=== PATIENT | male | born 1960 | race Caucasian/White ===

== ENCOUNTER → 2016-10-25 | Outpatient (CLI) | payer OTHER ==
[~2016-10-25] MED LIST: ACID1TAB PO; ACYC800T PO; ASP325T PO; ASPI325T32 PO; ATOR40TA PO; ATOR40TA70 PO; BMT1T PO; CEPH500C PO; CRV25T PO; DIGO250T PO; DIGO250T15 PO; DOXY100T61 PO; FENO135C PO; FENO135C4 PO; LEVO500T69 PO; LISI-597 PO; LISI40TA PO; LOPE2CAP PO; MTF500T PO; NAPR-243 PO; NST15O TOP; NYST15CR3 TOP; NYST1POW15 TOP; OMEG1CAP51 PO; OMG1KC PO; PRAV40TA PO; RIVA20TA2 PO; SIMV40TA4 PO; SITA50TA PO; SPIR25TA3 PO; SPRN25T PO; SULF1TAB35 PO; SULF1TAB38 PO; WRF10T PO; WRF2.5T PO; WRF5T PO; XAREL PO
== END ==
LOC: CARD 12:38
PROVIDERS: ATTEND Physician Assistant
DX: I11.0 Hypertensive heart disease with heart failure (principal); I50.22 Chronic systolic (congestive) heart failure; E78.2 Mixed hyperlipidemia; E11.9 Type 2 diabetes mellitus without complications
CPT/HCPCS: 93306

== ENCOUNTER → 2017-12-24 | Outpatient (CLI) | payer OTHER ==
[~2017-12-24] VITALS: Ht 167.6 cm; Wt 126.1 kg
[~2017-12-24] MED LIST changes: +CATHETER FLUSH 10 ML SYR IV PRN
== END ==
LOC: CARD 11:20
PROVIDERS: ATTEND Internal Medicine Cardiovascular Disease
DX: I10 Essential (primary) hypertension (principal); I34.0 Nonrheumatic mitral (valve) insufficiency; E78.2 Mixed hyperlipidemia; I48.0 Paroxysmal atrial fibrillation; I27.20 Pulmonary hypertension, unspecified; J44.9 Chronic obstructive pulmonary disease, unspecified

== ENCOUNTER → 2018-01-01 | Outpatient (CLI) | payer OTHER ==
[~2018-01-01] MED LIST changes: -CATHETER FLUSH 10 ML SYR IV PRN
== END ==
LOC: CARD 12:51
PROVIDERS: ATTEND Internal Medicine Cardiovascular Disease
DX: I10 Essential (primary) hypertension (principal); I34.0 Nonrheumatic mitral (valve) insufficiency; E78.2 Mixed hyperlipidemia; I48.0 Paroxysmal atrial fibrillation; I27.20 Pulmonary hypertension, unspecified; J44.9 Chronic obstructive pulmonary disease, unspecified
CPT/HCPCS: 93306

== ENCOUNTER 2018-06-05 13:52 | Emergency (ER) | payer OTHER ==
[~2018-06-05] VITALS: Ht 167.6 cm; Wt 124.7 kg
--- OUTSIDE RECORDS SUMMARY | 2018-06-05 14:00 | XMS REPORT | CCD ---
Author Author [facility] Address [address] [place] [address] Phone Care Team Providers Care Manager Licensing Name Role Phone PP Unavailable CCM Unavailable Summary Purpose Interface Exchange Insurance Providers Payer name Policy type / Coverage type Covered democrat ID Effective Begin Date Effective End Date [facility] Commercial Insurance [id number] Unknown Family history Father Diagnosis Age At Onset Congestive heart failure Unknown Mother Diagnosis Age At Onset No Family Disease Entered N/A Sister Diagnosis Age At Onset No Family Disease Entered N/A Social History Social History Element Codes Description Effective Dates Tobacco history SNOMED CT: 1917339 Former smoker 10/29/2011 Number of years using tobacco Unknown 20 22 10/29/2011 Alcohol history Unknown occasionally drinks alcohol had 2 glasses of wine about 4 months ago. beer occasionally 10/29/2011 Has the patient used marijuana? Unknown Yes quit at age 25 10/29/2011 Allergies, Adverse Reactions, Alerts Substance Reaction Codes Entered Date Inactivated Date Status * NO KNOWN DRUG ALLERGIES Unknown 10/29/2011 No Inactive Date Active Past Medical History Illness Codes Condition Status Onset Date Resolved Date Cellulitis of left lower limb ICD-9: 682.6 ICD-10: L03.116 Active 11/16/2015 Unknown Localized edema ICD-9 : 782.3 ICD-10: R60.0 Active 11/16/2015 Unknown Type 2 diabetes mellitus without complications ICD-9: 250.00 ICD-10: E11.9 Active 11/16/2015 Unknown Essential (primary) hypertension ICD-9: 401.9 ICD-10: I10 Active 09/20/2015 Unknown Mixed hyperlipidemia ICD-9: 272.2 ICD-10: E78.2 Active 09/20/2015 Unknown Other obesity due to excess calories ICD-9: 278.00 ICD-10: E66.09 Active 09/20/2015 Unknown CELLULITIS OF LEG ICD- 9: 682.6 Active 11/24/2013 Unknown Cough ICD-9: 786.2 Active 11/24/2013 Unknown EDEMA ICD-9: 782.3 Active 11/24/2013 Unknown FEVER NOS ICD-9: 780.60 Active 11/24/2013 Unknown SCABIES ICD-9: 133.0 Active 10/15/2013 Unknown Abrasion of leg ICD-9 : 916.0 Active 11/26/2012 Unknown Hordeolum externum of right eye ICD-9: 373.11 Active 2011 Unknown Periorbital cellulitis ICD-9: 373.13 Active 04/07/2012 Unknown Diabetes Unknown Active 11/14/2011 Unknown DIABETES TYPE II ICD-9 : 250.00 Active 11/14/2011 Unknown ESSENTIAL HYPERTENSION ICD-9: 401.9 Active 11/14/2011 Unknown Congestive heart failure Unknown Active 10/29/2011 Unknown Hyperlipidemia Unknown Active 10/29/2011 Unknown Hypertension Unknown Active 10/29/2011 Unknown Anticoagulant long-term use ICD-9: V58.61 Active 10/29/2011 Unknown Coronary artery disease ICD-9: 414.00 Active 10/29/2011 Unknown Hypotension ICD-9: 458.9 Active 10/29/2011 Unknown Leg pain ICD-9: 729.5 Active 10/29/2011 Unknown Nausea vomiting and diarrhea ICD-9: 787.01 Active 10/29/2011 Unknown Problems Condition Codes Effective Dates Condition Status Cellulitis of left lower limb ICD-9: 682.6 ICD-10: L03.116 11/16/2015 Active Localized edema ICD-9 : 782.3 ICD-10: R60.0 11/16/2015 Active Type 2 diabetes mellitus without complications ICD-9: 250.00 ICD-10: E11.9 11/16/2015 Active Essential (primary) hypertension ICD-9: 401.9 ICD-10: I10 09/20/2015 Active Mixed hyperlipidemia ICD-9: 272.2 ICD-10: E78.2 09/20/2015 Active Other obesity due to excess calories ICD-9: 278.00 ICD-10: E66.09 09/20/2015 Active CELLULITIS OF LEG ICD- 9: 682.6 11/24/2013 Active Cough ICD-9: 786.2 11/24/2013 Active EDEMA ICD-9: 782.3 11/24/2013 Active FEVER NOS ICD-9: 780.60 11/24/2013 Active SCABIES ICD-9: 133.0 10/15/2013 Active Abrasion of leg ICD-9 : 916.0 11/26/2012 Active Hordeolum externum of right eye ICD-9: 373.11 04/07/2012 Active Periorbital cellulitis ICD-9: 373.13 04/07/2012 Active Diabetes Unknown 11/14/2011 Active DIABETES TYPE II ICD-9 : 250.00 11/14/2011 Active ESSENTIAL HYPERTENSION ICD-9: 401.9 11/14/2011 Active Congestive heart failure Unknown 10/29/2011 Active Hyperlipidemia Unknown 10/29/2011 Active Hypertension Unknown 10/29/2011 Active Anticoagulant long-term use ICD-9: V58.61 10/29/2011 Active Coronary artery disease ICD-9: 414.00 10/29/2011 Active Hypotension ICD-9: 458.9 10/29/2011 Active Leg pain ICD-9: 729.5 10/29/2011 Active Nausea vomiting and diarrhea ICD-9: 787.01 10/29/2011 Active Medications Medication Codes Instructions Start Date Stop Date Status Fill Instructions spironolactone 25 mg tablet RxNorm: 385168 TAKE ONE-HALF (1/2) TABLET DAILY 04/20/2018 No Stop Date Active Trilipix 135 mg capsule,delayed release RxNorm: 412710 TAKE 1 CAPSULE DAILY 04/20/2018 No Stop Date Active lisinopril 40 mg tablet RxNorm: 274257 TAKE ONE-HALF (1/2) TABLET DAILY 02/25/2018 No Stop Date Active metformin 500 mg tablet RxNorm: 726479 Tablet(s) TAKE ONE TABLET BY MOUTH TWICE DAILY 11/14/2017 11/08/2018 Active carvedilol 25 mg tablet RxNorm: 748985 TAKE ONE TABLET BY MOUTH TWICE DAILY 06/06/2017 No Stop Date Active metformin 500 mg tablet RxNorm: 250905 TAKE ONE TABLET BY MOUTH TWICE DAILY 06/06/2017 11/13/2017 Inactive Januvia 100 mg tablet RxNorm: 376518 TAKE 1 TABLET DAILY 2017 No Stop Date Active Trilipix 135 mg capsule,delayed release RxNorm: 142680 TAKE 1 CAPSULE DAILY 04/22/2017 04/19/2018 Inactive spironolactone 25 mg tablet RxNorm: 454030 TAKE ONE-HALF (1/2) TABLET DAILY 02/11/2017 04/19/2018 Inactive Januvia 100 mg tablet RxNorm: 158302 TAKE 1 TABLET DAILY 201604/28/2017 Inactive lisinopril 40 mg tablet RxNorm: 676952 TAKE ONE-HALF (1/2) TABLET DAILY 12/24/2016 02/24/2018 Inactive nystatin 100,000 unit/gram topical powder RxNorm: 131451 1 Application TOP BID 11/11/2016 05/09/2017 Inactive Trilipix 135 mg capsule,delayed release RxNorm: 536589 TAKE 1 CAPSULE DAILY 11/11/2016 04/21/2017 Inactive carvedilol 25 mg tablet RxNorm: 382709 TAKE ONE TABLET BY MOUTH TWICE DAILY 09/23/2016 03/21/2017 Inactive metformin 500 mg tablet RxNorm: 375320 1 Tablet(s) PO BID 04/0901/03/2017 Inactive metformin 500 mg tablet RxNorm: 326838 TAKE ONE TABLET BY MOUTH TWICE DAILY 04/09/2016 05/08/2016 Inactive carvedilol 25 mg tablet RxNorm: 108182 TAKE ONE TABLET BY MOUTH TWICE DAILY 03/25/2016 09/20/2016 Inactive metformin 500 mg tablet RxNorm: 014159 1 Tablet(s) BID 201504/08/2016 Inactive metformin 500 mg tablet RxNorm: 228352 1 Tablet(s) PO BID 01/2501/29/2016 Inactive digoxin 250 mcg tablet RxNorm: 678774 TAKE ONE-HALF (1/2) TABLET DAILY 01/15/2016 No Stop Date Active Trilipix 135 mg capsule,delayed release RxNorm: 787076 TAKE 1 CAPSULE DAILY 01/01/2016 11/10/2016 Inactive spironolactone 25 mg tablet RxNorm: 712677 TAKE ONE-HALF (1/2) TABLET DAILY 12/26/2015 02/10/2017 Inactive lisinopril 40 mg tablet RxNorm: 238350 TAKE ONE-HALF (1/2) TABLET DAILY 12/18/2015 12/23/2016 Inactive Januvia 100 mg tablet RxNorm: 800819 TAKE 1 TABLET DAILY 201501/20/2017 Inactive ceftriaxone 500 mg solution for injection RxNorm: 2540916 Inj 11/17/2015 11/17/2015 Inactive Bactrim DS 800 mg-160 mg tablet RxNorm: 305127 1 Tablet(s) PO BID 11/17/2015 11/23/2015 Inactive metformin 500 mg tablet RxNorm: 289869 1 Tablet(s) PO BID 11/1401/25/2016 Inactive increase Aspir-81 81 mg tablet,delayed release RxNorm: 865868 1 Tablet(s) PO daily 09/21/2015 No Stop Date Active metformin 500 mg tablet RxNorm: 370424 1/2 Tablet(s) PO BID Tablet(s) TAKE ONE- HALF TABLET BY MOUTH TWICE DAILY 09/21/2015 11/14/2015 Inactive carvedilol 25 mg tablet RxNorm: 752951 1 Tablet(s) PO BID 09/2003/18/2016 Inactive Trilipix 135 mg capsule,delayed release RxNorm: 616720 CAPSULE(S) TAKE 1 CAPSULE DAILY 07/04/2015 12/31/2015 Inactive Contour Test Strips RxNorm: USE TO TEST EVERY MORNING AND EVERY EVENING DIRECTED 06/23/2015 No Stop Date Active metformin 500 mg tablet RxNorm: 747933 Tablet(s) TAKE ONE-HALF TABLET BY MOUTH TWICE DAILY 06/01/2015 06/30/2015 Inactive metformin 500 mg tablet RxNorm: 047747 Tablet(s) TAKE ONE-HALF TABLET BY MOUTH TWICE DAILY 02/16/2015 05/31/2015 Inactive lisinopril 40 mg tablet RxNorm: 912705 TAKE ONE-HALF (1/2) TABLET DAILY 01/10/2015 12/17/2015 Inactive metformin 500 mg tablet RxNorm: 860725 Tablet(s) TAKE ONE-HALF TABLET BY MOUTH TWICE DAILY 11/22/2014 03/21/2015 Inactive metformin 500 mg tablet RxNorm: 547163 Tablet(s) TAKE ONE-HALF TABLET BY MOUTH TWICE DAILY 11/21/2014 11/21/2014 Inactive digoxin 250 mcg tablet RxNorm: 301917 Tablet(s) TAKE ONE-HALF (1/2) TABLET DAILY 11/14/2014 08/10/2015 Inactive spironolactone 25 mg tablet RxNorm: 711643 TAKE ONE-HALF (1/2) TABLET DAILY 10/26/2014 12/25/2015 Inactive spironolactone 25 mg tablet RxNorm: 060601 Tablet(s) TAKE ONE-HALF (1/2) TABLET DAILY 10/25/2014 10/25/2014 Inactive Januvia 100 mg tablet RxNorm: 789403 TAKE 1 TABLET DAILY 201411/19/2015 Inactive Bactrim DS 800 mg-160 mg tablet RxNorm: 383049 1 Tablet(s) PO BID TAKE ONE TABLET BY MOUTH TWICE DAILY 09/20/20142014 Inactive Contour Test Strips RxNorm: USE TO TEST EVERY MORNING AND EVERY EVENING DIRECTED 08/08/2014 06/22/2015 Inactive Trilipix 135 mg capsule,delayed release RxNorm: 395175 Capsule(s) TAKE 1 CAPSULE DAILY 07/27/2014 01/22/2015 Inactive metformin 500 mg tablet RxNorm: 236170 Tablet(s) TAKE ONE-HALF TABLET BY MOUTH TWICE DAILY 06/06/2014 06/05/2014 Inactive metformin 500 mg tablet RxNorm: 997652 TAKE ONE-HALF TABLET BY MOUTH TWICE DAILY 06/06/2014 09/03/2014 Inactive digoxin 250 mcg tablet RxNorm: 913182 TAKE ONE-HALF (1/2) TABLET DAILY 04/28/2014 11/13/2014 Inactive spironolactone 25 mg tablet RxNorm: 032839 TAKE ONE-HALF (1/2) TABLET DAILY 04/28/2014 10/24/2014 Inactive Trilipix 135 mg capsule,delayed release RxNorm: 461919 TAKE 1 CAPSULE DAILY 04/28/2014 07/26/2014 Inactive Januvia 100 mg tablet RxNorm: 975102 TAKE 1 TABLET DAILY 201309/19/2014 Inactive metformin 500 mg tablet RxNorm: 770572 TAKE ONE-HALF TABLET BY MOUTH TWICE DAILY 01/11/2014 06/05/2014 Inactive Januvia 100 mg tablet RxNorm: 763921 1 TABLET(S) PO DAILY TAKE ONE TABLET BY MOUTH EVERY DAY 12/30/2013 03/29/2014 Inactive Bactroban 2 % topical ointment RxNorm: 863427 1 TOP BID 2013 No Stop Date Active sulfamethoxazole 800 mg-trimethoprim 160 mg tablet RxNorm: 638737 1 Tablet(s) PO BID 12/08/2013 12/17/2013 Inactive sulfamethoxazole 800 mg-trimethoprim 160 mg tablet RxNorm: 628956 1 Tablet(s) PO BID 12/08/2013 12/07/2013 Inactive lisinopril 40 mg tablet RxNorm: 190716 1/2 Tablet(s) PO daily 12/02/2013 03/01/2014 Inactive lisinopril 40 mg tablet RxNorm: 796706 1/2 Tablet(s) PO daily 1/2 TABLET(S) PO DAILY 12/02/2013 01/30/2014 Inactive ceftriaxone 1 gram solution for injection RxNorm: 485278 Inj 11/25/2013 Inactive Rocephin 500 mg solution for injection RxNorm: 613114 1 Gram(s) Inj once 11/24/2013 11/24/2013 Inactive sulfamethoxazole 800 mg-trimethoprim 160 mg tablet RxNorm: 247502 1 Tablet(s) PO BID 11/24/2013 12/07/2013 Inactive permethrin 5 % topical cream RxNorm: 390396 1 Application TOP daily 10/19/2013 No Stop Date Active apply head to toe, leave on 12 hours then wash off, may repeat x 1 if needed permethrin 5 % topical cream RxNorm: 760157 1 Application TOP daily 10/15/2013 10/18/2013 Inactive apply head to toe, leave on 12 hours then wash off, may repeat x 1 if needed metformin 500 mg tablet RxNorm: 621960 TAKE ONE-HALF TABLET BY MOUTH TWICE DAILY 10/05/2013 01/02/2014 Inactive Contour Test Strips RxNorm: Miscellaneous USE TO TEST BLOOD SUGAR TWICE A DAY 06/28/2013 08/07/2014 Inactive spironolactone 25 mg tablet RxNorm: 987426 Tablet(s) PO TAKE ONE-HALF (1/2) TABLET DAILY 06/18/2013 04/27/2014 Inactive Trilipix 135 mg capsule,delayed release RxNorm: 164118 Capsule(s) PO TAKE 1 CAPSULE DAILY 06/18/2013 04/27/2014 Inactive digoxin 250 mcg tablet RxNorm: 906364 Tablet(s) PO TAKE ONE-HALF (1/2) TABLET DAILY 06/18/2013 04/27/2014 Inactive metformin 500 mg tablet RxNorm: 494216 1/2 Tablet(s) PO BID 09/30/2013 Inactive Microlet Lancet RxNorm : 1 Miscellaneous BID 05/31/2013 08/23/2014 Inactive Microlet Lancet RxNorm : 1 Miscellaneous BID 05/31/2013 05/30/2013 Inactive nystatin 100,000 unit/gram topical powder RxNorm: 373719 1 Application TOP BID 05/31/2013 08/28/2013 Inactive Januvia 100 mg tablet RxNorm: 023751 1 Tablet(s) PO daily TAKE ONE TABLET BY MOUTH EVERY DAY 05/31/2013 11/26/2013 Inactive nystatin 100,000 unit/gram topical powder RxNorm: 319928 1 Application TOP BID 05/17/2013 05/30/2013 Inactive Bactrim DS 800 mg-160 mg tablet RxNorm: 107000 1 Tablet(s) PO BID TAKE ONE TABLET BY MOUTH TWICE DAILY 05/17/20132013 Inactive Bactrim DS 800 mg-160 mg tablet RxNorm: 804757 Tablet(s) PO TAKE ONE TABLET BY MOUTH TWICE DAILY 12/03/2012 05/16/2013 Inactive Bactrim DS 800 mg-160 mg tablet RxNorm: 490337 1 Tablet(s) PO BID 11/26/2012 11/30/2012 Inactive lisinopril 40 mg tablet RxNorm: 830619 1/2 Tablet(s) PO daily 11/16/2012 12/01/2013 Inactive Januvia 100 mg tablet RxNorm: 375946 1 Tablet(s) PO daily TAKE ONE TABLET BY MOUTH EVERY DAY 11/16/2012 05/30/2013 Inactive lisinopril 40 mg tablet RxNorm: 034671 Tablet(s) PO TAKE 1 TABLET DAILY 10/24/2012 11/15/2012 Inactive Contour Test Strips RxNorm: Strip Miscellaneous USE TO TEST BLOOD SUGAR TWICE A DAY 10/24/2012 06/28/2013 Inactive Trilipix 135 mg capsule,delayed release RxNorm: 109884 Capsule(s) PO TAKE 1 CAPSULE DAILY 10/14/2012 06/17/2013 Inactive Bactrim DS 800 mg-160 mg tablet RxNorm: 664871 1 Tablet(s) PO BID 10/07/2012 10/16/2012 Inactive Bactrim DS 800 mg-160 mg tablet RxNorm: 770895 1 Tablet(s) PO BID 10/07/2012 10/06/2012 Inactive Januvia 100 mg tablet RxNorm: 838787 1 Tablet(s) PO daily 201201/18/2013 Inactive may have #90 if cheaper digoxin 250 mcg tablet RxNorm: 0019415 1/2 tab MWF sat sun, 1 tab tues thurs Tablet(s) PO daily 1/2 tab MWF sat sun, 1 tab tues thurs 06/201209/20/2015 Inactive TAKE 1 TABLET DAILY digoxin 250 mcg tablet RxNorm: 0628817 1/2 Tablet(s) PO daily 04/07/2012 09/20/2012 Inactive TAKE 1 TABLET DAILY sulfamethoxazole-trimethoprim 800 mg-160 mg tablet RxNorm: 465966 1 Tablet(s) PO BID 04/07/2012 04/13/2012 Inactive Januvia 100 mg tablet RxNorm: 524770 1/2 Tablet(s) PO daily 08/04/2012 Inactive may have #90 if cheaper Rocephin 500 mg Solution for Injection RxNorm: 026735 1 Inj 04/07/2012 Inactive Gentak 0.3 % Eye Drops RxNorm: 184208 3 Drop(s) OPH QID 3 drops 4 times daily x 7 days 04/07/2012 04/13/2012 Inactive spironolactone 25 mg tablet RxNorm: 833217 1/2 Tablet(s) PO daily 04/07/2012 06/17/2013 Inactive TAKE 1 TABLET DAILY Coumadin 5 mg tablet RxNorm: 526017 Tablet(s) PO Luz manages 02/28/2012 08/26/2012 Inactive 7.5 mg mon wed [id number] other daysDrFarheen Escobar manages Januvia 100 mg tablet RxNorm: 569619 1 Tablet(s) PO 02/20/2012 11/16/2012 Inactive may have #90 if cheaper Trilipix 135 mg capsule,delayed release RxNorm: 508266 Capsule(s) PO 02/10/2012 06/16/2012 Inactive TAKE 1 CAPSULE DAILY digoxin 250 mcg tablet RxNorm: 8086072 Tablet(s) PO 02/10/2012 04/06/2012 Inactive TAKE 1 TABLET DAILY spironolactone 25 mg tablet RxNorm: 275074 Tablet(s) PO 201104/06/2012 Inactive TAKE 1 TABLET DAILY simvastatin 80 mg tablet RxNorm: 038966 Tablet(s) PO 201111/15/2012 Inactive TAKE ONE-HALF TABLET BY MOUTH EVERY DAY Januvia 50 mg tablet RxNorm: 993391 1 Tablet(s) PO daily 201102/19/2012 Inactive simvastatin 80 mg tablet RxNorm: 988825 1/2 Tablet(s) PO daily 11/07/2011 12/02/2011 Inactive lisinopril 40 mg tablet RxNorm: 137518 1 Tablet(s) PO daily 12/06/2011 Inactive spironolactone 25 mg tablet RxNorm: 102569 1 Tablet(s) PO daily 12/17/2010 03/16/2011 Inactive digoxin 250 mcg tablet RxNorm: 5950152 1 Tablet(s) PO daily 03/16/2011 Inactive Trilipix 135 mg capsule,delayed release RxNorm: 552877 1 Capsule(s) PO daily 12/17/2010 03/16/2011 Inactive spironolactone 25 mg Tab RxNorm: 770905 1 Tablet(s) PO daily No Start Date Active Lipitor 40 mg tablet RxNorm: 957034 1 Tablet(s) PO daily No Start Date Active Fish Oil 1,000 mg Cap RxNorm: 3 Capsule(s) PO daily No Start Date Active Trilipix 135 mg Capsule, delayed release RxNorm: 693596 1 Capsule(s) PO daily No Start Date Active bumetanide 1 mg Tab RxNorm: 939041 Tablet(s) PO PRN No Start Date Active Xarelto 20 mg tablet RxNorm: 6323224 1 Tablet(s) PO daily No Start Date Active simvastatin 80 mg tablet RxNorm: 943986 1/2 Tablet(s) PO daily No Start Date 11/06/2011 Inactive metformin 500 mg tablet RxNorm: 009602 1/2 Tablet(s) PO BID No Start Date 06/02/2013 Inactive carvedilol 25 mg Tab RxNorm: 448378 1 Tablet(s) PO BID No Start Date 09/20/2015 Inactive aspirin 325 mg tablet RxNorm: 632603 1 Tablet(s) PO daily No Start Date 09/20/2015 Inactive digoxin 250 mcg Tab RxNorm: 3062984 1/2 Tablet(s) PO daily No Start Date 09/20/2015 Inactive Coumadin 5 mg tablet RxNorm: 211711 Tablet(s) PO No Start Date 02/27/2012 Inactive 7.5 mg fri [id number] other days Bactroban 2 % topical ointment RxNorm: 064945 1 TOP BID No Start Date 12/07/2013 Inactive Contour Test Strips RxNorm: 1 Miscellaneous BID No Start Date 10/23/2012 Inactive countour ts lisinopril 40 mg tablet RxNorm: 139960 1 Tablet(s) PO daily No Start Date 11/06/2011 Inactive Medication Administered Medication Codes Instructions Start Date Status ceftriaxone 500 mg solution for injection RxNorm: 4640638 11/17/2015 No longer Active ceftriaxone 1 gram solution for injection RxNorm: 849698 11/25/2013 No longer Active Rocephin 500 mg solution for injection RxNorm: 491918 1Gramonce 11/24/2013 No longer Active Rocephin 500 mg Solution for Injection RxNorm: 901623 1 04/07/2012 No longer Active Immunizations No Immunization data Assessments Condition Codes Effective Dates Type 2 diabetes mellitus without complications ICD-10: E11.9 ICD-9: 250.00 11/17/2015 Localized edema ICD-10: R60.0 ICD-9: 782.3 11/17/2015 Cellulitis of left lower limb ICD-10: L03.116 ICD-9: 682.6 11/17/2015 Other obesity due to excess calories ICD-10: E66.09 ICD-9: 278.00 09/21/2015 Essential (primary) hypertension ICD-10: I10 ICD-9: 401.9 09/21/2015 Mixed hyperlipidemia ICD-10: E78.2 ICD-9: 272.2 09/21/2015 CELLULITIS OF LEG ICD-9: 682.6 2013 Cough ICD-9: 786.2 11/24/2013 FEVER NOS ICD-9: 780.60 11/24/2013 EDEMA ICD-9: 782.3 11/24/2013 SCABIES ICD-9: 133.0 10/15/2013 DIABETES TYPE II SNOMED: 453907922 ICD-9: 250.00 07/01/2013 Abrasion of leg ICD-9: 916.0 11/26/2012 Hypotension ICD-9: 458.9 11/16/2012 Hordeolum externum of right eye ICD-9: 373.11 04/07/2012 Periorbital cellulitis ICD-9: 373.13 ESSENTIAL HYPERTENSION SNOMED: 45919141 ICD-9: 401.9 11/14/2011 Leg pain ICD-9: 729.5 10/29/2011 Anticoagulant long-term use ICD-9: V58.61 10/29/2011 Nausea vomiting and diarrhea ICD-9: 787.01 10/29/2011 Coronary artery disease ICD-9: 414.00 01/2012 Reason For Visit Reason For Visit Effective Dates Notes cellulitis 11/17/2015 diabetes mellitus 09/21/2015 cellulitis 11/24/2013 no none injury to leg rash 10/15/2013 cellulitis 07/01/2013 rash 05/17/2013 cellulitis 11/26/2012 cellulitis 11/16/2012 Hospital Follow Up 08/27/2012 eye pain 04/07/2012 hospital follow up 11/14/2011 cellulitis 10/29/2011 Results Observation Observation Code Item Item Code Result Date Comp Metabolic Mup089 NA 133 mEq/L 11/17/2015 Comp Metabolic Nqg134 K 4.5 mEq/L 11/17/2015 Comp Metabolic Sfj964 CL 101 mEq/L 11/17/2015 Comp Metabolic Klt608 CO2 22.0 mEq/L 11/17/2015 Comp Metabolic Hsx561 ANION GAP 15 11/17/2015 Comp Metabolic Cuq461 GLUCOSE 197 mg/dL 11/17/2015 Comp Metabolic Vbl757 Creat 0.8 mg/dL 11/17/2015 Comp Metabolic Nqh835 eGFR 110 ml/min/1.73m2 11/17/2015 Comp Metabolic Edu603 BUN 20 mg/dL 11/17/2015 Comp Metabolic Lsx676 B/C Ratio 25.6 Ratio 11/17/2015 Comp Metabolic Hpz656 CALCIUM 9.4 mg/dL 11/17/2015 Comp Metabolic Nro712 ALK PHOS 65 U/L 11/17/2015 Comp Metabolic Fla310 AST(SGOT) 22 U/L 11/17/2015 Comp Metabolic Cqb724 ALT(SGPT) 40 U/L 11/17/2015 Comp Metabolic Ekg327 BILI T 0.5 mg/dL 11/17/2015 Comp Metabolic Tkv147 ALBUMIN 4.2 g/dL 11/17/2015 Comp Metabolic Mei611 TPRO 7.0 g/dL 11/17/2015 Comp Metabolic Oia812 GLOB 2.8 g/dL 11/17/2015 Comp Metabolic Acv845 A/G Ratio 1.5 Ratio 11/17/2015 Comp Metabolic Tmj230 Osmo 274 mOsmo 11/17/2015 Cbc With Differential Ord2 WBC 15.23 K/ul 11/17/2015 Cbc With Differential Ord2 RBC 5.41 M/ul 11/17/2015 Cbc With Differential Ord2 HGB 16.0 g/dl 11/17/2015 Cbc With Differential Ord2 Neut% 88.2 % 11/17/2015 Cbc With Differential Ord2 HCT 47.7 % 11/17/2015 Cbc With Differential Ord2 MCV 88.2 fl 11/17/2015 Cbc With Differential Ord2 Lymph% 4.5 % 11/17/2015 Cbc With Differential Ord2 Sharp% 7.0 % 11/17/2015 Cbc With Differential Ord2 MCH 29.6 pg 11/17/2015 Cbc With Differential Ord2 Eos% 0.2 % 11/17/2015 Cbc With Differential Ord2 MCHC 33.5 pg 11/17/2015 Cbc With Differential Ord2 PLT 157 K/ul 11/17/2015 Cbc With Differential Ord2 Baso% 0.1 % 11/17/2015 Cbc With Differential Ord2 Neut ABS# 13.44 K/ul 11/17/2015 Cbc With Differential Ord2 RDW 13.8 % 11/17/2015 Cbc With Differential Ord2 Lymph ABS# 0.68 K/ul 11/17/2015 Cbc With Differential Ord2 Sharp ABS# 1.1 K/ul 11/17/2015 Cbc With Differential Ord2 Eos ABS# 0.0 K/ul 11/17/2015 Cbc With Differential Ord2 Baso ABS# 0.0 K/ul 11/17/2015 Cbc With Differential Ord2 WBC 8.61 K/ul 11/08/2015 Cbc With Differential Ord2 RBC 5.54 M/ul 11/08/2015 Cbc With Differential Ord2 HGB 16.3 g/dl 11/08/2015 Cbc With Differential Ord2 Neut% 64.5 % 11/08/2015 Cbc With Differential Ord2 HCT 48.4 % 11/08/2015 Cbc With Differential Ord2 MCV 87.4 fl 11/08/2015 Cbc With Differential Ord2 Lymph% 24.4 % 11/08/2015 Cbc With Differential Ord2 MCH 29.4 pg 11/08/2015 Cbc With Differential Ord2 Sharp% 10.2 % 11/08/2015 Cbc With Differential Ord2 Eos% 0.7 % 11/08/2015 Cbc With Differential Ord2 MCHC 33.7 pg 11/08/2015 Cbc With Differential Ord2 Baso% 0.2 % 11/08/2015 Cbc With Differential Ord2 PLT 168 K/ul 11/08/2015 Cbc With Differential Ord2 RDW 13.7 % 11/08/2015 Cbc With Differential Ord2 Neut ABS# 5.55 K/ul 11/08/2015 Cbc With Differential Ord2 Lymph ABS# 2.10 K/ul 11/08/2015 Cbc With Differential Ord2 Sharp ABS# 0.9 K/ul 11/08/2015 Cbc With Differential Ord2 Eos ABS# 0.1 K/ul 11/08/2015 Cbc With Differential Ord2 Baso ABS# 0.0 K/ul 11/08/2015 Microalbumin Pgp286 MicroAlb <0.7 mg/dL 11/08/2015 Tsh Ord6 hTSH II 0.65 uIU/mL 11/08/2015 Lipid Ord30 CHOL 157 mg/dL 11/08/2015 Lipid Ord30 HDL 30.0 mg/dl 11/08/2015 Lipid Ord30 TRIG 228 mg/dL 11/08/2015 Lipid Ord30 LDL 81 mg/dL 11/08/2015 Lipid Ord30 C/HDL 5.2 Ratio 11/08/2015 Comp Metabolic Wyz672 NA 130 mEq/L 11/08/2015 Comp Metabolic Hmw317 K 4.4 mEq/L 11/08/2015 Comp Metabolic Cpd356 CL 97 mEq/L 11/08/2015 Comp Metabolic Gst897 CO2 27.0 mEq/L 11/08/2015 Comp Metabolic Dqb825 ANION GAP 10 11/08/2015 Comp Metabolic Ksi694 GLUCOSE 175 mg/dL 11/08/2015 Comp Metabolic Dgg078 Creat 0.8 mg/dL 11/08/2015 Comp Metabolic Gbs386 eGFR 104 ml/min/1.73m2 11/08/2015 Comp Metabolic Qkj953 BUN 26 mg/dL 11/08/2015 Comp Metabolic Tkz306 B/C Ratio 31.7 Ratio 11/08/2015 Comp Metabolic Wkq339 CALCIUM 9.3 mg/dL 11/08/2015 Comp Metabolic Qoa165 ALK PHOS 68 U/L 11/08/2015 Comp Metabolic Tqt444 AST(SGOT) 26 U/L 11/08/2015 Comp Metabolic Hwd914 ALT(SGPT) 42 U/L 11/08/2015 Comp Metabolic Zas310 BILI T 0.7 mg/dL 11/08/2015 Comp Metabolic Jsb903 ALBUMIN 4.3 g/dL 11/08/2015 Comp Metabolic Czx812 TPRO 7.0 g/dL 11/08/2015 Comp Metabolic Pcx336 GLOB 2.7 g/dL 11/08/2015 Comp Metabolic Qxd190 A/G Ratio 1.6 Ratio 11/08/2015 Comp Metabolic Dvh156 Osmo 270 mOsmo 11/08/2015 Total Psa Ord10 PSA 1.26 ng/mL 11/08/2015 %Hba1C Fie547 % HbA1c 40314-0 8.2 % 11/08/2015 %Hba1C Dfr456 Gluc Ave 189 mg/dL 11/08/2015 Lipid Ord30 CHOL 155 mg/dL 01/23/2015 Lipid Ord30 HDL 34.0 mg/dl 01/23/2015 Lipid Ord30 TRIG 198 mg/dL 01/23/2015 Lipid Ord30 LDL 81 mg/dL 01/23/2015 Lipid Ord30 C/HDL 4.6 Ratio 01/23/2015 Hepatic Gpu418 ALBUMIN 4.2 g/dL 01/23/2015 Hepatic Oet178 TPRO 6.9 g/dL 01/23/2015 Hepatic Hen291 GLOB 2.7 g/dL 01/23/2015 Hepatic Rzg515 A/G Ratio 1.6 Ratio 01/23/2015 Hepatic Znp782 ALK PHOS 59 U/L 01/23/2015 Hepatic Fiq317 ALT(SGPT) 46 U/L 01/23/2015 Hepatic Cmd483 AST(SGOT) 21 U/L 01/23/2015 Hepatic Xxs790 BILI T 0.5 mg/dL 01/23/2015 Hepatic Mgh428 BILI D 0.1 mg/dL 01/23/2015 Hepatic Azu059 BILI I 0.4 mg/dL 01/23/2015 Review of Systems System Result Effective Dates Constitutional recent illness 11/17/2015 Constitutional anorexia 11/17/2015 Constitutional No night sweats 2015 Constitutional chills 11/17/2015 Constitutional No diaphoresis 11/17/2015 Constitutional fatigue 11/17/2015 Constitutional fever 11/17/2015 Constitutional No insomnia 11/17/2015 Constitutional No malaise 11/17/2015 Constitutional No weight loss 11/17/2015 Constitutional No weight gain 11/17/2015 Eyes No eye erythema 11/17/2015 Eyes No eye discharge 11/17/2015 Ears/Nose/Throat/Neck dizziness 2015 Ears/Nose/Throat/Neck headache 2015 Cardiovascular No chest pain/pressure Cardiovascular No dyspnea 11/17/2015 Respiratory No productive sputum 2015 Respiratory No chest congestion 2015 Respiratory dyspnea on exertion 2015 Gastrointestinal No abdominal pain 2015 Gastrointestinal No constipation 2015 Gastrointestinal diarrhea 11/17/2015 Gastrointestinal No vomiting 11/17/2015 Gastrointestinal No nausea 11/17/2015 Genitourinary/Nephrology No dysuria 11/16 Musculoskeletal joint complaint 2015 Dermatologic erythema 11/17/2015 Neurologic No alteration of consciousness 11/17/2015 Psychiatric No anxiety 11/17/2015 Constitutional No insomnia 09/21/2015 Eyes No eye discharge 09/21/2015 Eyes No eye erythema 09/21/2015 Ears/Nose/Throat/Neck No dizziness 2015 Ears/Nose/Throat/Neck No nasal allergies 09/21/2015 Ears/Nose/Throat/Neck No nasal discharge 09/21/2015 Ears/Nose/Throat/Neck No otalgia 2015 Ears/Nose/Throat/Neck No sore throat 05/2015 Cardiovascular No chest pain/pressure 05/2015 Respiratory No productive sputum 2015 Respiratory No chest congestion 2015 Respiratory No cough 09/21/2015 Genitourinary/Nephrology No dysuria 09/20 Neurologic No alteration of consciousness 09/21/2015 Psychiatric No anxiety 09/21/2015 Psychiatric No depression 09/21/2015 Gastrointestinal No abdominal pain 2015 Gastrointestinal No diarrhea 09/21/2015 Gastrointestinal No constipation 2015 Musculoskeletal No joint complaint 2015 Dermatologic No rash 09/21/2015 Cardiovascular edema 09/21/2015 Constitutional No recent illness 2015 Constitutional No anorexia 09/21/2015 Constitutional No night sweats 2015 Constitutional No chills 09/21/2015 Constitutional No diaphoresis 09/21/2015 Constitutional No fatigue 09/21/2015 Constitutional No fever 09/21/2015 Constitutional No malaise 09/21/2015 Constitutional No weight loss 09/21/2015 Constitutional No weight gain 09/21/2015 Constitutional No recent illness 2013 Constitutional No anorexia 11/24/2013 Constitutional No night sweats 2013 Constitutional No chills 11/24/2013 Constitutional No diaphoresis 11/24/2013 Constitutional No fatigue 11/24/2013 Constitutional No fever 11/24/2013 Constitutional No insomnia 11/24/2013 Constitutional No malaise 11/24/2013 Eyes No eye discharge 11/24/2013 Eyes No eye erythema 11/24/2013 Ears/Nose/Throat/Neck No dizziness 2013 Ears/Nose/Throat/Neck No headache 2013 Cardiovascular No chest pain/pressure 09/2013 Cardiovascular No dyspnea 11/24/2013 Cardiovascular edema 11/24/2013 Respiratory No productive sputum 2013 Respiratory No chest congestion 2013 Respiratory No cough 11/24/2013 Gastrointestinal No abdominal pain 2013 Gastrointestinal No constipation 2013 Gastrointestinal No diarrhea 11/24/2013 Gastrointestinal No nausea 11/24/2013 Gastrointestinal No vomiting 11/24/2013 Genitourinary/Nephrology No dysuria 11/24 Musculoskeletal No joint complaint 2013 Neurologic No alteration of consciousness 11/24/2013 Dermatologic No sores 11/24/2013 Dermatologic pigmentation change 2013 Dermatologic cellulitis 11/24/2013 Psychiatric No depression 11/24/2013 Psychiatric No anxiety 11/24/2013 Constitutional No recent illness 2013 Constitutional No anorexia 10/15/2013 Constitutional No night sweats 2013 Constitutional No chills 10/15/2013 Constitutional No diaphoresis 10/15/2013 Constitutional No fatigue 10/15/2013 Constitutional No fever 10/15/2013 Constitutional No insomnia 10/15/2013 Constitutional No malaise 10/15/2013 Respiratory No cough 10/15/2013 Cardiovascular No chest pain/pressure Ears/Nose/Throat/Neck No dizziness 2013 Ears/Nose/Throat/Neck No headache 2013 Ears/Nose/Throat/Neck No nasal discharge 10/15/2013 Eyes No eye discharge 10/15/2013 Eyes No eye erythema 10/15/2013 Gastrointestinal No vomiting 10/15/2013 Gastrointestinal No nausea 10/15/2013 Gastrointestinal No diarrhea 10/15/2013 Musculoskeletal No joint complaint 2013 Dermatologic rash 10/15/2013 Constitutional No anorexia 07/01/2013 Constitutional No recent illness 2013 Constitutional No night sweats 2013 Constitutional No chills 07/01/2013 Constitutional No diaphoresis 07/01/2013 Constitutional No fatigue 07/01/2013 Constitutional No fever 07/01/2013 Constitutional No insomnia 07/01/2013 Constitutional No malaise 07/01/2013 Eyes No eye erythema 07/01/2013 Eyes No eye discharge 07/01/2013 Ears/Nose/Throat/Neck No dizziness 2013 Ears/Nose/Throat/Neck No headache 2013 Cardiovascular No chest pain/pressure Respiratory No cough 07/01/2013 Gastrointestinal No abdominal pain 2013 Gastrointestinal No constipation 2013 Gastrointestinal No diarrhea 07/01/2013 Gastrointestinal No vomiting 07/01/2013 Gastrointestinal No nausea 07/01/2013 Genitourinary/Nephrology No dysuria 07/01 Musculoskeletal No joint complaint 2013 Constitutional No recent illness 2013 Constitutional No anorexia 05/17/2013 Constitutional No night sweats 2013 Constitutional No chills 05/17/2013 Constitutional No diaphoresis 05/17/2013 Constitutional No fatigue 05/17/2013 Constitutional No fever 05/17/2013 Constitutional No insomnia 05/17/2013 Constitutional No malaise 05/17/2013 Eyes No eye discharge 05/17/2013 Eyes No eye erythema 05/17/2013 Ears/Nose/Throat/Neck No dizziness 2013 Ears/Nose/Throat/Neck No headache 2013 Cardiovascular No chest pain/pressure Cardiovascular No edema 05/17/2013 Cardiovascular No dyspnea 05/17/2013 Respiratory No productive sputum 2013 Respiratory No chest congestion 2013 Respiratory No cough 05/17/2013 Gastrointestinal No abdominal pain 2013 Gastrointestinal No constipation 2013 Gastrointestinal No diarrhea 05/17/2013 Gastrointestinal No vomiting 05/17/2013 Gastrointestinal No nausea 05/17/2013 Genitourinary/Nephrology No dysuria 05/17 Constitutional No recent illness 2012 Constitutional No anorexia 11/26/2012 Constitutional No night sweats 2012 Constitutional No chills 11/26/2012 Constitutional No diaphoresis 11/26/2012 Constitutional No fatigue 11/26/2012 Constitutional No fever 11/26/2012 Constitutional No insomnia 11/26/2012 Constitutional No malaise 11/26/2012 Eyes No eye discharge 11/26/2012 Eyes No eye erythema 11/26/2012 Ears/Nose/Throat/Neck No dizziness 2012 Ears/Nose/Throat/Neck No headache 2012 Cardiovascular No chest pain/pressure 11/2012 Cardiovascular No dyspnea 11/26/2012 Cardiovascular edema 11/26/2012 Respiratory No productive sputum 2012 Respiratory No chest congestion 2012 Respiratory No cough 11/26/2012 Gastrointestinal No abdominal pain 2012 Gastrointestinal No constipation 2012 Gastrointestinal No diarrhea 11/26/2012 Gastrointestinal No nausea 11/26/2012 Gastrointestinal No vomiting 11/26/2012 Genitourinary/Nephrology No dysuria 11/26 Musculoskeletal No joint complaint 2012 Neurologic No alteration of consciousness 11/26/2012 Constitutional No recent illness 2012 Constitutional No anorexia 11/16/2012 Constitutional No night sweats 2012 Constitutional No chills 11/16/2012 Constitutional No diaphoresis 11/16/2012 Constitutional No fatigue 11/16/2012 Constitutional No fever 11/16/2012 Constitutional No insomnia 11/16/2012 Constitutional No malaise 11/16/2012 Eyes No eye discharge 11/16/2012 Eyes No eye erythema 11/16/2012 Ears/Nose/Throat/Neck No dizziness 2012 Ears/Nose/Throat/Neck No headache 2012 Cardiovascular No chest pain/pressure Cardiovascular No dyspnea 11/16/2012 Cardiovascular edema 11/16/2012 Respiratory No productive sputum 2012 Respiratory No chest congestion 2012 Respiratory No cough 11/16/2012 Gastrointestinal No abdominal pain 2012 Gastrointestinal No constipation 2012 Gastrointestinal No diarrhea 11/16/2012 Gastrointestinal No nausea 11/16/2012 Gastrointestinal No vomiting 11/16/2012 Genitourinary/Nephrology No dysuria 11/16 Musculoskeletal No joint complaint 2012 Neurologic No alteration of consciousness 11/16/2012 Constitutional No recent illness 2012 Constitutional No anorexia 08/27/2012 Constitutional No night sweats 2012 Constitutional No chills 08/27/2012 Constitutional No diaphoresis 08/27/2012 Constitutional No fatigue 08/27/2012 Constitutional No fever 08/27/2012 Constitutional No insomnia 08/27/2012 Constitutional No malaise 08/27/2012 Eyes No eye discharge 08/27/2012 Eyes No eye erythema 08/27/2012 Ears/Nose/Throat/Neck No dizziness 2012 Ears/Nose/Throat/Neck No headache 2012 Cardiovascular No chest pain/pressure 12/2012 Cardiovascular No dyspnea 08/27/2012 Cardiovascular edema 08/27/2012 Respiratory No productive sputum 2012 Respiratory No chest congestion 2012 Respiratory No cough 08/27/2012 Gastrointestinal No abdominal pain 2012 Gastrointestinal No constipation 2012 Gastrointestinal No diarrhea 08/27/2012 Gastrointestinal No nausea 08/27/2012 Gastrointestinal No vomiting 08/27/2012 Genitourinary/Nephrology No dysuria 08/27 Dermatologic No rash 08/27/2012 Dermatologic No sores 08/27/2012 Musculoskeletal No joint complaint 2012 Neurologic No alteration of consciousness 08/27/2012 Constitutional recent illness 04/07/2012 Constitutional No chills 04/07/2012 Constitutional No fatigue 04/07/2012 Constitutional No fever 04/07/2012 Constitutional No insomnia 04/07/2012 Constitutional No malaise 04/07/2012 Cardiovascular No chest pain/pressure Cardiovascular No dyspnea 04/07/2012 Cardiovascular No edema 04/07/2012 Cardiovascular No exercise intolerance Cardiovascular No fatigue 04/07/2012 Cardiovascular No near-syncope/dizziness 04/07/2012 Respiratory No chest tightness 2011 Respiratory No cigarette smoking 2011 Respiratory No cough 04/07/2012 Respiratory No dyspnea 04/07/2012 Respiratory pedal edema 04/07/2012 Respiratory No snoring 04/07/2012 Respiratory No wheezing 04/07/2012 Gastrointestinal No hemorrhoids 2011 Gastrointestinal No abdominal pain 2011 Gastrointestinal No constipation 2011 Gastrointestinal No diarrhea 04/07/2012 Gastrointestinal No gastroesophageal reflux 04/07/2012 Gastrointestinal No melena 04/07/2012 Gastrointestinal No nausea 04/07/2012 Gastrointestinal No vomiting 04/07/2012 Psychiatric No anxiety 04/07/2012 Psychiatric No depression 04/07/2012 Dermatologic No rash 04/07/2012 Dermatologic No scar 04/07/2012 Ears/Nose/Throat/Neck No dental pain Ears/Nose/Throat/Neck No dizziness 2011 Ears/Nose/Throat/Neck No dysphagia 2011 Ears/Nose/Throat/Neck No headache 2011 Ears/Nose/Throat/Neck No hearing loss Ears/Nose/Throat/Neck nasal allergies Ears/Nose/Throat/Neck No sore throat Ears/Nose/Throat/Neck No postnasal drip 04/07/2012 Ears/Nose/Throat/Neck No sinus congestion 04/07/2012 Psychiatric No anxiety 11/14/2011 Psychiatric No depression 11/14/2011 Constitutional No insomnia 11/14/2011 Eyes No eye discharge 11/14/2011 Eyes No eye erythema 11/14/2011 Ears/Nose/Throat/Neck No dizziness 2011 Ears/Nose/Throat/Neck headache 2011 Ears/Nose/Throat/Neck No nasal allergies 11/14/2011 Ears/Nose/Throat/Neck No nasal discharge 11/14/2011 Ears/Nose/Throat/Neck No otalgia 2011 Ears/Nose/Throat/Neck No sore throat Cardiovascular No chest pain/pressure Respiratory No productive sputum 2011 Respiratory No chest congestion 2011 Respiratory No cough 11/14/2011 Genitourinary/Nephrology No dysuria 11/13 Neurologic No alteration of consciousness 11/14/2011 Constitutional recent illness 10/29/2011 Constitutional chills 10/29/2011 Constitutional diaphoresis 10/29/2011 Constitutional fever 10/29/2011 Constitutional No insomnia 10/29/2011 Constitutional fatigue 10/29/2011 Eyes No eye discharge 10/29/2011 Eyes No eye erythema 10/29/2011 Ears/Nose/Throat/Neck No dizziness 2011 Ears/Nose/Throat/Neck No nasal allergies 10/29/2011 Ears/Nose/Throat/Neck No nasal discharge 10/29/2011 Ears/Nose/Throat/Neck headache 2011 Ears/Nose/Throat/Neck No sore throat 01/2012 Ears/Nose/Throat/Neck No otalgia 2011 Cardiovascular No chest pain/pressure 01/2012 Respiratory No productive sputum 2011 Respiratory No chest congestion 2011 Respiratory No cough 10/29/2011 Genitourinary/Nephrology No dysuria 10/28 Neurologic No alteration of consciousness 10/29/2011 Psychiatric No anxiety 10/29/2011 Psychiatric No depression 10/29/2011 Physical Exam Exam Name System Name Item Name Status Result Effective Dates Notes Full Exam - General 1994 Constitutional general appearance Development: well developed 11/17/2015 None Full Exam - General 1994 Constitutional general appearance Development: appears older than stated age 0711/17/2015 None Full Exam - General 1994 Eyes conjunctiva /eyelids Overall: conjunctiva clear 11/17/2015 None Full Exam - General 1994 Eyes pupils and irises Overall: pupils equal, round, reactive to light and accomodation 11/17/2015 None Full Exam - General 1994 Ears/Nose/Throat otoscopic exam Overall: external auditory canals clear 11/17/2015 None Full Exam - General 1994 Ears/Nose/Throat otoscopic exam Overall: tympanic membranes clear 11/17/2015 None Full Exam - General 1994 Ears/Nose/Throat oral cavity/pharynx/larynx Overall: oral mucosa clear 11/17/2015 None Full Exam - General 1994 Ears/Nose/Throat oral cavity/pharynx/larynx Overall: oropharyngeal mucosa clear 11/17/2015 None Full Exam - General 1994 Ears/Nose/Throat oral cavity/pharynx/larynx Overall: no masses 11/17/2015 None Full Exam - General 1994 Respiratory auscultation Overall: breath sounds clear bilaterally 11/17/2015 None Full Exam - General 1994 Respiratory respiratory effort/rhythm Overall: no retractions 11/17/2015 None Full Exam - General 1994 Respiratory respiratory effort/rhythm Overall: normal rate 11/17/2015 None Full Exam - General 1994 Cardiovascular extremities Edema present: pitting 11/17/2015 None Full Exam - General 1994 Cardiovascular auscultation of heart Overall: regular rate 11/17/2015 None Full Exam - General 1994 Cardiovascular auscultation of heart Overall: normal heart sounds 11/17/2015 None Full Exam - General 1994 Abdomen abdominal exam Overall: no tenderness 11/17/2015 None Full Exam - General 1994 Abdomen abdominal exam Overall: normal bowel sounds 11/17/2015 None Full Exam - General 1994 Abdomen abdominal exam Contour: protuberant 11/17/2015 None Full Exam - General 1994 Musculoskeletal gait and station Overall: normal gait 11/17/2015 None Full Exam - General 1994 Musculoskeletal gait and station Overall: normal station 11/17/2015 None Full Exam - General 1994 Integument inspection of skin Dermatitis: erythema 11/17/2015 left lower leg from knee to ankle - no open sores Full Exam - General 1994 Neurologic cranial nerves Overall: crainial nerves 2 - 12 grossly intact 11/17/2015 None Full Exam - General 1994 Psychiatric orientation/consciousness Overall: oriented to person, place and time 11/17/2015 None Full Exam - General 1994 Cardiovascular extremities Edema present: severity 1+ - 4 +: 2+ 11/17/2015 None Full Exam - General 1994 Constitutional general appearance Development: well developed 09/21/2015 None Full Exam - General 1994 Constitutional general appearance Development: appears older than stated age 0609/21/2015 None Full Exam - General 1994 Eyes conjunctiva /eyelids Overall: conjunctiva clear 09/21/2015 None Full Exam - General 1994 Eyes pupils and irises Overall: pupils equal, round, reactive to light and accomodation 09/21/2015 None Full Exam - General 1994 Ears/Nose/Throat otoscopic exam Overall: external auditory canals clear 09/21/2015 None Full Exam - General 1994 Ears/Nose/Throat otoscopic exam Overall: tympanic membranes clear 09/21/2015 None Full Exam - General 1994 Ears/Nose/Throat oral cavity/pharynx/larynx Overall: oral mucosa clear 09/21/2015 None Full Exam - General 1994 Ears/Nose/Throat oral cavity/pharynx/larynx Overall: oropharyngeal mucosa clear 09/21/2015 None Full Exam - General 1994 Ears/Nose/Throat oral cavity/pharynx/larynx Overall: no masses 09/21/2015 None Full Exam - General 1994 Respiratory auscultation Overall: breath sounds clear bilaterally 09/21/2015 None Full Exam - General 1994 Respiratory respiratory effort/rhythm Overall: no retractions 09/21/2015 None Full Exam - General 1994 Respiratory respiratory effort/rhythm Overall: normal rate 09/21/2015 None Full Exam - General 1994 Cardiovascular auscultation of heart Overall: regular rate 09/21/2015 None Full Exam - General 1994 Cardiovascular auscultation of heart Overall: normal heart sounds 09/21/2015 None Full Exam - General 1994 Abdomen abdominal exam Overall: no tenderness 09/21/2015 None Full Exam - General 1994 Abdomen abdominal exam Overall: normal bowel sounds 09/21/2015 None Full Exam - General 1994 Abdomen abdominal exam Contour: protuberant 09/21/2015 None Full Exam - General 1994 Musculoskeletal digits and nails Overall: no clubbing 09/21/2015 None Full Exam - General 1994 Musculoskeletal digits and nails Overall: digits benign 09/21/2015 None Full Exam - General 1994 Musculoskeletal spine, ribs and pelvis Posture: lordosis 09/21/2015 None Full Exam - General 1994 Musculoskeletal gait and station Overall: normal gait 09/21/2015 None Full Exam - General 1994 Musculoskeletal gait and station Overall: normal station 09/21/2015 None Full Exam - General 1994 Musculoskeletal head and neck Overall: head atraumatic 09/21/2015 None Full Exam - General 1994 Musculoskeletal head and neck Overall: cervical spine benign 09/21/2015 None Full Exam - General 1994 Neurologic cranial nerves Overall: crainial nerves 2 - 12 grossly intact 09/21/2015 None Full Exam - General 1994 Psychiatric orientation/consciousness Overall: oriented to person, place and time 09/21/2015 None Full Exam - General 1994 Constitutional general appearance Development: well developed 11/24/2013 None Full Exam - General 1994 Constitutional general appearance Development: appears older than stated age 0811/24/2013 None Full Exam - General 1994 Eyes conjunctiva /eyelids Overall: conjunctiva clear 11/24/2013 None Full Exam - General 1994 Eyes pupils and irises Overall: pupils equal, round, reactive to light and accomodation 11/24/2013 None Full Exam - General 1994 Ears/Nose/Throat otoscopic exam Overall: external auditory canals clear 11/24/2013 None Full Exam - General 1994 Ears/Nose/Throat otoscopic exam Overall: tympanic membranes clear 11/24/2013 None Full Exam - General 1994 Ears/Nose/Throat oral cavity/pharynx/larynx Overall: oral mucosa clear 11/24/2013 None Full Exam - General 1994 Ears/Nose/Throat oral cavity/pharynx/larynx Overall: oropharyngeal mucosa clear 11/24/2013 None Full Exam - General 1994 Ears/Nose/Throat oral cavity/pharynx/larynx Overall: no masses 11/24/2013 None Full Exam - General 1994 Respiratory auscultation Overall: breath sounds clear bilaterally 11/24/2013 None Full Exam - General 1994 Respiratory respiratory effort/rhythm Overall: no retractions 11/24/2013 None Full Exam - General 1994 Respiratory respiratory effort/rhythm Overall: normal rate 11/24/2013 None Full Exam - General 1994 Cardiovascular extremities Edema present: pitting 11/24/2013 None Full Exam - General 1994 Cardiovascular extremities Edema present: severity 1+ - 4 +: _ 11/24/2013 None Full Exam - General 1994 Cardiovascular auscultation of heart Overall: regular rate 11/24/2013 None Full Exam - General 1994 Cardiovascular auscultation of heart Overall: normal heart sounds 11/24/2013 None Full Exam - General 1994 Abdomen abdominal exam Overall: no tenderness 11/24/2013 None Full Exam - General 1994 Abdomen abdominal exam Overall: normal bowel sounds 11/24/2013 None Full Exam - General 1994 Abdomen abdominal exam Contour: protuberant 11/24/2013 None Full Exam - General 1994 Musculoskeletal gait and station Overall: normal gait 11/24/2013 None Full Exam - General 1994 Musculoskeletal gait and station Overall: normal station 11/24/2013 None Full Exam - General 1994 Integument inspection of skin Dermatitis: erythema 11/24/2013 right lower leg from knee to ankle - no open sores Full Exam - General 1994 Neurologic cranial nerves Overall: crainial nerves 2 - 12 grossly intact 11/24/2013 None Full Exam - General 1994 Psychiatric orientation/consciousness Overall: oriented to person, place and time 11/24/2013 None Full Exam - General 1994 Constitutional general appearance Overall: well developed 10/15/2013 None Full Exam - General 1994 Constitutional general appearance Overall: in no acute distress 10/15/2013 None Full Exam - General 1994 Constitutional general appearance Overall: well nourished 10/15/2013 None Full Exam - General 1994 Psychiatric orientation/consciousness Overall: oriented to person, place and time 10/15/2013 None Full Exam - General 1994 Integument inspection of skin Location: left arm 10/15/2013 None Full Exam - General 1994 Integument inspection of skin Location: right arm 10/15/2013 None Full Exam - General 1994 Integument inspection of skin Location: chest 10/15/2013 None Full Exam - General 1994 Integument inspection of skin Location: abdomen 10/15/2013 None Full Exam - General 1994 Integument inspection of skin Rash/Lesions: papule 10/15/2013 excoriated erythematous papule with hemorrorrhagic crusts noted in web of fingers, wrists, elbows and chest Full Exam - General 1994 Constitutional general appearance Development: well developed 07/01/2013 None Full Exam - General 1994 Constitutional general appearance Development: appears older than stated age 0307/01/2013 None Full Exam - General 1994 Eyes conjunctiva /eyelids Overall: conjunctiva clear 07/01/2013 None Full Exam - General 1994 Eyes pupils and irises Overall: pupils equal, round, reactive to light and accomodation 07/01/2013 None Full Exam - General 1994 Ears/Nose/Throat otoscopic exam Overall: external auditory canals clear 07/01/2013 None Full Exam - General 1994 Ears/Nose/Throat otoscopic exam Overall: tympanic membranes clear 07/01/2013 None Full Exam - General 1994 Ears/Nose/Throat oral cavity/pharynx/larynx Overall: oral mucosa clear 07/01/2013 None Full Exam - General 1994 Ears/Nose/Throat oral cavity/pharynx/larynx Overall: oropharyngeal mucosa clear 07/01/2013 None Full Exam - General 1994 Ears/Nose/Throat oral cavity/pharynx/larynx Overall: no masses 07/01/2013 None Full Exam - General 1994 Respiratory auscultation Overall: breath sounds clear bilaterally 07/01/2013 None Full Exam - General 1994 Respiratory respiratory effort/rhythm Overall: no retractions 07/01/2013 None Full Exam - General 1994 Respiratory respiratory effort/rhythm Overall: normal rate 07/01/2013 None Full Exam - General 1994 Cardiovascular extremities Edema present: pitting 07/01/2013 None Full Exam - General 1994 Cardiovascular extremities Edema present: severity 1+ - 4 +: _ 07/01/2013 None Full Exam - General 1994 Cardiovascular auscultation of heart Overall: regular rate 07/01/2013 None Full Exam - General 1994 Cardiovascular auscultation of heart Overall: normal heart sounds 07/01/2013 None Full Exam - General 1994 Abdomen abdominal exam Overall: no tenderness 07/01/2013 None Full Exam - General 1994 Abdomen abdominal exam Overall: normal bowel sounds 07/01/2013 None Full Exam - General 1994 Abdomen abdominal exam Contour: protuberant 07/01/2013 None Full Exam - General 1994 Musculoskeletal digits and nails Overall: no clubbing 07/01/2013 None Full Exam - General 1994 Musculoskeletal digits and nails Overall: digits benign 07/01/2013 None Full Exam - General 1994 Musculoskeletal spine, ribs and pelvis Posture: lordosis 07/01/2013 None Full Exam - General 1994 Musculoskeletal gait and station Overall: normal gait 07/01/2013 None Full Exam - General 1994 Musculoskeletal gait and station Overall: normal station 07/01/2013 None Full Exam - General 1994 Musculoskeletal head and neck Overall: head atraumatic 07/01/2013 None Full Exam - General 1994 Musculoskeletal head and neck Overall: cervical spine benign 07/01/2013 None Full Exam - General 1994 Neurologic cranial nerves Overall: crainial nerves 2 - 12 grossly intact 07/01/2013 None Full Exam - General 1994 Psychiatric orientation/consciousness Overall: oriented to person, place and time 07/01/2013 None Full Exam - General 1994 Constitutional general appearance Development: well developed 05/17/2013 None Full Exam - General 1994 Constitutional general appearance Development: appears older than stated age 0105/17/2013 None Full Exam - General 1994 Eyes conjunctiva /eyelids Overall: conjunctiva clear 05/17/2013 None Full Exam - General 1994 Eyes pupils and irises Overall: pupils equal, round, reactive to light and accomodation 05/17/2013 None Full Exam - General 1994 Ears/Nose/Throat otoscopic exam Overall: external auditory canals clear 05/17/2013 None Full Exam - General 1994 Ears/Nose/Throat otoscopic exam Overall: tympanic membranes clear 05/17/2013 None Full Exam - General 1994 Ears/Nose/Throat oral cavity/pharynx/larynx Overall: oral mucosa clear 05/17/2013 None Full Exam - General 1994 Ears/Nose/Throat oral cavity/pharynx/larynx Overall: oropharyngeal mucosa clear 05/17/2013 None Full Exam - General 1994 Ears/Nose/Throat oral cavity/pharynx/larynx Overall: no masses 05/17/2013 None Full Exam - General 1994 Respiratory auscultation Overall: breath sounds clear bilaterally 05/17/2013 None Full Exam - General 1994 Respiratory respiratory effort/rhythm Overall: no retractions 05/17/2013 None Full Exam - General 1994 Respiratory respiratory effort/rhythm Overall: normal rate 05/17/2013 None Full Exam - General 1995 Cardiovascular extremities Edema present: pitting 05/17/2013 None Full Exam - General 1994 Cardiovascular extremities Edema present: severity 1+ - 4 +: _ 05/17/2013 None Full Exam - General 1994 Cardiovascular auscultation of heart Overall: regular rate 05/17/2013 None Full Exam - General 1994 Cardiovascular auscultation of heart Overall: normal heart sounds 05/17/2013 None Full Exam - General 1994 Abdomen abdominal exam Overall: no tenderness 05/17/2013 None Full Exam - General 1994 Abdomen abdominal exam Overall: normal bowel sounds 05/17/2013 None Full Exam - General 1995 Abdomen abdominal exam Contour: protuberant 05/17/2013 None Full Exam - General 1994 Musculoskeletal digits and nails Overall: no clubbing 05/17/2013 None Full Exam - General 1994 Musculoskeletal digits and nails Overall: digits benign 05/17/2013 None Full Exam - General 1994 Musculoskeletal spine, ribs and pelvis Posture: lordosis 05/17/2013 None Full Exam - General 1994 Musculoskeletal gait and station Overall: normal gait 05/17/2013 None Full Exam - General 1994 Musculoskeletal gait and station Overall: normal station 05/17/2013 None Full Exam - General 1994 Musculoskeletal head and neck Overall: head atraumatic 05/17/2013 None Full Exam - General 1994 Musculoskeletal head and neck Overall: cervical spine benign 05/17/2013 None Full Exam - General 1994 Neurologic cranial nerves Overall: crainial nerves 2 - 12 grossly intact 05/17/2013 None Full Exam - General 1994 Psychiatric orientation/consciousness Overall: oriented to person, place and time 05/17/2013 None Full Exam - General 1994 Integument inspection of skin Dermatitis: erythema 05/17/2013 right lower leg Full Exam - General 1994 Constitutional general appearance Development: well developed 11/26/2012 None Full Exam - General 1994 Constitutional general appearance Development: appears older than stated age 0811/26/2012 None Full Exam - General 1994 Eyes conjunctiva /eyelids Overall: conjunctiva clear 11/26/2012 None Full Exam - General 1994 Eyes pupils and irises Overall: pupils equal, round, reactive to light and accomodation 11/26/2012 None Full Exam - General 1994 Ears/Nose/Throat otoscopic exam Overall: external auditory canals clear 11/26/2012 None Full Exam - General 1994 Ears/Nose/Throat otoscopic exam Overall: tympanic membranes clear 11/26/2012 None Full Exam - General 1995 Ears/Nose/Throat oral cavity/pharynx/larynx Overall: oral mucosa clear 11/26/2012 None Full Exam - General 1995 Ears/Nose/Throat oral cavity/pharynx/larynx Overall: oropharyngeal mucosa clear 11/26/2012 None Full Exam - General 1995 Ears/Nose/Throat oral cavity/pharynx/larynx Overall: no masses 11/26/2012 None Full Exam - General 1995 Respiratory auscultation Overall: breath sounds clear bilaterally 11/26/2012 None Full Exam - General 1995 Respiratory respiratory effort/rhythm Overall: no retractions 11/26/2012 None Full Exam - General 1995 Respiratory respiratory effort/rhythm Overall: normal rate 11/26/2012 None Full Exam - General 1995 Cardiovascular extremities Edema present: pitting 11/26/2012 None Full Exam - General 1995 Cardiovascular extremities Edema present: severity 1+ - 4 +: _ 11/26/2012 None Full Exam - General 1995 Cardiovascular auscultation of heart Overall: regular rate 11/26/2012 None Full Exam - General 1994 Cardiovascular auscultation of heart Overall: normal heart sounds 11/26/2012 None Full Exam - General 1995 Abdomen abdominal exam Overall: no tenderness 11/26/2012 None Full Exam - General 1995 Abdomen abdominal exam Overall: normal bowel sounds 11/26/2012 None Full Exam - General 1995 Abdomen abdominal exam Contour: protuberant 11/26/2012 None Full Exam - General 1994 Musculoskeletal digits and nails Overall: no clubbing 11/26/2012 None Full Exam - General 1995 Musculoskeletal digits and nails Overall: digits benign 11/26/2012 None Full Exam - General 1994 Musculoskeletal spine, ribs and pelvis Posture: lordosis 11/26/2012 None Full Exam - General 1994 Musculoskeletal gait and station Overall: normal gait 11/26/2012 None Full Exam - General 1994 Musculoskeletal gait and station Overall: normal station 11/26/2012 None Full Exam - General 1994 Musculoskeletal head and neck Overall: head atraumatic 11/26/2012 None Full Exam - General 1994 Musculoskeletal head and neck Overall: cervical spine benign 11/26/2012 None Full Exam - General 1994 Integument inspection of skin Dermatitis: erythema 11/26/2012 on left foot to knee Full Exam - General 1994 Neurologic cranial nerves Overall: crainial nerves 2 - 12 grossly intact 11/26/2012 None Full Exam - General 1994 Psychiatric orientation/consciousness Overall: oriented to person, place and time 11/26/2012 None Full Exam - General 1994 Integument inspection of skin Location: left leg 11/26/2012 scabbed abrasion left anterior leg Full Exam - General 1994 Constitutional general appearance Development: well developed 11/16/2012 None Full Exam - General 1994 Constitutional general appearance Development: appears older than stated age 0711/16/2012 None Full Exam - General 1994 Eyes conjunctiva /eyelids Overall: conjunctiva clear 11/16/2012 None Full Exam - General 1994 Eyes pupils and irises Overall: pupils equal, round, reactive to light and accomodation 11/16/2012 None Full Exam - General 1994 Ears/Nose/Throat otoscopic exam Overall: external auditory canals clear 11/16/2012 None Full Exam - General 1994 Ears/Nose/Throat otoscopic exam Overall: tympanic membranes clear 11/16/2012 None Full Exam - General 1994 Ears/Nose/Throat oral cavity/pharynx/larynx Overall: oral mucosa clear 11/16/2012 None Full Exam - General 1994 Ears/Nose/Throat oral cavity/pharynx/larynx Overall: oropharyngeal mucosa clear 11/16/2012 None Full Exam - General 1995 Ears/Nose/Throat oral cavity/pharynx/larynx Overall: no masses 11/16/2012 None Full Exam - General 1994 Respiratory auscultation Overall: breath sounds clear bilaterally 11/16/2012 None Full Exam - General 1994 Respiratory respiratory effort/rhythm Overall: no retractions 11/16/2012 None Full Exam - General 1994 Respiratory respiratory effort/rhythm Overall: normal rate 11/16/2012 None Full Exam - General 1994 Cardiovascular extremities Edema present: pitting 11/16/2012 None Full Exam - General 1994 Cardiovascular extremities Edema present: severity 1+ - 4 +: _ 11/16/2012 None Full Exam - General 1994 Cardiovascular auscultation of heart Overall: regular rate 11/16/2012 None Full Exam - General 1994 Cardiovascular auscultation of heart Overall: normal heart sounds 11/16/2012 None Full Exam - General 1994 Abdomen abdominal exam Overall: no tenderness 11/16/2012 None Full Exam - General 1994 Abdomen abdominal exam Overall: normal bowel sounds 11/16/2012 None Full Exam - General 1994 Abdomen abdominal exam Contour: protuberant 11/16/2012 None Full Exam - General 1994 Musculoskeletal digits and nails Overall: no clubbing 11/16/2012 None Full Exam - General 1994 Musculoskeletal digits and nails Overall: digits benign 11/16/2012 None Full Exam - General 1995 Musculoskeletal spine, ribs and pelvis Posture: lordosis 11/16/2012 None Full Exam - General 1995 Musculoskeletal gait and station Overall: normal gait 11/16/2012 None Full Exam - General 1995 Musculoskeletal gait and station Overall: normal station 11/16/2012 None Full Exam - General 1995 Musculoskeletal head and neck Overall: head atraumatic 11/16/2012 None Full Exam - General 1994 Musculoskeletal head and neck Overall: cervical spine benign 11/16/2012 None Full Exam - General 1994 Neurologic cranial nerves Overall: crainial nerves 2 - 12 grossly intact 11/16/2012 None Full Exam - General 1994 Psychiatric orientation/consciousness Overall: oriented to person, place and time 11/16/2012 None Full Exam - General 1994 Integument inspection of skin Dermatitis: erythema 11/16/2012 on left foot to knee Full Exam - General 1994 Constitutional general appearance Development: well developed 08/27/2012 None Full Exam - General 1994 Constitutional general appearance Development: appears older than stated age 0508/27/2012 None Full Exam - General 1994 Eyes conjunctiva /eyelids Overall: conjunctiva clear 08/27/2012 None Full Exam - General 1994 Eyes pupils and irises Overall: pupils equal, round, reactive to light and accomodation 08/27/2012 None Full Exam - General 1994 Ears/Nose/Throat otoscopic exam Overall: external auditory canals clear 08/27/2012 None Full Exam - General 1995 Ears/Nose/Throat otoscopic exam Overall: tympanic membranes clear 08/27/2012 None Full Exam - General 1994 Ears/Nose/Throat oral cavity/pharynx/larynx Overall: oral mucosa clear 08/27/2012 None Full Exam - General 1995 Ears/Nose/Throat oral cavity/pharynx/larynx Overall: oropharyngeal mucosa clear 08/27/2012 None Full Exam - General 1994 Ears/Nose/Throat oral cavity/pharynx/larynx Overall: no masses 08/27/2012 None Full Exam - General 1994 Respiratory auscultation Overall: breath sounds clear bilaterally 08/27/2012 None Full Exam - General 1994 Respiratory respiratory effort/rhythm Overall: no retractions 08/27/2012 None Full Exam - General 1994 Respiratory respiratory effort/rhythm Overall: normal rate 08/27/2012 None Full Exam - General 1994 Cardiovascular auscultation of heart Overall: regular rate 08/27/2012 None Full Exam - General 1994 Cardiovascular auscultation of heart Overall: normal heart sounds 08/27/2012 None Full Exam - General 1994 Abdomen abdominal exam Overall: no tenderness 08/27/2012 None Full Exam - General 1994 Abdomen abdominal exam Overall: normal bowel sounds 08/27/2012 None Full Exam - General 1994 Abdomen abdominal exam Contour: protuberant 08/27/2012 None Full Exam - General 1994 Musculoskeletal digits and nails Overall: no clubbing 08/27/2012 None Full Exam - General 1994 Musculoskeletal digits and nails Overall: digits benign 08/27/2012 None Full Exam - General 1994 Musculoskeletal spine, ribs and pelvis Posture: lordosis 08/27/2012 None Full Exam - General 1994 Musculoskeletal gait and station Overall: normal gait 08/27/2012 None Full Exam - General 1994 Musculoskeletal gait and station Overall: normal station 08/27/2012 None Full Exam - General 1994 Musculoskeletal head and neck Overall: head atraumatic 08/27/2012 None Full Exam - General 1994 Musculoskeletal head and neck Overall: cervical spine benign 08/27/2012 None Full Exam - General 1994 Neurologic cranial nerves Overall: crainial nerves 2 - 12 grossly intact 08/27/2012 None Full Exam - General 1994 Psychiatric orientation/consciousness Overall: oriented to person, place and time 08/27/2012 None Full Exam - General 1994 Cardiovascular extremities Edema present: pitting 08/27/2012 None Full Exam - General 1994 Cardiovascular extremities Edema present: severity 1+ - 4 +: _ 08/27/2012 None Full Exam - General 1994 Constitutional general appearance Development: well developed 04/07/2012 None Full Exam - General 1994 Constitutional general appearance Development: appears older than stated age 1204/07/2012 None Full Exam - General 1994 Eyes pupils and irises Overall: pupils equal, round, reactive to light and accomodation 04/07/2012 None Full Exam - General 1994 Ears/Nose/Throat otoscopic exam Overall: external auditory canals clear 04/07/2012 None Full Exam - General 1994 Ears/Nose/Throat otoscopic exam Overall: tympanic membranes clear 04/07/2012 None Full Exam - General 1994 Ears/Nose/Throat oral cavity/pharynx/larynx Overall: oral mucosa clear 04/07/2012 None Full Exam - General 1994 Ears/Nose/Throat oral cavity/pharynx/larynx Overall: oropharyngeal mucosa clear 04/07/2012 None Full Exam - General 1994 Ears/Nose/Throat oral cavity/pharynx/larynx Overall: no masses 04/07/2012 None Full Exam - General 1994 Respiratory auscultation Overall: breath sounds clear bilaterally 04/07/2012 None Full Exam - General 1994 Respiratory respiratory effort/rhythm Overall: no retractions 04/07/2012 None Full Exam - General 1994 Respiratory respiratory effort/rhythm Overall: normal rate 04/07/2012 None Full Exam - General 1994 Cardiovascular auscultation of heart Overall: regular rate 04/07/2012 None Full Exam - General 1994 Cardiovascular auscultation of heart Overall: normal heart sounds 04/07/2012 None Full Exam - General 1994 Abdomen abdominal exam Overall: no tenderness 04/07/2012 None Full Exam - General 1994 Abdomen abdominal exam Overall: normal bowel sounds 04/07/2012 None Full Exam - General 1994 Abdomen abdominal exam Contour: protuberant 04/07/2012 None Full Exam - General 1994 Neurologic cranial nerves Overall: crainial nerves 2 - 12 grossly intact 04/07/2012 None Full Exam - General 1994 Psychiatric orientation/consciousness Overall: oriented to person, place and time 04/07/2012 None Full Exam - General 1994 Eyes conjunctiva /eyelids Conjunctiva: erythema 04/07/2012 None Full Exam - General 1994 Eyes conjunctiva /eyelids Conjunctiva: discharge 04/07/2012 None Full Exam - General 1994 Eyes conjunctiva /eyelids Conjunctiva: injection 04/07/2012 None Full Exam - General 1994 Eyes conjunctiva /eyelids Eyelid: discharge 04/07/2012 None Full Exam - General 1994 Eyes conjunctiva /eyelids Eyelid: ectropion 04/07/2012 None Full Exam - General 1994 Eyes conjunctiva /eyelids Eyelid: edema 04/07/2012 None Full Exam - General 1994 Eyes conjunctiva /eyelids Eyelid: periorbital edema 04/07/2012 None Full Exam - General 1994 Eyes conjunctiva /eyelids Eyelid: benign 04/07/2012 None Full Exam - General 1994 Musculoskeletal head and neck Overall: cervical spine benign 11/14/2011 None Full Exam - General 1994 Neurologic cranial nerves Overall: crainial nerves 2 - 12 grossly intact 11/14/2011 None Full Exam - General 1994 Psychiatric orientation/consciousness Overall: oriented to person, place and time 11/14/2011 None Full Exam - General 1994 Respiratory auscultation Overall: breath sounds clear bilaterally 11/14/2011 None Full Exam - General 1994 Respiratory respiratory effort/rhythm Overall: no retractions 11/14/2011 None Full Exam - General 1994 Respiratory respiratory effort/rhythm Overall: normal rate 11/14/2011 None Full Exam - General 1994 Cardiovascular auscultation of heart Overall: regular rate 11/14/2011 None Full Exam - General 1994 Cardiovascular auscultation of heart Overall: normal heart sounds 11/14/2011 None Full Exam - General 1994 Abdomen abdominal exam Overall: no tenderness 11/14/2011 None Full Exam - General 1994 Abdomen abdominal exam Overall: normal bowel sounds 11/14/2011 None Full Exam - General 1994 Abdomen abdominal exam Contour: protuberant 11/14/2011 None Full Exam - General 1994 Musculoskeletal digits and nails Overall: no clubbing 11/14/2011 None Full Exam - General 1994 Musculoskeletal digits and nails Overall: digits benign 11/14/2011 None Full Exam - General 1994 Musculoskeletal spine, ribs and pelvis Posture: lordosis 11/14/2011 None Full Exam - General 1994 Musculoskeletal gait and station Overall: normal gait 11/14/2011 None Full Exam - General 1994 Musculoskeletal gait and station Overall: normal station 11/14/2011 None Full Exam - General 1994 Musculoskeletal head and neck Overall: head atraumatic 11/14/2011 None Full Exam - General 1994 Constitutional general appearance Development: well developed 11/14/2011 None Full Exam - General 1994 Constitutional general appearance Development: appears older than stated age 0711/14/2011 None Full Exam - General 1994 Eyes conjunctiva /eyelids Overall: conjunctiva clear 11/14/2011 None Full Exam - General 1994 Eyes pupils and irises Overall: pupils equal, round, reactive to light and accomodation 11/14/2011 None Full Exam - General 1994 Ears/Nose/Throat otoscopic exam Overall: external auditory canals clear 11/14/2011 None Full Exam - General 1994 Ears/Nose/Throat otoscopic exam Overall: tympanic membranes clear 11/14/2011 None Full Exam - General 1994 Ears/Nose/Throat oral cavity/pharynx/larynx Overall: oral mucosa clear 11/14/2011 None Full Exam - General 1994 Ears/Nose/Throat oral cavity/pharynx/larynx Overall: oropharyngeal mucosa clear 11/14/2011 None Full Exam - General 1994 Ears/Nose/Throat oral cavity/pharynx/larynx Overall: no masses 11/14/2011 None Full Exam - General 1994 Constitutional general appearance Development: well developed 10/29/2011 None Full Exam - General 1994 Eyes conjunctiva /eyelids Overall: conjunctiva clear 10/29/2011 None Full Exam - General 1994 Constitutional general appearance Development: appears older than stated age 0710/29/2011 None Full Exam - General 1994 Eyes pupils and irises Overall: pupils equal, round, reactive to light and accomodation 10/29/2011 None Full Exam - General 1994 Psychiatric orientation/consciousness Overall: oriented to person, place and time 10/29/2011 None Full Exam - General 1994 Neurologic cranial nerves Overall: crainial nerves 2 - 12 grossly intact 10/29/2011 None Full Exam - General 1994 Integument inspection of skin Location: left leg 10/29/2011 redness, warmth and swelling to left lower leg from ankle to knee Full Exam - General 1995 Integument palpation Leg: tender 10/29/2011 None Full Exam - General 1994 Integument inspection of skin Consistency: thick 10/29/2011 acanthosis nigricans noted around patient's neck Full Exam - General 1994 Integument inspection of skin Pigmentation: erythematous 10/29/2011 telangiectasia noted to chest, abdomen, and back Full Exam - General 1994 Abdomen abdominal exam Overall: no tenderness 10/29/2011 None Full Exam - General 1994 Abdomen abdominal exam Overall: normal bowel sounds 10/29/2011 None Full Exam - General 1994 Abdomen abdominal exam Contour: protuberant 10/29/2011 None Full Exam - General 1994 Cardiovascular auscultation of heart Overall: regular rate 10/29/2011 None Full Exam - General 1994 Cardiovascular auscultation of heart Overall: normal heart sounds 10/29/2011 None Full Exam - General 1994 Cardiovascular extremities Edema present: pitting 10/29/2011 None Full Exam - General 1994 Respiratory auscultation Overall: breath sounds clear bilaterally 10/29/2011 None Full Exam - General 1994 Respiratory respiratory effort/rhythm Overall: normal rate 10/29/2011 None Full Exam - General 1994 Respiratory respiratory effort/rhythm Overall: no retractions 10/29/2011 None Full Exam - General 1994 Ears/Nose/Throat otoscopic exam Overall: tympanic membranes clear 10/29/2011 None Full Exam - General 1994 Ears/Nose/Throat otoscopic exam Overall: external auditory canals clear 10/29/2011 None Full Exam - General 1994 Ears/Nose/Throat oral cavity/pharynx/larynx Overall: oropharyngeal mucosa clear 10/29/2011 None Full Exam - General 1994 Ears/Nose/Throat oral cavity/pharynx/larynx Overall: no masses 10/29/2011 None Full Exam - General 1994 Ears/Nose/Throat oral cavity/pharynx/larynx Overall: oral mucosa clear 10/29/2011 None Full Exam - General 1994 Musculoskeletal digits and nails Overall: digits benign 10/29/2011 None Full Exam - General 1994 Musculoskeletal digits and nails Overall: no clubbing 10/29/2011 None Full Exam - General 1994 Musculoskeletal spine, ribs and pelvis Posture: lordosis 10/29/2011 None Full Exam - General 1994 Musculoskeletal gait and station Overall: normal gait 10/29/2011 None Full Exam - General 1994 Musculoskeletal gait and station Overall: normal station 10/29/2011 None Full Exam - General 1994 Musculoskeletal head and neck Overall: cervical spine benign 10/29/2011 None Full Exam - General 1994 Musculoskeletal head and neck Overall: head atraumatic 10/29/2011 None Procedures Procedure Codes Date ROCEPHIN, PER 250 MG CPT-4: J0696 11/17/2015 THER/PROPH/DIAG INJ SC/IM CPT-4: 64883 11/25/2013 ROCEPHIN, PER 250 MG CPT-4: J0696 11/25/2013 ROCEPHIN, PER 250 MG CPT-4: J0696 11/24/2013 THER/PROPH/DIAG INJ SC/IM CPT-4: 70691 11/24/2013 ROCEPHIN, PER 250 MG CPT-4: J0696 04/07/2012 THER/PROPH/DIAG INJ SC/IM CPT-4: 40286 04/07/2012 Vital Signs Date Vital 11/17/2015 Blood Pressure 1: 112/82 Code : 8480-6 BMI: 44.6 Code : 90905-8 Heart Rate 1 : 100 bpm Height: 5'7" SpO2: 96% Temperature: 37.3 (C) / 99.1 (F) Weight: 285 lbs 09/21/2015 Blood Pressure 1: 132/72 Code : 8480-6 BMI: 44.0 Code : 58231-2 Heart Rate 1 : 86 bpm Height: 5'7" SpO2: 97% Weight: 281 lbs 11/24/2013 Blood Pressure 1: 138/78 Code : 8480-6 Heart Rate 1: 96 bpm Temperature: 36.7 (C) / 98.0 (F) Weight: 280 lbs 10/15/2013 Blood Pressure 1: 124/70 Code : 8480-6 BMI: 43.2 Code : 81879-8 Heart Rate 1 : 64 bpm Height: 5'7" Temperature: 36.4 (C) / 97.6 (F) Weight: 276 lbs 07/01/2013 Blood Pressure 1: 106/64 Code : 8480-6 Heart Rate 1: 80 bpm Weight: 277 lbs 05/17/2013 Blood Pressure 1: 140/86 Code : 8480-6 Head Circumference (cm): 244 cm Heart Rate 1: 92 bpm Temperature: 36.9 (C) / 98.4 (F) Weight: 286 lbs 11/26/2012 Blood Pressure 1: 108/72 Code : 8480-6 Heart Rate 1: 86 bpm Weight: 283 lbs 11/16/2012 Blood Pressure 1: 80/50 Code : 8480-6 Heart Rate 1: 92 bpm Temperature: 35.8 (C) / 96.5 (F) Weight: 282 lbs 08/27/2012 Blood Pressure 1: 124/64 Code : 8480-6 Heart Rate 1: 80 bpm Weight: 282 lbs 04/07/2012 Blood Pressure 1: 106/64 Code : 8480-6 Heart Rate 1: 76 bpm Weight: 272 lbs 11/14/2011 Blood Pressure 1: 104/62 Code : 8480-6 Heart Rate 1: 76 bpm Respiratory Rate : 16 bpm Weight: 276 lbs 10/29/2011 Blood Pressure 1: 78/60 Code : 8480-6 Blood Pressure 2: 102/70 Code: 8480-6 Heart Rate 1: 92 bpm Temperature: 36.8 (C) / 98.2 (F) Weight: 287 lbs 8 oz Functional Status No Functional Status data History of Present Illness Symptom Name Status Result Effective Date Notes cellulitis Quality acute 11/17/2015 None cellulitis Onset and Resolution ongoing 11/17/2015 None cellulitis Onset of Symptom 1 days ago 11/17/2015 None cellulitis Limitation on Activities does not limit activities 11/17/2015 None cellulitis Frequency of Episodes increasing 11/17/2015 None cellulitis Triggers no known associated factors 11/17/2015 None cellulitis Significant Medical Conditions previous cellulitis 11/17/2015 left leg cellulitis Initial treatment oral antibiotics 11/17/2015 in the past-none today cellulitis Location on the left leg 11/17/2015 None cellulitis Pertinent Findings fever 11/17/2015 None diabetes mellitus Quality non-insulin dependent 09/21/2015 None diabetes mellitus Alleviating Factors medication 09/21/2015 None diabetes mellitus Exacerbating Factors diet 09/21/2015 None diabetes mellitus Nutrition regular diet 09/21/2015 None diabetes mellitus Pertinent Findings Denies dizziness 09/21/2015 None diabetes mellitus Pertinent Findings Denies numbness 09/21/2015 None diabetes mellitus Pertinent Findings Denies tingling 09/21/2015 None diabetes mellitus Onset of Symptom onset as an adult 09/21/2015 None diabetes mellitus Quality NIDDM 09/21/2015 None diabetes mellitus Glucose monitoring daily 09/21/2015 None diabetes mellitus Severity mild 09/21/2015 None diabetes mellitus Test results Pt checking blood glucose readings, did not bring results to clinic 09/21/2015 None cellulitis Location on the right leg 11/24/2013 None cellulitis Quality dull pain 11/24/2013 None cellulitis Onset of Symptom 1 days ago 11/24/2013 None cellulitis Limitation on Activities does not limit activities 11/24/2013 None cellulitis Initial treatment elevation 11/24/2013 None cellulitis Pertinent Findings Denies bleeding 11/24/2013 None cellulitis Pertinent Findings Denies blisters 11/24/2013 None cellulitis Pertinent Findings Denies drainage 11/24/2013 None cellulitis Pertinent Findings fever 11/24/2013 None cellulitis Pertinent Findings pain 11/24/2013 None cellulitis Pertinent Findings redness 11/24/2013 None cellulitis Pertinent Findings tenderness 11/24/2013 None cellulitis Pertinent Findings warmth 11/24/2013 None rash Location-Major in a generalized area 10/15/2013 None rash Quality worsening 10/15/2013 None rash Color red 2013 None rash Onset of Symptom 3 weeks ago 10/15/2013 None rash Triggers pets None rash Triggers sun exposure 10/15/2013 worse in heat rash Pertinent Findings Denies history of similar rash 10/15/2013 None cellulitis Onset of Symptom 2 weeks ago 07/01/2013 None cellulitis Pertinent Findings Denies pain 07/01/2013 None cellulitis Pertinent Findings redness 07/01/2013 None cellulitis Pertinent Findings Denies warmth 07/01/2013 None cellulitis Location on the left ankle 07/01/2013 None cellulitis Pertinent Findings Denies tenderness 07/01/2013 None diabetes mellitus Quality non-insulin dependent 07/01/2013 None diabetes mellitus Test results fasting glucose 115-140 07/01/2013 None diabetes mellitus Test results HgbA1c level 7.5 07/01/2013 None diabetes mellitus Blood glucose levels greater than 120 07/01/2013 None diabetes mellitus Glucose monitoring daily 07/01/2013 None diabetes mellitus Alleviating Factors medication 07/01/2013 None diabetes mellitus Exacerbating Factors diet 07/01/2013 None diabetes mellitus Nutrition regular diet 07/01/2013 None diabetes mellitus Exercise no exercise 07/01/2013 None diabetes mellitus Onset of Symptom onset as an adult 07/01/2013 None diabetes mellitus Pertinent Findings Denies dizziness 07/01/2013 None diabetes mellitus Pertinent Findings Denies numbness 07/01/2013 None diabetes mellitus Pertinent Findings Denies tingling 07/01/2013 None cellulitis Quality chronic 07/01/2013 None cellulitis Quality acute 07/01/2013 None cellulitis Onset and Resolution ongoing 07/01/2013 None cellulitis Limitation on Activities does not limit activities 07/01/2013 None cellulitis Significant Medical Conditions previous cellulitis 07/01/2013 None cellulitis Alleviating Factors prescription medication 07/01/2013 None rash Location-Major on the legs 05/17/2013 None rash Location-Extremities on the right leg 05/17/2013 None rash Quality acute None rash Color erythematous 05/17/2013 None rash Onset and Resolution sudden in onset 05/17/2013 None rash Onset of Symptom 1 days ago 05/17/2013 None rash Limitation on Activities does not limit activities 05/17/2013 None rash Severity mild None rash Prior Treatments previously untreated 05/17/2013 None rash Triggers no known triggers 05/17/2013 None cellulitis Quality improving 11/26/2012 None cellulitis Pertinent Findings redness 11/26/2012 states he hit leg on a pump, breaking the skin 2-3 days ago cellulitis Quality acute 11/26/2012 None cellulitis Triggers no known associated factors 11/26/2012 None cellulitis Significant Medical Conditions previous cellulitis 11/26/2012 None cellulitis Pertinent Findings warmth 11/26/2012 None cellulitis Location on the left leg 11/16/2012 None cellulitis Quality acute 11/16/2012 None cellulitis Onset and Resolution improving 11/16/2012 states not hurting as bad now. was put on cephalexin in ER Saturday cellulitis Onset and Resolution ongoing 11/16/2012 None cellulitis Pertinent Findings warmth 11/16/2012 None cellulitis Initial treatment oral antibiotics 11/16/2012 None diabetes mellitus Test results Pt checking blood glucose readings, did not bring results to clinic 11/16/2012 None cellulitis Triggers no known associated factors 11/16/2012 None cellulitis Significant Medical Conditions previous cellulitis 11/16/2012 None diabetes mellitus Onset of Symptom onset as an adult 11/16/2012 None diabetes mellitus Blood glucose levels greater than 120 11/16/2012 None diabetes mellitus Glucose monitoring occasional glucose testing 11/16/2012 None Hospital Follow Up Quality acute illness 08/27/2012 was in hospital for suspected insect bite. still has some swelling and redness on left lower leg. patient states he is feeling much better now. Hospital Follow Up Onset of Symptom 2 weeks ago 08/27/2012 None cellulitis Quality acute 08/27/2012 None cellulitis Onset and Resolution resolved 08/27/2012 None cellulitis Onset of Symptom _ weeks ago 08/27/2012 None cellulitis Frequency of Episodes decreasing 08/27/2012 None diabetes mellitus Quality non-insulin dependent 08/27/2012 None diabetes mellitus Test results Pt checking blood glucose readings, did not bring results to clinic 08/27/2012 None diabetes mellitus Glucose monitoring 2 hours postprandial 08/27/2012 None diabetes mellitus Glucose monitoring before meals 08/27/2012 None diabetes mellitus Alleviating Factors medication 08/27/2012 None cellulitis Triggers no known associated factors 08/27/2012 None cellulitis Significant Medical Conditions previous cellulitis 08/27/2012 None cellulitis Alleviating Factors prescription medication 08/27/2012 None cellulitis Associated Injuries unknown 08/27/2012 None cellulitis Initial treatment oral antibiotics 08/27/2012 None cellulitis Pertinent Findings Denies drainage 08/27/2012 None cellulitis Pertinent Findings Denies tenderness 08/27/2012 None cellulitis Pertinent Findings Denies warmth 08/27/2012 None eye pain Location in the right eye 04/07/2012 None eye pain Onset and Resolution sudden in onset 04/07/2012 None eye pain Onset of Symptom 3 days ago 04/07/2012 None eye pain Pertinent Findings eye discharge 04/07/2012 None eye pain Pertinent Findings eye swelling 04/07/2012 None eye pain Pertinent Findings eye pressure 04/07/2012 None eye pain Triggers no known associated factors 04/07/2012 None diabetes mellitus Test results Pt checking blood glucose readings, did not bring results to clinic 11/14/2011 None diabetes mellitus Onset of Symptom onset as an adult 11/14/2011 new onset diabetes mellitus Quality non-insulin dependent 11/14/2011 None hypertension Quality chronic 11/14/2011 None hypertension Onset and Resolution ongoing 11/14/2011 None hospital follow up Quality acute illness 11/14/2011 finished antibiotics last week , leg has improved diabetes mellitus Severity mild 11/14/2011 None diabetes mellitus Blood glucose levels between 60 and 120 11/14/2011 None diabetes mellitus Glucose monitoring daily 11/14/2011 None diabetes mellitus Exercise no exercise 11/14/2011 None diabetes mellitus Pertinent Findings Denies dizziness 11/14/2011 None diabetes mellitus Pertinent Findings Denies lethargy 11/14/2011 None diabetes mellitus Pertinent Findings Denies nausea 11/14/2011 None diabetes mellitus Alleviating Factors diet 11/14/2011 None cellulitis Quality acute 10/29/2011 None cellulitis Location on the left leg 10/29/2011 None cellulitis Onset of Symptom 2 days ago 10/29/2011 None cellulitis Limitation on Activities moderately limits activities 10/29/2011 None cellulitis Pertinent Findings pain 10/29/2011 None cellulitis Pertinent Findings chills 10/29/2011 None cellulitis Pertinent Findings tenderness 10/29/2011 None cellulitis Pertinent Findings warmth 10/29/2011 None cellulitis Pertinent Findings Denies itching 10/29/2011 None nausea Onset of Symptom 2 days ago 10/29/2011 None nausea Severity moderate 10/29/2011 States he started wit h N/V/D on Friday. Slept 16 hours from Friday to Friday. No diarrhea today but he states he "took a bunch of immodium." States he ate at the [employer] and had ribs/ chicken/pot roast. nausea Frequency of Episodes decreasing 10/29/2011 States he ate a pot pie last night and did not vomit afterwards. nausea Triggers no known associated factors 10/29/2011 None cellulitis Onset and Resolution ongoing 10/29/2011 States he did go to [employer] on Friday and he was walking around their petting zoo and exposed to several animals-[place], [place], hairy cow. States he did pet the hairy cow but none of the animals scratched or bit him. cellulitis Triggers no known associated factors 10/29/2011 None cellulitis Significant Medications anticoagulants 10/29/2011 None cellulitis Associated Injuries unknown 10/29/2011 None nausea Pertinent Findings chills 10/29/2011 and fever 101 yesterday nausea Pertinent Findings Denies bloating 10/29/2011 None nausea Pertinent Findings emesis 10/29/2011 None nausea Quality acute 10/29/2011 None nausea Onset and Resolution ongoing 10/29/2011 None Advance Directives No Advance Directive data Encounters Encounter Performer Location Codes Date EST. PATIENT, LEVEL IV Diagnosis: Cellulitis of left lower limb[ICD10: L03.116] Diagnosis: Localized edema[ICD10: R60.0] Diagnosis: Type 2 diabetes mellitus without complications[ICD10: E11.9] Akosua Price MD, [facility] CPT-4: 37571 11/17/2015 ([id number]) 77868 EST. PATIENT, LEVEL IV Diagnosis: Essential (primary) hypertension[ICD10: I10] Diagnosis: Type 2 diabetes mellitus without complications[ICD10: E11.9] Diagnosis: Mixed hyperlipidemia[ICD10: E78.2] Diagnosis: Other obesity due to excess calories[ICD10: E66.09] Sandy Price MD, [facility] CPT-4: 78756 09/21/2015 ([id number]) 66642 EST. PATIENT, LEVEL III Diagnosis: CELLULITIS OF LEG[ICD9: 682.6] Diagnosis: EDEMA[ICD9: 782.3] Diagnosis: FEVER NOS[ICD9: 780.60] Diagnosis: Cough[ICD9: 786.2] Akosua Price MD, [facility] CPT-4: 61195 11/24/2013 ([id number]) 34617 EST. PATIENT, LEVEL III Diagnosis: SCABIES[ICD9: 133.0] Sandy Price MD, [facility] CPT-4: 74678 10/15/2013 ([id number]) 67564 EST. PATIENT, LEVEL III Diagnosis: DIABETES TYPE II[SNOMED: 982582038] Akosua Price MD, [facility] CPT-4: 84685 07/01/2013 ([id number]) 97745 EST. PATIENT, LEVEL III Diagnosis: CELLULITIS OF LEG[ICD9: 682.6] Sandy Price MD [facility] CPT-4: 83547 05/17/2013 ([id number]) 72227 EST. PATIENT, LEVEL III Diagnosis: CELLULITIS OF LEG[ICD9: 682.6] Diagnosis: Abrasion of leg[ICD9: 916.0] Akosua Price MD [facility] CPT- 4: 43685 11/26/2012 ([id number]) 94879 EST. PATIENT, LEVEL IV Diagnosis: EDEMA[ICD9: 782.3] Diagnosis: CELLULITIS OF LEG[ICD9: 682.6] Diagnosis: Hypotension[ICD9: 458.9] Akosua Price MD [facility] CPT-4: 05308 11/16/2012 ([id number]) 53221 EST. PATIENT, LEVEL IV Diagnosis: EDEMA[ICD9: 782.3] Diagnosis: CELLULITIS OF LEG[ICD9: 682.6] Diagnosis: DIABETES TYPE II[SNOMED: 021090035] Akosua Price MD [facility] CPT-4: 87208 08/27/2012 ([id number]) 17739 EST. PATIENT, LEVEL III Diagnosis: Hordeolum externum of right eye[ICD9: 373.11] Akosua Price MD [facility] CPT-4: 93829 04/07/2012 ([id number]) 78976 EST. PATIENT, LEVEL IV Diagnosis: ESSENTIAL HYPERTENSION[SNOMED: 35109245] Diagnosis: DIABETES TYPE II[SNOMED: 241577923] Akosua Price MD, [facility] CPT-4: 61993 11/14/2011 ([id number]) Patient admitted to the hospital from clinic (NO CHARGE) Diagnosis: Cellulitis of left leg[ICD9: 682.6] Diagnosis: Hypotension[ICD9: 458.9] Diagnosis: Nausea vomiting and diarrhea[ICD9: 787.01] Diagnosis: Leg pain[ICD9: 729.5] Diagnosis: Anticoagulant long-term use[ICD9: V58.61] Diagnosis: Coronary artery disease[ICD9: 414.00] Sandy Price MD, [facility] CPT-4: 91668P 10/29/2011 Plan of Care Planned Activity Notes Codes Status Date Visit Plan: Cellulitis - start oral abx as directed- rocephin injection today in the office, follow up as directed, call for acute change in symptoms, worsening redness, warmth, discharge. Edema - pt has been advised to elevate legs to prevent dependent edema, compression has been recommended to help to naturally decrease peripheral edema. Diuretic use has been discussed and pt has been instructed in appropriate use of such medication as necessary to further attempt to reduce peripheral edema. Diabetes Mellitus - decrease metformin to 1/2 tab twice daily x 1 week and then increase dose as directed-take probiotic twice daily for diarrhea-monitor blood sugars closely. 11/17/2015 Appointment: Sandy Tong WPtel: [phone] (15 min) Moderate 11/17/2015 Patient Education: Patient Medication Summary Completed 11/17/2015 Patient Education: Obesity Completed 11/17/2015 Visit Plan: Hypertension - well controlled - continue with current medications, continue with no added salt diet. Pt has been encouraged to exercise daily. The pt has been advised to call the office if there are any acute concerns about change in blood pressure readings at home. Diabetes Mellitus - controlled - per recent FSBS reports. I have recommended for the patient to have follow up labs prior to the next office visit. The patient has been instructed to continue with current medications as previously directed, continue with regular FSBS monitoring to assure continued control of diabetes. Pt to call for any acute concerns, complaints, or if the blood glucose readings are starting to become less controlled. Hyperlipidemia - pt has been counseled about appropriate diet, exercise, and need for low fat food choices. I have discussed the need for the patient to take medications as prescribed. If the patient has negative side effects from the medication, they are to CALL the office and not abruptly discontinue the medication without discussion with a practitioner in the office. We will check labs in 3-6 months for follow up on the patient's chronic medical problem and to assure normal liver response to medications. Obesity - chronic issue with this patient. The pt has been counseled about diet changes, calorie restriction, and need to exercise. Pt will RTC in one month for weight check. 09/21/2015 Appointment: Sandy Tong WPtel: [phone] [phone] (30 min) Complex 09/21/2015 Patient Education: Patient Medication Summary Completed 09/21/2015 Patient Education: Obesity Completed 09/21/2015 Care Plan: BMI Above normal followup SELF-MGMT EDUC & TRAIN 1 PT Pending 2015 Patient Education: Patient Medication Summary Completed 11/25/2013 Visit Plan: Cellulitis - continue with oral antibiotics as previously directed, return to clinic as previously directed, call for acute change in symptoms, worsening redness, warmth, discharge. Pt to start on generic bactrim - take twice daily x 2 weeks, and call if symptoms are not improving. Cough and fever, likely due to sinus congestion - the patient's antibiotic should cover his cellulitis and sinus infection. 11/24/2013 Patient Education: Patient Medication Summary Completed 11/24/2013 Visit Plan: Scabies-discussed diagnosis with patient- recommend washing all bedding, clean and vaccuum thoroughly-use oral antihistamine for the severe itching. Rx for permethrin cream sent to [facility] and instructed on use. Patient verbalized understanding of plan. 10/15/2013 Appointment: stan 10/15/2013 Patient Education: Patient Medication Summary Completed 10/15/2013 Visit Plan: Diabetes Mellitus - Uncontrolled - per recent FSBS reports. I have recommended for the patient to have follow up labs prior to the next office visit. The patient has been instructed to continue with current medications as previously directed, continue with regular FSBS monitoring to assure continued control of diabetes. Pt to call for any acute concerns, complaints, or if the blood glucose readings are starting to become less controlled. I have recommended for the patient to follow more strictly to the diabetic diet as discussed in clinic to allow for greater blood glucose control. Cellulitis of iar-iwembkay-ityp if symptoms return 07/01/2013 Appointment: Sandy Tong WPtel: [address] [place], [place] [phone] Other 07/01/2013 Patient Education: Patient Medication Summary Completed 07/01/2013 Appointment: Sandy Tong WPtel: [phone] Follow up 06/29/2013 Appointment: Akosua Price WPtel: [phone] [facility] [facility] follow up 06/28/2013 Visit Plan: Cellulitis - continue with oral antibiotics as previously directed, return to clinic as previously directed, call for acute change in symptoms, worsening redness, warmth, discharge. HTN-blood pressure elevated-instructed patient to monitor at home and bring in readings for review in 2-3 weeks. Patient verbalized understanding of plan. 05/17/2013 Patient Education: Patient Medication Summary Completed 05/17/2013 Visit Plan: Cellulitis and omlmvkty-xratkwllh-ffggjvgg bactrim x 5 days-continue topical antibiotic ointment as previously directed Dvpaxveqjvo-fzfybtay-addkidt blood pressure at home. 11/26/2012 Appointment: Sandy Tong WPtel: [facility]7 [phone] [place] [address] Follow up 11/26/2012 Patient Education: Patient Medication Summary Completed 11/26/2012 Visit Plan: Cellulitis - continue with oral antibiotics as previously directed, return to clinic as previously directed, call for acute change in symptoms, worsening redness, warmth, discharge. CONTINUE WITH KEFLEX AND MONITOR SYMPTOMS, IF NOT BETTER, CALL OFFICE JEFERSON. HYPOTENSION - PT TO DECREASE LISIONPRIL TO 1/2 PILL DAILY AND CHECK BLOOD PRESSURES TWICE DAILY AND CALL WITH RESULTS. EDEMA - ELEVATE LEGS. 11/16/2012 Appointment: Akosua Price WPtel: [facility] [facility] 11/16/2012 Patient Education: Patient Medication Summary Completed 11/16/2012 Visit Plan: Edema - pt has been advised to elevate legs to prevent dependent edema, compression has been recommended to help to naturally decrease peripheral edema. Diuretic use has been discussed and pt has been instructed in appropriate use of such medication as necessary to further attempt to reduce peripheral edema. Yzluahcnef-cqqnmvli-amhu for symptoms Diabetes Mellitus - controlled - I have recommended for the patient to have follow up labs prior to the next office visit. The patient has been instructed to continue with current medications as previously directed, continue with regular FSBS monitoring to assure continued control of diabetes. Pt to call for any acute concerns, complaints, or if the blood glucose readings are starting to become less controlled. 08/27/2012 Appointment: [phone] Follow up 08/27/2012 Patient Education: Patient Medication Summary Completed 08/27/2012 Visit Plan: Cellulitis - continue with oral antibiotics as directed, return to clinic as previously directed, call for acute change in symptoms, worsening redness, warmth, discharge. 04/07/2012 Appointment: Akosua Price WPtel: [facility]5 [facility] Other 04/07/2012 Patient Education: Patient Medication Summary Completed 04/07/2012 Visit Plan: Diabetes Mellitus - controlled - per recent FSBS reports. I have recommended for the patient to have follow up labs prior to the next office visit. The patient has been instructed to continue with current medications as previously directed, continue with regular FSBS monitoring to assure continued control of diabetes. Pt to call for any acute concerns, complaints, or if the blood glucose readings are starting to become less controlled. Pt is to bring in the blood sugars in two weeks. Hypertension - well controlled - continue with current medications, continue with no added salt diet. Pt has been encouraged to exercise daily. The pt has been advised to call the office if there are any acute concerns about change in blood pressure readings at home. 11/14/2011 Appointment: Akosua Price WPtel: [facility]5 [facility] Other 11/14/2011 Appointment: Akosua Price WPtel: [facility]5 [facility] Other 11/14/2011 Patient Education: Patient Medication Summary Completed 11/14/2011 Patient Education: High Blood Pressure: Essential Hypertension Completed 2011 Visit Plan: Admission to Hospital -cellulitis left lower leg/hypotension/n/v/d -Dr Price in to evaluate patient as patient has diagnosis of acute illness necessitating hospital admission from the clinic. I have discussed the diagnosis and need for further work-up and acute hospital stay for the patient's health benefit. Nausea and emesis - pt will be started on IV fluids and symptoms monitored, if needed will then start antiemetics. Diarrhea - monitor output, DR to be called if symptoms resume. Doctor's eval of the patient - I, Dr. Price, personally evaluated the patient with the nurse practicioner. I have reviewed the patient's chart, I have reviewed the patient' s past medical history, problem list, medication list, and personal history. I agree with the documentation by the nurse practicioner in the HPI, physical exam , and the assessment and plan. Leg pain - check venous dopplers, lovenox to be given and coumadin dose to be adjusted as needed. 10/29/2011 Visit Plan: Admission to Hospital -cellulitis left lower leg/hypotension/n/v/d -Dr Price in to evaluate patient as patient has diagnosis of acute illness necessitating hospital admission from the clinic. I have discussed the diagnosis and need for further work-up and acute hospital stay for the patient's health benefit. 10/29/2011 Appointment: Sandy Tong WPtel: [address] [place], [place] [phone] Other 10/29/2011 Patient Education: Patient Medication Summary Completed 10/29/2011 Instructions Comment . Edema - pt has been advised to elevate legs to prevent dependent edema, compression has been recommended to help to naturally decrease peripheral edema. Diuretic use has been discussed and pt has been instructed in appropriate use of such medication as necessary to further attempt to reduce peripheral edema. Ttlvzwlshl-vuxxgasy-rmhe for symptoms Diabetes Mellitus - controlled - I have recommended for the patient to have follow up labs prior to the next office visit. The patient has been instructed to continue with current medications as previously directed, continue with regular FSBS monitoring to assure continued control of diabetes. Pt to call for any acute concerns, complaints, or if the blood glucose readings are starting to become less controlled. . Cellulitis and rffcjbxz-kljgepbjp-hhovxckz bactrim x 5 days-continue topical antibiotic ointment as previously directed Tywqmpyabse-vhmyvyft-mynsbvp blood pressure at home. . Diabetes Mellitus - controlled - per recent FSBS reports. I have recommended for the patient to have follow up labs prior to the next office visit. The patient has been instructed to continue with current medications as previously directed, continue with regular FSBS monitoring to assure continued control of diabetes. Pt to call for any acute concerns, complaints, or if the blood glucose readings are starting to become less controlled. Pt is to bring in the blood sugars in two weeks. Hypertension - well controlled - continue with current medications, continue with no added salt diet. Pt has been encouraged to exercise daily. The pt has been advised to call the office if there are any acute concerns about change in blood pressure readings at home. RESTART JANUVIA 100MG DAILY . Diabetes Mellitus - Uncontrolled - per recent FSBS reports. I have recommended for the patient to have follow up labs prior to the next office visit. The patient has been instructed to continue with current medications as previously directed, continue with regular FSBS monitoring to assure continued control of diabetes. Pt to call for any acute concerns, complaints, or if the blood glucose readings are starting to become less controlled. I have recommended for the patient to follow more strictly to the diabetic diet as discussed in clinic to allow for greater blood glucose control. Cellulitis of hbf-lwkogyel-iyrk if symptoms return labs-cbc, cmp bactrim ds 1 po BID x 7 days take probiotic while on the abx bumex take daily x 3 days call friday with update on symptoms . Cellulitis - start oral abx as directed-rocephin injection today in the office, follow up as directed, call for acute change in symptoms, worsening redness, warmth, discharge. Edema - pt has been advised to elevate legs to prevent dependent edema, compression has been recommended to help to naturally decrease peripheral edema. Diuretic use has been discussed and pt has been instructed in appropriate use of such medication as necessary to further attempt to reduce peripheral edema. Diabetes Mellitus - decrease metformin to 1/2 tab twice daily x 1 week and then increase dose as directed-take probiotic twice daily for diarrhea-monitor blood sugars closely. . Hypertension - well controlled - continue with current medications, continue with no added salt diet. Pt has been encouraged to exercise daily. The pt has been advised to call the office if there are any acute concerns about change in blood pressure readings at home. Diabetes Mellitus - controlled - per recent FSBS reports. I have recommended for the patient to have follow up labs prior to the next office visit. The patient has been instructed to continue with current medications as previously directed, continue with regular FSBS monitoring to assure continued control of diabetes. Pt to call for any acute concerns, complaints, or if the blood glucose readings are starting to become less controlled. Hyperlipidemia - pt has been counseled about appropriate diet, exercise, and need for low fat food choices. I have discussed the need for the patient to take medications as prescribed. If the patient has negative side effects from the medication, they are to CALL the office and not abruptly discontinue the medication without discussion with a practitioner in the office. We will check labs in 3-6 months for follow up on the patient's chronic medical problem and to assure normal liver response to medications. Obesity - chronic issue with this patient. The pt has been counseled about diet changes, calorie restriction, and need to exercise. Pt will RTC in one month for weight check. Start on the oral antibiotic tonight start eye drops JEFERSON. Cellulitis - continue with oral antibiotics as directed, return to clinic as previously directed, call for acute change in symptoms, worsening redness, warmth, discharge. . Scabies-discussed diagnosis with patient-recommend washing all bedding, clean and vaccuum thoroughly-use oral antihistamine for the severe itching. Rx for permethrin cream sent to [facility] and instructed on use. Patient verbalized understanding of plan. start on probiotic while on antibiotics (culturelle one twice daily) to prevent diarrhea. Cellulitis - continue with oral antibiotics as previously directed, return to clinic as previously directed, call for acute change in symptoms, worsening redness, warmth, discharge. Pt to start on generic bactrim - take twice daily x 2 weeks, and call if symptoms are not improving. Cough and fever, likely due to sinus congestion - the patient's antibiotic should cover his cellulitis and sinus infection. Monitor your blood pressure at home and record. Bring in your readings to your next appointment, or as directed. Call for chest pain, shortness of breath, headaches, or other concerns.. Cellulitis - continue with oral antibiotics as previously directed, return to clinic as previously directed, call for acute change in symptoms, worsening redness, warmth, discharge. HTN-blood pressure elevated-instructed patient to monitor at home and bring in readings for review in 2-3 weeks. Patient verbalized understanding of plan. . Admission to Hospital -cellulitis left lower leg/ hypotension/n/v/d -Dr Price in to evaluate patient as patient has diagnosis of acute illness necessitating hospital admission from the clinic. I have discussed the diagnosis and need for further work-up and acute hospital stay for the patient's health benefit. Nausea and emesis - pt will be started on IV fluids and symptoms monitored, if needed will then start antiemetics. Diarrhea - monitor output, DR to be called if symptoms resume. Doctor's eval of the patient - I, Dr. Price, personally evaluated the patient with the nurse practicioner. I have reviewed the patient's chart, I have reviewed the patient's past medical history, problem list, medication list , and personal history. I agree with the documentation by the nurse practicioner in the HPI, physical exam, and the assessment and plan. Leg pain - check venous dopplers, lovenox to be given and coumadin dose to be adjusted as needed. . Admission to Hospital -cellulitis left lower leg/ hypotension/n/v/d -Dr Price in to evaluate patient as patient has diagnosis of acute illness necessitating hospital admission from the clinic. I have discussed the diagnosis and need for further work-up and acute hospital stay for the patient's health benefit. PT TO CHANGE HIS LISINOPRIL TO 1/2 PILL DAILY - DOWN FROM 40MG TO 20MG.. Cellulitis - continue with oral antibiotics as previously directed, return to clinic as previously directed, call for acute change in symptoms, worsening redness, warmth, discharge. CONTINUE WITH KEFLEX AND MONITOR SYMPTOMS, IF NOT BETTER, CALL OFFICE JEFERSON. HYPOTENSION - PT TO DECREASE LISIONPRIL TO 1/2 PILL DAILY AND CHECK BLOOD PRESSURES TWICE DAILY AND CALL WITH RESULTS. EDEMA - ELEVATE LEGS.
--- OUTSIDE RECORDS SUMMARY | 2018-06-05 14:02 | XMS REPORT | CCD ---
Author Author [facility] Address [address] [place] [address] Phone Care Team Providers Care Gallery Assistant Name Role Phone PP Unavailable CCM Unavailable Summary Purpose Interface Exchange Insurance Providers Payer name Policy type / Coverage type Covered constitution party ID Effective Begin Date Effective End Date [facility] Commercial Insurance [id number] Unknown Family history Father Diagnosis Age At Onset Congestive heart failure Unknown Mother Diagnosis Age At Onset No Family Disease Entered N/A Sister Diagnosis Age At Onset No Family Disease Entered N/A Social History Social History Element Codes Description Effective Dates Tobacco history SNOMED CT: 7697777 Former smoker 10/29/2011 Number of years using [...] Start Date Stop Date Status Fill Instructions Trilipix 135 mg capsule,delayed release RxNorm: 261970 TAKE 1 CAPSULE DAILY 04/20/2018 No Stop Date Active lisinopril 40 mg tablet RxNorm: 823328 TAKE ONE-HALF (1/2) TABLET DAILY 02/25/2018 No Stop Date Active metformin 500 mg tablet RxNorm: 940581 Tablet(s) TAKE ONE TABLET BY MOUTH TWICE DAILY 11/14/2017 11/08/2018 Active carvedilol 25 mg tablet RxNorm: 042232 TAKE ONE TABLET BY MOUTH TWICE DAILY 06/06/2017 No Stop Date Active metformin 500 mg tablet RxNorm: 671290 TAKE ONE TABLET BY MOUTH TWICE DAILY 06/06/2017 11/13/2017 Inactive Januvia 100 mg tablet RxNorm: 212228 TAKE 1 TABLET DAILY 2017 No Stop Date Active Trilipix 135 mg capsule,delayed release RxNorm: 198921 TAKE 1 CAPSULE DAILY 04/22/2017 04/19/2018 Inactive spironolactone 25 mg tablet RxNorm: 396378 TAKE ONE-HALF (1/2) TABLET DAILY 02/11/2017 No Stop Date Active Januvia 100 mg tablet RxNorm: 495819 TAKE 1 TABLET DAILY 201604/28/2017 Inactive lisinopril 40 mg tablet RxNorm: 201638 TAKE ONE-HALF (1/2) TABLET DAILY 12/24/2016 02/24/2018 Inactive nystatin 100,000 unit/gram topical powder RxNorm: 545395 1 Application TOP BID 11/11/2016 05/09/2017 Inactive Trilipix 135 mg capsule,delayed release RxNorm: 924813 TAKE 1 CAPSULE DAILY 11/11/2016 04/21/2017 Inactive carvedilol 25 mg tablet RxNorm: 505840 TAKE ONE TABLET BY MOUTH TWICE DAILY 09/23/2016 03/21/2017 Inactive metformin 500 mg tablet RxNorm: 413760 1 Tablet(s) PO BID 04/0901/03/2017 Inactive metformin 500 mg tablet RxNorm: 842399 TAKE ONE TABLET BY MOUTH TWICE DAILY 04/09/2016 05/08/2016 Inactive carvedilol 25 mg tablet RxNorm: 802932 TAKE ONE TABLET BY MOUTH TWICE DAILY 03/25/2016 09/20/2016 Inactive metformin 500 mg tablet RxNorm: 409079 1 Tablet(s) BID 201504/08/2016 Inactive metformin 500 mg tablet RxNorm: 479993 1 Tablet(s) PO BID 01/2501/29/2016 Inactive digoxin 250 mcg tablet RxNorm: 466527 TAKE ONE-HALF (1/2) TABLET DAILY 01/15/2016 No Stop Date Active Trilipix 135 mg capsule,delayed release RxNorm: 855820 TAKE 1 CAPSULE DAILY 01/01/2016 11/10/2016 Inactive spironolactone 25 mg tablet RxNorm: 991438 TAKE ONE-HALF (1/2) TABLET DAILY 12/26/2015 02/10/2017 Inactive lisinopril 40 mg tablet RxNorm: 170485 TAKE ONE-HALF (1/2) TABLET DAILY 12/18/2015 12/23/2016 Inactive Januvia 100 mg tablet RxNorm: 123544 TAKE 1 TABLET DAILY 201501/20/2017 Inactive ceftriaxone 500 mg solution for injection RxNorm: 4674268 Inj 11/17/2015 11/17/2015 Inactive Bactrim DS 800 mg-160 mg tablet RxNorm: 658580 1 Tablet(s) PO BID 11/17/2015 11/23/2015 Inactive metformin 500 mg tablet RxNorm: 746018 1 Tablet(s) PO BID 11/1401/25/2016 Inactive increase Aspir-81 81 mg tablet,delayed release RxNorm: 252504 1 Tablet(s) PO daily 09/21/2015 No Stop Date Active metformin 500 mg tablet RxNorm: 769181 1/2 Tablet(s) PO BID Tablet(s) TAKE ONE- HALF TABLET BY MOUTH TWICE DAILY 09/21/2015 11/14/2015 Inactive carvedilol 25 mg tablet RxNorm: 224999 1 Tablet(s) PO BID 09/2003/18/2016 Inactive Trilipix 135 mg capsule,delayed release RxNorm: 716848 CAPSULE(S) TAKE 1 CAPSULE DAILY 07/04/2015 12/31/2015 Inactive Contour Test Strips RxNorm: USE TO TEST EVERY MORNING AND EVERY EVENING DIRECTED 06/23/2015 No Stop Date Active metformin 500 mg tablet RxNorm: 175931 Tablet(s) TAKE ONE-HALF TABLET BY MOUTH TWICE DAILY 06/01/2015 06/30/2015 Inactive metformin 500 mg tablet RxNorm: 784842 Tablet(s) TAKE ONE-HALF TABLET BY MOUTH TWICE DAILY 02/16/2015 05/31/2015 Inactive lisinopril 40 mg tablet RxNorm: 373466 TAKE ONE-HALF (1/2) TABLET DAILY 01/10/2015 12/17/2015 Inactive metformin 500 mg tablet RxNorm: 947686 Tablet(s) TAKE ONE-HALF TABLET BY MOUTH TWICE DAILY 11/22/2014 03/21/2015 Inactive metformin 500 mg tablet RxNorm: 059007 Tablet(s) TAKE ONE-HALF TABLET BY MOUTH TWICE DAILY 11/21/2014 11/21/2014 Inactive digoxin 250 mcg tablet RxNorm: 688660 Tablet(s) TAKE ONE-HALF (1/2) TABLET DAILY 11/14/2014 08/10/2015 Inactive spironolactone 25 mg tablet RxNorm: 855329 TAKE ONE-HALF (1/2) TABLET DAILY 10/26/2014 12/25/2015 Inactive spironolactone 25 mg tablet RxNorm: 484036 Tablet(s) TAKE ONE-HALF (1/2) TABLET DAILY 10/25/2014 10/25/2014 Inactive Januvia 100 mg tablet RxNorm: 131299 TAKE 1 TABLET DAILY 201411/19/2015 Inactive Bactrim DS 800 mg-160 mg tablet RxNorm: 121879 1 Tablet(s) PO BID TAKE ONE TABLET BY MOUTH TWICE DAILY 09/20/20142014 Inactive Contour Test Strips RxNorm: USE TO TEST EVERY MORNING AND EVERY EVENING DIRECTED 08/08/2014 06/22/2015 Inactive Trilipix 135 mg capsule,delayed release RxNorm: 909190 Capsule(s) TAKE 1 CAPSULE DAILY 07/27/2014 01/22/2015 Inactive metformin 500 mg tablet RxNorm: 124608 Tablet(s) TAKE ONE-HALF TABLET BY MOUTH TWICE DAILY 06/06/2014 06/05/2014 Inactive metformin 500 mg tablet RxNorm: 483113 TAKE ONE-HALF TABLET BY MOUTH TWICE DAILY 06/06/2014 09/03/2014 Inactive digoxin 250 mcg tablet RxNorm: 777587 TAKE ONE-HALF (1/2) TABLET DAILY 04/28/2014 11/13/2014 Inactive spironolactone 25 mg tablet RxNorm: 075380 TAKE ONE-HALF (1/2) TABLET DAILY 04/28/2014 10/24/2014 Inactive Trilipix 135 mg capsule,delayed release RxNorm: 638840 TAKE 1 CAPSULE DAILY 04/28/2014 07/26/2014 Inactive Januvia 100 mg tablet RxNorm: 973163 TAKE 1 TABLET DAILY 201309/19/2014 Inactive metformin 500 mg tablet RxNorm: 432770 TAKE ONE-HALF TABLET BY MOUTH TWICE DAILY 01/11/2014 06/05/2014 Inactive Januvia 100 mg tablet RxNorm: 920431 1 TABLET(S) PO DAILY TAKE ONE TABLET BY MOUTH EVERY DAY 12/30/2013 03/29/2014 Inactive Bactroban 2 % topical ointment RxNorm: 568437 1 TOP BID 2013 No Stop Date Active sulfamethoxazole 800 mg-trimethoprim 160 mg tablet RxNorm: 603804 1 Tablet(s) PO BID 12/08/2013 12/17/2013 Inactive sulfamethoxazole 800 mg-trimethoprim 160 mg tablet RxNorm: 227361 1 Tablet(s) PO BID 12/08/2013 12/07/2013 Inactive lisinopril 40 mg tablet RxNorm: 601092 1/2 Tablet(s) PO daily 12/02/2013 03/01/2014 Inactive lisinopril 40 mg tablet RxNorm: 288844 1/2 Tablet(s) PO daily 1/2 TABLET(S) PO DAILY 12/02/2013 01/30/2014 Inactive ceftriaxone 1 gram solution for injection RxNorm: 691386 Inj 11/25/2013 Inactive Rocephin 500 mg solution for injection RxNorm: 910198 1 Gram(s) Inj once 11/24/2013 11/24/2013 Inactive sulfamethoxazole 800 mg-trimethoprim 160 mg tablet RxNorm: 580913 1 Tablet(s) PO BID 11/24/2013 12/07/2013 Inactive permethrin 5 % topical cream RxNorm: 292017 1 Application TOP daily 10/19/2013 No Stop Date Active apply head to toe, leave on 12 hours then wash off, may repeat x 1 if needed permethrin 5 % topical cream RxNorm: 857225 1 Application TOP daily 10/15/2013 10/18/2013 Inactive apply head to toe, leave on 12 hours then wash off, may repeat x 1 if needed metformin 500 mg tablet RxNorm: 328685 TAKE ONE-HALF TABLET BY MOUTH TWICE DAILY 10/05/2013 01/02/2014 Inactive Contour Test Strips RxNorm: Miscellaneous USE TO TEST BLOOD SUGAR TWICE A DAY 06/28/2013 08/07/2014 Inactive spironolactone 25 mg tablet RxNorm: 618357 Tablet(s) PO TAKE ONE-HALF (1/2) TABLET DAILY 06/18/2013 04/27/2014 Inactive Trilipix 135 mg capsule,delayed release RxNorm: 001683 Capsule(s) PO TAKE 1 CAPSULE DAILY 06/18/2013 04/27/2014 Inactive digoxin 250 mcg tablet RxNorm: 035747 Tablet(s) PO TAKE ONE-HALF (1/2) TABLET DAILY 06/18/2013 04/27/2014 Inactive metformin 500 mg tablet RxNorm: 814391 1/2 Tablet(s) PO BID 09/30/2013 Inactive Microlet Lancet RxNorm : 1 Miscellaneous BID 05/31/2013 08/23/2014 Inactive Microlet Lancet RxNorm : 1 Miscellaneous BID 05/31/2013 05/30/2013 Inactive nystatin 100,000 unit/gram topical powder RxNorm: 361606 1 Application TOP BID 05/31/2013 08/28/2013 Inactive Januvia 100 mg tablet RxNorm: 859105 1 Tablet(s) PO daily TAKE ONE TABLET BY MOUTH EVERY DAY 05/31/2013 11/26/2013 Inactive nystatin 100,000 unit/gram topical powder RxNorm: 576954 1 Application TOP BID 05/17/2013 05/30/2013 Inactive Bactrim DS 800 mg-160 mg tablet RxNorm: 713963 1 Tablet(s) PO BID TAKE ONE TABLET BY MOUTH TWICE DAILY 05/17/20132013 Inactive Bactrim DS 800 mg-160 mg tablet RxNorm: 617086 Tablet(s) PO TAKE ONE TABLET BY MOUTH TWICE DAILY 12/03/2012 05/16/2013 Inactive Bactrim DS 800 mg-160 mg tablet RxNorm: 739916 1 Tablet(s) PO BID 11/26/2012 11/30/2012 Inactive lisinopril 40 mg tablet RxNorm: 778505 1/2 Tablet(s) PO daily 11/16/2012 12/01/2013 Inactive Januvia 100 mg tablet RxNorm: 950723 1 Tablet(s) PO daily TAKE ONE TABLET BY MOUTH EVERY DAY 11/16/2012 05/30/2013 Inactive lisinopril 40 mg tablet RxNorm: 620502 Tablet(s) PO TAKE 1 TABLET DAILY 10/24/2012 11/15/2012 Inactive Contour Test Strips RxNorm: Strip Miscellaneous USE TO TEST BLOOD SUGAR TWICE A DAY 10/24/2012 06/28/2013 Inactive Trilipix 135 mg capsule,delayed release RxNorm: 990329 Capsule(s) PO TAKE 1 CAPSULE DAILY 10/14/2012 06/17/2013 Inactive Bactrim DS 800 mg-160 mg tablet RxNorm: 302902 1 Tablet(s) PO BID 10/07/2012 10/16/2012 Inactive Bactrim DS 800 mg-160 mg tablet RxNorm: 850174 1 Tablet(s) PO BID 10/07/2012 10/06/2012 Inactive Januvia 100 mg tablet RxNorm: 723338 1 Tablet(s) PO daily 201201/18/2013 Inactive may have #90 if cheaper digoxin 250 mcg tablet RxNorm: 3994141 1/2 tab MWF sat sun, 1 tab tues thurs Tablet(s) PO daily 1/2 tab MWF sat sun, 1 tab tues thurs 06/201209/20/2015 Inactive TAKE 1 TABLET DAILY digoxin 250 mcg tablet RxNorm: 9570428 1/2 Tablet(s) PO daily 04/07/2012 09/20/2012 Inactive TAKE 1 TABLET DAILY sulfamethoxazole-trimethoprim 800 mg-160 mg tablet RxNorm: 732507 1 Tablet(s) PO BID 04/07/2012 04/13/2012 Inactive Januvia 100 mg tablet RxNorm: 489597 1/2 Tablet(s) PO daily 08/04/2012 Inactive may have #90 if cheaper Rocephin 500 mg Solution for Injection RxNorm: 966067 1 Inj 04/07/2012 Inactive Gentak 0.3 % Eye Drops RxNorm: 779528 3 Drop(s) OPH QID 3 drops 4 times daily x 7 days 04/07/2012 04/13/2012 Inactive spironolactone 25 mg tablet RxNorm: 677868 1/2 Tablet(s) PO daily 04/07/2012 06/17/2013 Inactive TAKE 1 TABLET DAILY Coumadin 5 mg tablet RxNorm: 447725 Tablet(s) PO Luz manages 02/28/2012 08/26/2012 Inactive 7.5 mg fri [id number] other daysDrFarheen Escobar manages Januvia 100 mg tablet RxNorm: 951603 1 Tablet(s) PO 02/20/2012 11/16/2012 Inactive may have #90 if cheaper Trilipix 135 mg capsule,delayed release RxNorm: 268905 Capsule(s) PO 02/10/2012 06/16/2012 Inactive TAKE 1 CAPSULE DAILY digoxin 250 mcg tablet RxNorm: 7825220 Tablet(s) PO 02/10/2012 04/06/2012 Inactive TAKE 1 TABLET DAILY spironolactone 25 mg tablet RxNorm: 355741 Tablet(s) PO 201104/06/2012 Inactive TAKE 1 TABLET DAILY simvastatin 80 mg tablet RxNorm: 040026 Tablet(s) PO 201111/15/2012 Inactive TAKE ONE-HALF TABLET BY MOUTH EVERY DAY Januvia 50 mg tablet RxNorm: 192509 1 Tablet(s) PO daily 201102/19/2012 Inactive simvastatin 80 mg tablet RxNorm: 912964 1/2 Tablet(s) PO daily 11/07/2011 12/02/2011 Inactive lisinopril 40 mg tablet RxNorm: 343690 1 Tablet(s) PO daily 12/06/2011 Inactive spironolactone 25 mg tablet RxNorm: 892389 1 Tablet(s) PO daily 12/17/2010 03/16/2011 Inactive digoxin 250 mcg tablet RxNorm: 8199029 1 Tablet(s) PO daily 03/16/2011 Inactive Trilipix 135 mg capsule,delayed release RxNorm: 191467 1 Capsule(s) PO daily 12/17/2010 03/16/2011 Inactive spironolactone 25 mg Tab RxNorm: 388992 1 Tablet(s) PO daily No Start Date Active Lipitor 40 mg tablet RxNorm: 488863 1 Tablet(s) PO daily No Start Date Active Fish Oil 1,000 mg Cap RxNorm: 3 Capsule(s) PO daily No Start Date Active Trilipix 135 mg Capsule, delayed release RxNorm: 383484 1 Capsule(s) PO daily No Start Date Active bumetanide 1 mg Tab RxNorm: 893705 Tablet(s) PO PRN No Start Date Active Xarelto 20 mg tablet RxNorm: 3769312 1 Tablet(s) PO daily No Start Date Active simvastatin 80 mg tablet RxNorm: 745057 1/2 Tablet(s) PO daily No Start Date 11/06/2011 Inactive metformin 500 mg tablet RxNorm: 421442 1/2 Tablet(s) PO BID No Start Date 06/02/2013 Inactive carvedilol 25 mg Tab RxNorm: 828171 1 Tablet(s) PO BID No Start Date 09/20/2015 Inactive aspirin 325 mg tablet RxNorm: 606309 1 Tablet(s) PO daily No Start Date 09/20/2015 Inactive digoxin 250 mcg Tab RxNorm: 4047635 1/2 Tablet(s) PO daily No Start Date 09/20/2015 Inactive Coumadin 5 mg tablet RxNorm: 651662 Tablet(s) PO No Start Date 02/27/2012 Inactive 7.5 mg mon wed [id number] other days Bactroban 2 % topical ointment RxNorm: 686116 1 TOP BID No Start Date 12/07/2013 Inactive Contour Test Strips RxNorm: 1 Miscellaneous BID No Start Date 10/23/2012 Inactive countour ts lisinopril 40 mg tablet RxNorm: 265818 1 Tablet(s) PO daily No Start Date 11/06/2011 Inactive Medication Administered Medication Codes Instructions Start Date Status ceftriaxone 500 mg solution for injection RxNorm: 1414872 11/17/2015 No longer Active ceftriaxone 1 gram solution for injection RxNorm: 538734 11/25/2013 No longer Active Rocephin 500 mg solution for injection RxNorm: 330601 1Gramonce 11/24/2013 No longer Active Rocephin 500 mg Solution for Injection RxNorm: 523623 1 04/07/2012 No longer Active Immunizations No [...] ICD-9: 133.0 10/15/2013 DIABETES TYPE II SNOMED: 456536085 ICD-9: 250.00 07/01/2013 Abrasion of leg ICD-9: 916.0 11/26/2012 Hypotension ICD-9: 458.9 11/16/2012 Hordeolum externum of right eye ICD-9: 373.11 04/07/2012 Periorbital cellulitis ICD-9: 373.13 ESSENTIAL HYPERTENSION SNOMED: 92992614 ICD-9: 401.9 11/14/2011 Leg pain ICD-9: 729.5 [...] Item Item Code Result Date Comp Metabolic Wuk599 NA 133 mEq/L 11/17/2015 Comp Metabolic Yip641 K 4.5 mEq/L 11/17/2015 Comp Metabolic Zwc842 CL 101 mEq/L 11/17/2015 Comp Metabolic Vxf473 CO2 22.0 mEq/L 11/17/2015 Comp Metabolic Dmo761 ANION GAP 15 11/17/2015 Comp Metabolic Iii072 GLUCOSE 197 mg/dL 11/17/2015 Comp Metabolic Shp083 Creat 0.8 mg/dL 11/17/2015 Comp Metabolic Ynf550 eGFR 110 ml/min/1.73m2 11/17/2015 Comp Metabolic Zus172 BUN 20 mg/dL 11/17/2015 Comp Metabolic Pdu932 B/C Ratio 25.6 Ratio 11/17/2015 Comp Metabolic Qgw907 CALCIUM 9.4 mg/dL 11/17/2015 Comp Metabolic Kar421 ALK PHOS 65 U/L 11/17/2015 Comp Metabolic Oqh165 AST(SGOT) 22 U/L 11/17/2015 Comp Metabolic Hvv164 ALT(SGPT) 40 U/L 11/17/2015 Comp Metabolic Cbv667 BILI T 0.5 mg/dL 11/17/2015 Comp Metabolic Imc251 ALBUMIN 4.2 g/dL 11/17/2015 Comp Metabolic Emc603 TPRO 7.0 g/dL 11/17/2015 Comp Metabolic Kll888 GLOB 2.8 g/dL 11/17/2015 Comp Metabolic Dmk722 A/G Ratio 1.5 Ratio 11/17/2015 Comp Metabolic Xkv381 Osmo 274 mOsmo 11/17/2015 Cbc With Differential [...] 4.5 % 11/17/2015 Cbc With Differential Ord2 Valencia% 7.0 % 11/17/2015 Cbc With Differential Ord2 [...] 0.68 K/ul 11/17/2015 Cbc With Differential Ord2 Valencia ABS# 1.1 K/ul 11/17/2015 Cbc With Differential [...] 29.4 pg 11/08/2015 Cbc With Differential Ord2 Valencia% 10.2 % 11/08/2015 Cbc With Differential Ord2 [...] 2.10 K/ul 11/08/2015 Cbc With Differential Ord2 Valencia ABS# 0.9 K/ul 11/08/2015 Cbc With Differential Ord2 Eos ABS# 0.1 K/ul 11/08/2015 Cbc With Differential Ord2 Baso ABS# 0.0 K/ul 11/08/2015 Microalbumin Uut123 MicroAlb <0.7 mg/dL 11/08/2015 Tsh Ord6 hTSH II 0.65 uIU/mL 11/08/2015 Lipid Ord30 CHOL 157 mg/dL 11/08/2015 Lipid Ord30 HDL 30.0 mg/dl 11/08/2015 Lipid Ord30 TRIG 228 mg/dL 11/08/2015 Lipid Ord30 LDL 81 mg/dL 11/08/2015 Lipid Ord30 C/HDL 5.2 Ratio 11/08/2015 Comp Metabolic Nxu654 NA 130 mEq/L 11/08/2015 Comp Metabolic Kup110 K 4.4 mEq/L 11/08/2015 Comp Metabolic Typ751 CL 97 mEq/L 11/08/2015 Comp Metabolic Lyl756 CO2 27.0 mEq/L 11/08/2015 Comp Metabolic Zbv287 ANION GAP 10 11/08/2015 Comp Metabolic Qhg926 GLUCOSE 175 mg/dL 11/08/2015 Comp Metabolic Pet188 Creat 0.8 mg/dL 11/08/2015 Comp Metabolic Mzb382 eGFR 104 ml/min/1.73m2 11/08/2015 Comp Metabolic Hlp696 BUN 26 mg/dL 11/08/2015 Comp Metabolic Yzi778 B/C Ratio 31.7 Ratio 11/08/2015 Comp Metabolic Kbh712 CALCIUM 9.3 mg/dL 11/08/2015 Comp Metabolic Mgn920 ALK PHOS 68 U/L 11/08/2015 Comp Metabolic Pfv974 AST(SGOT) 26 U/L 11/08/2015 Comp Metabolic Ihn401 ALT(SGPT) 42 U/L 11/08/2015 Comp Metabolic Dut362 BILI T 0.7 mg/dL 11/08/2015 Comp Metabolic Bit121 ALBUMIN 4.3 g/dL 11/08/2015 Comp Metabolic Uak505 TPRO 7.0 g/dL 11/08/2015 Comp Metabolic Acj741 GLOB 2.7 g/dL 11/08/2015 Comp Metabolic Xae156 A/G Ratio 1.6 Ratio 11/08/2015 Comp Metabolic Vkn721 Osmo 270 mOsmo 11/08/2015 Total Psa Ord10 PSA 1.26 ng/mL 11/08/2015 %Hba1C Wrw963 % HbA1c 22047-5 8.2 % 11/08/2015 %Hba1C Itz190 Gluc Ave 189 mg/dL 11/08/2015 Lipid Ord30 CHOL 155 mg/dL 01/23/2015 Lipid Ord30 HDL 34.0 mg/dl 01/23/2015 Lipid Ord30 TRIG 198 mg/dL 01/23/2015 Lipid Ord30 LDL 81 mg/dL 01/23/2015 Lipid Ord30 C/HDL 4.6 Ratio 01/23/2015 Hepatic Dzi205 ALBUMIN 4.2 g/dL 01/23/2015 Hepatic Lng838 TPRO 6.9 g/dL 01/23/2015 Hepatic Hcd367 GLOB 2.7 g/dL 01/23/2015 Hepatic Hdt614 A/G Ratio 1.6 Ratio 01/23/2015 Hepatic Gro211 ALK PHOS 59 U/L 01/23/2015 Hepatic Ryw331 ALT(SGPT) 46 U/L 01/23/2015 Hepatic Pnh913 AST(SGOT) 21 U/L 01/23/2015 Hepatic Ufw474 BILI T 0.5 mg/dL 01/23/2015 Hepatic Mvq779 BILI D 0.1 mg/dL 01/23/2015 Hepatic Yaz883 BILI I 0.4 mg/dL 01/23/2015 Review of [...] of consciousness 11/16/2012 Constitutional No recent illness 05/09/ 2013 Constitutional No anorexia 08/27/2012 Constitutional No night [...] General 1994 Cardiovascular extremities Edema present: pitting 05/17/2013 None Full Exam - General 1994 Cardiovascular extremities Edema present: severity 1+ - 4 +: _ 05/17/2013 None Full Exam - General 1995 [...] General 1994 Abdomen abdominal exam Contour: protuberant 05/17/2013 None [...] General 1995 Cardiovascular auscultation of heart Overall: normal heart sounds 11/26/2012 None Full Exam - General 1995 Abdomen abdominal exam Overall: no tenderness 11/26/2012 None Full Exam - General 1995 Abdomen abdominal exam Overall: normal bowel sounds 11/26/2012 None Full Exam - General 1995 Abdomen abdominal exam Contour: protuberant 11/26/2012 None Full Exam - General 1995 Musculoskeletal digits and nails Overall: no clubbing [...] 1994 Ears/Nose/Throat oral cavity/pharynx/larynx Overall: no masses 11/16/2012 [...] station 11/16/2012 None Full Exam - General 1994 [...] CPT-4: J0696 11/17/2015 THER/PROPH/DIAG INJ SC/IM CPT-4: 75581 11/25/2013 ROCEPHIN, PER 250 MG CPT-4: J0696 11/25/2013 ROCEPHIN, PER 250 MG CPT-4: J0696 11/24/2013 THER/PROPH/DIAG INJ SC/IM CPT-4: 57694 11/24/2013 ROCEPHIN, PER 250 MG CPT-4: J0696 04/07/2012 THER/PROPH/DIAG INJ SC/IM CPT-4: 08007 04/07/2012 Vital Signs Date Vital 11/17/2015 Blood Pressure 1: 112/82 Code : 8480-6 BMI: 44.6 Code : 97544-9 Heart Rate 1 : 100 bpm Height: 5'7" SpO2: 96% Temperature: 37.3 (C) / 99.1 (F) Weight: 285 lbs 09/21/2015 Blood Pressure 1: 132/72 Code : 8480-6 BMI: 44.0 Code : 64934-4 Heart Rate 1 : 86 bpm Height: 5'7" SpO2: 97% Weight: 281 lbs 11/24/2013 Blood Pressure 1: 138/78 Code : 8480-6 Heart Rate 1: 96 bpm Temperature: 36.7 (C) / 98.0 (F) Weight: 280 lbs 10/15/2013 Blood Pressure 1: 124/70 Code : 8480-6 BMI: 43.2 Code : 21110-3 Heart Rate 1 : 64 bpm Height: [...] now. was put on cephalexin in ER Friday cellulitis Onset and Resolution ongoing 11/16/2012 None [...] of immodium." States he ate at the [employer] and had ribs/ chicken/pot roast. nausea Frequency of Episodes decreasing 10/29/2011 States he ate a pot pie last night and did not vomit afterwards. nausea Triggers no known associated factors 10/29/2011 None cellulitis Onset and Resolution ongoing 10/29/2011 States he did go to [employer] on Friday and he was walking around [...] data Encounters Encounter Performer Location Codes Date () [id number] EST. PATIENT, LEVEL IV Diagnosis: Cellulitis of left lower limb[ICD10: L03.116] Diagnosis: Localized edema[ICD10: R60.0] Diagnosis: Type 2 diabetes mellitus without complications[ICD10: E11.9] Akosua Price MD, [facility] CPT-4: 59132 11/17/2015 ([id number]) 34755 EST. PATIENT, LEVEL IV Diagnosis: Essential (primary) hypertension[ICD10: I10] Diagnosis: Type 2 diabetes mellitus without complications[ICD10: E11.9] Diagnosis: Mixed hyperlipidemia[ICD10: E78.2] Diagnosis: Other obesity due to excess calories[ICD10: E66.09] Sandy Price MD, [facility] CPT-4: 21691 09/21/2015 ([id number]) 97115 EST. PATIENT, LEVEL III Diagnosis: CELLULITIS OF LEG[ICD9: 682.6] Diagnosis: EDEMA[ICD9: 782.3] Diagnosis: FEVER NOS[ICD9: 780.60] Diagnosis: Cough[ICD9: 786.2] Akosua Price MD, [facility] CPT-4: 27262 11/24/2013 ([id number]) 99305 EST. PATIENT, LEVEL III Diagnosis: SCABIES[ICD9: 133.0] Sandy Price MD, [facility] CPT-4: 85936 10/15/2013 ([id number]) 85835 EST. PATIENT, LEVEL III Diagnosis: DIABETES TYPE II[SNOMED: 845730926] Akosua Price MD, [facility] CPT-4: 78555 07/01/2013 ([id number]) 06496 EST. PATIENT, LEVEL III Diagnosis: CELLULITIS OF LEG[ICD9: 682.6] Sandy Price MD, [facility] CPT-4: 24973 05/17/2013 ([id number]) 21973 EST. PATIENT, LEVEL III Diagnosis: CELLULITIS OF LEG[ICD9: 682.6] Diagnosis: Abrasion of leg[ICD9: 916.0] Akosua Price MD [facility] CPT- 4: 99168 11/26/2012 ([id number]) 69973 EST. PATIENT, LEVEL IV Diagnosis: EDEMA[ICD9: 782.3] Diagnosis: CELLULITIS OF LEG[ICD9: 682.6] Diagnosis: Hypotension[ICD9: 458.9] Akosua Price MD [facility] CPT-4: 47801 11/16/2012 ([id number]) 97034 EST. PATIENT, LEVEL IV Diagnosis: EDEMA[ICD9: 782.3] Diagnosis: CELLULITIS OF LEG[ICD9: 682.6] Diagnosis: DIABETES TYPE II[SNOMED: 063633494] Akosua Price MD [facility] CPT-4: 45053 08/27/2012 ([id number] 11642 EST. PATIENT, LEVEL III Diagnosis: Hordeolum externum of right eye[ICD9: 373.11] Akosua Price MD [facility] CPT-4: 78081 04/07/2012 ([id number]) 55177 EST. PATIENT, LEVEL IV Diagnosis: ESSENTIAL HYPERTENSION[SNOMED: 36425916] Diagnosis: DIABETES TYPE II[SNOMED: 181047370] Akosua Price MD, [facility] CPT-4: 97708 11/14/2011 ([id number]) Patient admitted to the hospital from clinic (NO CHARGE) Diagnosis: Cellulitis of left leg[ICD9: 682.6] Diagnosis: Hypotension[ICD9: 458.9] Diagnosis: Nausea vomiting and diarrhea[ICD9: 787.01] Diagnosis: Leg pain[ICD9: 729.5] Diagnosis: Anticoagulant long-term use[ICD9: V58.61] Diagnosis: Coronary artery disease[ICD9: 414.00] Sandy Price MD, [facility] CPT-4: 32283S 10/29/2011 Plan of Care Planned Activity Notes [...] closely. 11/17/2015 Appointment: Sandy Tong WPtel: [phone] [phone] (15 min) Moderate 11/17/2015 Patient Education: Patient [...] check. 09/21/2015 [facility]ment[phone] (30 min) Complex 09/21/2015 Patient Education: Patient [...] itching. Rx for permethrin cream sent to [facility] pharmacy and instructed on use. Patient verbalized [...] for greater blood glucose control. Cellulitis of rok-acikzbvm-nfmo if symptoms return 07/01/2013 Appointment: Sandy Tong WPtel: [address] [place], [place] [phone] [facility] 07/01/2013 Patient Education: Patient Medication Summary Completed 07/01/2013 Appointment: Sandy Tong WPtel: [address] [place], [place] [phone] Follow up 06/29/2013 Appointment: Akosua Price WPtel: [address] [place], [place] [phone] [facility] follow up 06/28/2013 Visit Plan: Cellulitis - [...] Summary Completed 05/17/2013 Visit Plan: Cellulitis and gebhkxyl-lsbzffxpw-dpfynuzo bactrim x 5 days-continue topical antibiotic ointment as previously directed Tpsicobymvb-odnqkpgm-mgphwja blood pressure at home. 11/26/2012 Appointment: Sandy Tong WPtel: [facility] [id number] [place] [address] Follow up 11/26/2012 Patient Education: Patient Medication [...] ELEVATE LEGS. 11/16/2012 Appointment: Akosua Price WPtel: [facility] [place] [facility] Other 11/16/2012 Patient Education: Patient Medication Summary Completed 11/16/2012 Visit Plan: Edema - pt has been advised to elevate legs to prevent dependent edema, compression has been recommended to help to naturally decrease peripheral edema. Diuretic use has been discussed and pt has been instructed in appropriate use of such medication as necessary to further attempt to reduce peripheral edema. Jilfntqfai-qsssgbaa-efeb for symptoms Diabetes Mellitus - controlled - [...] less controlled. 08/27/2012 Appointment: Sandy Tong WPtel: [facility] [place] [phone] Follow up 08/27/2012 Patient Education: Patient Medication Summary Completed 08/27/2012 Visit Plan: Cellulitis - continue with oral antibiotics as directed, return to clinic as previously directed, call for acute change in symptoms, worsening redness, warmth, discharge. 04/07/2012 Appointment: Akosua Price WPtel: [address] [place] [address] Other 04/07/2012 Patient Education: Patient Medication Summary [...] at home. 11/14/2011 Appointment: Akosua Price WPtel: [facility] [place] Other 11/14/2011 Appointment: Akosua Price WPtel: [address] [place] [address] Other 11/14/2011 Patient Education: Patient Medication Summary [...] health benefit. 10/29/2011 Appointment: Sandy Tong WPtel: [facility] [phone] Other 10/29/2011 Patient Education: Patient Medication Summary Completed 10/29/2011 Instructions Comment . Edema - pt has been advised to elevate legs to prevent dependent edema, compression has been recommended to help to naturally decrease peripheral edema. Diuretic use has been discussed and pt has been instructed in appropriate use of such medication as necessary to further attempt to reduce peripheral edema. Cvxiwmjuit-dnkkloxu-rbdm for symptoms Diabetes Mellitus - controlled - [...] to become less controlled. . Cellulitis and kwjqqvkc-bvoftqtgo-vjbdzfpo bactrim x 5 days-continue topical antibiotic ointment as previously directed Zqbcblibqku-hixpabmg-fsbsxml blood pressure at home. . Diabetes Mellitus [...] for greater blood glucose control. Cellulitis of amn-toijskuv-kmkq if symptoms return labs-cbc, cmp bactrim ds [...] itching. Rx for permethrin cream sent to [facility] pharmacy and instructed on use. Patient verbalized [...]
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
--- OUTSIDE RECORDS SUMMARY | 2018-06-05 14:04 | XMS REPORT | CCD ---
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 Name Role Phone PP Unavailable CCM Unavailable Summary Purpose Interface Exchange Insurance Providers Payer name Policy type / Coverage type Covered democrat ID Effective Begin Date Effective End Date [facility] Commercial Insurance [id number] Unknown Family history Father Diagnosis Age At Onset Congestive heart failure Unknown Mother Diagnosis Age At Onset No Family Disease Entered N/A Sister Diagnosis Age At Onset No Family Disease Entered N/A Social History Social History Element Codes Description Effective Dates Tobacco history SNOMED CT: 6137828 Former smoker 10/29/2011 Number of years using [...] Start Date Stop Date Status Fill Instructions lisinopril 40 mg tablet RxNorm: 863388 TAKE ONE-HALF (1/2) TABLET DAILY 02/25/2018 No Stop Date Active metformin 500 mg tablet RxNorm: 416296 Tablet(s) TAKE ONE TABLET BY MOUTH TWICE DAILY 11/14/2017 11/08/2018 Active carvedilol 25 mg tablet RxNorm: 815639 TAKE ONE TABLET BY MOUTH TWICE DAILY 06/06/2017 No Stop Date Active metformin 500 mg tablet RxNorm: 076376 TAKE ONE TABLET BY MOUTH TWICE DAILY 06/06/2017 11/13/2017 Inactive Januvia 100 mg tablet RxNorm: 575834 TAKE 1 TABLET DAILY 2017 No Stop Date Active Trilipix 135 mg capsule,delayed release RxNorm: 261652 TAKE 1 CAPSULE DAILY 04/22/2017 No Stop Date Active spironolactone 25 mg tablet RxNorm: 480191 TAKE ONE-HALF (1/2) TABLET DAILY 02/11/2017 No Stop Date Active Januvia 100 mg tablet RxNorm: 178308 TAKE 1 TABLET DAILY 201604/28/2017 Inactive lisinopril 40 mg tablet RxNorm: 619498 TAKE ONE-HALF (1/2) TABLET DAILY 12/24/2016 02/24/2018 Inactive nystatin 100,000 unit/gram topical powder RxNorm: 191765 1 Application TOP BID 11/11/2016 05/09/2017 Inactive Trilipix 135 mg capsule,delayed release RxNorm: 647522 TAKE 1 CAPSULE DAILY 11/11/2016 04/21/2017 Inactive carvedilol 25 mg tablet RxNorm: 123732 TAKE ONE TABLET BY MOUTH TWICE DAILY 09/23/2016 03/21/2017 Inactive metformin 500 mg tablet RxNorm: 183253 1 Tablet(s) PO BID 04/0901/03/2017 Inactive metformin 500 mg tablet RxNorm: 814054 TAKE ONE TABLET BY MOUTH TWICE DAILY 04/09/2016 05/08/2016 Inactive carvedilol 25 mg tablet RxNorm: 514446 TAKE ONE TABLET BY MOUTH TWICE DAILY 03/25/2016 09/20/2016 Inactive metformin 500 mg tablet RxNorm: 136553 1 Tablet(s) BID 201504/08/2016 Inactive metformin 500 mg tablet RxNorm: 829592 1 Tablet(s) PO BID 01/2501/29/2016 Inactive digoxin 250 mcg tablet RxNorm: 764902 TAKE ONE-HALF (1/2) TABLET DAILY 01/15/2016 No Stop Date Active Trilipix 135 mg capsule,delayed release RxNorm: 067932 TAKE 1 CAPSULE DAILY 01/01/2016 11/10/2016 Inactive spironolactone 25 mg tablet RxNorm: 710271 TAKE ONE-HALF (1/2) TABLET DAILY 12/26/2015 02/10/2017 Inactive lisinopril 40 mg tablet RxNorm: 994227 TAKE ONE-HALF (1/2) TABLET DAILY 12/18/2015 12/23/2016 Inactive Januvia 100 mg tablet RxNorm: 641227 TAKE 1 TABLET DAILY 201501/20/2017 Inactive ceftriaxone 500 mg solution for injection RxNorm: 2317099 Inj 11/17/2015 11/17/2015 Inactive Bactrim DS 800 mg-160 mg tablet RxNorm: 444507 1 Tablet(s) PO BID 11/17/2015 11/23/2015 Inactive metformin 500 mg tablet RxNorm: 386312 1 Tablet(s) PO BID 11/1401/25/2016 Inactive increase Aspir-81 81 mg tablet,delayed release RxNorm: 200410 1 Tablet(s) PO daily 09/21/2015 No Stop Date Active metformin 500 mg tablet RxNorm: 871447 1/2 Tablet(s) PO BID Tablet(s) TAKE ONE- HALF TABLET BY MOUTH TWICE DAILY 09/21/2015 11/14/2015 Inactive carvedilol 25 mg tablet RxNorm: 943742 1 Tablet(s) PO BID 09/2003/18/2016 Inactive Trilipix 135 mg capsule,delayed release RxNorm: 948679 CAPSULE(S) TAKE 1 CAPSULE DAILY 07/04/2015 12/31/2015 Inactive Contour Test Strips RxNorm: USE TO TEST EVERY MORNING AND EVERY EVENING DIRECTED 06/23/2015 No Stop Date Active metformin 500 mg tablet RxNorm: 755174 Tablet(s) TAKE ONE-HALF TABLET BY MOUTH TWICE DAILY 06/01/2015 06/30/2015 Inactive metformin 500 mg tablet RxNorm: 590852 Tablet(s) TAKE ONE-HALF TABLET BY MOUTH TWICE DAILY 02/16/2015 05/31/2015 Inactive lisinopril 40 mg tablet RxNorm: 895725 TAKE ONE-HALF (1/2) TABLET DAILY 01/10/2015 12/17/2015 Inactive metformin 500 mg tablet RxNorm: 759980 Tablet(s) TAKE ONE-HALF TABLET BY MOUTH TWICE DAILY 11/22/2014 03/21/2015 Inactive metformin 500 mg tablet RxNorm: 626347 Tablet(s) TAKE ONE-HALF TABLET BY MOUTH TWICE DAILY 11/21/2014 11/21/2014 Inactive digoxin 250 mcg tablet RxNorm: 126733 Tablet(s) TAKE ONE-HALF (1/2) TABLET DAILY 11/14/2014 08/10/2015 Inactive spironolactone 25 mg tablet RxNorm: 403045 TAKE ONE-HALF (1/2) TABLET DAILY 10/26/2014 12/25/2015 Inactive spironolactone 25 mg tablet RxNorm: 508516 Tablet(s) TAKE ONE-HALF (1/2) TABLET DAILY 10/25/2014 10/25/2014 Inactive Januvia 100 mg tablet RxNorm: 125286 TAKE 1 TABLET DAILY 201411/19/2015 Inactive Bactrim DS 800 mg-160 mg tablet RxNorm: 984524 1 Tablet(s) PO BID TAKE ONE TABLET BY MOUTH TWICE DAILY 09/20/20142014 Inactive Contour Test Strips RxNorm: USE TO TEST EVERY MORNING AND EVERY EVENING DIRECTED 08/08/2014 06/22/2015 Inactive Trilipix 135 mg capsule,delayed release RxNorm: 678029 Capsule(s) TAKE 1 CAPSULE DAILY 07/27/2014 01/22/2015 Inactive metformin 500 mg tablet RxNorm: 260715 Tablet(s) TAKE ONE-HALF TABLET BY MOUTH TWICE DAILY 06/06/2014 06/05/2014 Inactive metformin 500 mg tablet RxNorm: 433753 TAKE ONE-HALF TABLET BY MOUTH TWICE DAILY 06/06/2014 09/03/2014 Inactive digoxin 250 mcg tablet RxNorm: 645018 TAKE ONE-HALF (1/2) TABLET DAILY 04/28/2014 11/13/2014 Inactive spironolactone 25 mg tablet RxNorm: 531185 TAKE ONE-HALF (1/2) TABLET DAILY 04/28/2014 10/24/2014 Inactive Trilipix 135 mg capsule,delayed release RxNorm: 725265 TAKE 1 CAPSULE DAILY 04/28/2014 07/26/2014 Inactive Januvia 100 mg tablet RxNorm: 164247 TAKE 1 TABLET DAILY 201309/19/2014 Inactive metformin 500 mg tablet RxNorm: 260533 TAKE ONE-HALF TABLET BY MOUTH TWICE DAILY 01/11/2014 06/05/2014 Inactive Januvia 100 mg tablet RxNorm: 960134 1 TABLET(S) PO DAILY TAKE ONE TABLET BY MOUTH EVERY DAY 12/30/2013 03/29/2014 Inactive Bactroban 2 % topical ointment RxNorm: 531558 1 TOP BID 2013 No Stop Date Active sulfamethoxazole 800 mg-trimethoprim 160 mg tablet RxNorm: 959362 1 Tablet(s) PO BID 12/08/2013 12/17/2013 Inactive sulfamethoxazole 800 mg-trimethoprim 160 mg tablet RxNorm: 193283 1 Tablet(s) PO BID 12/08/2013 12/07/2013 Inactive lisinopril 40 mg tablet RxNorm: 194459 1/2 Tablet(s) PO daily 12/02/2013 03/01/2014 Inactive lisinopril 40 mg tablet RxNorm: 296722 1/2 Tablet(s) PO daily 1/2 TABLET(S) PO DAILY 12/02/2013 01/30/2014 Inactive ceftriaxone 1 gram solution for injection RxNorm: 281091 Inj 11/25/2013 Inactive Rocephin 500 mg solution for injection RxNorm: 552372 1 Gram(s) Inj once 11/24/2013 11/24/2013 Inactive sulfamethoxazole 800 mg-trimethoprim 160 mg tablet RxNorm: 166544 1 Tablet(s) PO BID 11/24/2013 12/07/2013 Inactive permethrin 5 % topical cream RxNorm: 234215 1 Application TOP daily 10/19/2013 No Stop Date Active apply head to toe, leave on 12 hours then wash off, may repeat x 1 if needed permethrin 5 % topical cream RxNorm: 585163 1 Application TOP daily 10/15/2013 10/18/2013 Inactive apply head to toe, leave on 12 hours then wash off, may repeat x 1 if needed metformin 500 mg tablet RxNorm: 668111 TAKE ONE-HALF TABLET BY MOUTH TWICE DAILY 10/05/2013 01/02/2014 Inactive Contour Test Strips RxNorm: Miscellaneous USE TO TEST BLOOD SUGAR TWICE A DAY 06/28/2013 08/07/2014 Inactive spironolactone 25 mg tablet RxNorm: 338071 Tablet(s) PO TAKE ONE-HALF (1/2) TABLET DAILY 06/18/2013 04/27/2014 Inactive Trilipix 135 mg capsule,delayed release RxNorm: 020077 Capsule(s) PO TAKE 1 CAPSULE DAILY 06/18/2013 04/27/2014 Inactive digoxin 250 mcg tablet RxNorm: 250858 Tablet(s) PO TAKE ONE-HALF (1/2) TABLET DAILY 06/18/2013 04/27/2014 Inactive metformin 500 mg tablet RxNorm: 768026 1/2 Tablet(s) PO BID 09/30/2013 Inactive Microlet Lancet RxNorm : 1 Miscellaneous BID 05/31/2013 08/23/2014 Inactive Microlet Lancet RxNorm : 1 Miscellaneous BID 05/31/2013 05/30/2013 Inactive nystatin 100,000 unit/gram topical powder RxNorm: 514431 1 Application TOP BID 05/31/2013 08/28/2013 Inactive Januvia 100 mg tablet RxNorm: 166355 1 Tablet(s) PO daily TAKE ONE TABLET BY MOUTH EVERY DAY 05/31/2013 11/26/2013 Inactive nystatin 100,000 unit/gram topical powder RxNorm: 232299 1 Application TOP BID 05/17/2013 05/30/2013 Inactive Bactrim DS 800 mg-160 mg tablet RxNorm: 414791 1 Tablet(s) PO BID TAKE ONE TABLET BY MOUTH TWICE DAILY 05/17/20132013 Inactive Bactrim DS 800 mg-160 mg tablet RxNorm: 735319 Tablet(s) PO TAKE ONE TABLET BY MOUTH TWICE DAILY 12/03/2012 05/16/2013 Inactive Bactrim DS 800 mg-160 mg tablet RxNorm: 563892 1 Tablet(s) PO BID 11/26/2012 11/30/2012 Inactive lisinopril 40 mg tablet RxNorm: 000399 1/2 Tablet(s) PO daily 11/16/2012 12/01/2013 Inactive Januvia 100 mg tablet RxNorm: 946765 1 Tablet(s) PO daily TAKE ONE TABLET BY MOUTH EVERY DAY 11/16/2012 05/30/2013 Inactive lisinopril 40 mg tablet RxNorm: 261918 Tablet(s) PO TAKE 1 TABLET DAILY 10/24/2012 11/15/2012 Inactive Contour Test Strips RxNorm: Strip Miscellaneous USE TO TEST BLOOD SUGAR TWICE A DAY 10/24/2012 06/28/2013 Inactive Trilipix 135 mg capsule,delayed release RxNorm: 790100 Capsule(s) PO TAKE 1 CAPSULE DAILY 10/14/2012 06/17/2013 Inactive Bactrim DS 800 mg-160 mg tablet RxNorm: 254808 1 Tablet(s) PO BID 10/07/2012 10/16/2012 Inactive Bactrim DS 800 mg-160 mg tablet RxNorm: 442535 1 Tablet(s) PO BID 10/07/2012 10/06/2012 Inactive Januvia 100 mg tablet RxNorm: 826268 1 Tablet(s) PO daily 201201/18/2013 Inactive may have #90 if cheaper digoxin 250 mcg tablet RxNorm: 1880507 1/2 tab MWF sat sun, 1 tab tues thurs Tablet(s) PO daily 1/2 tab MWF sat sun, 1 tab tues thurs 06/ 06/2012 09/20/2015 Inactive TAKE 1 TABLET DAILY digoxin 250 mcg tablet RxNorm: 8867031 1/2 Tablet(s) PO daily 04/07/2012 09/20/2012 Inactive TAKE 1 TABLET DAILY sulfamethoxazole-trimethoprim 800 mg-160 mg tablet RxNorm: 000057 1 Tablet(s) PO BID 04/07/2012 04/13/2012 Inactive Januvia 100 mg tablet RxNorm: 358990 1/2 Tablet(s) PO daily 08/04/2012 Inactive may have #90 if cheaper Rocephin 500 mg Solution for Injection RxNorm: 150470 1 Inj 04/07/2012 Inactive Gentak 0.3 % Eye Drops RxNorm: 577021 3 Drop(s) OPH QID 3 drops 4 times daily x 7 days 04/07/2012 04/13/2012 Inactive spironolactone 25 mg tablet RxNorm: 437778 1/2 Tablet(s) PO daily 04/07/2012 06/17/2013 Inactive TAKE 1 TABLET DAILY Coumadin 5 mg tablet RxNorm: 851414 Tablet(s) PO Luz manages 02/28/2012 08/26/2012 Inactive 7.5 mg mon wed [id number] other daysDr. Luz manages Januvia 100 mg tablet RxNorm: 691797 1 Tablet(s) PO 02/20/2012 11/16/2012 Inactive may have #90 if cheaper Trilipix 135 mg capsule,delayed release RxNorm: 251202 Capsule(s) PO 02/10/2012 06/16/2012 Inactive TAKE 1 CAPSULE DAILY digoxin 250 mcg tablet RxNorm: 3920602 Tablet(s) PO 02/10/2012 04/06/2012 Inactive TAKE 1 TABLET DAILY spironolactone 25 mg tablet RxNorm: 084753 Tablet(s) PO 201104/06/2012 Inactive TAKE 1 TABLET DAILY simvastatin 80 mg tablet RxNorm: 084487 Tablet(s) PO 201111/15/2012 Inactive TAKE ONE-HALF TABLET BY MOUTH EVERY DAY Januvia 50 mg tablet RxNorm: 404430 1 Tablet(s) PO daily 201102/19/2012 Inactive simvastatin 80 mg tablet RxNorm: 084021 1/2 Tablet(s) PO daily 11/07/2011 12/02/2011 Inactive lisinopril 40 mg tablet RxNorm: 523640 1 Tablet(s) PO daily 12/06/2011 Inactive spironolactone 25 mg tablet RxNorm: 372200 1 Tablet(s) PO daily 12/17/2010 03/16/2011 Inactive digoxin 250 mcg tablet RxNorm: 4648370 1 Tablet(s) PO daily 03/16/2011 Inactive Trilipix 135 mg capsule,delayed release RxNorm: 342446 1 Capsule(s) PO daily 12/17/2010 03/16/2011 Inactive spironolactone 25 mg Tab RxNorm: 984768 1 Tablet(s) PO daily No Start Date Active Lipitor 40 mg tablet RxNorm: 792343 1 Tablet(s) PO daily No Start Date Active Fish Oil 1,000 mg Cap RxNorm: 3 Capsule(s) PO daily No Start Date Active Trilipix 135 mg Capsule, delayed release RxNorm: 448641 1 Capsule(s) PO daily No Start Date Active bumetanide 1 mg Tab RxNorm: 787317 Tablet(s) PO PRN No Start Date Active Xarelto 20 mg tablet RxNorm: 4799800 1 Tablet(s) PO daily No Start Date Active simvastatin 80 mg tablet RxNorm: 563612 1/2 Tablet(s) PO daily No Start Date 11/06/2011 Inactive metformin 500 mg tablet RxNorm: 420831 1/2 Tablet(s) PO BID No Start Date 06/02/2013 Inactive carvedilol 25 mg Tab RxNorm: 959016 1 Tablet(s) PO BID No Start Date 09/20/2015 Inactive aspirin 325 mg tablet RxNorm: 681941 1 Tablet(s) PO daily No Start Date 09/20/2015 Inactive digoxin 250 mcg Tab RxNorm: 0307206 1/2 Tablet(s) PO daily No Start Date 09/20/2015 Inactive Coumadin 5 mg tablet RxNorm: 405725 Tablet(s) PO No Start Date 02/27/2012 Inactive 7.5 mg mon fri [id number] other days Bactroban 2 % topical ointment RxNorm: 990676 1 TOP BID No Start Date 12/07/2013 Inactive Contour Test Strips RxNorm: 1 Miscellaneous BID No Start Date 10/23/2012 Inactive countour ts lisinopril 40 mg tablet RxNorm: 694031 1 Tablet(s) PO daily No Start Date 11/06/2011 Inactive Medication Administered Medication Codes Instructions Start Date Status ceftriaxone 500 mg solution for injection RxNorm: 4554354 11/17/2015 No longer Active ceftriaxone 1 gram solution for injection RxNorm: 773330 11/25/2013 No longer Active Rocephin 500 mg solution for injection RxNorm: 922700 1Gramonce 11/24/2013 No longer Active Rocephin 500 mg Solution for Injection RxNorm: 488589 1 04/07/2012 No longer Active Immunizations No [...] ICD-9: 133.0 10/15/2013 DIABETES TYPE II SNOMED: 558287511 ICD-9: 250.00 07/01/2013 Abrasion of leg ICD-9: 916.0 11/26/2012 Hypotension ICD-9: 458.9 11/16/2012 Hordeolum externum of right eye ICD-9: 373.11 04/07/2012 Periorbital cellulitis ICD-9: 373.13 ESSENTIAL HYPERTENSION SNOMED: 78307524 ICD-9: 401.9 11/14/2011 Leg pain ICD-9: 729.5 [...] Item Item Code Result Date Comp Metabolic Nef269 NA 133 mEq/L 11/17/2015 Comp Metabolic Dvd858 K 4.5 mEq/L 11/17/2015 Comp Metabolic Jhj718 CL 101 mEq/L 11/17/2015 Comp Metabolic Ecz245 CO2 22.0 mEq/L 11/17/2015 Comp Metabolic Nct252 ANION GAP 15 11/17/2015 Comp Metabolic Xvv308 GLUCOSE 197 mg/dL 11/17/2015 Comp Metabolic Nzs831 Creat 0.8 mg/dL 11/17/2015 Comp Metabolic Try575 eGFR 110 ml/min/1.73m2 11/17/2015 Comp Metabolic Afl594 BUN 20 mg/dL 11/17/2015 Comp Metabolic Byb075 B/C Ratio 25.6 Ratio 11/17/2015 Comp Metabolic Mhd226 CALCIUM 9.4 mg/dL 11/17/2015 Comp Metabolic Cmq991 ALK PHOS 65 U/L 11/17/2015 Comp Metabolic Ots700 AST(SGOT) 22 U/L 11/17/2015 Comp Metabolic Qmd808 ALT(SGPT) 40 U/L 11/17/2015 Comp Metabolic Mqr161 BILI T 0.5 mg/dL 11/17/2015 Comp Metabolic Bdw507 ALBUMIN 4.2 g/dL 11/17/2015 Comp Metabolic Puz649 TPRO 7.0 g/dL 11/17/2015 Comp Metabolic Vhw119 GLOB 2.8 g/dL 11/17/2015 Comp Metabolic Ewi061 A/G Ratio 1.5 Ratio 11/17/2015 Comp Metabolic Xwd642 Osmo 274 mOsmo 11/17/2015 Cbc With Differential Ord2 WBC 15.23 K/ul 11/17/2015 Cbc With Differential Ord2 RBC 5.41 M/ul 11/17/2015 Cbc With Differential Ord2 HGB 16.0 g/dl 11/17/2015 Cbc With Differential Ord2 HCT 47.7 % 11/17/2015 Cbc With Differential Ord2 Neut% 88.2 % 11/17/2015 Cbc With Differential Ord2 MCV 88.2 fl 11/17/2015 Cbc With Differential Ord2 Lymph% 4.5 % 11/17/2015 Cbc With Differential Ord2 MCH 29.6 pg 11/17/2015 Cbc With Differential Ord2 [place]% 7.0 % 11/17/2015 Cbc With Differential Ord2 Eos% 0.2 % 11/17/2015 Cbc With Differential Ord2 MCHC 33.5 pg 11/17/2015 Cbc With Differential Ord2 PLT 157 K/ul 11/17/2015 Cbc With Differential Ord2 Baso% 0.1 % 11/17/2015 Cbc With Differential Ord2 Neut ABS# 13.44 K/ul 11/17/2015 Cbc With Differential Ord2 RDW 13.8 % 11/17/2015 Cbc With Differential Ord2 Lymph ABS# 0.68 K/ul 11/17/2015 Cbc With Differential Ord2 [place] ABS# 1.1 K/ul 11/17/2015 Cbc With Differential Ord2 Eos ABS# 0.0 K/ul 11/17/2015 Cbc With Differential Ord2 Baso ABS# 0.0 K/ul 11/17/2015 Cbc With Differential Ord2 WBC 8.61 K/ul 11/08/2015 Cbc With Differential Ord2 RBC 5.54 M/ul 11/08/2015 Cbc With Differential Ord2 HGB 16.3 g/dl 11/08/2015 Cbc With Differential Ord2 HCT 48.4 % 11/08/2015 Cbc With Differential Ord2 Neut% 64.5 % 11/08/2015 Cbc With Differential Ord2 MCV 87.4 fl 11/08/2015 Cbc With Differential Ord2 Lymph% 24.4 % 11/08/2015 Cbc With Differential Ord2 [place]% 10.2 % 11/08/2015 Cbc With Differential Ord2 MCH 29.4 pg 11/08/2015 Cbc With Differential Ord2 Eos% 0.7 % 11/08/2015 Cbc With Differential Ord2 MCHC 33.7 pg 11/08/2015 Cbc With Differential Ord2 PLT 168 K/ul 11/08/2015 Cbc With Differential Ord2 Baso% 0.2 % 11/08/2015 Cbc With Differential Ord2 RDW 13.7 % 11/08/2015 Cbc With Differential Ord2 Neut ABS# 5.55 K/ul 11/08/2015 Cbc With Differential Ord2 Lymph ABS# 2.10 K/ul 11/08/2015 Cbc With Differential Ord2 [place] ABS# 0.9 K/ul 11/08/2015 Cbc With Differential Ord2 Eos ABS# 0.1 K/ul 11/08/2015 Cbc With Differential Ord2 Baso ABS# 0.0 K/ul 11/08/2015 Microalbumin Mfp886 MicroAlb <0.7 mg/dL 11/08/2015 Tsh Ord6 hTSH II 0.65 uIU/mL 11/08/2015 Lipid Ord30 CHOL 157 mg/dL 11/08/2015 Lipid Ord30 HDL 30.0 mg/dl 11/08/2015 Lipid Ord30 TRIG 228 mg/dL 11/08/2015 Lipid Ord30 LDL 81 mg/dL 11/08/2015 Lipid Ord30 C/HDL 5.2 Ratio 11/08/2015 Comp Metabolic Qfi933 NA 130 mEq/L 11/08/2015 Comp Metabolic Hcu361 K 4.4 mEq/L 11/08/2015 Comp Metabolic Pnt156 CL 97 mEq/L 11/08/2015 Comp Metabolic Ohk799 CO2 27.0 mEq/L 11/08/2015 Comp Metabolic Aip749 ANION GAP 10 11/08/2015 Comp Metabolic Vpg252 GLUCOSE 175 mg/dL 11/08/2015 Comp Metabolic Csa679 Creat 0.8 mg/dL 11/08/2015 Comp Metabolic Hpg860 eGFR 104 ml/min/1.73m2 11/08/2015 Comp Metabolic Lka289 BUN 26 mg/dL 11/08/2015 Comp Metabolic Ggx963 B/C Ratio 31.7 Ratio 11/08/2015 Comp Metabolic Ckz622 CALCIUM 9.3 mg/dL 11/08/2015 Comp Metabolic Isk781 ALK PHOS 68 U/L 11/08/2015 Comp Metabolic Ckt030 AST(SGOT) 26 U/L 11/08/2015 Comp Metabolic Izx287 ALT(SGPT) 42 U/L 11/08/2015 Comp Metabolic Vse802 BILI T 0.7 mg/dL 11/08/2015 Comp Metabolic Bhw183 ALBUMIN 4.3 g/dL 11/08/2015 Comp Metabolic Nwk904 TPRO 7.0 g/dL 11/08/2015 Comp Metabolic Syv037 GLOB 2.7 g/dL 11/08/2015 Comp Metabolic Rwl398 A/G Ratio 1.6 Ratio 11/08/2015 Comp Metabolic Bnw257 Osmo 270 mOsmo 11/08/2015 Total Psa Ord10 PSA 1.26 ng/mL 11/08/2015 %Hba1C Ppu568 % HbA1c 95144-0 8.2 % 11/08/2015 %Hba1C Hui785 Gluc Ave 189 mg/dL 11/08/2015 Lipid Ord30 CHOL 155 mg/dL 01/23/2015 Lipid Ord30 HDL 34.0 mg/dl 01/23/2015 Lipid Ord30 TRIG 198 mg/dL 01/23/2015 Lipid Ord30 LDL 81 mg/dL 01/23/2015 Lipid Ord30 C/HDL 4.6 Ratio 01/23/2015 Hepatic Qzf799 ALBUMIN 4.2 g/dL 01/23/2015 Hepatic Bdh785 TPRO 6.9 g/dL 01/23/2015 Hepatic Yly779 GLOB 2.7 g/dL 01/23/2015 Hepatic Fzn493 A/G Ratio 1.6 Ratio 01/23/2015 Hepatic Fgz222 ALK PHOS 59 U/L 01/23/2015 Hepatic Twy850 ALT(SGPT) 46 U/L 01/23/2015 Hepatic Veq678 AST(SGOT) 21 U/L 01/23/2015 Hepatic Loe888 BILI T 0.5 mg/dL 01/23/2015 Hepatic Vig025 BILI D 0.1 mg/dL 01/23/2015 Hepatic Ovc975 BILI I 0.4 mg/dL 01/23/2015 Review of [...] tenderness 05/17/2013 None Full Exam - General 1995 Abdomen abdominal exam Overall: normal bowel sounds 05/17/2013 None Full Exam - General 1995 Abdomen abdominal exam Contour: protuberant 05/17/2013 None Full Exam - General 1995 Musculoskeletal [...] 1994 Ears/Nose/Throat oral cavity/pharynx/larynx Overall: no masses 11/26/2012 None Full Exam - General 1995 Respiratory auscultation Overall: breath sounds clear bilaterally 11/26/2012 None Full Exam - General 1994 Respiratory respiratory effort/rhythm Overall: no retractions 11/26/2012 None Full Exam - General 1995 Respiratory respiratory effort/rhythm Overall: normal rate 11/26/2012 None Full Exam - General 1994 Cardiovascular extremities Edema present: pitting 11/26/2012 None Full Exam - General 1994 Cardiovascular extremities Edema present: severity 1+ - 4 +: _ 11/26/2012 None Full Exam - General 1995 Cardiovascular auscultation of heart Overall: regular rate 11/26/2012 None Full Exam - General 1994 Cardiovascular auscultation of heart Overall: normal heart sounds 11/26/2012 None Full Exam - General 1994 Abdomen abdominal exam Overall: no tenderness 11/26/2012 None Full Exam - General 1994 Abdomen abdominal exam Overall: normal bowel sounds 11/26/2012 None Full Exam - General 1994 Abdomen abdominal exam Contour: protuberant 11/26/2012 None Full Exam - General 1994 Musculoskeletal digits and nails Overall: no clubbing 11/26/2012 None Full Exam - General 1994 [...] lordosis 11/16/2012 None Full Exam - General 1994 Musculoskeletal gait and station Overall: normal gait 11/16/2012 None Full Exam - General 1994 [...] foot to knee Full Exam - General 1995 Constitutional general appearance Development: well developed 08/27/2012 [...] 1995 Ears/Nose/Throat oral cavity/pharynx/larynx Overall: no masses 08/27/2012 [...] protuberant 08/27/2012 None Full Exam - General 1995 Musculoskeletal digits and nails Overall: no clubbing 08/27/2012 None Full Exam - General 1994 Musculoskeletal digits and nails Overall: digits benign 08/27/2012 None Full Exam - General 1994 Musculoskeletal spine, ribs and pelvis Posture: lordosis 08/27/2012 None Full Exam - General 1995 Musculoskeletal [...] ankle to knee Full Exam - General 1994 Integument palpation Leg: tender 10/29/2011 None Full [...] CPT-4: J0696 11/17/2015 THER/PROPH/DIAG INJ SC/IM CPT-4: 91986 11/25/2013 ROCEPHIN, PER 250 MG CPT-4: J0696 11/25/2013 ROCEPHIN, PER 250 MG CPT-4: J0696 11/24/2013 THER/PROPH/DIAG INJ SC/IM CPT-4: 56313 11/24/2013 ROCEPHIN, PER 250 MG CPT-4: J0696 04/07/2012 THER/PROPH/DIAG INJ SC/IM CPT-4: 94569 04/07/2012 Vital Signs Date Vital 11/17/2015 Blood Pressure 1: 112/82 Code : 8480-6 BMI: 44.6 Code : 00499-7 Heart Rate 1 : 100 bpm Height: 5'7" SpO2: 96% Temperature: 37.3 (C) / 99.1 (F) Weight: 285 lbs 09/21/2015 Blood Pressure 1: 132/72 Code : 8480-6 BMI: 44.0 Code : 02034-2 Heart Rate 1 : 86 bpm Height: 5'7" SpO2: 97% Weight: 281 lbs 11/24/2013 Blood Pressure 1: 138/78 Code : 8480-6 Heart Rate 1: 96 bpm Temperature: 36.7 (C) / 98.0 (F) Weight: 280 lbs 10/15/2013 Blood Pressure 1: 124/70 Code : 8480-6 BMI: 43.2 Code : 09588-6 Heart Rate 1 : 64 bpm Height: [...] of immodium." States he ate at the [employer] buffet and had ribs/ chicken/pot roast. nausea Frequency of Episodes decreasing 10/29/2011 States he ate a pot pie last night and did not vomit afterwards. nausea Triggers no known associated factors 10/29/2011 None cellulitis Onset and Resolution ongoing 10/29/2011 States he did go to [employer] on Friday and he was walking around [...] Encounters Encounter Performer Location Codes Date () [id number] EST. PATIENT, LEVEL IV Diagnosis: Cellulitis of left lower limb[ICD10: L03.116] Diagnosis: Localized edema[ICD10: R60.0] Diagnosis: Type 2 diabetes mellitus without complications[ICD10: E11.9] Akosua Price MD, [facility] CPT-4: 96078 11/17/2015 ([id number]) 13075 EST. PATIENT, LEVEL IV Diagnosis: Essential (primary) hypertension[ICD10: I10] Diagnosis: Type 2 diabetes mellitus without complications[ICD10: E11.9] Diagnosis: Mixed hyperlipidemia[ICD10: E78.2] Diagnosis: Other obesity due to excess calories[ICD10: E66.09] Sandy Price MD, [facility] CPT-4: 04181 09/21/2015 ([id number]) 11356 EST. PATIENT, LEVEL III Diagnosis: CELLULITIS OF LEG[ICD9: 682.6] Diagnosis: EDEMA[ICD9: 782.3] Diagnosis: FEVER NOS[ICD9: 780.60] Diagnosis: Cough[ICD9: 786.2] Akosua Price MD, [facility] CPT-4: 38021 11/24/2013 ([id number]) 25708 EST. PATIENT, LEVEL III Diagnosis: SCABIES[ICD9: 133.0] Sandy Price MD, [facility] CPT-4: 69928 10/15/2013 ([id number]) 97701 EST. PATIENT, LEVEL III Diagnosis: DIABETES TYPE II[SNOMED: 996708872] Akosua Price MD, [facility] CPT-4: 52326 07/01/2013 ([id number]) 93018 EST. PATIENT, LEVEL III Diagnosis: CELLULITIS OF LEG[ICD9: 682.6] Sandy Price MD, [facility] CPT-4: 86985 05/17/2013 ([id number]) 81404 EST. PATIENT, LEVEL III Diagnosis: CELLULITIS OF LEG[ICD9: 682.6] Diagnosis: Abrasion of leg[ICD9: 916.0] Akosua Priec MD, [facility] CPT- 4: 79848 11/26/2012 ([id number]) 03550 EST. PATIENT, LEVEL IV Diagnosis: EDEMA[ICD9: 782.3] Diagnosis: CELLULITIS OF LEG[ICD9: 682.6] Diagnosis: Hypotension[ICD9: 458.9] Akosua Price MD [facility] CPT-4: 07556 11/16/2012 ([id number]) [id number] EST. PATIENT, LEVEL IV Diagnosis: EDEMA[ICD9: 782.3] Diagnosis: CELLULITIS OF LEG[ICD9: 682.6] Diagnosis: DIABETES TYPE II[SNOMED: 493616516] Akosua Price MD [facility] CPT-4: 02306 08/27/2012 ([id number]) [id number] EST. PATIENT, LEVEL III Diagnosis: Hordeolum externum of right eye[ICD9: 373.11] ALEXIS Walsh MD CPT-4: 83944 04/07/2012 ([id number]) [id number] EST. PATIENT, LEVEL IV Diagnosis: ESSENTIAL HYPERTENSION[SNOMED: 25357528] Diagnosis: DIABETES TYPE II[SNOMED: 095465466] Akosua Price MD, [facility] CPT-4: 18716 11/14/2011 ([id number]) Patient admitted to the hospital from clinic (NO CHARGE) Diagnosis: Cellulitis of left leg[ICD9: 682.6] Diagnosis: Hypotension[ICD9: 458.9] Diagnosis: Nausea vomiting and diarrhea[ICD9: 787.01] Diagnosis: Leg pain[ICD9: 729.5] Diagnosis: Anticoagulant long-term use[ICD9: V58.61] Diagnosis: Coronary artery disease[ICD9: 414.00] Sandy Price MD, [facility] CPT-4: 23687R 10/29/2011 Plan of Care Planned Activity Notes [...] closely. 11/17/2015 Appointment: Sandy Tong WPtel: [phone] [phone] (15 min) Moderate 11/17/2015 Patient Education: Patient [...] weight check. 09/21/2015 Appointment: Sandy Tong WPtel: [facility]8 [phone] (30 min) Complex 09/21/2015 Patient Education: [...] itching. Rx for permethrin cream sent to [facility] and instructed on use. Patient verbalized [...] for greater blood glucose control. Cellulitis of mdc-cnlsztsf-eiik if symptoms return 07/01/2013 Appointment: Sandy Tong WPtel: [address] [place], [place] [phone] [place] [address] 07/01/2013 Patient Education: Patient Medication Summary Completed 07/01/2013 Appointment: Sandy Tong WPtel: [facility]5 [phone] Follow up 06/29/2013 Appointment: Akosua Price WPtel: [address] [place], [place] [phone] [facility] follow up 06/28/2013 Visit Plan: Cellulitis - [...] Summary Completed 05/17/2013 Visit Plan: Cellulitis and elnrzced-cohrrusqd-qhzawlyh bactrim x 5 days-continue topical antibiotic ointment as previously directed Kdxiehszfcf-azutuefs-unwtfqd blood pressure at home. 11/26/2012 Appointment: Sandy Tong WPtel: [facility]5 [phone] Follow up 11/26/2012 Patient Education: Patient Medication [...] ELEVATE LEGS. 11/16/2012 Appointment: Akosua Price WPtel: [phone] [facility] Other 11/16/2012 Patient Education: Patient Medication Summary Completed 11/16/2012 Visit Plan: Edema - pt has been advised to elevate legs to prevent dependent edema, compression has been recommended to help to naturally decrease peripheral edema. Diuretic use has been discussed and pt has been instructed in appropriate use of such medication as necessary to further attempt to reduce peripheral edema. Gjjtcyrnpu-xyzmyiva-ujrh for symptoms Diabetes Mellitus - controlled - [...] controlled. 08/27/2012 Appointment: Sandy Tong WPtel: [phone] [phone] Follow up 08/27/2012 Patient Education: Patient Medication Summary Completed 08/27/2012 Visit Plan: Cellulitis - continue with oral antibiotics as directed, return to clinic as previously directed, call for acute change in symptoms, worsening redness, warmth, discharge. 04/07/2012 Appointment: Akosua Price WPtel: [address] [place] [address] Other 04/07/2012 Patient Education: Patient Medication Summary [...] at home. 11/14/2011 Appointment: Akosua Price WPtel: [facility] Other 11/14/2011 Appointment: Akosua Price WPtel: [facility] [address] Other 11/14/2011 Patient Education: Patient Medication Summary [...] health benefit. 10/29/2011 [facility]ment: [phone] [facility] 10/29/2011 Patient Education: Patient Medication Summary Completed 10/29/2011 Instructions Comment . Edema - pt has been advised to elevate legs to prevent dependent edema, compression has been recommended to help to naturally decrease peripheral edema. Diuretic use has been discussed and pt has been instructed in appropriate use of such medication as necessary to further attempt to reduce peripheral edema. Kcrsafxwof-mfcnytsx-fgbd for symptoms Diabetes Mellitus - controlled - [...] to become less controlled. . Cellulitis and xltqcyxm-qskipqlns-ufnnlwsl bactrim x 5 days-continue topical antibiotic ointment as previously directed Fedrioiblmq-utdgarpe-shwagmx blood pressure at home. . Diabetes Mellitus [...] for greater blood glucose control. Cellulitis of tvu-qahwakek-orni if symptoms return labs-cbc, cmp bactrim ds [...] itching. Rx for permethrin cream sent to [facility] and instructed on use. Patient verbalized [...]
[2018-06-05] MEDS ORDERED: LIDOCAINE 1% INJ 20 ML 20 ML VIAL INJ ONE (15:00)
[2018-06-05] MEDS ORDERED: cefTRIAXone 1,000 MG/2.86 ml vial (IM ONLY) IM SCH (15:00)
[2018-06-05] MEDS ORDERED: CEFD300C3 PO (15:01)
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
[2018-06-05 15:19] LABS: BASOPHILS % (AUTO) 0 % (0-10); EOSINOPHILS % (AUTO) 0 % (0-10); HEMATOCRIT 44 % (40-54); LYMPHOCYTES # (AUTO) 1.2 X 10^3 (1.0-4.0); LYMPHOCYTES % (AUTO) 18 % (12-44); MEAN CORPUSCULAR HEMOGLOBIN 29 PG (25-34); MEAN CORPUSCULAR HGB CONC 34 G/DL (32-36); MEAN CORPUSCULAR VOLUME 85 FL (80-99); MONOCYTES # (AUTO) 0.8 X 10^3 (0.0-1.0); MONOCYTES % (AUTO) 12 % (0-12); NEUTROPHILS # (AUTO) 4.9 X 10^3 (1.8-7.8); NEUTROPHILS % (AUTO) 70 % (42-75); PLATELET COUNT 120 10^3/uL (130-400); RED CELL DISTRIBUTION WIDTH 13.5 % (10.0-14.5)
[2018-06-05 15:33] LABS: BUN/CREATININE RATIO 19; CALCIUM 9.3 MG/DL (8.5-10.1); CARBON DIOXIDE 25 MMOL/L (21-32); CHLORIDE 97 MMOL/L (98-107); CREATININE SERUM 0.94 MG/DL (0.60-1.30); GFR ESTIMATED > 60; GLUCOSE 347 MG/DL (70-105); POTASSIUM 3.8 MMOL/L (3.6-5.0); SODIUM 133 MMOL/L (135-145)
--- NOTE | 2018-06-05 15:36 | Diagnostic Imaging Report ---
PROCEDURE: US right lower extremity venous. TECHNIQUE: Multiple real-time grayscale images were obtained over the right lower extremity in various projections. Additional spectral analysis and color Doppler duplex images were also obtained. INDICATION: Right leg swelling. There is no evidence of right lower extremity DVT. Right lower extremity deep venous system shows normal compressibility with normal response to augmentation and Valsalva. No fluid collection or mass is seen. IMPRESSION: No evidence of right lower extremity DVT. Dictated by: Dictated on workstation # [id number]
[2018-06-05 16:13] VITALS: BP 151/92
== END 2018-06-05 16:13 | disposition home or self-care (01) ==
LOC: EDUNIT# 13:52 → ER 13:54
DX: L03.115 Cellulitis of right lower limb (principal); E11.9 Type 2 diabetes mellitus without complications; J44.9 Chronic obstructive pulmonary disease, unspecified; Z79.82 Long term (current) use of aspirin; Z79.84 Long term (current) use of oral hypoglycemic drugs; Z87.891 Personal history of nicotine dependence; Z95.0 Presence of cardiac pacemaker
CPT/HCPCS: 36415; 80048; 85025; 99283

== ENCOUNTER 2019-07-19 19:53 | Emergency (ER) | payer OTHER ==
[~2019-07-19] VITALS: Ht 170 cm; Wt 118.0 kg
[~2019-07-19 19:53] MED LIST changes: +CEFD300C3 PO
--- OUTSIDE RECORDS SUMMARY | 2019-07-19 20:00 | XMS REPORT | CCD ---
Author Claudy Kuhn Organization [facility] Address [address] [place] [address] Phone Care Team Providers Care Notcher Name Role Phone PP Unavailable CCM Unavailable Summary Purpose Interface Exchange Insurance Providers Payer name Policy type / Coverage type Covered democrat ID Effective Begin Date Effective End Date [facility] Commercial Insurance [id number] Unknown Family history Father Diagnosis Age At Onset Congestive heart failure Unknown Mother Diagnosis Age At Onset No Family Disease Entered N/A Sister Diagnosis Age At Onset No Family Disease Entered N/A Social History Social History Element Codes Description Effective Dates Tobacco history SNOMED CT: 0675083 Former smoker age [age] about 4 pk/day 01/06/2019 Number of years using tobacco Unknown 20 - 30 22 01/06/2019 Alcohol history Unknown occasionally drinks alcohol had 2 glasses of wine about 4 months ago. beer occasionally 10/29/2011 Has the patient used marijuana? Unknown Yes quit at age 25 10/29/2011 Allergies, Adverse Reactions, Alerts Substance Reaction Codes Entered Date Inactivated Date Status * NO KNOWN DRUG GLEN RGIES Unknown 10/29/2011 No Inactive Date Active Past Medical History Illness Codes Condition Status Onset Date Resolved Date Encounter for genera l adult medical examination without abnormal findings ICD-9: V70.0 ICD-10: Z00.00 Active 01/06/2019 Unknown Essential (primary) hypertension ICD-9: 401.9 ICD-10: I10 Active 09/20/2015 Unknown Type 2 diabetes devorah itus with hyperglycemia ICD-9: 250.02 ICD-10: E11.65 Active 08/06/2018 Unknown Mixed hyperlipidemia ICD-9: 272.2 ICD-10: E78.2 Active 09/20/2015 Unknown Cellulitis of left l ower limb ICD-9: 682.6 ICD-10: L03.116 Active 11/16/2015 Unknown Localized edema ICD-9: 782.3 ICD-10: R60.0 Active 11/16/2015 Unknown Type 2 diabetes devorah itus without complications ICD-9: 250.00 ICD-10: E11.9 Active 11/16/2015 Unknown Other obesity due to excess calories ICD-9: 278.00 ICD-10: E66.09 Active 09/20/2015 Unknown CELLULITIS OF LEG ICD-9: 682.6 Active 11/24/2013 Unknown Cough ICD-9: 786.2 Active 11/24/2013 Unknow n EDEMA ICD-9: 782.3 Active 11/24/2013 Unknow n FEVER NOS ICD-9: 780.60 Active 11/24/2013 Unknow n SCABIES ICD-9: 133.0 Active 10/15/2013 Unknow n Abrasion of leg ICD-9: 916.0 Active 11/26/2012 Unknown Hordeolum externum o f right eye ICD-9: 373.11 Active Unknown Periorbital cellulitis ICD-9: 373.13 Active 04/07/2012 Unknown Diabetes Unknown Active 11/14/2011 Unknow n DIABETES TYPE II ICD-9: 250.00 Active 11/14/2011 Unknown ESSENTIAL HYPERTENSION ICD-9: 401.9 Active 11/14/2011 Unknown Congestive heart bhargav lure Unknown Active 10/29/2011 Unknown Hyperlipidemia Unknown Active 10/29/2011 Unknow n Hypertension Unknown Active 10/29/2011 Unknow n Anticoagulant long-t erm use ICD-9: V58.61 Active 01/2012 Unknown Coronary artery disease ICD-9: 414.00 Active 10/29/2011 Unknown Hypotension ICD-9: 458.9 Active 10/29/2011 Unknow n Leg pain ICD-9: 729.5 Active 10/29/2011 Unknow n Nausea vomiting and diarrhea ICD-9: 787.01 Active 01/2012 Unknown Problems Condition Codes Effectiv e Dates Condition Status Encounter for genera l adult medical examination without abnormal findings ICD-9: V70.0 ICD-10: Z00.00 01/06/2019 Active Essential (primary) hypertension ICD-9: 401.9 ICD-10: I10 09/20/2015 Active Type 2 diabetes devorah itus with hyperglycemia ICD-9: 250.02 ICD-10: E11.65 08/06/2018 Active Mixed hyperlipidemia ICD-9: 272.2 ICD-10: E78.2 09/20/2015 Active Cellulitis of left l ower limb ICD-9: 682.6 ICD-10: L03.116 11/16/2015 Active Localized edema ICD-9: 782.3 ICD-10: R60.0 11/16/2015 Active Type 2 diabetes devorah itus without complications ICD-9: 250.00 ICD-10: E11.9 11/16/2015 Active Other obesity due to excess calories ICD-9: 278.00 ICD-10: E66.09 09/20/2015 Active CELLULITIS OF LEG ICD-9: 682.6 11/24/2013 Active Cough ICD-9: 786.2 11/24/2013 Active EDEMA ICD-9: 782.3 11/24/2013 Active FEVER NOS ICD-9: 780.60 11/24/2013 Active SCABIES ICD-9: 133.0 10/15/2013 Active Abrasion of leg ICD-9: 916.0 11/26/2012 Active Hordeolum externum o f right eye ICD-9: 373.11 04/07/2012 Active Periorbital cellulitis ICD-9: 373.13 04/07/2012 Active Diabetes Unknown 11/14/2011 Active DIABETES TYPE II ICD-9: 250.00 11/14/2011 Active ESSENTIAL HYPERTENSION ICD-9: 401.9 11/14/2011 Active Congestive heart bhargav lure Unknown 10/29/2011 Activ e Hyperlipidemia Unknown 10/29/2011 Active Hypertension Unknown 10/29/2011 Active Anticoagulant long-t erm use ICD-9: V58.61 10/29/2011 Active Coronary artery disease ICD-9: 414.00 10/29/2011 Active Hypotension ICD-9: 458.9 10/29/2011 Active Leg pain ICD-9: 729.5 10/29/2011 Active Nausea vomiting and diarrhea ICD-9: 787.01 10/29/2011 Active Medications Medication Codes Instruc tions Start Date Stop Date Sta tus Fill Instructions metformin 500 mg tablet RxNorm: 854744 TABLET(S) TAKE ONE TABLET BY MOUTH TWICE DAILY 10/26/2018 No Stop Date Active carvedilol 25 mg tablet RxNorm: 634320 TAKE 1 TABLET BY MOUTH TWICE DAILY 09/15/2018 No Stop Date Active Tresiba FlexTouch U- 100 insulin 100 unit/mL (3 mL) subcutaneous pen RxNorm: 9626512 10 Unit(s) SQ daily 08/24/2018 01/05/2019 Inactive Please provide 30 day supply Tresiba FlexTouch U- 100 insulin 100 unit/mL (3 mL) subcutaneous pen RxNorm: 8237396 10 Unit(s) SQ daily 08/24/2018 08/23/2018 Inactive Please provide 30 day supply lisinopril 40 mg tablet RxNorm: 331396 TAKE ONE-HALF (1/2) TABLET DAILY 08/11/2018 No Stop Date Active Januvia 100 mg tablet RxNorm: 928831 Tablet(s) TAKE 1 TABLET DAILY 08/06/2018 No Stop Date Active Trilipix 135 mg caps ule,delayed release RxNorm: 646827 TAKE 1 CAPSULE DAILY 04/20/2018 No Stop Date Active spironolactone 25 mg tablet RxNorm: 387295 TAKE ONE-HALF (1/2) T ABLET DAILY 04/20/2018 08/05/2018 In active lisinopril 40 mg tablet RxNorm: 855397 TAKE ONE-HALF (1/2) TABLET DAILY 02/25/2018 08/10/2018 In active metformin 500 mg tablet RxNorm: 302012 Tablet(s) TAKE ONE TABLET BY MOUTH TWICE DAILY 11/14/2017 10/25/2018 Inactive carvedilol 25 mg tablet RxNorm: 571773 TAKE ONE TABLET BY MOUTH TWICE DAILY 06/06/2017 09/14/2018 In active metformin 500 mg tablet RxNorm: 199719 TAKE ONE TABLET BY MOUTH TWICE DAILY 06/06/2017 11/13/2017 In active Januvia 100 mg tablet RxNorm: 593810 TAKE 1 TABLET DAILY 04/29/2017 08/05/2018 Inactive Trilipix 135 mg caps ule,delayed release RxNorm: 526972 TAKE 1 CAPSULE DAILY 04/22/2017 04/19/2018 In active spironolactone 25 mg tablet RxNorm: 708719 TAKE ONE-HALF (1/2) T ABLET DAILY 02/11/2017 04/19/2018 In active Januvia 100 mg tablet RxNorm: 998357 TAKE 1 TABLET DAILY 01/21/2017 04/28/2017 Inactive lisinopril 40 mg tablet RxNorm: 862015 TAKE ONE-HALF (1/2) TABLET DAILY 12/24/2016 02/24/2018 In active nystatin 100,000 uni t/gram topical powder RxNorm: 565639 1 Application TOP BID 11/11/2016 08/05/2018 In active Trilipix 135 mg caps ule,delayed release RxNorm: 499646 TAKE 1 CAPSULE DAILY 11/11/2016 04/21/2017 In active carvedilol 25 mg tablet RxNorm: 278483 TAKE ONE TABLET BY MOUTH TWICE DAILY 09/23/2016 03/21/2017 In active metformin 500 mg tablet RxNorm: 672764 1 Tablet(s) PO BID 04/09/2016 01/03/2017 Inactive metformin 500 mg tablet RxNorm: 099120 TAKE ONE TABLET BY MOUTH TWICE DAILY 04/09/2016 05/08/2016 In active carvedilol 25 mg tablet RxNorm: 764064 TAKE ONE TABLET BY MOUTH TWICE DAILY 03/25/2016 09/20/2016 In active metformin 500 mg tablet RxNorm: 900082 1 Tablet(s) BID 01/30/2016 04/08/2016 Inactive metformin 500 mg tablet RxNorm: 090298 1 Tablet(s) PO BID 01/26/2016 01/29/2016 Inactive digoxin 250 mcg tablet RxNorm: 131673 TAKE ONE-HALF (1/2) TABLET DAILY 01/15/2016 08/05/2018 In active Trilipix 135 mg caps ule,delayed release RxNorm: 053942 TAKE 1 CAPSULE DAILY 01/01/2016 11/10/2016 In active spironolactone 25 mg tablet RxNorm: 936564 TAKE ONE-HALF (1/2) T ABLET DAILY 12/26/2015 02/10/2017 In active lisinopril 40 mg tablet RxNorm: 311361 TAKE ONE-HALF (1/2) TABLET DAILY 12/18/2015 12/23/2016 In active Januvia 100 mg tablet RxNorm: 287184 TAKE 1 TABLET DAILY 11/20/2015 01/20/2017 Inactive ceftriaxone 500 mg s olution for injection RxNorm: 7884628 Inj 11/17/2015 11/17/2015 Inactive Bactrim DS 800 mg-16 0 mg tablet RxNorm: 959391 1 Tablet(s) PO BID 11/17/2015 11/23/2015 Inactive metformin 500 mg tablet RxNorm: 770208 1 Tablet(s) PO BID 11/15/2015 01/25/2016 Inactive increase Aspir-81 81 mg table t,delayed release RxNorm: 789735 1 Tablet(s) PO daily 09/21/2015 01/05/2019 In active metformin 500 mg tablet RxNorm: 469449 1/2 Tablet(s) PO BID Tablet(s) TAKE ONE- HALF TABLET BY MOUTH TWICE DAILY 09/21/2015 11/14/2015 Inactive carvedilol 25 mg tablet RxNorm: 292509 1 Tablet(s) PO BID 09/21/2015 03/18/2016 Inactive Trilipix 135 mg caps ule,delayed release RxNorm: 071753 CAPSULE(S) TAKE 1 CAP KRISH DAILY 07/04/2015 12/31/2015 Inactive Contour Test Strips RxNorm: USE TO TEST EVERY MORNING AND EVERY EVEN ING DIRECTED 06/23/2015 No Stop Date Active metformin 500 mg tablet RxNorm: 722124 Tablet(s) TAKE ONE-HALF TABLET BY MOUTH TWICE DAILY 06/01/2015 06/30/2015 Inactive metformin 500 mg tablet RxNorm: 827046 Tablet(s) TAKE ONE-HALF TABLET BY MOUTH TWICE DAILY 02/16/2015 05/31/2015 Inactive lisinopril 40 mg tablet RxNorm: 078775 TAKE ONE-HALF (1/2) TABLET DAILY 01/10/2015 12/17/2015 In active metformin 500 mg tablet RxNorm: 625786 Tablet(s) TAKE ONE-HALF TABLET BY MOUTH TWICE DAILY 11/22/2014 03/21/2015 Inactive metformin 500 mg tablet RxNorm: 529003 Tablet(s) TAKE ONE-HALF TABLET BY MOUTH TWICE DAILY 11/21/2014 11/21/2014 Inactive digoxin 250 mcg tablet RxNorm: 537925 Tablet(s) TAKE ONE-HALF (1/2) TABLET PHILLIP LY 11/14/2014 08/10/2015 In active spironolactone 25 mg tablet RxNorm: 041616 TAKE ONE-HALF (1/2) T ABLET DAILY 10/26/2014 12/25/2015 In active spironolactone 25 mg tablet RxNorm: 567488 Tablet(s) TAKE ONE-BRINK LF (1/2) TABLET DAILY 10/25/2014 10/25/2014 Inactive Januvia 100 mg tablet RxNorm: 397976 TAKE 1 TABLET DAILY 09/20/2014 11/19/2015 Inactive Bactrim DS 800 mg-16 0 mg tablet RxNorm: 382378 1 Tablet(s) PO BID TA KE ONE TABLET BY MOUTH TWICE DAILY 09/20/2014 09/26/2014 Inactive Contour Test Strips RxNorm: USE TO TEST EVERY MORNING AND EVERY EVEN ING DIRECTED 08/08/2014 06/22/2015 Inactive Trilipix 135 mg caps ule,delayed release RxNorm: 310578 Capsule(s) TAKE 1 CAP KRISH DAILY 07/27/2014 01/22/2015 Inactive metformin 500 mg tablet RxNorm: 088730 Tablet(s) TAKE ONE-HALF TABLET BY MOUTH TWICE DAILY 06/06/2014 06/05/2014 Inactive metformin 500 mg tablet RxNorm: 282118 TAKE ONE-HALF TABLET BY MOUTH TWICE SERGIO Y 06/06/2014 09/03/2014 In active digoxin 250 mcg tablet RxNorm: 044545 TAKE ONE-HALF (1/2) TABLET DAILY 04/28/2014 11/13/2014 In active spironolactone 25 mg tablet RxNorm: 970515 TAKE ONE-HALF (1/2) T ABLET DAILY 04/28/2014 10/24/2014 In active Trilipix 135 mg caps ule,delayed release RxNorm: 528437 TAKE 1 CAPSULE DAILY 04/28/2014 07/26/2014 In active Januvia 100 mg tablet RxNorm: 278605 TAKE 1 TABLET DAILY 03/30/2014 09/19/2014 Inactive metformin 500 mg tablet RxNorm: 979732 TAKE ONE-HALF TABLET BY MOUTH TWICE SERGIO Y 01/11/2014 06/05/2014 In active Januvia 100 mg tablet RxNorm: 583646 1 TABLET(S) PO DAILY TAKE ONE TABLET BY MOUTH EVERY DAY 12/30/2013 03/29/2014 Inactive sulfamethoxazole 800 mg-trimethoprim 160 mg tablet RxNorm: 913916 1 Tablet(s) PO BID 12/08/2013 12/17/2013 Inactive sulfamethoxazole 800 mg-trimethoprim 160 mg tablet RxNorm: 957563 1 Tablet(s) PO BID 12/08/2013 12/07/2013 Inactive Bactroban 2 % topica l ointment RxNorm: 059614 1 TOP BID 12/08/2013 01/05/2019 Inactive lisinopril 40 mg tablet RxNorm: 030427 1/2 Tablet(s) PO daily 12/02/2013 03/01/2014 Inactive lisinopril 40 mg tablet RxNorm: 265205 1/2 Tablet(s) PO daily 1/2 TABLET(S) PO DAILY 12/02/2013 01/30/2014 Inactive ceftriaxone 1 gram s olution for injection RxNorm: 307665 Inj 11/25/2013 11/25/2013 Inactive Rocephin 500 mg solu tion for injection RxNorm: 186036 1 Gram(s) Inj once 11/24/2013 11/24/2013 In active sulfamethoxazole 800 mg-trimethoprim 160 mg tablet RxNorm: 827804 1 Tablet(s) PO BID 11/24/2013 12/07/2013 Inactive permethrin 5 % topic al cream RxNorm: 322779 1 Application TOP daily 10/19/2013 08/05/2018 Inactive apply head to toe, leave on 12 hours the n wash off, may repeat x 1 if needed permethrin 5 % topic al cream RxNorm: 438851 1 Application TOP daily 10/15/2013 10/18/2013 Inactive apply head to toe, leave on 12 hours the n wash off, may repeat x 1 if needed metformin 500 mg tablet RxNorm: 853812 TAKE ONE-HALF TABLET BY MOUTH TWICE SERGIO Y 10/05/2013 01/02/2014 In active Contour Test Strips RxNorm: Miscellaneous USE TO TEST BLOOD SUGAR TW ICE A DAY 06/28/2013 08/07/2014 In active spironolactone 25 mg tablet RxNorm: 024402 Tablet(s) PO TAKE ONE -HALF (1/2) TABLET DAILY 06/18/2013 04/27/2014 Inactive Trilipix 135 mg caps ule,delayed release RxNorm: 215809 Capsule(s) PO TAKE 1 CAPSULE DAILY 06/18/2013 04/27/2014 Inactive digoxin 250 mcg tablet RxNorm: 367449 Tablet(s) PO TAKE ONE-HALF (1/2) TABLET DAILY 06/18/2013 04/27/2014 Inactive metformin 500 mg tablet RxNorm: 398168 1/2 Tablet(s) PO BID 06/03/2013 09/30/2013 Inactive Microlet Lancet RxNorm: 1 Miscellaneous BID 05/31/2013 08/23/2014 Inactive Microlet Lancet RxNorm: 1 Miscellaneous BID 05/31/2013 05/30/2013 Inactive nystatin 100,000 uni t/gram topical powder RxNorm: 733580 1 Application TOP BID 05/31/2013 08/28/2013 In active Januvia 100 mg tablet RxNorm: 638567 1 Tablet(s) PO daily TAKE ONE TABLET BY MOUTH EVERY DAY 05/31/2013 11/26/2013 Inactive nystatin 100,000 uni t/gram topical powder RxNorm: 126139 1 Application TOP BID 05/17/2013 05/30/2013 In active Bactrim DS 800 mg-16 0 mg tablet RxNorm: 980158 1 Tablet(s) PO BID TA KE ONE TABLET BY MOUTH TWICE DAILY 05/17/2013 05/23/2013 Inactive Bactrim DS 800 mg-16 0 mg tablet RxNorm: 540038 Tablet(s) PO TAKE ONE TABLET BY MOUTH TWICE DAILY 12/03/2012 05/16/2013 Inactive Bactrim DS 800 mg-16 0 mg tablet RxNorm: 379957 1 Tablet(s) PO BID 11/26/2012 11/30/2012 Inactive lisinopril 40 mg tablet RxNorm: 992971 1/2 Tablet(s) PO daily 11/16/2012 12/01/2013 Inactive Januvia 100 mg tablet RxNorm: 978732 1 Tablet(s) PO daily TAKE ONE TABLET BY MOUTH EVERY DAY 11/16/2012 05/30/2013 Inactive lisinopril 40 mg tablet RxNorm: 332674 Tablet(s) PO TAKE 1 TABLET DAILY 10/24/2012 11/15/2012 In active Contour Test Strips RxNorm: Strip Miscellaneous USE TO TEST BLOOD [place] TWICE A DAY 10/24/2012 06/28/2013 Inactive Trilipix 135 mg caps ule,delayed release RxNorm: 940140 Capsule(s) PO TAKE 1 CAPSULE DAILY 10/14/2012 06/17/2013 Inactive Bactrim DS 800 mg-16 0 mg tablet RxNorm: 285580 1 Tablet(s) PO BID 10/07/2012 10/16/2012 Inactive Bactrim DS 800 mg-16 0 mg tablet RxNorm: 957726 1 Tablet(s) PO BID 10/07/2012 10/06/2012 Inactive Januvia 100 mg tablet RxNorm: 596191 1 Tablet(s) PO daily 09/21/2012 01/18/2013 Inactive may have #90 if cheaper digoxin 250 mcg tablet RxNorm: 4459926 1/2 tab MWF sat sun, 1 tab tues thurs Tablet(s) PO daily 1/2 tab MWF sat sun, 1 tab tues thurs 09/21/2012 09/20/2015 Inactive TAKE 1 TABLET DAILY digoxin 250 mcg tablet RxNorm: 7406175 1/2 Tablet(s) PO daily 04/07/2012 09/20/2012 Inactive TAKE 1 TABLET DAILY sulfamethoxazole-tri methoprim 800 mg-160 mg tablet RxNorm: 990471 1 Tablet(s) PO BID 04/07/2012 04/13/2012 Inactive Januvia 100 mg tablet RxNorm: 293057 1/2 Tablet(s) PO daily 04/07/2012 08/04/2012 Inactive may have #90 if cheaper Rocephin 500 mg Solu tion for Injection RxNorm: 2261855 1 Inj 04/07/2012 04/07/2012 Inactive Gentak 0.3 % Eye Drops RxNorm: 143014 3 Drop(s) OPH QID 3 drops 4 times daily x 7 days 04/07/2012 04/13/2012 Inactive spironolactone 25 mg tablet RxNorm: 685093 1/2 Tablet(s) PO daily 04/07/2012 06/17/2013 Inactive TAKE 1 TABLET DAILY Coumadin 5 mg tablet RxNorm: 370588 Tablet(s) PO Luz manages 02/28/2012 08/26/2012 Inactive 7.5 mg mon wed [id number] other daysDr. Tara villar manages Januvia 100 mg tablet RxNorm: 136649 1 Tablet(s) PO 02/20/2012 11/16/2012 Inactive may have #90 if cheaper Trilipix 135 mg caps ule,delayed release RxNorm: 154630 Capsule(s) PO 02/10/2012 06/16/2012 Inactive TAKE 1 CAPSULE DAILY digoxin 250 mcg tablet RxNorm: 976230 Tablet(s) PO 02/10/2012 04/06/2012 Inactive TAKE 1 TABLET DAILY spironolactone 25 mg tablet RxNorm: 159826 Tablet(s) PO 02/10/2012 04/06/2012 Inactive TAKE 1 TABLET DAILY simvastatin 80 mg ta blet RxNorm: 199810 Tablet(s) PO 12/03/2011 11/15/2012 Inactive TAKE ONE- HALF TABLET BY MOUTH EVERY DAY Januvia 50 mg tablet RxNorm: 883269 1 Tablet(s) PO daily 11/14/2011 02/19/2012 Inactive simvastatin 80 mg ta blet RxNorm: 807047 1/2 Tablet(s) PO daily 11/07/2011 12/02/2011 Inactive lisinopril 40 mg tablet RxNorm: 013454 1 Tablet(s) PO daily 11/07/2011 12/06/2011 Inactive spironolactone 25 mg tablet RxNorm: 462083 1 Tablet(s) PO daily 12/17/2010 03/16/2011 Inactive digoxin 250 mcg tablet RxNorm: 329007 1 Tablet(s) PO daily 12/17/2010 03/16/2011 Inactive Trilipix 135 mg caps ule,delayed release RxNorm: 382106 1 Capsule(s) PO daily 12/17/2010 03/16/2011 In active Lipitor 40 mg tablet RxNorm: 672894 1 Tablet(s) PO daily No Start Date Active Fish Oil 1,000 mg Cap RxNorm: 3 Capsule(s) PO daily No Start Date Active Trilipix 135 mg Caps ule, delayed release RxNorm: 472419 1 Capsule(s) PO daily No Start Date Active bumetanide 1 mg Tab RxNorm: 583476 Tablet(s) PO PRN No Start Date Active Xarelto 20 mg tablet RxNorm: 5396772 1 Tablet(s) PO daily No Start Date Active simvastatin 80 mg ta blet RxNorm: 224391 1/2 Tablet(s) PO daily No Start Date 11/06/2011 Inactive spironolactone 25 mg Tab RxNorm: 973029 1 Tablet(s) PO daily No Start Date 08/05/2018 Inactive metformin 500 mg tablet RxNorm: 748953 1/2 Tablet(s) PO BID No Start Date 06/02/2013 Inactive carvedilol 25 mg Tab RxNorm: 729758 1 Tablet(s) PO BID No Start Date 09/20/2015 Inactive aspirin 325 mg tablet RxNorm: 109458 1 Tablet(s) PO daily No Start Date 09/20/2015 Inactive digoxin 250 mcg Tab RxNorm: 2910485 1/2 Tablet(s) PO daily No Start Date 09/20/2015 Inactive Coumadin 5 mg tablet RxNorm: 554429 Tablet(s) PO No Start Date 02/27/2012 Inactive 7.5 mg mon wed [id number] other days Bactroban 2 % topica l ointment RxNorm: 279706 1 TOP BID No Start Date 12/07/2013 Inactive Contour Test Strips RxNorm: 1 Miscellaneous BID No Start Date 10/23/2012 Inactive coun tour ts lisinopril 40 mg tablet RxNorm: 858662 1 Tablet(s) PO daily No Start Date 11/06/2011 Inactive Medication Administered Medication Codes Instruc tions Start Date Status ceftriaxone 500 mg solution for injection RxNorm: 0573546 11/17/2015 No longer A ctive ceftriaxone 1 gram solution for injection RxNorm: 211954 11/25/2013 No longer A ctive Rocephin 500 mg solution for injection RxNorm: 292053 1Gramonce 11/24/2013 No longer Active Rocephin 500 mg Solution for Injection RxNorm: 4197239 1 04/07/2012 No longer A ctive Immunizations No Immunization data Assessments Condition Codes Effectiv e Dates Essential (primary) hypertension ICD -10: I10 ICD-9: 401.9 01/06/2019 Type 2 diabetes mellitus with hyperglycemia ICD-10: E11.65 ICD-9: 250.02 01/06/2019 Encounter for general adult medical exam ination without abnormal findings ICD-10: Z00.00 ICD-9: V70.0 01/06/2019 Mixed hyperlipidemia ICD-10: E78.2 ICD-9: 272.2 08/06/2018 Type 2 diabetes mellitus without complications ICD-10: E11.9 ICD-9: 250.00 11/17/2015 Localized edema ICD-10: R60.0 ICD-9: 782.3 11/17/2015 Cellulitis of left lower limb ICD-10 : L03.116 ICD-9: 682.6 11/17/2015 Other obesity due to excess calories ICD-10: E66.09 ICD-9: 278.00 09/21/2015 CELLULITIS OF LEG ICD-9: 682.6 11/25/2013 Cough ICD-9: 786.2 11/24 FEVER NOS ICD-9: 780.60 11/24/2013 EDEMA ICD-9: 782.3 11/24 SCABIES ICD-9: 133.0 DIABETES TYPE II SNOMED: 995882149 ICD-9: 250.00 07/01/2013 Abrasion of leg ICD-9: 916.0 11/26/2012 Hypotension ICD-9: 458.9 11/16/2012 Hordeolum externum of right eye ICD- 9: 373.11 04/07/2012 Periorbital cellulitis ICD-9: 373.13 04/07/2012 ESSENTIAL HYPERTENSION SNOMED: 88101 000 ICD-9: 401.9 11/14/2011 Leg pain ICD-9: 729.5 Anticoagulant long-term use ICD-9: V58.61 10/29/2011 Nausea vomiting and diarrhea ICD-9: 787.01 10/29/2011 Coronary artery disease ICD-9: 414.00 10/29/2011 Reason For Visit Reason For Visit Effective Dates Notes diabetes mellitus 01/06/2019 diabetes mellitus 08/06/2018 cellulitis 11/17/2015 diabetes mellitus 09/21/2015 cellulitis 11/24/2013 no none injury to leg rash 10/15/2013 cellulitis 07/01/2013 rash 05/17/2013 cellulitis 11/26/2012 cellulitis 11/16/2012 Hospital Follow Up 08/27/2012 eye pain 04/07/2012 hospital follow up 11/14/2011 cellulitis 10/29/2011 Results Observation Observation Code Item Item Code Result Date %Hba1C Hmt641 % HbA1c 87267-9 7.2 % 01/06/2019 %Hba1C Avt736 Gluc Ave 160 mg/dL 01/06/2019 Comp Metabolic Ysv182 NA 135 mEq/L 08/06/2018 Comp Metabolic Ati063 K 4.4 mEq/L 08/06/2018 Comp Metabolic Bsb336 CL 97 mEq/L 08/06/2018 Comp Metabolic Iks370 CO2 25.0 mEq/L 08/06/2018 Comp Metabolic Abz053 AN ION GAP 17 08/06/2018 Comp Metabolic Sjx209 GL UCOSE 367 mg/dL 08/06/2018 Comp Metabolic Pyq521 Cr eat 0.7 mg/dL 08/06/2018 Comp Metabolic Urr919 eG FR 119 ml/min/1.73m2 07/20 Comp Metabolic Vhe219 BUN 21 mg/dL 08/06/2018 Comp Metabolic Gpq514 B/ C Ratio 29.2 Ratio 08/06/2018 Comp Metabolic Bej797 CA LCIUM 9.1 mg/dL 08/06/2018 Comp Metabolic Isw454 AL K PHOS 67 U/L 08/06/2018 Comp Metabolic Mxq307 T(SGOT) 18 U/L 08/06/2018 Comp Metabolic Sii261 AL T(SGPT) 33 U/L 08/06/2018 Comp Metabolic Tjb310 BI LI T 0.4 mg/dL 08/06/2018 Comp Metabolic Fyr360 AL BUMIN 4.2 g/dL 08/06/2018 Comp Metabolic Khy330 TP RO 6.8 g/dL 08/06/2018 Comp Metabolic Wpa672 GL OB 2.6 g/dL 08/06/2018 Comp Metabolic Rrn657 A/ G Ratio 1.6 Ratio 08/06/2018 Comp Metabolic Hhu340 Os mo 288 mOsmo 08/06/2018 Tsh Ord6 TSH (3rd IS) 0.86 uIU/mL 08/06/2018 Cbc With Differential Ord2 WBC 4.86 K/ul 08/06/2018 Cbc With Differential Ord2 RBC 5.29 M/ul 08/06/2018 Cbc With Differential Ord2 HGB 15.6 g/dl 08/06/2018 Cbc With Differential Ord2 HCT 46.8 % 08/06/2018 Cbc With Differential Ord2 Neut% 60.7 % 08/06/2018 Cbc With Differential Ord2 MCV 88.5 fl 08/06/2018 Cbc With Differential Ord2 Lymph% 27.0 % 08/06/2018 Cbc With Differential Ord2 MCH 29.5 pg 08/06/2018 Cbc With Differential Ord2 [place]% 11.5 % 08/06/2018 Cbc With Differential Ord2 Eos% 0.6 % 08/06/2018 Cbc With Differential Ord2 MCHC 33.3 pg 08/06/2018 Cbc With Differential Ord2 PLT 142 K/ul 08/06/2018 Cbc With Differential Ord2 Baso% 0.2 % 08/06/2018 Cbc With Differential Ord2 RDW 13.6 % 08/06/2018 Cbc With Differential Ord2 Neut ABS# 2.95 K/ul 08/06/2018 Cbc With Differential Ord2 Lymph ABS# 1.31 K/ul 08/06/2018 Cbc With Differential Ord2 [place] ABS# 0.6 K/ul 08/06/2018 Cbc With Differential Ord2 Eos ABS# 0.0 K/ul 08/06/2018 Cbc With Differential Ord2 Baso ABS# 0.0 K/ul 08/06/2018 %Hba1C Fwz286 % HbA1c 29988-0 11.5 % 08/06/2018 %Hba1C Cpf121 Gluc Ave 283 mg/dL 08/06/2018 Comp Metabolic Zxr075 NA 133 mEq/L 11/17/2015 Comp Metabolic Wnr575 K 4.5 mEq/L 11/17/2015 Comp Metabolic Scg471 CL 101 mEq/L 11/17/2015 Comp Metabolic Uts872 CO2 22.0 mEq/L 11/17/2015 Comp Metabolic Zsw071 AN ION GAP 15 11/17/2015 Comp Metabolic Uyl761 GL UCOSE 197 mg/dL 11/17/2015 Comp Metabolic Yxa533 Cr eat 0.8 mg/dL 11/17/2015 Comp Metabolic Bjy907 eG FR 110 ml/min/1.73m2 10/20 Comp Metabolic Idd586 BUN 20 mg/dL 11/17/2015 Comp Metabolic Rdy579 B/ C Ratio 25.6 Ratio 11/17/2015 Comp Metabolic Xbh878 CA LCIUM 9.4 mg/dL 11/17/2015 Comp Metabolic Mcg771 AL K PHOS 65 U/L 11/17/2015 Comp Metabolic Fvy164 T(SGOT) 22 U/L 11/17/2015 Comp Metabolic Qxp626 AL T(SGPT) 40 U/L 11/17/2015 Comp Metabolic Hhf535 BI LI T 0.5 mg/dL 11/17/2015 Comp Metabolic Orb649 AL BUMIN 4.2 g/dL 11/17/2015 Comp Metabolic Gnw615 TP RO 7.0 g/dL 11/17/2015 Comp Metabolic Oak815 GL OB 2.8 g/dL 11/17/2015 Comp Metabolic Keh673 A/ G Ratio 1.5 Ratio 11/17/2015 Comp Metabolic Fbf410 Os mo 274 mOsmo 11/17/2015 Cbc With Differential Ord2 [...] 29.6 pg 11/17/2015 Cbc With Differential Ord2 [place]% 7.0 % 11/17/2015 Cbc With Differential Ord2 MCHC 33.5 pg 11/17/2015 Cbc With Differential Ord2 Eos% 0.2 % 11/17/2015 Cbc With Differential Ord2 PLT 157 K/ul 11/17/2015 Cbc With Differential Ord2 Baso% 0.1 % 11/17/2015 Cbc With Differential Ord2 RDW 13.8 % 11/17/2015 Cbc With Differential Ord2 Neut ABS# 13.44 K/ul 11/17/2015 Cbc With Differential Ord2 Lymph ABS# 0.68 K/ul 11/17/2015 Cbc With Differential Ord2 [place] ABS# 1.1 K/ul 11/17/2015 Cbc With Differential [...] 29.4 pg 11/08/2015 Cbc With Differential Ord2 [place]% 10.2 % 11/08/2015 Cbc With Differential Ord2 MCHC 33.7 pg 11/08/2015 Cbc With Differential Ord2 Eos% 0.7 % 11/08/2015 Cbc With Differential Ord2 PLT 168 K/ul 11/08/2015 Cbc With Differential Ord2 Baso% 0.2 % 11/08/2015 Cbc With Differential Ord2 RDW 13.7 % 11/08/2015 Cbc With Differential Ord2 Neut ABS# 5.55 K/ul 11/08/2015 Cbc With Differential Ord2 Lymph ABS# 2.10 K/ul 11/08/2015 Cbc With Differential Ord2 [place] ABS# 0.9 K/ul 11/08/2015 Cbc With Differential Ord2 Eos ABS# 0.1 K/ul 11/08/2015 Cbc With Differential Ord2 Baso ABS# 0.0 K/ul 11/08/2015 Microalbumin Etj025 Micr oAlb <0.7 mg/dL 11/08/2015 Tsh Ord6 hTSH II 0.65 uIU/mL 11/08/2015 Lipid Ord30 CHOL 157 mg/dL 11/08/2015 Lipid Ord30 HDL 30.0 mg/dl 11/08/2015 Lipid Ord30 TRIG 228 mg/dL 11/08/2015 Lipid Ord30 LDL 81 mg/dL 11/08/2015 Lipid Ord30 C/HDL 5.2 Ratio 11/08/2015 Comp Metabolic Ufs707 NA 130 mEq/L 11/08/2015 Comp Metabolic Uts256 K 4.4 mEq/L 11/08/2015 Comp Metabolic Ozm449 CL 97 mEq/L 11/08/2015 Comp Metabolic Wrf496 CO2 27.0 mEq/L 11/08/2015 Comp Metabolic Xsc276 AN ION GAP 10 11/08/2015 Comp Metabolic Sla726 GL UCOSE 175 mg/dL 11/08/2015 Comp Metabolic Rgb261 Cr eat 0.8 mg/dL 11/08/2015 Comp Metabolic Ytf165 eG FR 104 ml/min/1.73m2 10/20 Comp Metabolic Hht574 BUN 26 mg/dL 11/08/2015 Comp Metabolic Qbw752 B/ C Ratio 31.7 Ratio 11/08/2015 Comp Metabolic Dnl353 CA LCIUM 9.3 mg/dL 11/08/2015 Comp Metabolic Uod665 AL K PHOS 68 U/L 11/08/2015 Comp Metabolic Rzz687 T(SGOT) 26 U/L 11/08/2015 Comp Metabolic Eyu394 AL T(SGPT) 42 U/L 11/08/2015 Comp Metabolic Eul747 BI LI T 0.7 mg/dL 11/08/2015 Comp Metabolic Ilw056 AL BUMIN 4.3 g/dL 11/08/2015 Comp Metabolic Vdv931 TP RO 7.0 g/dL 11/08/2015 Comp Metabolic Mmf924 GL OB 2.7 g/dL 11/08/2015 Comp Metabolic Hfx433 A/ G Ratio 1.6 Ratio 11/08/2015 Comp Metabolic Qzj953 Os mo 270 mOsmo 11/08/2015 Total Psa Ord10 PSA 1.26 ng/mL 11/08/2015 %Hba1C Dvc437 % HbA1c 31767-8 8.2 % 11/08/2015 %Hba1C Kld068 Gluc Ave 189 mg/dL 11/08/2015 Lipid Ord30 CHOL 155 mg/dL 01/23/2015 Lipid Ord30 HDL 34.0 mg/dl 01/23/2015 Lipid Ord30 TRIG 198 mg/dL 01/23/2015 Lipid Ord30 LDL 81 mg/dL 01/23/2015 Lipid Ord30 C/HDL 4.6 Ratio 01/23/2015 Hepatic Yfy132 ALBUMIN 4.2 g/dL 01/23/2015 Hepatic Hbx885 TPRO 6.9 g/dL 01/23/2015 Hepatic Qup744 GLOB 2.7 g/dL 01/23/2015 Hepatic Wes486 A/G Ratio 1.6 Ratio 01/23/2015 Hepatic Rqi618 ALK PHOS 59 U/L 01/23/2015 Hepatic Bvg240 ALT(SGPT) 46 U/L 01/23/2015 Hepatic Tin013 AST(SGOT) 21 U/L 01/23/2015 Hepatic Pfo050 BILI T 0.5 mg/dL 01/23/2015 Hepatic Ejq600 BILI D 0.1 mg/dL 01/23/2015 Hepatic Gfg166 BILI I 0.4 mg/dL 01/23/2015 Review of Systems System Result Effective Dates Constitutional No recent illness 01/06/2019 Constitutional No anorexia 01/06/2019 Constitutional No chills 01/06/2019 Constitutional No diaphoresis 01/06/2019 Constitutional No fatigue 01/06/2019 Constitutional No fever 01/06/2019 Constitutional No insomnia 01/06/2019 Constitutional No malaise 01/06/2019 Eyes No eye discharge Eyes No eye erythema Ears/Nose/Throat/Neck No dizziness 01/06/2019 Ears/Nose/Throat/Neck No nasal allergies 01/06/2019 Ears/Nose/Throat/Neck No nasal discharge 01/06/2019 Ears/Nose/Throat/Neck No otalgia 01/06/2019 Ears/Nose/Throat/Neck No sore throat 01/06/2019 Cardiovascular No chest pain/pressure 01/06/2019 Cardiovascular edema Respiratory No productive sputum 01/06/2019 Respiratory No chest congestion 01/06/2019 Respiratory No cough Respiratory dyspnea on exertion 01/06/2019 Gastrointestinal No abdominal pain 01/06/2019 Gastrointestinal No constipation 01/06/2019 Gastrointestinal No diarrhea 01/06/2019 Genitourinary/Nephrology No dysuria 01/06/2019 Musculoskeletal No joint complaint 01/06/2019 Dermatologic No rash Neurologic No alteration of consciousness 01/06/2019 Psychiatric No anxiety 0 01/06/2019 Psychiatric No depression 01/06/2019 Constitutional weight loss 01/06/2019 Constitutional No recent illness 08/06/2018 Constitutional No anorexia 08/06/2018 Constitutional No night sweats 08/06/2018 Constitutional No chills 08/06/2018 Constitutional No diaphoresis 08/06/2018 Constitutional No fatigue 08/06/2018 Constitutional No fever 08/06/2018 Constitutional No insomnia 08/06/2018 Constitutional No malaise 08/06/2018 Constitutional No weight loss 08/06/2018 Constitutional No weight gain 08/06/2018 Eyes No eye discharge Eyes No eye erythema Ears/Nose/Throat/Neck No dizziness 08/06/2018 Ears/Nose/Throat/Neck No nasal allergies 08/06/2018 Ears/Nose/Throat/Neck No nasal discharge 08/06/2018 Ears/Nose/Throat/Neck No otalgia 08/06/2018 Ears/Nose/Throat/Neck No sore throat 08/06/2018 Cardiovascular No chest pain/pressure 08/06/2018 Cardiovascular edema Respiratory No productive sputum 08/06/2018 Respiratory No chest congestion 08/06/2018 Respiratory No cough Gastrointestinal No abdominal pain 08/06/2018 Gastrointestinal No constipation 08/06/2018 Gastrointestinal No diarrhea 08/06/2018 Genitourinary/Nephrology No dysuria 08/06/2018 Musculoskeletal No joint complaint 08/06/2018 Dermatologic No rash Neurologic No alteration of consciousness 08/06/2018 Psychiatric No anxiety 0 08/06/2018 Psychiatric No depression 08/06/2018 Respiratory dyspnea on exertion 08/06/2018 Constitutional recent illness 11/17/2015 Constitutional anorexia 11/17/2015 Constitutional No night sweats 11/17/2015 Constitutional chills Constitutional No diaphoresis 11/17/2015 Constitutional fatigue 0 11/17/2015 Constitutional fever Constitutional No insomnia 11/17/2015 Constitutional No malaise 11/17/2015 Constitutional No weight loss 11/17/2015 Constitutional No weight gain 11/17/2015 Eyes No eye erythema Eyes No eye discharge Ears/Nose/Throat/Neck dizziness 11/17/2015 Ears/Nose/Throat/Neck headache 11/17/2015 Cardiovascular No chest pain/pressure 11/17/2015 Cardiovascular No dyspnea 11/17/2015 Respiratory No productive sputum 11/17/2015 Respiratory No chest congestion 11/17/2015 Respiratory dyspnea on exertion 11/17/2015 Gastrointestinal No abdominal pain 11/17/2015 Gastrointestinal No constipation 11/17/2015 Gastrointestinal diarrhea 11/17/2015 Gastrointestinal No vomiting 11/17/2015 Gastrointestinal No nausea 11/17/2015 Genitourinary/Nephrology No dysuria 11/17/2015 Musculoskeletal joint complaint 11/17/2015 Dermatologic erythema Neurologic No alteration of consciousness 11/17/2015 Psychiatric No anxiety 0 11/17/2015 Constitutional No insomnia 09/21/2015 Eyes No eye discharge Eyes No eye erythema 05/2015 Ears/Nose/Throat/Neck No dizziness 09/21/2015 Ears/Nose/Throat/Neck No nasal allergies 09/21/2015 Ears/Nose/Throat/Neck No nasal discharge 09/21/2015 Ears/Nose/Throat/Neck No otalgia 09/21/2015 Ears/Nose/Throat/Neck No sore throat 09/21/2015 Cardiovascular No chest pain/pressure 09/21/2015 Respiratory No productive sputum 09/21/2015 Respiratory No chest congestion 09/21/2015 Respiratory No cough 05/2015 Genitourinary/Nephrology No dysuria 09/21/2015 Neurologic No alteration of consciousness 09/21/2015 Psychiatric No anxiety 0 09/21/2015 Psychiatric No depression 09/21/2015 Gastrointestinal No abdominal pain 09/21/2015 Gastrointestinal No diarrhea 09/21/2015 Gastrointestinal No constipation 09/21/2015 Musculoskeletal No joint complaint 09/21/2015 Dermatologic No rash 05/2015 Cardiovascular edema 05/2015 Constitutional No recent illness 09/21/2015 Constitutional No anorexia 09/21/2015 Constitutional No night sweats 09/21/2015 Constitutional No chills 09/21/2015 Constitutional No diaphoresis 09/21/2015 Constitutional No fatigue 09/21/2015 Constitutional No fever 09/21/2015 Constitutional No malaise 09/21/2015 Constitutional No weight loss 09/21/2015 Constitutional No weight gain 09/21/2015 Constitutional No recent illness 11/24/2013 Constitutional No anorexia 11/24/2013 Constitutional No night sweats 11/24/2013 Constitutional No chills 11/24/2013 Constitutional No diaphoresis 11/24/2013 Constitutional No fatigue 11/24/2013 Constitutional No fever 11/24/2013 Constitutional No insomnia 11/24/2013 Constitutional No malaise 11/24/2013 Eyes No eye discharge Eyes No eye erythema 09/2013 Ears/Nose/Throat/Neck No dizziness 11/24/2013 Ears/Nose/Throat/Neck No headache 11/24/2013 Cardiovascular No chest pain/pressure 11/24/2013 Cardiovascular No dyspnea 11/24/2013 Cardiovascular edema 09/2013 Respiratory No productive sputum 11/24/2013 Respiratory No chest congestion 11/24/2013 Respiratory No cough 09/2013 Gastrointestinal No abdominal pain 11/24/2013 Gastrointestinal No constipation 11/24/2013 Gastrointestinal No diarrhea 11/24/2013 Gastrointestinal No nausea 11/24/2013 Gastrointestinal No vomiting 11/24/2013 Genitourinary/Nephrology No dysuria 11/24/2013 Musculoskeletal No joint complaint 11/24/2013 Neurologic No alteration of consciousness 11/24/2013 Dermatologic No sores Dermatologic pigmentation change 11/24/2013 Dermatologic cellulitis 11/24/2013 Psychiatric No depression 11/24/2013 Psychiatric No anxiety 0 11/24/2013 Constitutional No recent illness 10/15/2013 Constitutional No anorexia 10/15/2013 Constitutional No night sweats 10/15/2013 Constitutional No chills 10/15/2013 Constitutional No diaphoresis 10/15/2013 Constitutional No fatigue 10/15/2013 Constitutional No fever 10/15/2013 Constitutional No insomnia 10/15/2013 Constitutional No malaise 10/15/2013 Respiratory No cough Cardiovascular No chest pain/pressure 10/15/2013 Ears/Nose/Throat/Neck No dizziness 10/15/2013 Ears/Nose/Throat/Neck No headache 10/15/2013 Ears/Nose/Throat/Neck No nasal discharge 10/15/2013 Eyes No eye discharge Eyes No eye erythema Gastrointestinal No vomiting 10/15/2013 Gastrointestinal No nausea 10/15/2013 Gastrointestinal No diarrhea 10/15/2013 Musculoskeletal No joint complaint 10/15/2013 Dermatologic rash 2013 Constitutional No anorexia 07/01/2013 Constitutional No recent illness 07/01/2013 Constitutional No night sweats 07/01/2013 Constitutional No chills 07/01/2013 Constitutional No diaphoresis 07/01/2013 Constitutional No fatigue 07/01/2013 Constitutional No fever 07/01/2013 Constitutional No insomnia 07/01/2013 Constitutional No malaise 07/01/2013 Eyes No eye erythema Eyes No eye discharge Ears/Nose/Throat/Neck No dizziness 07/01/2013 Ears/Nose/Throat/Neck No headache 07/01/2013 Cardiovascular No chest pain/pressure 07/01/2013 Respiratory No cough Gastrointestinal No abdominal pain 07/01/2013 Gastrointestinal No constipation 07/01/2013 Gastrointestinal No diarrhea 07/01/2013 Gastrointestinal No vomiting 07/01/2013 Gastrointestinal No nausea 07/01/2013 Genitourinary/Nephrology No dysuria 07/01/2013 Musculoskeletal No joint complaint 07/01/2013 Constitutional No recent illness 05/17/2013 Constitutional No anorexia 05/17/2013 Constitutional No night sweats 05/17/2013 Constitutional No chills 05/17/2013 Constitutional No diaphoresis 05/17/2013 Constitutional No fatigue 05/17/2013 Constitutional No fever 05/17/2013 Constitutional No insomnia 05/17/2013 Constitutional No malaise 05/17/2013 Eyes No eye discharge Eyes No eye erythema Ears/Nose/Throat/Neck No dizziness 05/17/2013 Ears/Nose/Throat/Neck No headache 05/17/2013 Cardiovascular No chest pain/pressure 05/17/2013 Cardiovascular No edema 05/17/2013 Cardiovascular No dyspnea 05/17/2013 Respiratory No productive sputum 05/17/2013 Respiratory No chest congestion 05/17/2013 Respiratory No cough Gastrointestinal No abdominal pain 05/17/2013 Gastrointestinal No constipation 05/17/2013 Gastrointestinal No diarrhea 05/17/2013 Gastrointestinal No vomiting 05/17/2013 Gastrointestinal No nausea 05/17/2013 Genitourinary/Nephrology No dysuria 05/17/2013 Constitutional No recent illness 11/26/2012 Constitutional No anorexia 11/26/2012 Constitutional No night sweats 11/26/2012 Constitutional No chills 11/26/2012 Constitutional No diaphoresis 11/26/2012 Constitutional No fatigue 11/26/2012 Constitutional No fever 11/26/2012 Constitutional No insomnia 11/26/2012 Constitutional No malaise 11/26/2012 Eyes No eye discharge Eyes No eye erythema 11/2012 Ears/Nose/Throat/Neck No dizziness 11/26/2012 Ears/Nose/Throat/Neck No headache 11/26/2012 Cardiovascular No chest pain/pressure 11/26/2012 Cardiovascular No dyspnea 11/26/2012 Cardiovascular edema 11/2012 Respiratory No productive sputum 11/26/2012 Respiratory No chest congestion 11/26/2012 Respiratory No cough 11/2012 Gastrointestinal No abdominal pain 11/26/2012 Gastrointestinal No constipation 11/26/2012 Gastrointestinal No diarrhea 11/26/2012 Gastrointestinal No nausea 11/26/2012 Gastrointestinal No vomiting 11/26/2012 Genitourinary/Nephrology No dysuria 11/26/2012 Musculoskeletal No joint complaint 11/26/2012 Neurologic No alteration of consciousness 11/26/2012 Constitutional No recent illness 11/16/2012 Constitutional No anorexia 11/16/2012 Constitutional No night sweats 11/16/2012 Constitutional No chills 11/16/2012 Constitutional No diaphoresis 11/16/2012 Constitutional No fatigue 11/16/2012 Constitutional No fever 11/16/2012 Constitutional No insomnia 11/16/2012 Constitutional No malaise 11/16/2012 Eyes No eye discharge Eyes No eye erythema Ears/Nose/Throat/Neck No dizziness 11/16/2012 Ears/Nose/Throat/Neck No headache 11/16/2012 Cardiovascular No chest pain/pressure 11/16/2012 Cardiovascular No dyspnea 11/16/2012 Cardiovascular edema Respiratory No productive sputum 11/16/2012 Respiratory No chest congestion 11/16/2012 Respiratory No cough Gastrointestinal No abdominal pain 11/16/2012 Gastrointestinal No constipation 11/16/2012 Gastrointestinal No diarrhea 11/16/2012 Gastrointestinal No nausea 11/16/2012 Gastrointestinal No vomiting 11/16/2012 Genitourinary/Nephrology No dysuria 11/16/2012 Musculoskeletal No joint complaint 11/16/2012 Neurologic No alteration of consciousness 11/16/2012 Constitutional No recent illness 08/27/2012 Constitutional No anorexia 08/27/2012 Constitutional No night sweats 08/27/2012 Constitutional No chills 08/27/2012 Constitutional No diaphoresis 08/27/2012 Constitutional No fatigue 08/27/2012 Constitutional No fever 08/27/2012 Constitutional No insomnia 08/27/2012 Constitutional No malaise 08/27/2012 Eyes No eye discharge Eyes No eye erythema 12/2012 Ears/Nose/Throat/Neck No dizziness 08/27/2012 Ears/Nose/Throat/Neck No headache 08/27/2012 Cardiovascular No chest pain/pressure 08/27/2012 Cardiovascular No dyspnea 08/27/2012 Cardiovascular edema 12/2012 Respiratory No productive sputum 08/27/2012 Respiratory No chest congestion 08/27/2012 Respiratory No cough 12/2012 Gastrointestinal No abdominal pain 08/27/2012 Gastrointestinal No constipation 08/27/2012 Gastrointestinal No diarrhea 08/27/2012 Gastrointestinal No nausea 08/27/2012 Gastrointestinal No vomiting 08/27/2012 Genitourinary/Nephrology No dysuria 08/27/2012 Dermatologic No rash 12/2012 Dermatologic No sores Musculoskeletal No joint complaint 08/27/2012 Neurologic No alteration of consciousness 08/27/2012 Constitutional recent illness 04/07/2012 Constitutional No chills 04/07/2012 Constitutional No fatigue 04/07/2012 Constitutional No fever 04/07/2012 Constitutional No insomnia 04/07/2012 Constitutional No malaise 04/07/2012 Cardiovascular No chest pain/pressure 04/07/2012 Cardiovascular No dyspnea 04/07/2012 Cardiovascular No edema 04/07/2012 Cardiovascular No exercise intolerance 04/07/2012 Cardiovascular No fatigue 04/07/2012 Cardiovascular No near-syncope/dizziness 04/07/2012 Respiratory No chest tightness 04/07/2012 Respiratory No cigarette smoking 04/07/2012 Respiratory No cough Respiratory No dyspnea 1 06/08/2011 Respiratory pedal edema 04/07/2012 Respiratory No snoring 1 06/08/2011 Respiratory No wheezing 04/07/2012 Gastrointestinal No hemorrhoids 04/07/2012 Gastrointestinal No abdominal pain 04/07/2012 Gastrointestinal No constipation 04/07/2012 Gastrointestinal No diarrhea 04/07/2012 Gastrointestinal No gastroesophageal reflu x 04/07/2012 Gastrointestinal No melena 04/07/2012 Gastrointestinal No nausea 04/07/2012 Gastrointestinal No vomiting 04/07/2012 Psychiatric No anxiety 1 06/08/2011 Psychiatric No depression 04/07/2012 Dermatologic No rash Dermatologic No scar Ears/Nose/Throat/Neck No dental pain 04/07/2012 Ears/Nose/Throat/Neck No dizziness 04/07/2012 Ears/Nose/Throat/Neck No dysphagia 04/07/2012 Ears/Nose/Throat/Neck No headache 04/07/2012 Ears/Nose/Throat/Neck No hearing loss 04/07/2012 Ears/Nose/Throat/Neck nasal allergies 04/07/2012 Ears/Nose/Throat/Neck No sore throat 04/07/2012 Ears/Nose/Throat/Neck No postnasal drip 04/07/2012 Ears/Nose/Throat/Neck No sinus congestion 04/07/2012 Psychiatric No anxiety 0 11/14/2011 Psychiatric No depression 11/14/2011 Constitutional No insomnia 11/14/2011 Eyes No eye discharge Eyes No eye erythema Ears/Nose/Throat/Neck No dizziness 11/14/2011 Ears/Nose/Throat/Neck headache 11/14/2011 Ears/Nose/Throat/Neck No nasal allergies 11/14/2011 Ears/Nose/Throat/Neck No nasal discharge 11/14/2011 Ears/Nose/Throat/Neck No otalgia 11/14/2011 Ears/Nose/Throat/Neck No sore throat 11/14/2011 Cardiovascular No chest pain/pressure 11/14/2011 Respiratory No productive sputum 11/14/2011 Respiratory No chest congestion 11/14/2011 Respiratory No cough Genitourinary/Nephrology No dysuria 11/14/2011 Neurologic No alteration of consciousness 11/14/2011 Constitutional recent illness 10/29/2011 Constitutional chills Constitutional diaphoresis 10/29/2011 Constitutional fever 01/2012 Constitutional No insomnia 10/29/2011 Constitutional fatigue 0 10/29/2011 Eyes No eye discharge Eyes No eye erythema 01/2012 Ears/Nose/Throat/Neck No dizziness 10/29/2011 Ears/Nose/Throat/Neck No nasal allergies 10/29/2011 Ears/Nose/Throat/Neck No nasal discharge 10/29/2011 Ears/Nose/Throat/Neck headache 10/29/2011 Ears/Nose/Throat/Neck No sore throat 10/29/2011 Ears/Nose/Throat/Neck No otalgia 10/29/2011 Cardiovascular No chest pain/pressure 10/29/2011 Respiratory No productive sputum 10/29/2011 Respiratory No chest congestion 10/29/2011 Respiratory No cough 01/2012 Genitourinary/Nephrology No dysuria 10/29/2011 Neurologic No alteration of consciousness 10/29/2011 Psychiatric No anxiety 0 10/29/2011 Psychiatric No depression 10/29/2011 Physical Exam Exam Name System Name It em Name Status Result Effective Dates Notes Full Exam - General 1994 Constitutional general appearance Development: well developed 01/06/2019 None Full Exam - General 1994 Constitutional general appearance Development: appears older than stated age 0901/06/2019 None Full Exam - General 1994 Eyes conjunctiva/eyelids Overall: conjunctiva clear 01/06/2019 None Full Exam - General 1994 Eyes pupils and irises Overall: pupils equal, round, reactive to light and accomodation 01/06/2019 None Full Exam - General 1994 Ears/Nose/Throat otoscopic exam Overall: external auditory canals clear 01/06/2019 None Full Exam - General 1994 Ears/Nose/Throat otoscopic exam Overall: tympanic membranes clear 01/06/2019 None Full Exam - General 1994 Ears/Nose/Throat oral cavity/pharynx/larynx Overall: oral mucosa clear 01/06/2019 None Full Exam - General 1994 Ears/Nose/Throat oral cavity/pharynx/larynx Overall: oropharyngeal mucosa clear 01/06/2019 None Full Exam - General 1994 Ears/Nose/Throat oral cavity/pharynx/larynx Overall: no masses 01/06/2019 None Full Exam - General 1994 Respiratory auscultation Overall: breath sounds clear bilaterally 01/06/2019 None Full Exam - General 1994 Respiratory respiratory effort/rhythm Overall: no retractions 01/06/2019 None Full Exam - General 1994 Respiratory respiratory effort/rhythm Overall: normal rate 01/06/2019 None Full Exam - General 1994 Cardiovascular auscultation of heart Overall: regular rate 01/06/2019 None Full Exam - General 1994 Cardiovascular auscultation of heart Overall: normal heart sounds 01/06/2019 None Full Exam - General 1994 Abdomen abdominal exam Overall: no tenderness 01/06/2019 None Full Exam - General 1994 Abdomen abdominal exam Overall: normal bowel sounds 01/06/2019 None Full Exam - General 1994 Abdomen abdominal exam Contour: protuberant 01/06/2019 None Full Exam - General 1994 Musculoskeletal digits and nails Overall: no clubbing 01/06/2019 None Full Exam - General 1994 Musculoskeletal digits and nails Overall: digits benign 01/06/2019 None Full Exam - General 1994 Musculoskeletal spine, ribs and pelvis Posture: lordosis 01/06/2019 None Full Exam - General 1994 Musculoskeletal gait and station Overall: normal gait 01/06/2019 None Full Exam - General 1994 Musculoskeletal gait and station Overall: normal station 01/06/2019 None Full Exam - General 1994 Musculoskeletal head and neck Overall: head atraumatic 01/06/2019 None Full Exam - General 1994 Musculoskeletal head and neck Overall: cervical spine benign 01/06/2019 None Full Exam - General 1994 Neurologic cranial nerves Overall: crainial nerves 2 - 12 grossly intact 01/06/2019 None Full Exam - General 1994 Psychiatric orientation/consciousness Overall: oriented to person, place and time 01/06/2019 None Full Exam - General 1994 Constitutional general appearance Development: well developed 08/06/2018 None Full Exam - General 1994 Constitutional general appearance Development: appears older than stated age 0408/06/2018 None Full Exam - General 1994 Eyes conjunctiva/eyelids Overall: conjunctiva clear 08/06/2018 None Full Exam - General 1994 Eyes pupils and irises Overall: pupils equal, round, reactive to light and accomodation 08/06/2018 None Full Exam - General 1994 Ears/Nose/Throat otoscopic exam Overall: external auditory canals clear 08/06/2018 None Full Exam - General 1994 Ears/Nose/Throat otoscopic exam Overall: tympanic membranes clear 08/06/2018 None Full Exam - General 1994 Ears/Nose/Throat oral cavity/pharynx/larynx Overall: oral mucosa clear 08/06/2018 None Full Exam - General 1994 Ears/Nose/Throat oral cavity/pharynx/larynx Overall: oropharyngeal mucosa clear 08/06/2018 None Full Exam - General 1994 Ears/Nose/Throat oral cavity/pharynx/larynx Overall: no masses 08/06/2018 None Full Exam - General 1994 Respiratory auscultation Overall: breath sounds clear bilaterally 08/06/2018 None Full Exam - General 1994 Respiratory respiratory effort/rhythm Overall: no retractions 08/06/2018 None Full Exam - General 1994 Respiratory respiratory effort/rhythm Overall: normal rate 08/06/2018 None Full Exam - General 1994 Cardiovascular auscultation of heart Overall: regular rate 08/06/2018 None Full Exam - General 1994 Cardiovascular auscultation of heart Overall: normal heart sounds 08/06/2018 None Full Exam - General 1994 Abdomen abdominal exam Overall: no tenderness 08/06/2018 None Full Exam - General 1994 Abdomen abdominal exam Overall: normal bowel sounds 08/06/2018 None Full Exam - General 1994 Abdomen abdominal exam Contour: protuberant 08/06/2018 None Full Exam - General 1994 Musculoskeletal digits and nails Overall: no clubbing 08/06/2018 None Full Exam - General 1994 Musculoskeletal digits and nails Overall: digits benign 08/06/2018 None Full Exam - General 1994 Musculoskeletal spine, ribs and pelvis Posture: lordosis 08/06/2018 None Full Exam - General 1994 Musculoskeletal gait and station Overall: normal gait 08/06/2018 None Full Exam - General 1994 Musculoskeletal gait and station Overall: normal station 08/06/2018 None Full Exam - General 1994 Musculoskeletal head and neck Overall: head atraumatic 08/06/2018 None Full Exam - General 1994 Musculoskeletal head and neck Overall: cervical spine benign 08/06/2018 None Full Exam - General 1994 Neurologic cranial nerves Overall: crainial nerves 2 - 12 grossly intact 08/06/2018 None Full Exam - General 1994 Psychiatric orientation/consciousness Overall: oriented to person, place and time 08/06/2018 None Full Exam - General 1994 Constitutional general appearance Development: well developed 11/17/2015 None Full Exam - General 1994 Constitutional general appearance Development: appears older than stated age 0711/17/2015 None Full Exam - General 1994 Eyes conjunctiva/eyelids Overall: conjunctiva clear 11/17/2015 None Full Exam [...] Cardiovascular extremities Edema present: severity 1+ - 4+: 2+ 11/17/2015 None Full Exam - General 1994 Constitutional general appearance Development: well developed 09/21/2015 None Full Exam - General 1994 Constitutional general appearance Development: appears older than stated age 0609/21/2015 None Full Exam - General 1994 Eyes conjunctiva/eyelids Overall: conjunctiva clear 09/21/2015 None Full Exam [...] None Full Exam - General 1994 Eyes conjunctiva/eyelids Overall: conjunctiva clear 11/24/2013 None Full Exam [...] Cardiovascular extremities Edema present: severity 1+ - 4+: _ 11/24/2013 None Full Exam - General [...] of skin Rash/Lesions: papule 10/15/2013 excoriated erythematous p apule with hemorrorrhagic crusts noted in web of fingers, wrists, elbows and chest Full Exam - General 1994 Constitutional general appearance Development: well developed 07/01/2013 None Full Exam - General 1994 Constitutional general appearance Development: appears older than stated age 0307/01/2013 None Full Exam - General 1994 Eyes conjunctiva/eyelids Overall: conjunctiva clear 07/01/2013 None Full Exam [...] Cardiovascular extremities Edema present: severity 1+ - 4+: _ 07/01/2013 None Full Exam - General [...] None Full Exam - General 1994 Eyes conjunctiva/eyelids Overall: conjunctiva clear 05/17/2013 None Full Exam [...] Cardiovascular extremities Edema present: severity 1+ - 4+: _ 05/17/2013 None Full Exam - General [...] None Full Exam - General 1994 Eyes conjunctiva/eyelids Overall: conjunctiva clear 11/26/2012 None Full Exam [...] masses 11/26/2012 None Full Exam - General 1994 Respiratory auscultation Overall: breath sounds clear bilaterally 11/26/2012 None Full Exam - General 1994 Respiratory respiratory effort/rhythm Overall: no retractions 11/26/2012 None Full Exam - General 1994 Respiratory respiratory effort/rhythm Overall: normal rate 11/26/2012 None Full Exam - General 1994 Cardiovascular extremities Edema present: pitting 11/26/2012 None Full Exam - General 1994 Cardiovascular extremities Edema present: severity 1+ - 4+: _ 11/26/2012 None Full Exam - General 1994 [...] benign 11/26/2012 None Full Exam - General 1995 Musculoskeletal spine, ribs and pelvis Posture: lordosis 11/26/2012 None Full Exam - General 1995 Musculoskeletal gait and station Overall: normal gait 11/26/2012 None Full Exam - General 1995 Musculoskeletal gait and station Overall: normal station 11/26/2012 None Full Exam - General 1995 Musculoskeletal head and neck Overall: head atraumatic 11/26/2012 None Full Exam - General 1995 Musculoskeletal head and neck Overall: cervical spine benign 11/26/2012 None Full Exam - General 1995 Integument inspection of skin Dermatitis: erythema 11/26/2012 on left foot to knee Full Exam - General 1994 Neurologic cranial nerves Overall: crainial nerves 2 - 12 grossly intact 11/26/2012 None Full Exam - General 1994 Psychiatric orientation/consciousness Overall: oriented to person, place and time 11/26/2012 None Full Exam - General 1994 Integument inspection of skin Location: left leg 11/26/2012 scabbed abrasion left ant erior leg Full Exam - General 1994 Constitutional general appearance Development: well developed 11/16/2012 None Full Exam - General 1994 Constitutional general appearance Development: appears older than stated age 0711/16/2012 None Full Exam - General 1994 Eyes conjunctiva/eyelids Overall: conjunctiva clear 11/16/2012 None Full Exam [...] Cardiovascular extremities Edema present: severity 1+ - 4+: _ 11/16/2012 None Full Exam - General [...] None Full Exam - General 1994 Eyes conjunctiva/eyelids Overall: conjunctiva clear 08/27/2012 None Full Exam - General 1994 Eyes pupils and irises Overall: pupils equal, round, reactive to light and accomodation 08/27/2012 None Full Exam - General 1995 Ears/Nose/Throat otoscopic exam Overall: external auditory canals [...] Cardiovascular extremities Edema present: severity 1+ - 4+: _ 08/27/2012 None Full Exam - General [...] None Full Exam - General 1994 Eyes conjunctiva/eyelids Conjunctiva: erythema 04/07/2012 None Full Exam - General 1994 Eyes conjunctiva/eyelids Conjunctiva: discharge 04/07/2012 None Full Exam - General 1994 Eyes conjunctiva/eyelids Conjunctiva: injection 04/07/2012 None Full Exam - General 1994 Eyes conjunctiva/eyelids Eyelid: discharge 04/07/2012 None Full Exam - General 1994 Eyes conjunctiva/eyelids Eyelid: ectropion 04/07/2012 None Full Exam - General 1994 Eyes conjunctiva/eyelids Eyelid: edema 04/07/2012 None Full Exam - General 1994 Eyes conjunctiva/eyelids Eyelid: periorbital edema 04/07/2012 None Full Exam - General 1994 Eyes conjunctiva/eyelids Eyelid: benign 04/07/2012 None Full Exam - [...] None Full Exam - General 1994 Eyes conjunctiva/eyelids Overall: conjunctiva clear 11/14/2011 None Full Exam [...] clear 11/14/2011 None Full Exam - General 1995 Ears/Nose/Throat oral cavity/pharynx/larynx Overall: oropharyngeal mucosa clear 11/14/2011 None Full Exam - General 1994 Ears/Nose/Throat oral cavity/pharynx/larynx Overall: no masses 11/14/2011 None Full Exam - General 1994 Constitutional general appearance Development: well developed 10/29/2011 None Full Exam - General 1994 Eyes conjunctiva/eyelids Overall: conjunctiva clear 10/29/2011 None Full Exam [...] Location: left leg 10/29/2011 redness, warmth and swell ing to left lower leg from ankle to knee Full Exam - General 1994 Integument palpation Leg: tender 10/29/2011 None Full Exam - General 1994 Integument inspection of skin Consistency: thick 10/29/2011 acanthosis nigricans note d around patient's neck Full Exam - General [...] clear 10/29/2011 None Full Exam - General 1995 Ears/Nose/Throat oral cavity/pharynx/larynx Overall: no masses 10/29/2011 None Full Exam - General 1995 Ears/Nose/Throat [...] CPT-4: J0696 11/17/2015 THER/PROPH/DIAG INJ SC/IM CPT-4: 54944 11/25/2013 ROCEPHIN, PER 250 MG CPT-4: J0696 11/25/2013 ROCEPHIN, PER 250 MG CPT-4: J0696 11/24/2013 THER/PROPH/DIAG INJ SC/IM CPT-4: 34360 11/24/2013 ROCEPHIN, PER 250 MG CPT-4: J0696 04/07/2012 THER/PROPH/DIAG INJ SC/IM CPT-4: 25954 04/07/2012 Vital Signs Date Vital 01/06/2019 Blood Pressure 1: 138/74 Code: 8480-6 BMI: 40.6 Code: 29357-6 Heart Rate 1: 79 bpm Height: 5'7" Respiratory Rate: 16 bpm SpO2: 98% Weight: 259 lbs 08/06/2018 Blood Pressure 1: 142/72 Code: 8480-6 BMI: 44.2 Code: 28997-4 Heart Rate 1: 81 bpm Height: 5'7" SpO2: 96% Weight: 282 lbs 11/17/2015 Blood Pressure 1: 112/82 Code: 8480-6 BMI: 44.6 Code: 40500-9 Heart Rate 1: 100 bpm Height: 5'7" SpO2: 96% Temperature: 37.3 (C ) / 99.1 (F) Weight: 285 lbs 09/21/2015 Blood Pressure 1: 132/72 Code: 8480-6 BMI: 44.0 Code: 43260-0 Heart Rate 1: 86 bpm Height: 5'7" SpO2: 97% Weight: 281 lbs 11/24/2013 Blood Pressure 1: 138/78 Code: 8480-6 Heart Rate 1: 96 bpm Temperature: 36.7 (C) / 98.0 (F) Weight: 280 lbs 10/15/2013 Blood Pressure 1: 124/70 Code: 8480-6 BMI: 43.2 Code: 90770-5 Heart Rate 1: 64 bpm Height: 5'7" Temperature: 36.4 (C ) / 97.6 (F) Weight: 276 lbs 07/01/2013 Blood Pressure 1: 106/64 Code: 8480-6 Heart Rate 1: 80 bpm Weight: 277 lbs 05/17/2013 Blood Pressure 1: 140/86 Code: 8480-6 Head Circumference (cm): 244 cm Heart Rate 1: 92 bpm Temperature: 36.9 (C) / 98.4 (F) Weight: 286 lbs 11/26/2012 Blood Pressure 1: 108/72 Code: 8480-6 Heart Rate 1: 86 bpm Weight: 283 lbs 11/16/2012 Blood Pressure 1: 80/50 Code: 8480-6 Heart Rate 1: 92 bpm Temperature: 35.8 (C) / 96.5 (F) Weight: 282 lbs 08/27/2012 Blood Pressure 1: 124/64 Code: 8480-6 Heart Rate 1: 80 bpm Weight: 282 lbs 04/07/2012 Blood Pressure 1: 106/64 Code: 8480-6 Heart Rate 1: 76 bpm Weight: 272 lbs 11/14/2011 Blood Pressure 1: 104/62 Code: 8480-6 Heart Rate 1: 76 bpm Respiratory Rate: 16 bpm Weight: 276 lbs 10/29/2011 Blood Pressure 1: 78/60 Code: 8480-6 Blood Pressure 2: 102/70 Code: 8480-6 Heart Rate 1: 92 bpm Temperature: 36.8 (C) / 98.2 (F) Weight: 287 lbs 8 oz Functional Status No Functional Status data History of Present Illness Symptom Name Status Resu lt Effective Date Notes Quality non-insulin de pendent 01/06/2019 None Alleviating Factors me dication 01/06/2019 None Exacerbating Factors d iet 01/06/2019 None Pertinent Findings Den ies numbness 01/06/2019 None Pertinent Findings Den ies tingling 01/06/2019 None Onset of Symptom onset as an adult 01/06/2019 None Onset and Resolution o ngoing 01/06/2019 None Onset of Symptom durin g adulthood 01/06/2019 None Quality chronic 01/06/2019 None Quality primary hypert ension 01/06/2019 None Alleviating Factors me dication 01/06/2019 None Quality chronic 01/06/2019 None Blood Pressure Values not checking blood pressure at home 01/06/2019 None Pertinent Findings Den ies dizziness 01/06/2019 None Pertinent Findings Den ies dyspnea 01/06/2019 "not unless he climbs a b unch of stairs" Pertinent Findings edema 01/06/2019 "every day" Test results Pt checki ng blood glucose readings, did not bring results to clinic 01/06/2019 None Glucose monitoring Den ies occasional glucose testing 01/06/2019 None Pertinent Findings Den ies nausea 01/06/2019 None Exercise minimal exerc ise 01/06/2019 at work Nutrition Denies ADA d iet 01/06/2019 None Quality non-insulin de pendent 08/06/2018 None Quality NIDDM 08/06/2018 None Severity mild 08/06/2018 None Alleviating Factors me dication 08/06/2018 None Exacerbating Factors d iet 08/06/2018 None Nutrition regular diet 08/06/2018 None Pertinent Findings Den ies dizziness 08/06/2018 None Pertinent Findings Den ies numbness 08/06/2018 None Pertinent Findings Den ies tingling 08/06/2018 None Onset of Symptom onset as an adult 08/06/2018 None Onset and Resolution o ngoing 08/06/2018 None Onset of Symptom durin g adulthood 08/06/2018 None Test results HgbA1c le kannan 8.2 08/06/2018 in 2016 cellulitis Quality acute 11/17/2015 None cellulitis Onset and Resolution ongoing 11/17/2015 None cellulitis Onset of Symptom 1 days ago 11/17/2015 None cellulitis Limitation on Activities does not limit activities 11/17/2015 None cellulitis Frequency of Episodes increasing 11/17/2015 None cellulitis Triggers no k nown associated factors 11/17/2015 None cellulitis Significant Medical Conditions previous cellulitis 11/17/2015 left leg cellulitis Initial treatment oral antibiotics 11/17/2015 in the past-none today cellulitis Location on t he left leg 11/17/2015 None cellulitis Pertinent Findings [...] to clinic 09/21/2015 None cellulitis Location on t he right leg 11/24/2013 None cellulitis Quality dull [...] Quality worsening 10/15/2013 None rash Color red 10/15/2013 None rash Onset of Symptom 3 weeks ago 10/15/2013 None rash Triggers pets 10/15/2013 None rash Triggers sun exposu re 10/15/2013 worse in heat rash Pertinent Findings Denies history of similar rash 10/15/2013 None cellulitis Onset of Symptom 2 weeks ago 07/01/2013 None cellulitis Pertinent Findings Denies pain 07/01/2013 None cellulitis Pertinent Findings redness 07/01/2013 None cellulitis Pertinent Findings Denies warmth 07/01/2013 None cellulitis Location on t he left ankle 07/01/2013 None cellulitis Pertinent Findings [...] Findings Denies tingling 07/01/2013 None cellulitis Quality chron ic 07/01/2013 None cellulitis Quality acute 07/01/2013 None cellulitis Onset and Resolution ongoing 07/01/2013 None cellulitis Limitation on Activities does not limit activities 07/01/2013 None cellulitis Significant Medical Conditions previous cellulitis 07/01/2013 None cellulitis Alleviating Factors prescription medication 07/01/2013 None rash Location-Major on t he legs 05/17/2013 None rash Location-Extremities on the right leg 05/17/2013 None rash Quality acute 05/17/2013 None rash Color erythematous 05/17/2013 None rash Onset and Resolution sudden in onset 05/17/2013 None rash Onset of Symptom 1 days ago 05/17/2013 None rash Limitation on Activities does not limit activities 05/17/2013 None rash Severity mild 05/17/2013 None rash Prior Treatments pr eviously untreated 05/17/2013 None rash Triggers no known t riggers 05/17/2013 None cellulitis Quality impro ving 11/26/2012 None cellulitis Pertinent Findings redness 11/26/2012 states he hit leg on a pu mp, breaking the skin 2-3 days ago cellulitis Quality acute 11/26/2012 None cellulitis Triggers no k nown associated factors 11/26/2012 None cellulitis Significant Medical Conditions previous cellulitis 11/26/2012 None cellulitis Pertinent Findings warmth 11/26/2012 None cellulitis Location on t he left leg 11/16/2012 None cellulitis Quality acute [...] to clinic 11/16/2012 None cellulitis Triggers no k nown associated factors 11/16/2012 None cellulitis Significant Medical Conditions previous cellulitis 11/16/2012 None diabetes mellitus Onset of Symptom onset as an adult 11/16/2012 None diabetes mellitus Blood glucose levels greater than 120 11/16/2012 None diabetes mellitus Glucose monitoring occasional glucose testing 11/16/2012 None Hospital Follow Up Quality acute illness 08/27/2012 was in hospital for suspe cted insect bite. still has some swelling and [...] Factors medication 08/27/2012 None cellulitis Triggers no k nown associated factors 08/27/2012 None cellulitis Significant Medical [...] pressure 04/07/2012 None eye pain Triggers no kno wn associated factors 04/07/2012 None diabetes mellitus Test results Pt checking blood glucose readings, did not bring results to clinic 11/14/2011 None diabetes mellitus Onset of Symptom onset as an adult 11/14/2011 new onset diabetes mellitus Quality non-insulin dependent 11/14/2011 None hypertension Quality chr onic 11/14/2011 None hypertension Onset and Resolution ongoing 11/14/2011 None hospital follow up Quality acute illness 11/14/2011 finished antibiotics last week, leg has improved diabetes mellitus Severity mild [...] Quality acute 10/29/2011 None cellulitis Location on t he left leg 10/29/2011 None cellulitis Onset of [...] of immodium." States he ate at the [employer] and had ribs/chicken/pot roast. nausea Frequency of Episodes decreasing 10/29/2011 States he ate a pot pie l ast night and did not vomit afterwards. nausea Triggers no known associated factors 10/29/2011 None cellulitis Onset and Resolution ongoing 10/29/2011 States he did go to [employer] on Friday and he was walking around their petting zoo and exposed to several animals-Paulo, [place], hairy cow. States he did pet the hairy cow but none of the animals scratched or bit him. cellulitis Triggers no k nown associated factors 10/29/2011 None cellulitis Significant Medications anticoagulants 10/29/2011 None cellulitis Associated Injuries unknown 10/29/2011 None nausea Pertinent Findings chills 10/29/2011 and fever 101 yesterday nausea Pertinent Findings Denies bloating 10/29/2011 None nausea Pertinent Findings emesis 10/29/2011 None nausea Quality acute 10/29/2011 None nausea Onset and Resolution ongoing 10/29/2011 None Advance Directives No Advance Directive data Encounters Encounter Performer Loca tion Codes Date ([id number]) PREV VISIT E ST AGE 40-64 Diagnosis: Encounter for general adult medical examination without abnormal findings[ICD10: Z00.00] [facility] CPT-4: 43928 01/06/2019 ([id number]) 72836 EST. [facility] Diagnosis: Type 2 diabetes mellitus with hyperglycemia[ICD10: E11.65] Diagnosis: Essential (primary) hypertension[ICD10: I10] Diagnosis: Mixed hyperlipidemia[ICD10: E78.2] Sandy Price MD, [facility] CPT-4: 63675 08/06/2018 ([id number]) 43059 EST. P ATIENT, LEVEL IV Diagnosis: Cellulitis of left lower limb[ICD10: L03.116] Diagnosis: Localized edema[ICD10: R60.0] Diagnosis: Type 2 diabetes mellitus without complications[ICD10: E11.9] Akosua Price MD, [facility] CPT-4: 14248 11/17/2015 ([id number]) 16736 EST. P ATIENT, LEVEL IV Diagnosis: Essential (primary) hypertension[ICD10: I10] Diagnosis: Type 2 diabetes mellitus without complications[ICD10: E11.9] Diagnosis: Mixed hyperlipidemia[ICD10: E78.2] Diagnosis: Other obesity due to excess calories[ICD10: E66.09] Sandy Price MD, [facility] CPT-4: 27113 09/21/2015 ([id number]) 89877 EST. P ATIENT, LEVEL III Diagnosis: CELLULITIS OF LEG[ICD9: 682.6] Diagnosis: EDEMA[ICD9: 782.3] Diagnosis: FEVER NOS[ICD9: 780.60] Diagnosis: Cough[ICD9: 786.2] Akosua Price MD, [facility] CPT-4: 87641 11/24/2013 ([id number]) 49938 EST. P ATIENT, LEVEL III Diagnosis: SCABIES[ICD9: 133.0] Sandy Price MD, [facility] CPT-4: 26742 10/15/2013 ([id number]) 72779 EST. P ATIENT, LEVEL III Diagnosis: DIABETES TYPE II[SNOMED: 326675696] Akosua Price MD, [facility] CPT- 4: 24857 07/01/2013 ([id number]) 44954 EST. P ATIENT, LEVEL III Diagnosis: CELLULITIS OF LEG[ICD9: 682.6] Sandy Price MD, [facility] CPT- 4: 90730 05/17/2013 ([id number]) 19729 EST. P ATIENT, LEVEL III Diagnosis: CELLULITIS OF LEG[ICD9: 682.6] Diagnosis: Abrasion of leg[ICD9: 916.0] Akosua Price MD, [facility] CPT-4: 96208 11/26/2012 ([id number]) 62537 EST. P ATIENT, LEVEL IV Diagnosis: EDEMA[ICD9: 782.3] Diagnosis: CELLULITIS OF LEG[ICD9: 682.6] Diagnosis: Hypotension[ICD9: 458.9] Akosua Price MD, [facility] CPT-4: 23257 11/16/2012 ([id number]) 95013 EST. P ATIENT, LEVEL IV Diagnosis: EDEMA[ICD9: 782.3] Diagnosis: CELLULITIS OF LEG[ICD9: 682.6] Diagnosis: DIABETES TYPE II[SNOMED: 674946527] Akosua Price MD, [facility] CPT- 4: 75369 08/27/2012 ([id number]) 62290 EST. P ATIENT, LEVEL III Diagnosis: Hordeolum externum of right eye[ICD9: 373.11] Akosua Price MD, [facility] CPT-4: 18504 04/07/2012 ([id number]) 31610 EST. P ATIENT, LEVEL IV Diagnosis: ESSENTIAL HYPERTENSION[SNOMED: 07629914] Diagnosis: DIABETES TYPE II[SNOMED: 813422389] Akosua Price MD, [facility] CPT- 4: 10933 11/14/2011 ([id number]) Patient adm itted to the hospital from clinic (NO CHARGE) Diagnosis: Cellulitis of left leg[ICD9: 682.6] Diagnosis: Hypotension[ICD9: 458.9] Diagnosis: Nausea vomiting and diarrhea[ICD9: 787.01] Diagnosis: Leg pain[ICD9: 729.5] Diagnosis: Anticoagulant long-term use[ICD9: V58.61] Diagnosis: Coronary artery disease[ICD9: 414.00] Sadny Price MD, [facility] CPT-4: 32839Z 10/29/2011 Plan of Care Planned Activity Notes C odes Status Date Visit Plan: Well Adult - pt was cou nseled about diet, exercise, and encouraged to follow a heart healthy diet and increase activity level. The patient was instructed to RTC yearly for well adult exams and PRN for acute illnesses. The pt was also instructed to have yearly labs for check of cholesterol, thyroid, chem panel, CBC, and renal functioning. Diabetes Mellitus - controlled - per Claudy's verbal reports. I have recommended for the patient to have follow up labs prior to the next office visit. The patient has been instructed to continue with current medications as previously directed, continue with regular FSBS monitoring to assure continued control of diabetes. Pt to call for any acute concerns, complaints, or if the blood glucose readings are starting to become less controlled. Hypertension - well controlled - continue with current medications, continue with no added salt diet. Pt has been encouraged to exercise daily. The pt has been advised to call the office if there are any acute concerns about change in blood pressure readings at home. Pt has not had a colonoscopy - has refused in the past - He has agreed to the Referral to Dr. Anderson for a colonoscopy. 01/06/2019 Patient Education: Patient Medication Summary Completed 01/06/2019 Patient Education: Diabetes Completed 01/06/2019 Patient Education: Hypertension Completed 01/06/2019 Care Plan: Referral Order SNOMED-CT : [id number] Pending 01/06/2019 Visit Plan: Diabetes Mellitus -nonc ompliant with monitoring blood sugars and follow up appt - I have recommended for the patient to have follow up labs today. The patient has been instructed to continue with current medications as previously directed, start with regular FSBS monitoring to assure continued control of diabetes. Pt to call for any acute concerns, complaints, or if the blood glucose readings are starting to become less controlled. Hypertension - well controlled - continue with current medications, continue with no added salt diet. Pt has been encouraged to exercise daily. The pt has been advised to call the office if there are any acute concerns about change in blood pressure readings at home. Hyperlipidemia-managed by [employer] 08/06/2018 Appointment: Sandy Tong WPtel: [facility] [phone] (30 min) [facility] 08/06/2018 Patient Education: Patient Medication Summary Completed 08/06/2018 Patient Education: Hypertension Completed 08/06/2018 Patient Education: Diabetes Completed 08/06/2018 Patient Education: Cholesterol Management Completed 08/06/2018 Visit Plan: Cellulitis - start oral abx as directed-rocephin [...] 1 week and then increase dose as directed- take probiotic twice daily for diarrhea-monitor blood sugars closely. 11/17/2015 Appointment: Sandy Tong WPtel: [phone] [facility] [phone] (15 min) Moderate 11/17/2015 Patient Education: Patient Medication Summary Completed 11/17/2015 Patient Education: Obesity Completed 11/17/2015 Visit Plan: Hypertension - well con trolled - continue with current medications, continue with [...] and to assure normal liver response to me dications. Obesity - chronic issue with this patient. The pt has been counseled about diet changes, calorie restriction, and need to exercise. Pt will RTC in one month for weight check. 09/21/2015 Appointment: Sandy Tong WPtel: [phone] [facility] [phone] (30 min) Complex 09/21/2015 Patient Education: Patient Medication Summary Completed 09/21/2015 Patient Education: Obesity Completed 09/21/2015 Care Plan: BMI Above normal followup LIDIA F-MGMT EDUC & TRAIN 1 PT Pending 09/21/2015 Patient Education: Patient Medication Summary Completed 11/25/2013 Visit Plan: Cellulitis - continue w ith oral antibiotics as previously directed, return to [...] Medication Summary Completed 11/24/2013 Visit Plan: Scabies-discussed diagn osis with patient- recommend washing all bedding, clean and vaccuum thoroughly-use oral antihistamine for the severe itching. Rx for permethrin cream sent to [facility] and instructed on use. Patient verbalized understanding of plan. 10/15/2013 Appointment: stan 10/15/2013 Patient Education: Patient Medication Summary Completed 10/15/2013 Visit Plan: Diabetes Mellitus - Unc ontrolled - per recent FSBS reports. I have [...] for greater blood glucose control. Cellulitis of wfe-zainpghp-wodo if symptoms return 07/01/2013 Appointment: Sandy Tong WPtel: [phone] [facility] [phone] [place] Other 07/01/2013 Patient Education: Patient Medication Summary Completed 07/01/2013 Appointment: Sandy Tong WPtel: [phone] [facility] [phone] Follow up 06/29/2013 Appointment: Akosua Price WPtel: [phone] [facility] Hospital follow up 06/28/2013 Visit Plan: Cellulitis - continue w ith oral antibiotics as previously directed, return to clinic as previously directed, call for acute change in symptoms, worsening redness, warmth, discharge. HTN-blood pressure e levated-instructed patient to monitor at home and bring in readings for review in 2-3 weeks. Patient verbalized understanding of plan. 05/17/2013 Patient Education: Patient Medication Summary Completed 05/17/2013 Visit Plan: Cellulitis and abrasion -improving-continue bactrim x 5 days-continue topical antibiotic ointment as previously directed Tllofylnpub-xmdzzrzq-eqhwmax blood pressure at home. 11/26/2012 Appointment: Sandy Tong WPtel: [phone] [facility] [phone] Follow up 11/26/2012 Patient Education: Patient Medication Summary Completed 11/26/2012 Visit Plan: Cellulitis - continue w [facility] oral antibiotics as previously directed, return to clinic as previously directed, call for acute change in symptoms, worsening redness, warmth, discharge. CONTINUE WITH KEFLEX AND MONITOR SYMPTOMS, IF NOT BETTER, CALL OFFICE JEFERSON. HYPOTENSION - PT TO DECREASE LISIONPRIL TO 1/2 PILL DAILY AND CHECK BLOOD PRESSURES TWICE DAILY AND CALL WITH RESULTS. EDEMA - ELEVATE LEGS. 11/16/2012 Appointment: Akosua Price WPtel: [phone] [facility] [facility] 11/16/2012 Patient Education: Patient Medication Summary Completed 11/16/2012 Visit Plan: Edema - pt has been adv ised to elevate legs to prevent dependent edema, compression has been recommended to help to naturally decrease peripheral edema. Diuretic use has been discussed and pt has been i nstructed in appropriate use of such medication as necessary to further attempt to reduce peripheral edema. Zsonrpmxsm-edhtmdot-httu for symptoms Diabetes Mellitus - controlled - [...] less controlled. 08/27/2012 Appointment: Sandy Tong WPtel: [facility] [phone] Follow up 08/27/2012 Patient Education: Patient Medication Summary Completed 08/27/2012 Visit Plan: Cellulitis - continue w ith oral antibiotics as directed, return to clinic as previously directed, call for acute change in symptoms, worsening redness, warmth, discharge. 04/07/2012 Appointment: Akosua Price WPtel: [id number] Other 04/07/2012 Patient Education: Patient Medication Summary Completed 04/07/2012 Visit Plan: Diabetes Mellitus - con yue - per recent FSBS reports. I have [...] at home. 11/14/2011 Appointment: Akosua Price WPtel: [id number] Other 11/14/2011 Appointment: Akosua Price WPtel: [address] [place], [place] [phone] Other 11/14/2011 Patient Education: Patient Medication Summary Completed 11/14/2011 Patient Education: High Blood Pressure: Essential Hypertension Completed 11/14/2011 Visit Plan: Admission to Hospital - cellulitis left lower leg/hypotension/n/v/d -Dr Price in to [...] patient's past medical history, problem list, medication list, and personal history. I agree with the documentation by the nurse practicioner in the HPI, physical exam, and the assessment and plan. Leg pain - check venous dopplers, lovenox to be given and coumadin dose to be adjusted as needed. 10/29/2011 Visit Plan: Admission to Hospital - cellulitis left lower leg/hypotension/n/v/d -Dr Price in to evaluate patient as patient has diagnosis of acute illness necessitating hospital admission from the clinic. I have discussed the diagnosis and need for further work-up and acute hospital stay for the patient's health benefit. 10/29/2011 Appointment: Sandy Tong WPtel: [address] [place], [place] [phone] [facility] 10/29/2011 Patient Education: Patient Medication Summary Completed 10/29/2011 Referral: Allen Carty WPtel:[phone] Referral Appointment Requested Instructions Comment . Edema - pt has bee n advised to elevate legs to prevent dependent edema, compression has been recommended to help to naturally decrease peripheral edema. Diuretic use has been discussed and pt has been instructed in appropriate use of such medication as necessary to further attempt to reduce peripheral edema. Ravwkerhel-npdjnqnq-nozf for symptoms Diabetes Mellitus - controlled - [...] to become less controlled. . Cellulitis and abr nlxpx-xnkbgmfxk-wrxqmeel bactrim x 5 days-continue topical antibiotic ointment as previously directed Jcplrunkozy-whcaiyak-awhvipd blood pressure at home. . Diabetes Mellitus [...] blood pressure readings at home. RESTART JANUVIA 100M G DAILY . Diabetes Mellitus - Uncontrolled - [...] for greater blood glucose control. Cellulitis of yid-cmfysfaw-shcg if symptoms return . Diabetes Mellitus -noncompliant with monitoring blood sugars and follow up appt - I have recommended for the patient to have follow up labs today. The patient has been instructed to continue with current medications as previously directed, start with regular FSBS monitoring to assure continued control of diabetes. Pt to call for any acute concerns, complaints, or if the blood glucose readings are starting to become less controlled. Hypertension - well controlled - continue with current medications, continue with no added salt diet. Pt has been encouraged to exercise daily. The pt has been advised to call the office if there are any acute concerns about change in blood pressure readings at home. Hyperlipidemia-managed by cook italian style food . Well Adult - pt wa s counseled about diet, exercise, and encouraged to follow a heart healthy diet and increase activity level. The patient was instructed to RTC yearly for well adult exams and PRN for acute illnesses. The pt was also instructed to have yearly labs for check of cholesterol, thyroid, chem panel, CBC, and renal functioning. Diabetes Mellitus - controlled - per Claudy's verbal reports. I have recommended for the patient to have follow up labs prior to the next office visit. The patient has been instructed to continue with current medications as previously directed, continue with regular FSBS monitoring to assure continued control of diabetes. Pt to call for any acute concerns, complaints, or if the blood glucose readings are starting to become less controlled. Hypertension - well controlled - continue with current medications, continue with no added salt diet. Pt has been encouraged to exercise daily. The pt has been advised to call the office if there are any acute concerns about change in blood pressure readings at home. Pt has not had a colonoscopy - has refused in the past - He has agreed to the Referral to Dr. Anderson for a colonoscopy. labs-cbc, cmp bactrim ds 1 po BID x 7 days take probiotic while on the abx bumex take daily x 3 days call friday with update on symptoms . Cellulitis - start oral abx as directe d-rocephin injection today in the office, follow up [...] diarrhea-monitor blood sugars closely. . Hypertension - wel l controlled - continue with current medications, continue [...] for weight check. Start on the oral an tibiotic tonight start eye drops JEFERSON. Cellulitis - continue with oral antibiotics as directed, return to clinic as previously directed, call for acute change in symptoms, worsening redness, warmth, discharge. . Scabies-discussed diagnosis with patient-recommend washing all bedding, clean and vaccuum thoroughly-use oral antihistamine for the severe itching. Rx for permethrin cream sent to [facility] and instructed on use. Patient verbalized understanding of plan. start on probiotic w hile on antibiotics (culturelle one twice daily) to [...] cellulitis and sinus infection. Monitor your blood p ressure at home and record. Bring in your [...] verbalized understanding of plan. . Admission to [facility] -cellulitis left lower leg/hypotension/n/v/d -Dr Price in [...] patient's past medical history, problem list, medication list, and personal history. I agree with the documentation by the nurse practicioner in the HPI, physical exam, and the assessment and plan. Leg pain - check venous dopplers, lovenox to be given and coumadin dose to be adjusted as needed. . Admission to [facility] -cellulitis left lower leg/hypotension/n/v/d -Dr Price in to evaluate patient as patient has diagnosis of acute illness necessitating hospital admission from the clinic. I have discussed the diagnosis and need for further work-up and acute hospital stay for the patient's health benefit. PT TO CHANGE HIS LIS INOPRIL TO 1/2 PILL DAILY - DOWN FROM [...]
--- OUTSIDE RECORDS SUMMARY | 2019-07-19 20:01 | XMS REPORT | CCD ---
Author Claudy Kuhn Organization [facility] Address [address] [place] [address] Phone Care Team Providers Care Webbing Inspector Name Role Phone PP Unavailable CCM Unavailable Summary Purpose Interface Exchange Insurance Providers Payer name Policy type / Coverage type Covered green party ID Effective Begin Date Effective End Date [facility] Commercial Insurance [id number] Unknown Family history Father Diagnosis Age At Onset Congestive heart failure Unknown Mother Diagnosis Age At Onset No Family Disease Entered N/A Sister Diagnosis Age At Onset No Family Disease Entered N/A Social History Social History Element Codes Description Effective Dates Tobacco history SNOMED CT: 3910334 Former smoker 10/29/2011 Number of years using [...] Codes Condition Status Onset Date Resolved Date Essential (primary) hypertension ICD-9: 401.9 ICD-10: I10 Active 09/20/2015 Unknown Mixed hyperlipidemia ICD-9: 272.2 ICD-10: E78.2 Active 09/20/2015 Unknown Type 2 diabetes devorah itus with hyperglycemia ICD-9: 250.02 ICD-10: E11.65 Active 08/06/2018 Unknown Cellulitis of left l ower limb [...] Condition Codes Effectiv e Dates Condition Status Essential (primary) hypertension ICD-9: 401.9 ICD-10: I10 09/20/2015 Active Mixed hyperlipidemia ICD-9: 272.2 ICD-10: E78.2 09/20/2015 Active Type 2 diabetes devorah itus with hyperglycemia ICD-9: 250.02 ICD-10: E11.65 08/06/2018 Active Cellulitis of left l ower limb [...] Fill Instructions metformin 500 mg tablet RxNorm: 138393 TABLET(S) TAKE ONE TABLET BY MOUTH TWICE DAILY 10/26/2018 No Stop Date Active carvedilol 25 mg tablet RxNorm: 872006 TAKE 1 TABLET BY MOUTH TWICE DAILY 09/15/2018 No Stop Date Active Tresiba FlexTouch U- 100 insulin 100 unit/mL (3 mL) subcutaneous pen RxNorm: 8651521 10 Unit(s) SQ daily 08/24/2018 11/21/2018 Active Please provide 30 day supply Tresiba FlexTouch U- 100 insulin 100 unit/mL (3 mL) subcutaneous pen RxNorm: 5844450 10 Unit(s) SQ daily 08/24/2018 08/23/2018 Inactive Please provide 30 day supply lisinopril 40 mg tablet RxNorm: 546169 TAKE ONE-HALF (1/2) TABLET DAILY 08/11/2018 No Stop Date Active Januvia 100 mg tablet RxNorm: 835392 Tablet(s) TAKE 1 TABLET DAILY 08/06/2018 No Stop Date Active Trilipix 135 mg caps ule,delayed release RxNorm: 096642 TAKE 1 CAPSULE DAILY 04/20/2018 No Stop Date Active spironolactone 25 mg tablet RxNorm: 730786 TAKE ONE-HALF (1/2) T ABLET DAILY 04/20/2018 08/05/2018 In active lisinopril 40 mg tablet RxNorm: 088862 TAKE ONE-HALF (1/2) TABLET DAILY 02/25/2018 08/10/2018 In active metformin 500 mg tablet RxNorm: 007880 Tablet(s) TAKE ONE TABLET BY MOUTH TWICE DAILY 11/14/2017 10/25/2018 Inactive carvedilol 25 mg tablet RxNorm: 333212 TAKE ONE TABLET BY MOUTH TWICE DAILY 06/06/2017 09/14/2018 In active metformin 500 mg tablet RxNorm: 528091 TAKE ONE TABLET BY MOUTH TWICE DAILY 06/06/2017 11/13/2017 In active Januvia 100 mg tablet RxNorm: 830511 TAKE 1 TABLET DAILY 04/29/2017 08/05/2018 Inactive Trilipix 135 mg caps ule,delayed release RxNorm: 402232 TAKE 1 CAPSULE DAILY 04/22/2017 04/19/2018 In active spironolactone 25 mg tablet RxNorm: 873184 TAKE ONE-HALF (1/2) T ABLET DAILY 02/11/2017 04/19/2018 In active Januvia 100 mg tablet RxNorm: 148254 TAKE 1 TABLET DAILY 01/21/2017 04/28/2017 Inactive lisinopril 40 mg tablet RxNorm: 030734 TAKE ONE-HALF (1/2) TABLET DAILY 12/24/2016 02/24/2018 In active nystatin 100,000 uni t/gram topical powder RxNorm: 943105 1 Application TOP BID 11/11/2016 08/05/2018 In active Trilipix 135 mg caps ule,delayed release RxNorm: 598612 TAKE 1 CAPSULE DAILY 11/11/2016 04/21/2017 In active carvedilol 25 mg tablet RxNorm: 035763 TAKE ONE TABLET BY MOUTH TWICE DAILY 09/23/2016 03/21/2017 In active metformin 500 mg tablet RxNorm: 153052 1 Tablet(s) PO BID 04/09/2016 01/03/2017 Inactive metformin 500 mg tablet RxNorm: 948934 TAKE ONE TABLET BY MOUTH TWICE DAILY 04/09/2016 05/08/2016 In active carvedilol 25 mg tablet RxNorm: 466483 TAKE ONE TABLET BY MOUTH TWICE DAILY 03/25/2016 09/20/2016 In active metformin 500 mg tablet RxNorm: 814499 1 Tablet(s) BID 01/30/2016 04/08/2016 Inactive metformin 500 mg tablet RxNorm: 852094 1 Tablet(s) PO BID 01/26/2016 01/29/2016 Inactive digoxin 250 mcg tablet RxNorm: 142824 TAKE ONE-HALF (1/2) TABLET DAILY 01/15/2016 08/05/2018 In active Trilipix 135 mg caps ule,delayed release RxNorm: 354924 TAKE 1 CAPSULE DAILY 01/01/2016 11/10/2016 In active spironolactone 25 mg tablet RxNorm: 291048 TAKE ONE-HALF (1/2) T ABLET DAILY 12/26/2015 02/10/2017 In active lisinopril 40 mg tablet RxNorm: 317835 TAKE ONE-HALF (1/2) TABLET DAILY 12/18/2015 12/23/2016 In active Januvia 100 mg tablet RxNorm: 960229 TAKE 1 TABLET DAILY 11/20/2015 01/20/2017 Inactive ceftriaxone 500 mg s olution for injection RxNorm: 4714811 Inj 11/17/2015 11/17/2015 Inactive Bactrim DS 800 mg-16 0 mg tablet RxNorm: 910783 1 Tablet(s) PO BID 11/17/2015 11/23/2015 Inactive metformin 500 mg tablet RxNorm: 741498 1 Tablet(s) PO BID 11/15/2015 01/25/2016 Inactive increase Aspir-81 81 mg table t,delayed release RxNorm: 990333 1 Tablet(s) PO daily 09/21/2015 No Stop Date Active metformin 500 mg tablet RxNorm: 718650 1/2 Tablet(s) PO BID Tablet(s) TAKE ONE- HALF TABLET BY MOUTH TWICE DAILY 09/21/2015 11/14/2015 Inactive carvedilol 25 mg tablet RxNorm: 586338 1 Tablet(s) PO BID 09/21/2015 03/18/2016 Inactive Trilipix 135 mg caps ule,delayed release RxNorm: 007938 CAPSULE(S) TAKE 1 CAP KRISH DAILY 07/04/2015 12/31/2015 Inactive Contour Test Strips RxNorm: USE TO TEST EVERY MORNING AND EVERY EVEN ING DIRECTED 06/23/2015 No Stop Date Active metformin 500 mg tablet RxNorm: 441555 Tablet(s) TAKE ONE-HALF TABLET BY MOUTH TWICE DAILY 06/01/2015 06/30/2015 Inactive metformin 500 mg tablet RxNorm: 854903 Tablet(s) TAKE ONE-HALF TABLET BY MOUTH TWICE DAILY 02/16/2015 05/31/2015 Inactive lisinopril 40 mg tablet RxNorm: 078329 TAKE ONE-HALF (1/2) TABLET DAILY 01/10/2015 12/17/2015 In active metformin 500 mg tablet RxNorm: 615477 Tablet(s) TAKE ONE-HALF TABLET BY MOUTH TWICE DAILY 11/22/2014 03/21/2015 Inactive metformin 500 mg tablet RxNorm: 742340 Tablet(s) TAKE ONE-HALF TABLET BY MOUTH TWICE DAILY 11/21/2014 11/21/2014 Inactive digoxin 250 mcg tablet RxNorm: 375871 Tablet(s) TAKE ONE-HALF (1/2) TABLET PHILLIP LY 11/14/2014 08/10/2015 In active spironolactone 25 mg tablet RxNorm: 175668 TAKE ONE-HALF (1/2) T ABLET DAILY 10/26/2014 12/25/2015 In active spironolactone 25 mg tablet RxNorm: 545703 Tablet(s) TAKE ONE-BRINK LF (1/2) TABLET DAILY 10/25/2014 10/25/2014 Inactive Januvia 100 mg tablet RxNorm: 506707 TAKE 1 TABLET DAILY 09/20/2014 11/19/2015 Inactive Bactrim DS 800 mg-16 0 mg tablet RxNorm: 469757 1 Tablet(s) PO BID TA KE ONE TABLET BY MOUTH TWICE DAILY 09/20/2014 09/26/2014 Inactive Contour Test Strips RxNorm: USE TO TEST EVERY MORNING AND EVERY EVEN ING DIRECTED 08/08/2014 06/22/2015 Inactive Trilipix 135 mg caps ule,delayed release RxNorm: 123678 Capsule(s) TAKE 1 CAP KRISH DAILY 07/27/2014 01/22/2015 Inactive metformin 500 mg tablet RxNorm: 420631 Tablet(s) TAKE ONE-HALF TABLET BY MOUTH TWICE DAILY 06/06/2014 06/05/2014 Inactive metformin 500 mg tablet RxNorm: 889205 TAKE ONE-HALF TABLET BY MOUTH TWICE SERGIO Y 06/06/2014 09/03/2014 In active digoxin 250 mcg tablet RxNorm: 233982 TAKE ONE-HALF (1/2) TABLET DAILY 04/28/2014 11/13/2014 In active spironolactone 25 mg tablet RxNorm: 220562 TAKE ONE-HALF (1/2) T ABLET DAILY 04/28/2014 10/24/2014 In active Trilipix 135 mg caps ule,delayed release RxNorm: 163209 TAKE 1 CAPSULE DAILY 04/28/2014 07/26/2014 In active Januvia 100 mg tablet RxNorm: 394897 TAKE 1 TABLET DAILY 03/30/2014 09/19/2014 Inactive metformin 500 mg tablet RxNorm: 295585 TAKE ONE-HALF TABLET BY MOUTH TWICE SERGIO Y 01/11/2014 06/05/2014 In active Januvia 100 mg tablet RxNorm: 778884 1 TABLET(S) PO DAILY TAKE ONE TABLET BY MOUTH EVERY DAY 12/30/2013 03/29/2014 Inactive Bactroban 2 % topica l ointment RxNorm: 300208 1 TOP BID 12/08/2013 No Stop Date Active sulfamethoxazole 800 mg-trimethoprim 160 mg tablet RxNorm: 780524 1 Tablet(s) PO BID 12/08/2013 12/17/2013 Inactive sulfamethoxazole 800 mg-trimethoprim 160 mg tablet RxNorm: 387420 1 Tablet(s) PO BID 12/08/2013 12/07/2013 Inactive lisinopril 40 mg tablet RxNorm: 192568 1/2 Tablet(s) PO daily 12/02/2013 03/01/2014 Inactive lisinopril 40 mg tablet RxNorm: 598027 1/2 Tablet(s) PO daily 1/2 TABLET(S) PO DAILY 12/02/2013 01/30/2014 Inactive ceftriaxone 1 gram s olution for injection RxNorm: 520934 Inj 11/25/2013 11/25/2013 Inactive Rocephin 500 mg solu tion for injection RxNorm: 109831 1 Gram(s) Inj once 11/24/2013 11/24/2013 In active sulfamethoxazole 800 mg-trimethoprim 160 mg tablet RxNorm: 951481 1 Tablet(s) PO BID 11/24/2013 12/07/2013 Inactive permethrin 5 % topic al cream RxNorm: 127142 1 Application TOP daily 10/19/2013 08/05/2018 Inactive apply head to toe, leave on 12 hours the n wash off, may repeat x 1 if needed permethrin 5 % topic al cream RxNorm: 312169 1 Application TOP daily 10/15/2013 10/18/2013 Inactive apply head to toe, leave on 12 hours the n wash off, may repeat x 1 if needed metformin 500 mg tablet RxNorm: 332713 TAKE ONE-HALF TABLET BY MOUTH TWICE SERGIO Y 10/05/2013 01/02/2014 In active Contour Test Strips RxNorm: Miscellaneous USE TO TEST BLOOD SUGAR TW ICE A DAY 06/28/2013 08/07/2014 In active spironolactone 25 mg tablet RxNorm: 167009 Tablet(s) PO TAKE ONE -HALF (1/2) TABLET DAILY 06/18/2013 04/27/2014 Inactive Trilipix 135 mg caps ule,delayed release RxNorm: 130592 Capsule(s) PO TAKE 1 CAPSULE DAILY 06/18/2013 04/27/2014 Inactive digoxin 250 mcg tablet RxNorm: 497003 Tablet(s) PO TAKE ONE-HALF (1/2) TABLET DAILY 06/18/2013 04/27/2014 Inactive metformin 500 mg tablet RxNorm: 452707 1/2 Tablet(s) PO BID 06/03/2013 09/30/2013 Inactive Microlet Lancet RxNorm: 1 Miscellaneous BID 05/31/2013 08/23/2014 Inactive Microlet Lancet RxNorm: 1 Miscellaneous BID 05/31/2013 05/30/2013 Inactive nystatin 100,000 uni t/gram topical powder RxNorm: 908796 1 Application TOP BID 05/31/2013 08/28/2013 In active Januvia 100 mg tablet RxNorm: 898359 1 Tablet(s) PO daily TAKE ONE TABLET BY MOUTH EVERY DAY 05/31/2013 11/26/2013 Inactive nystatin 100,000 uni t/gram topical powder RxNorm: 913711 1 Application TOP BID 05/17/2013 05/30/2013 In active Bactrim DS 800 mg-16 0 mg tablet RxNorm: 502438 1 Tablet(s) PO BID TA KE ONE TABLET BY MOUTH TWICE DAILY 05/17/2013 05/23/2013 Inactive Bactrim DS 800 mg-16 0 mg tablet RxNorm: 115818 Tablet(s) PO TAKE ONE TABLET BY MOUTH TWICE DAILY 12/03/2012 05/16/2013 Inactive Bactrim DS 800 mg-16 0 mg tablet RxNorm: 238626 1 Tablet(s) PO BID 11/26/2012 11/30/2012 Inactive lisinopril 40 mg tablet RxNorm: 183694 1/2 Tablet(s) PO daily 11/16/2012 12/01/2013 Inactive Januvia 100 mg tablet RxNorm: 504352 1 Tablet(s) PO daily TAKE ONE TABLET BY MOUTH EVERY DAY 11/16/2012 05/30/2013 Inactive lisinopril 40 mg tablet RxNorm: 137045 Tablet(s) PO TAKE 1 TABLET DAILY 10/24/2012 11/15/2012 In active Contour Test Strips RxNorm: Strip Miscellaneous USE TO TEST BLOOD [place]ARK GAR TWICE A DAY 10/24/2012 06/28/2013 Inactive Trilipix 135 mg caps ule,delayed release RxNorm: 443024 Capsule(s) PO TAKE 1 CAPSULE DAILY 10/14/2012 06/17/2013 Inactive Bactrim DS 800 mg-16 0 mg tablet RxNorm: 108920 1 Tablet(s) PO BID 10/07/2012 10/16/2012 Inactive Bactrim DS 800 mg-16 0 mg tablet RxNorm: 679792 1 Tablet(s) PO BID 10/07/2012 10/06/2012 Inactive Januvia 100 mg tablet RxNorm: 457548 1 Tablet(s) PO daily 09/21/2012 01/18/2013 Inactive may have #90 if cheaper digoxin 250 mcg tablet RxNorm: 3735872 1/2 tab MWF sat sun, 1 tab tues thurs Tablet(s) PO daily 1/2 tab MWF sat sun, 1 tab tues thurs 09/21/2012 09/20/2015 Inactive TAKE 1 TABLET DAILY digoxin 250 mcg tablet RxNorm: 5083947 1/2 Tablet(s) PO daily 04/07/2012 09/20/2012 Inactive TAKE 1 TABLET DAILY sulfamethoxazole-tri methoprim 800 mg-160 mg tablet RxNorm: 905134 1 Tablet(s) PO BID 04/07/2012 04/13/2012 Inactive Januvia 100 mg tablet RxNorm: 869065 1/2 Tablet(s) PO daily 04/07/2012 08/04/2012 Inactive may have #90 if cheaper Rocephin 500 mg Solu tion for Injection RxNorm: 7215851 1 Inj 04/07/2012 04/07/2012 Inactive Gentak 0.3 % Eye Drops RxNorm: 639369 3 Drop(s) OPH QID 3 drops 4 times daily x 7 days 04/07/2012 04/13/2012 Inactive spironolactone 25 mg tablet RxNorm: 301747 1/2 Tablet(s) PO daily 04/07/2012 06/17/2013 Inactive TAKE 1 TABLET DAILY Coumadin 5 mg tablet RxNorm: 663455 Tablet(s) PO Luz manages 02/28/2012 08/26/2012 Inactive 7.5 mg mon wed [id number] other daysDr. Tara villar manages Januvia 100 mg tablet RxNorm: 465569 1 Tablet(s) PO 02/20/2012 11/16/2012 Inactive may have #90 if cheaper Trilipix 135 mg caps ule,delayed release RxNorm: 305703 Capsule(s) PO 02/10/2012 06/16/2012 Inactive TAKE 1 CAPSULE DAILY digoxin 250 mcg tablet RxNorm: 171627 Tablet(s) PO 02/10/2012 04/06/2012 Inactive TAKE 1 TABLET DAILY spironolactone 25 mg tablet RxNorm: 989753 Tablet(s) PO 02/10/2012 04/06/2012 Inactive TAKE 1 TABLET DAILY simvastatin 80 mg ta blet RxNorm: 560187 Tablet(s) PO 12/03/2011 11/15/2012 Inactive TAKE ONE- HALF TABLET BY MOUTH EVERY DAY Januvia 50 mg tablet RxNorm: 230803 1 Tablet(s) PO daily 11/14/2011 02/19/2012 Inactive simvastatin 80 mg ta blet RxNorm: 466228 1/2 Tablet(s) PO daily 11/07/2011 12/02/2011 Inactive lisinopril 40 mg tablet RxNorm: 616822 1 Tablet(s) PO daily 11/07/2011 12/06/2011 Inactive spironolactone 25 mg tablet RxNorm: 912234 1 Tablet(s) PO daily 12/17/2010 03/16/2011 Inactive digoxin 250 mcg tablet RxNorm: 895298 1 Tablet(s) PO daily 12/17/2010 03/16/2011 Inactive Trilipix 135 mg caps ule,delayed release RxNorm: 886412 1 Capsule(s) PO daily 12/17/2010 03/16/2011 In active Lipitor 40 mg tablet RxNorm: 427172 1 Tablet(s) PO daily No Start Date Active Fish Oil 1,000 mg Cap RxNorm: 3 Capsule(s) PO daily No Start Date Active Trilipix 135 mg Caps ule, delayed release RxNorm: 883925 1 Capsule(s) PO daily No Start Date Active bumetanide 1 mg Tab RxNorm: 230797 Tablet(s) PO PRN No Start Date Active Xarelto 20 mg tablet RxNorm: 7861036 1 Tablet(s) PO daily No Start Date Active simvastatin 80 mg ta blet RxNorm: 161576 1/2 Tablet(s) PO daily No Start Date 11/06/2011 Inactive spironolactone 25 mg Tab RxNorm: 546423 1 Tablet(s) PO daily No Start Date 08/05/2018 Inactive metformin 500 mg tablet RxNorm: 285154 1/2 Tablet(s) PO BID No Start Date 06/02/2013 Inactive carvedilol 25 mg Tab RxNorm: 573939 1 Tablet(s) PO BID No Start Date 09/20/2015 Inactive aspirin 325 mg tablet RxNorm: 242080 1 Tablet(s) PO daily No Start Date 09/20/2015 Inactive digoxin 250 mcg Tab RxNorm: 7228573 1/2 Tablet(s) PO daily No Start Date 09/20/2015 Inactive Coumadin 5 mg tablet RxNorm: 029445 Tablet(s) PO No Start Date 02/27/2012 Inactive 7.5 mg mon wed [id number] other days Bactroban 2 % topica l ointment RxNorm: 680194 1 TOP BID No Start Date 12/07/2013 Inactive Contour Test Strips RxNorm: 1 Miscellaneous BID No Start Date 10/23/2012 Inactive coun tour ts lisinopril 40 mg tablet RxNorm: 426221 1 Tablet(s) PO daily No Start Date 11/06/2011 Inactive Medication Administered Medication Codes Instruc tions Start Date Status ceftriaxone 500 mg solution for injection RxNorm: 0640407 11/17/2015 No longer A ctive ceftriaxone 1 gram solution for injection RxNorm: 205856 11/25/2013 No longer A ctive Rocephin 500 mg solution for injection RxNorm: 050983 1Gramonce 11/24/2013 No longer Active Rocephin 500 mg Solution for Injection RxNorm: 4814627 1 04/07/2012 No longer A ctive Immunizations No Immunization data Assessments Condition Codes Effectiv e Dates Mixed hyperlipidemia ICD-10: E78.2 ICD-9: 272.2 08/06/2018 Essential (primary) hypertension ICD -10: I10 ICD-9: 401.9 08/06/2018 Type 2 diabetes mellitus with hyperglycemia ICD-10: E11.65 ICD-9: 250.02 08/06/2018 Cellulitis of left lower limb ICD-10 : L03.116 ICD-9: 682.6 11/17/2015 Localized edema ICD-10: R60.0 ICD-9: 782.3 11/17/2015 Type 2 diabetes mellitus without complications ICD-10: E11.9 ICD-9: 250.00 11/17/2015 Other obesity due to excess calories ICD-10: E66.09 ICD-9: 278.00 09/21/2015 CELLULITIS OF LEG ICD-9: 682.6 11/25/2013 EDEMA ICD-9: 782.3 11/24 FEVER NOS ICD-9: 780.60 11/24/2013 Cough ICD-9: 786.2 11/24 SCABIES ICD-9: 133.0 DIABETES TYPE II SNOMED: 012131312 ICD-9: 250.00 07/01/2013 Abrasion of leg ICD-9: 916.0 11/26/2012 Hypotension ICD-9: 458.9 11/16/2012 Periorbital cellulitis ICD-9: 373.13 04/07/2012 Hordeolum externum of right eye ICD- 9: 373.11 04/07/2012 ESSENTIAL HYPERTENSION SNOMED: 57652 000 ICD-9: 401.9 11/14/2011 Nausea vomiting and diarrhea ICD-9: 787.01 10/29/2011 Coronary artery disease ICD-9: 414.00 10/29/2011 Anticoagulant long-term use ICD-9: V58.61 10/29/2011 Leg pain ICD-9: 729.5 Reason For Visit Reason For Visit Effective Dates Notes diabetes mellitus 08/06/2018 cellulitis 11/17/2015 diabetes mellitus 09/21/2015 cellulitis 11/24/2013 no none injury to leg rash 10/15/2013 cellulitis 07/01/2013 rash 05/17/2013 cellulitis 11/26/2012 cellulitis 11/16/2012 Hospital Follow Up 08/27/2012 eye pain 04/07/2012 hospital follow up 11/14/2011 cellulitis 10/29/2011 Results Observation Observation Code Item Item Code Result Date Comp Metabolic Xek013 NA 135 mEq/L 08/06/2018 Comp Metabolic Nwe581 K 4.4 mEq/L 08/06/2018 Comp Metabolic Vrz193 CL 97 mEq/L 08/06/2018 Comp Metabolic Jxq178 CO2 25.0 mEq/L 08/06/2018 Comp Metabolic Zfb111 AN ION GAP 17 08/06/2018 Comp Metabolic Qdf888 GL UCOSE 367 mg/dL 08/06/2018 Comp Metabolic Woo322 Cr eat 0.7 mg/dL 08/06/2018 Comp Metabolic Ksv615 eG FR 119 ml/min/1.73m2 07/20 Comp Metabolic Smh403 BUN 21 mg/dL 08/06/2018 Comp Metabolic Nrc846 B/ C Ratio 29.2 Ratio 08/06/2018 Comp Metabolic Wfl394 CA LCIUM 9.1 mg/dL 08/06/2018 Comp Metabolic Jpn810 AL K PHOS 67 U/L 08/06/2018 Comp Metabolic Fvk557 T(SGOT) 18 U/L 08/06/2018 Comp Metabolic Xfu058 AL T(SGPT) 33 U/L 08/06/2018 Comp Metabolic Gjt861 BI LI T 0.4 mg/dL 08/06/2018 Comp Metabolic Ofy244 AL BUMIN 4.2 g/dL 08/06/2018 Comp Metabolic Dno057 TP RO 6.8 g/dL 08/06/2018 Comp Metabolic Dhb442 GL OB 2.6 g/dL 08/06/2018 Comp Metabolic Anl063 A/ G Ratio 1.6 Ratio 08/06/2018 Comp Metabolic Ago560 Os mo 288 mOsmo 08/06/2018 Tsh Ord6 [...] 29.5 pg 08/06/2018 Cbc With Differential Ord2 [place]% 11.5 % 08/06/2018 Cbc With Differential Ord2 [...] 1.31 K/ul 08/06/2018 Cbc With Differential Ord2 [place] ABS# 0.6 K/ul 08/06/2018 Cbc With Differential Ord2 Eos ABS# 0.0 K/ul 08/06/2018 Cbc With Differential Ord2 Baso ABS# 0.0 K/ul 08/06/2018 %Hba1C Dso198 % HbA1c 53716-3 11.5 % 08/06/2018 %Hba1C Qgq921 Gluc Ave 283 mg/dL 08/06/2018 Comp Metabolic Rtw474 NA 133 mEq/L 11/17/2015 Comp Metabolic Qld052 K 4.5 mEq/L 11/17/2015 Comp Metabolic Lov908 CL 101 mEq/L 11/17/2015 Comp Metabolic Akq802 CO2 22.0 mEq/L 11/17/2015 Comp Metabolic Voq132 AN ION GAP 15 11/17/2015 Comp Metabolic Qqc784 GL UCOSE 197 mg/dL 11/17/2015 Comp Metabolic Eyo385 Cr eat 0.8 mg/dL 11/17/2015 Comp Metabolic Xxp253 eG FR 110 ml/min/1.73m2 10/20 Comp Metabolic Ygm750 BUN 20 mg/dL 11/17/2015 Comp Metabolic Jmr010 B/ C Ratio 25.6 Ratio 11/17/2015 Comp Metabolic Wgu750 CA LCIUM 9.4 mg/dL 11/17/2015 Comp Metabolic Cip713 AL K PHOS 65 U/L 11/17/2015 Comp Metabolic Ens651 T(SGOT) 22 U/L 11/17/2015 Comp Metabolic Sqr342 AL T(SGPT) 40 U/L 11/17/2015 Comp Metabolic Zvc209 BI LI T 0.5 mg/dL 11/17/2015 Comp Metabolic Mbl524 AL BUMIN 4.2 g/dL 11/17/2015 Comp Metabolic Urx033 TP RO 7.0 g/dL 11/17/2015 Comp Metabolic Tyv918 GL OB 2.8 g/dL 11/17/2015 Comp Metabolic Rok822 A/ G Ratio 1.5 Ratio 11/17/2015 Comp Metabolic Tet182 Os mo 274 mOsmo 11/17/2015 Cbc With Differential Ord2 WBC 15.23 K/ul 11/17/2015 Cbc With Differential Ord2 RBC 5.41 M/ul 11/17/2015 Cbc With Differential Ord2 HGB 16.0 g/dl 11/17/2015 Cbc With Differential Ord2 HCT 47.7 % 11/17/2015 Cbc With Differential Ord2 Neut% 88.2 % 11/17/2015 Cbc With Differential Ord2 Lymph% 4.5 % 11/17/2015 Cbc With Differential Ord2 MCV 88.2 fl 11/17/2015 Cbc With Differential Ord2 MCH 29.6 pg 11/17/2015 Cbc With Differential Ord2 [place]% 7.0 % 11/17/2015 Cbc With Differential Ord2 [...] 0.68 K/ul 11/17/2015 Cbc With Differential Ord2 [place] ABS# 1.1 K/ul 11/17/2015 Cbc With Differential [...] 29.4 pg 11/08/2015 Cbc With Differential Ord2 [place]% 10.2 % 11/08/2015 Cbc With Differential Ord2 [...] 2.10 K/ul 11/08/2015 Cbc With Differential Ord2 [place] ABS# 0.9 K/ul 11/08/2015 Cbc With Differential Ord2 Eos ABS# 0.1 K/ul 11/08/2015 Cbc With Differential Ord2 Baso ABS# 0.0 K/ul 11/08/2015 Microalbumin Rxy764 Micr oAlb <0.7 mg/dL 11/08/2015 Tsh Ord6 hTSH II 0.65 uIU/mL 11/08/2015 Lipid Ord30 CHOL 157 mg/dL 11/08/2015 Lipid Ord30 HDL 30.0 mg/dl 11/08/2015 Lipid Ord30 TRIG 228 mg/dL 11/08/2015 Lipid Ord30 LDL 81 mg/dL 11/08/2015 Lipid Ord30 C/HDL 5.2 Ratio 11/08/2015 Comp Metabolic Vks740 NA 130 mEq/L 11/08/2015 Comp Metabolic Lmy939 K 4.4 mEq/L 11/08/2015 Comp Metabolic Fcr846 CL 97 mEq/L 11/08/2015 Comp Metabolic Mpx655 CO2 27.0 mEq/L 11/08/2015 Comp Metabolic Xox106 AN ION GAP 10 11/08/2015 Comp Metabolic Qyo412 GL UCOSE 175 mg/dL 11/08/2015 Comp Metabolic Wko925 Cr eat 0.8 mg/dL 11/08/2015 Comp Metabolic Ckr767 eG FR 104 ml/min/1.73m2 10/20 Comp Metabolic Rnh440 BUN 26 mg/dL 11/08/2015 Comp Metabolic Teq142 B/ C Ratio 31.7 Ratio 11/08/2015 Comp Metabolic Tvv054 CA LCIUM 9.3 mg/dL 11/08/2015 Comp Metabolic Ipn214 AL K PHOS 68 U/L 11/08/2015 Comp Metabolic Qkg703 T(SGOT) 26 U/L 11/08/2015 Comp Metabolic Mcz845 AL T(SGPT) 42 U/L 11/08/2015 Comp Metabolic Ype333 BI LI T 0.7 mg/dL 11/08/2015 Comp Metabolic Dkh127 AL BUMIN 4.3 g/dL 11/08/2015 Comp Metabolic Qlt835 TP RO 7.0 g/dL 11/08/2015 Comp Metabolic Pud257 GL OB 2.7 g/dL 11/08/2015 Comp Metabolic Xat556 A/ G Ratio 1.6 Ratio 11/08/2015 Comp Metabolic Nyw598 Os mo 270 mOsmo 11/08/2015 Total Psa Ord10 PSA 1.26 ng/mL 11/08/2015 %Hba1C Inq993 % HbA1c 98910-7 8.2 % 11/08/2015 %Hba1C Uoh972 Gluc Ave 189 mg/dL 11/08/2015 Lipid Ord30 CHOL 155 mg/dL 01/23/2015 Lipid Ord30 HDL 34.0 mg/dl 01/23/2015 Lipid Ord30 TRIG 198 mg/dL 01/23/2015 Lipid Ord30 LDL 81 mg/dL 01/23/2015 Lipid Ord30 C/HDL 4.6 Ratio 01/23/2015 Hepatic Hly063 ALBUMIN 4.2 g/dL 01/23/2015 Hepatic Nqz169 TPRO 6.9 g/dL 01/23/2015 Hepatic Kng469 GLOB 2.7 g/dL 01/23/2015 Hepatic Nzo054 A/G Ratio 1.6 Ratio 01/23/2015 Hepatic Qel477 ALK PHOS 59 U/L 01/23/2015 Hepatic Eza350 ALT(SGPT) 46 U/L 01/23/2015 Hepatic Wxc245 AST(SGOT) 21 U/L 01/23/2015 Hepatic Kqr649 BILI T 0.5 mg/dL 01/23/2015 Hepatic Tgb859 BILI D 0.1 mg/dL 01/23/2015 Hepatic Izt156 BILI I 0.4 mg/dL 01/23/2015 Review of Systems System Result Effective Dates Constitutional No recent illness 08/06/2018 Constitutional No [...] clear 05/17/2013 None Full Exam - General 1995 Ears/Nose/Throat [...] right lower leg Full Exam - General 1995 Constitutional general appearance Development: well developed 11/26/2012 None Full Exam - General 1995 Constitutional general appearance Development: appears older than stated age 0811/26/2012 None Full Exam - General 1995 Eyes conjunctiva/eyelids Overall: conjunctiva clear 11/26/2012 None Full Exam - General 1994 Eyes pupils and irises Overall: pupils equal, round, reactive to light and accomodation 11/26/2012 None Full Exam - General 1995 [...] to knee Full Exam - General 1995 Neurologic cranial nerves Overall: crainial nerves 2 - 12 grossly intact 11/26/2012 None Full Exam - General 1995 Psychiatric orientation/consciousness Overall: oriented to person, place and time 11/26/2012 None Full Exam - General 1995 Integument inspection of skin Location: left leg [...] rate 11/16/2012 None Full Exam - General 1995 Cardiovascular extremities Edema present: pitting 11/16/2012 None [...] retractions 10/29/2011 None Full Exam - General 1995 [...] CPT-4: J0696 11/17/2015 THER/PROPH/DIAG INJ SC/IM CPT-4: 09369 11/25/2013 ROCEPHIN, PER 250 MG CPT-4: J0696 11/25/2013 ROCEPHIN, PER 250 MG CPT-4: J0696 11/24/2013 THER/PROPH/DIAG INJ SC/IM CPT-4: 21813 11/24/2013 ROCEPHIN, PER 250 MG CPT-4: J0696 04/07/2012 THER/PROPH/DIAG INJ SC/IM CPT-4: 14482 04/07/2012 Vital Signs Date Vital 08/06/2018 Blood Pressure 1: 142/72 Code: 8480-6 BMI: 44.2 Code: 86559-5 Heart Rate 1: 81 bpm Height: 5'7" SpO2: 96% Weight: 282 lbs 11/17/2015 Blood Pressure 1: 112/82 Code: 8480-6 BMI: 44.6 Code: 51388-3 Heart Rate 1: 100 bpm Height: 5'7" SpO2: 96% Temperature: 37.3 (C ) / 99.1 (F) Weight: 285 lbs 09/21/2015 Blood Pressure 1: 132/72 Code: 8480-6 BMI: 44.0 Code: 41775-4 Heart Rate 1: 86 bpm Height: 5'7" SpO2: 97% Weight: 281 lbs 11/24/2013 Blood Pressure 1: 138/78 Code: 8480-6 Heart Rate 1: 96 bpm Temperature: 36.7 (C) / 98.0 (F) Weight: 280 lbs 10/15/2013 Blood Pressure 1: 124/70 Code: 8480-6 BMI: 43.2 Code: 68203-3 Heart Rate 1: 64 bpm Height: 5'7" [...] Effective Date Notes Quality non-insulin de pendent 08/06/2018 None Quality [...] acute illness 08/27/2012 was in hospital for junaide cted insect bite. still has some swelling [...] of immodium." States he ate at the [employer] buffet and had ribs/chicken/pot roast. nausea Frequency of Episodes decreasing 10/29/2011 States he ate a pot pie l ast night and did not vomit afterwards. nausea Triggers no known associated factors 10/29/2011 None cellulitis Onset and Resolution ongoing 10/29/2011 States he did go to [employer] on Friday and he was walking around [...] Encounters Encounter Performer Loca tion Codes Date ([id number]) 40615 EST. P ATIENT, LEVEL IV Diagnosis: Type 2 diabetes mellitus with hyperglycemia[ICD10: E11.65] Diagnosis: Essential (primary) hypertension[ICD10: I10] Diagnosis: Mixed hyperlipidemia[ICD10: E78.2] Sandy Price MD, [facility] CPT-4: 71583 08/06/2018 ([id number]) 82427 EST. P ATIENT, LEVEL IV Diagnosis: Cellulitis of left lower limb[ICD10: L03.116] Diagnosis: Localized edema[ICD10: R60.0] Diagnosis: Type 2 diabetes mellitus without complications[ICD10: E11.9] Akosua Price MD, [facility] CPT-4: 20184 11/17/2015 ([id number]) 16094 EST. P ATIENT, LEVEL IV Diagnosis: Essential (primary) hypertension[ICD10: I10] Diagnosis: Type 2 diabetes mellitus without complications[ICD10: E11.9] Diagnosis: Mixed hyperlipidemia[ICD10: E78.2] Diagnosis: Other obesity due to excess calories[ICD10: E66.09] Sandy Price MD, [facility] CPT-4: 01115 09/21/2015 ([id number]) 25922 EST. P ATIENT, LEVEL III Diagnosis: CELLULITIS OF LEG[ICD9: 682.6] Diagnosis: EDEMA[ICD9: 782.3] Diagnosis: FEVER NOS[ICD9: 780.60] Diagnosis: Cough[ICD9: 786.2] Akosua Price MD, [facility] CPT-4: 01477 11/24/2013 ([id number]) 12860 EST. P ATIENT, LEVEL III Diagnosis: SCABIES[ICD9: 133.0] [facility] CPT-4: 18231 10/15/2013 ([id number]) 82124 EST. P ATIENT, LEVEL III Diagnosis: DIABETES TYPE II[SNOMED: 795985236] [facility] CPT- 4: 23545 07/01/2013 ([id number]) 74215 EST. P ATIENT, LEVEL III Diagnosis: CELLULITIS OF LEG[ICD9: 682.6] Sandy Price MD, [facility] CPT- 4: 60808 05/17/2013 ([id number]) 84662 EST. P ATIENT, LEVEL III Diagnosis: CELLULITIS OF LEG[ICD9: 682.6] Diagnosis: Abrasion of leg[ICD9: 916.0] Akosua Price MD, [facility] CPT-4: 26326 11/26/2012 ([id number]) 34543 EST. P ATIENT, LEVEL IV Diagnosis: EDEMA[ICD9: 782.3] Diagnosis: CELLULITIS OF LEG[ICD9: 682.6] Diagnosis: Hypotension[ICD9: 458.9] Akosua Price MD, [facility] CPT-4: 17540 11/16/2012 ([id number]) 26163 EST. P ATIENT, LEVEL IV Diagnosis: EDEMA[ICD9: 782.3] Diagnosis: CELLULITIS OF LEG[ICD9: 682.6] Diagnosis: DIABETES TYPE II[SNOMED: 031780410] Akosua Price MD, [facility] CPT- 4: 31920 08/27/2012 ([id number]) 87458 EST. P ATIENT, LEVEL III Diagnosis: Hordeolum externum of right eye[ICD9: 373.11] Akosua Price MD, [facility] CPT-4: 43063 04/07/2012 ([id number]) 10365 EST. P ATIENT, LEVEL IV Diagnosis: ESSENTIAL HYPERTENSION[SNOMED: 67420494] Diagnosis: DIABETES TYPE II[SNOMED: 400318129] Akosua Price MD, [facility] CPT- 4: 48237 11/14/2011 ([id number]) Patient adm itted to the hospital from clinic (NO CHARGE) Diagnosis: Cellulitis of left leg[ICD9: 682.6] Diagnosis: Hypotension[ICD9: 458.9] Diagnosis: Nausea vomiting and diarrhea[ICD9: 787.01] Diagnosis: Leg pain[ICD9: 729.5] Diagnosis: Anticoagulant long-term use[ICD9: V58.61] Diagnosis: Coronary artery disease[ICD9: 414.00] [facility] CPT-4: 54120W 10/29/2011 Plan of Care Planned Activity Notes C odes Status Date Visit Plan: Diabetes Mellitus -nonc ompliant with [...] blood pressure readings at home. Hyperlipidemia-managed by embroidery assistant 08/06/2018 Appointment: Sandy Tong WPtel: [facility] [place] [phone] (30 min) Complex 08/06/2018 Patient Education: Patient Medication Summary Completed [...] sugars closely. 11/17/2015 Appointment: Sandy Tong WPtel: [facility] [place] [phone] (15 min) Moderate 11/17/2015 Patient Education: Patient [...] weight check. 09/21/2015 Appointment: [facility] Tong [facility]Ptel[phone] [facility] Complex 09/21/2015 Patient Education: Patient [...] itching. [facility] and instructed on use. Patient verbalized [...] for greater blood glucose control. Cellulitis of ywu-fvhygsbz-roko if symptoms return 07/01/2013 Appointment: Sandy Tong WPtel: [address] [place] [address] 07/01/2013 Patient Education: Patient Medication Summary Completed 07/01/2013 Appointment: Sandy Tong WPtel: [address] [place] [address] Follow up 06/29/2013 Appointment: Akosua Price WPtel: [address] [place] [address] follow up 06/28/2013 Visit Plan: Cellulitis - [...] days-continue topical antibiotic ointment as previously directed Femoitfmute-uubrbanj-dcwyyli blood pressure at home. 11/26/2012 Appointment: Sandy Tong WPtel: [address] [place], [place] [phone] Follow up 11/26/2012 Patient Education: Patient Medication Summary Completed 11/26/2012 Visit Plan: Cellulitis - continue w ith [...] ELEVATE LEGS. 11/16/2012 Appointment: Akosua Price WPtel: [facility] Other 11/16/2012 Patient Education: Patient Medication Summary Completed 11/16/2012 Visit Plan: Edema - pt has been adv ised to elevate legs to prevent dependent edema, compression has been recommended to help to naturally decrease peripheral edema. Diuretic use has been discussed and pt has been i nstructed in appropriate use of such medication as necessary to further attempt to reduce peripheral edema. Uinvujtfjr-enerweja-lwnh for symptoms Diabetes Mellitus - controlled - [...] less controlled. 08/27/2012 Appointment: Sandy Tong WPtel: [phone] Follow up 08/27/2012 Patient Education: Patient Medication Summary Completed 08/27/2012 Visit Plan: Cellulitis - continue w ith oral antibiotics as directed, return to clinic as previously directed, call for acute change in symptoms, worsening redness, warmth, discharge. 04/07/2012 Appointment: Akosua Price WPtel: [facility] Other 04/07/2012 Patient Education: Patient Medication Summary Completed 04/07/2012 Visit Plan: Diabetes Mellitus - con trolled - per recent FSBS reports. I have [...] at home. 11/14/2011 Appointment: Akosua Price WPtel: [phone] [facility] Other 11/14/2011 Appointment: Akosua Price WPtel: [phone] [facility] Other 11/14/2011 Patient Education: Patient Medication Summary [...] benefit. 10/29/2011 Appointment: Sandy Tong WPtel: [phone] [phone] Other 10/29/2011 Patient Education: Patient Medication Summary Completed 10/29/2011 Instructions Comment . Edema - pt has bee n advised to elevate legs to prevent dependent edema, compression has been recommended to help to naturally decrease peripheral edema. Diuretic use has been discussed and pt has been instructed in appropriate use of such medication as necessary to further attempt to reduce peripheral edema. Biatnpofax-katyolps-oryd for symptoms Diabetes Mellitus - controlled - [...] become less controlled. . Cellulitis and abr byozc-yseodagze-xdhjnthl bactrim x 5 days-continue topical antibiotic ointment as previously directed Qzmuqpztfhz-onwinnai-btmzlxb blood pressure at home. . Diabetes Mellitus [...] for greater blood glucose control. Cellulitis of mox-jgnmnyij-mghi if symptoms return . Diabetes Mellitus -noncompliant [...] blood pressure readings at home. Hyperlipidemia-managed by embroidery assistant labs-cbc, cmp bactrim ds 1 po BID [...] itching. Rx for permethrin cream sent to [facility] pharmacy and instructed on use. Patient [...] verbalized understanding of plan. . Admission to [facility] -cellulitis left lower leg/hypotension/n/v/d -Dr Price [...] be adjusted as needed. . Admission to [facility] -cellulitis left lower leg/hypotension/n/v/d -Dr Price [...]
--- OUTSIDE RECORDS SUMMARY | 2019-07-19 20:02 | XMS REPORT | CCD ---
Author Claudy Kuhn Organization [facility] Address [address] [place] [address] Phone Care Team Providers Care Child Care Provider Name Role Phone PP Unavailable CCM Unavailable Summary Purpose Interface Exchange Insurance Providers Payer name Policy type / Coverage type Covered democrat ID Effective Begin Date Effective End Date [facility] Commercial Insurance [id number] Unknown Family history Father Diagnosis Age At Onset Congestive heart failure Unknown Mother Diagnosis Age At Onset No Family Disease Entered N/A Sister Diagnosis Age At Onset No Family Disease Entered N/A Social History Social History Element Codes Description Effective Dates Tobacco history SNOMED CT: 0872279 Former smoker 10/29/2011 Number of years using [...] Date Stop Date Sta tus Fill Instructions Tresiba FlexTouch U- 100 insulin 100 unit/mL (3 mL) subcutaneous pen RxNorm: 0170152 10 Unit(s) SQ daily 08/24/2018 11/21/2018 Active Please provide 30 day supply Tresiba FlexTouch U- 100 insulin 100 unit/mL (3 mL) subcutaneous pen RxNorm: 8028704 10 Unit(s) SQ daily 08/24/2018 08/23/2018 Inactive Please provide 30 day supply lisinopril 40 mg tablet RxNorm: 657628 TAKE ONE-HALF (1/2) TABLET DAILY 08/11/2018 No Stop Date Active Januvia 100 mg tablet RxNorm: 314520 Tablet(s) TAKE 1 TABLET DAILY 08/06/2018 No Stop Date Active Trilipix 135 mg caps ule,delayed release RxNorm: 406032 TAKE 1 CAPSULE DAILY 04/20/2018 No Stop Date Active spironolactone 25 mg tablet RxNorm: 829774 TAKE ONE-HALF (1/2) T ABLET DAILY 04/20/2018 08/05/2018 In active lisinopril 40 mg tablet RxNorm: 163366 TAKE ONE-HALF (1/2) TABLET DAILY 02/25/2018 08/10/2018 In active metformin 500 mg tablet RxNorm: 506464 Tablet(s) TAKE ONE TABLET BY MOUTH TWICE DAILY 11/14/2017 11/08/2018 Active carvedilol 25 mg tablet RxNorm: 798555 TAKE ONE TABLET BY MOUTH TWICE DAILY 06/06/2017 No Stop Date Active metformin 500 mg tablet RxNorm: 522381 TAKE ONE TABLET BY MOUTH TWICE DAILY 06/06/2017 11/13/2017 In active Januvia 100 mg tablet RxNorm: 292626 TAKE 1 TABLET DAILY 04/29/2017 08/05/2018 Inactive Trilipix 135 mg caps ule,delayed release RxNorm: 890260 TAKE 1 CAPSULE DAILY 04/22/2017 04/19/2018 In active spironolactone 25 mg tablet RxNorm: 600851 TAKE ONE-HALF (1/2) T ABLET DAILY 02/11/2017 04/19/2018 In active Januvia 100 mg tablet RxNorm: 794674 TAKE 1 TABLET DAILY 01/21/2017 04/28/2017 Inactive lisinopril 40 mg tablet RxNorm: 356009 TAKE ONE-HALF (1/2) TABLET DAILY 12/24/2016 02/24/2018 In active nystatin 100,000 uni t/gram topical powder RxNorm: 167497 1 Application TOP BID 11/11/2016 08/05/2018 In active Trilipix 135 mg caps ule,delayed release RxNorm: 245008 TAKE 1 CAPSULE DAILY 11/11/2016 04/21/2017 In active carvedilol 25 mg tablet RxNorm: 763347 TAKE ONE TABLET BY MOUTH TWICE DAILY 09/23/2016 03/21/2017 In active metformin 500 mg tablet RxNorm: 380412 1 Tablet(s) PO BID 04/09/2016 01/03/2017 Inactive metformin 500 mg tablet RxNorm: 336506 TAKE ONE TABLET BY MOUTH TWICE DAILY 04/09/2016 05/08/2016 In active carvedilol 25 mg tablet RxNorm: 006213 TAKE ONE TABLET BY MOUTH TWICE DAILY 03/25/2016 09/20/2016 In active metformin 500 mg tablet RxNorm: 247294 1 Tablet(s) BID 01/30/2016 04/08/2016 Inactive metformin 500 mg tablet RxNorm: 137711 1 Tablet(s) PO BID 01/26/2016 01/29/2016 Inactive digoxin 250 mcg tablet RxNorm: 156339 TAKE ONE-HALF (1/2) TABLET DAILY 01/15/2016 08/05/2018 In active Trilipix 135 mg caps ule,delayed release RxNorm: 202132 TAKE 1 CAPSULE DAILY 01/01/2016 11/10/2016 In active spironolactone 25 mg tablet RxNorm: 642374 TAKE ONE-HALF (1/2) T ABLET DAILY 12/26/2015 02/10/2017 In active lisinopril 40 mg tablet RxNorm: 618339 TAKE ONE-HALF (1/2) TABLET DAILY 12/18/2015 12/23/2016 In active Januvia 100 mg tablet RxNorm: 393462 TAKE 1 TABLET DAILY 11/20/2015 01/20/2017 Inactive ceftriaxone 500 mg s olution for injection RxNorm: 5493499 Inj 11/17/2015 11/17/2015 Inactive Bactrim DS 800 mg-16 0 mg tablet RxNorm: 149311 1 Tablet(s) PO BID 11/17/2015 11/23/2015 Inactive metformin 500 mg tablet RxNorm: 187324 1 Tablet(s) PO BID 11/15/2015 01/25/2016 Inactive increase Aspir-81 81 mg table t,delayed release RxNorm: 524602 1 Tablet(s) PO daily 09/21/2015 No Stop Date Active metformin 500 mg tablet RxNorm: 221647 1/2 Tablet(s) PO BID Tablet(s) TAKE ONE- HALF TABLET BY MOUTH TWICE DAILY 09/21/2015 11/14/2015 Inactive carvedilol 25 mg tablet RxNorm: 667732 1 Tablet(s) PO BID 09/21/2015 03/18/2016 Inactive Trilipix 135 mg caps ule,delayed release RxNorm: 563634 CAPSULE(S) TAKE 1 CAP KRISH DAILY 07/04/2015 12/31/2015 Inactive Contour Test Strips RxNorm: USE TO TEST EVERY MORNING AND EVERY EVEN ING DIRECTED 06/23/2015 No Stop Date Active metformin 500 mg tablet RxNorm: 569871 Tablet(s) TAKE ONE-HALF TABLET BY MOUTH TWICE DAILY 06/01/2015 06/30/2015 Inactive metformin 500 mg tablet RxNorm: 610565 Tablet(s) TAKE ONE-HALF TABLET BY MOUTH TWICE DAILY 02/16/2015 05/31/2015 Inactive lisinopril 40 mg tablet RxNorm: 640450 TAKE ONE-HALF (1/2) TABLET DAILY 01/10/2015 12/17/2015 In active metformin 500 mg tablet RxNorm: 831270 Tablet(s) TAKE ONE-HALF TABLET BY MOUTH TWICE DAILY 11/22/2014 03/21/2015 Inactive metformin 500 mg tablet RxNorm: 143790 Tablet(s) TAKE ONE-HALF TABLET BY MOUTH TWICE DAILY 11/21/2014 11/21/2014 Inactive digoxin 250 mcg tablet RxNorm: 253088 Tablet(s) TAKE ONE-HALF (1/2) TABLET PHILLIP LY 11/14/2014 08/10/2015 In active spironolactone 25 mg tablet RxNorm: 596158 TAKE ONE-HALF (1/2) T ABLET DAILY 10/26/2014 12/25/2015 In active spironolactone 25 mg tablet RxNorm: 612085 Tablet(s) TAKE ONE-BRINK LF (1/2) TABLET DAILY 10/25/2014 10/25/2014 Inactive Januvia 100 mg tablet RxNorm: 170568 TAKE 1 TABLET DAILY 09/20/2014 11/19/2015 Inactive Bactrim DS 800 mg-16 0 mg tablet RxNorm: 107929 1 Tablet(s) PO BID TA KE ONE TABLET BY MOUTH TWICE DAILY 09/20/2014 09/26/2014 Inactive Contour Test Strips RxNorm: USE TO TEST EVERY MORNING AND EVERY EVEN ING DIRECTED 08/08/2014 06/22/2015 Inactive Trilipix 135 mg caps ule,delayed release RxNorm: 893403 Capsule(s) TAKE 1 CAP KRISH DAILY 07/27/2014 01/22/2015 Inactive metformin 500 mg tablet RxNorm: 122940 Tablet(s) TAKE ONE-HALF TABLET BY MOUTH TWICE DAILY 06/06/2014 06/05/2014 Inactive metformin 500 mg tablet RxNorm: 584458 TAKE ONE-HALF TABLET BY MOUTH TWICE SERGIO Y 06/06/2014 09/03/2014 In active digoxin 250 mcg tablet RxNorm: 829532 TAKE ONE-HALF (1/2) TABLET DAILY 04/28/2014 11/13/2014 In active spironolactone 25 mg tablet RxNorm: 932239 TAKE ONE-HALF (1/2) T ABLET DAILY 04/28/2014 10/24/2014 In active Trilipix 135 mg caps ule,delayed release RxNorm: 217910 TAKE 1 CAPSULE DAILY 04/28/2014 07/26/2014 In active Januvia 100 mg tablet RxNorm: 576916 TAKE 1 TABLET DAILY 03/30/2014 09/19/2014 Inactive metformin 500 mg tablet RxNorm: 631106 TAKE ONE-HALF TABLET BY MOUTH TWICE SERGIO Y 01/11/2014 06/05/2014 In active Januvia 100 mg tablet RxNorm: 169742 1 TABLET(S) PO DAILY TAKE ONE TABLET BY MOUTH EVERY DAY 12/30/2013 03/29/2014 Inactive Bactroban 2 % topica l ointment RxNorm: 846489 1 TOP BID 12/08/2013 No Stop Date Active sulfamethoxazole 800 mg-trimethoprim 160 mg tablet RxNorm: 265986 1 Tablet(s) PO BID 12/08/2013 12/17/2013 Inactive sulfamethoxazole 800 mg-trimethoprim 160 mg tablet RxNorm: 181491 1 Tablet(s) PO BID 12/08/2013 12/07/2013 Inactive lisinopril 40 mg tablet RxNorm: 414591 1/2 Tablet(s) PO daily 12/02/2013 03/01/2014 Inactive lisinopril 40 mg tablet RxNorm: 880660 1/2 Tablet(s) PO daily 1/2 TABLET(S) PO DAILY 12/02/2013 01/30/2014 Inactive ceftriaxone 1 gram s olution for injection RxNorm: 854543 Inj 11/25/2013 11/25/2013 Inactive Rocephin 500 mg solu tion for injection RxNorm: 234136 1 Gram(s) Inj once 11/24/2013 11/24/2013 In active sulfamethoxazole 800 mg-trimethoprim 160 mg tablet RxNorm: 287774 1 Tablet(s) PO BID 11/24/2013 12/07/2013 Inactive permethrin 5 % topic al cream RxNorm: 322075 1 Application TOP daily 10/19/2013 08/05/2018 Inactive apply head to toe, leave on 12 hours the n wash off, may repeat x 1 if needed permethrin 5 % topic al cream RxNorm: 817767 1 Application TOP daily 10/15/2013 10/18/2013 Inactive apply head to toe, leave on 12 hours the n wash off, may repeat x 1 if needed metformin 500 mg tablet RxNorm: 049288 TAKE ONE-HALF TABLET BY MOUTH TWICE SERGIO Y 10/05/2013 01/02/2014 In active Contour Test Strips RxNorm: Miscellaneous USE TO TEST BLOOD SUGAR TW ICE A DAY 06/28/2013 08/07/2014 In active spironolactone 25 mg tablet RxNorm: 356625 Tablet(s) PO TAKE ONE -HALF (1/2) TABLET DAILY 06/18/2013 04/27/2014 Inactive Trilipix 135 mg caps ule,delayed release RxNorm: 968504 Capsule(s) PO TAKE 1 CAPSULE DAILY 06/18/2013 04/27/2014 Inactive digoxin 250 mcg tablet RxNorm: 978150 Tablet(s) PO TAKE ONE-HALF (1/2) TABLET DAILY 06/18/2013 04/27/2014 Inactive metformin 500 mg tablet RxNorm: 773192 1/2 Tablet(s) PO BID 06/03/2013 09/30/2013 Inactive Microlet Lancet RxNorm: 1 Miscellaneous BID 05/31/2013 08/23/2014 Inactive Microlet Lancet RxNorm: 1 Miscellaneous BID 05/31/2013 05/30/2013 Inactive nystatin 100,000 uni t/gram topical powder RxNorm: 369640 1 Application TOP BID 05/31/2013 08/28/2013 In active Januvia 100 mg tablet RxNorm: 474767 1 Tablet(s) PO daily TAKE ONE TABLET BY MOUTH EVERY DAY 05/31/2013 11/26/2013 Inactive nystatin 100,000 uni t/gram topical powder RxNorm: 647571 1 Application TOP BID 05/17/2013 05/30/2013 In active Bactrim DS 800 mg-16 0 mg tablet RxNorm: 647157 1 Tablet(s) PO BID TA KE ONE TABLET BY MOUTH TWICE DAILY 05/17/2013 05/23/2013 Inactive Bactrim DS 800 mg-16 0 mg tablet RxNorm: 320797 Tablet(s) PO TAKE ONE TABLET BY MOUTH TWICE DAILY 12/03/2012 05/16/2013 Inactive Bactrim DS 800 mg-16 0 mg tablet RxNorm: 131696 1 Tablet(s) PO BID 11/26/2012 11/30/2012 Inactive lisinopril 40 mg tablet RxNorm: 234574 1/2 Tablet(s) PO daily 11/16/2012 12/01/2013 Inactive Januvia 100 mg tablet RxNorm: 260632 1 Tablet(s) PO daily TAKE ONE TABLET BY MOUTH EVERY DAY 11/16/2012 05/30/2013 Inactive lisinopril 40 mg tablet RxNorm: 480464 Tablet(s) PO TAKE 1 TABLET DAILY 10/24/2012 11/15/2012 In active Contour Test Strips RxNorm: Strip Miscellaneous USE TO TEST BLOOD [place] TWICE A DAY 10/24/2012 06/28/2013 Inactive Trilipix 135 mg caps ule,delayed release RxNorm: 372828 Capsule(s) PO TAKE 1 CAPSULE DAILY 10/14/2012 06/17/2013 Inactive Bactrim DS 800 mg-16 0 mg tablet RxNorm: 801212 1 Tablet(s) PO BID 10/07/2012 10/16/2012 Inactive Bactrim DS 800 mg-16 0 mg tablet RxNorm: 465596 1 Tablet(s) PO BID 10/07/2012 10/06/2012 Inactive Januvia 100 mg tablet RxNorm: 755417 1 Tablet(s) PO daily 09/21/2012 01/18/2013 Inactive may have #90 if cheaper digoxin 250 mcg tablet RxNorm: 5789852 1/2 tab MWF sat sun, 1 tab tues thurs Tablet(s) PO daily 1/2 tab MWF sat sun, 1 tab tues thurs 09/21/2012 09/20/2015 Inactive TAKE 1 TABLET DAILY digoxin 250 mcg tablet RxNorm: 2912714 1/2 Tablet(s) PO daily 04/07/2012 09/20/2012 Inactive TAKE 1 TABLET DAILY sulfamethoxazole-tri methoprim 800 mg-160 mg tablet RxNorm: 899108 1 Tablet(s) PO BID 04/07/2012 04/13/2012 Inactive Januvia 100 mg tablet RxNorm: 463239 1/2 Tablet(s) PO daily 04/07/2012 08/04/2012 Inactive may have #90 if cheaper Rocephin 500 mg Solu tion for Injection RxNorm: 4833335 1 Inj 04/07/2012 04/07/2012 Inactive Gentak 0.3 % Eye Drops RxNorm: 252045 3 Drop(s) OPH QID 3 drops 4 times daily x 7 days 04/07/2012 04/13/2012 Inactive spironolactone 25 mg tablet RxNorm: 137242 1/2 Tablet(s) PO daily 04/07/2012 06/17/2013 Inactive TAKE 1 TABLET DAILY Coumadin 5 mg tablet RxNorm: 526262 Tablet(s) PO Luz manages 02/28/2012 08/26/2012 Inactive 7.5 mg mon wed lyto6io other daysDr. Tara villar manages Januvia 100 mg tablet RxNorm: 109251 1 Tablet(s) PO 02/20/2012 11/16/2012 Inactive may have #90 if cheaper Trilipix 135 mg caps ule,delayed release RxNorm: 990277 Capsule(s) PO 02/10/2012 06/16/2012 Inactive TAKE 1 CAPSULE DAILY digoxin 250 mcg tablet RxNorm: 533461 Tablet(s) PO 02/10/2012 04/06/2012 Inactive TAKE 1 TABLET DAILY spironolactone 25 mg tablet RxNorm: 233782 Tablet(s) PO 02/10/2012 04/06/2012 Inactive TAKE 1 TABLET DAILY simvastatin 80 mg ta blet RxNorm: 006714 Tablet(s) PO 12/03/2011 11/15/2012 Inactive TAKE ONE- HALF TABLET BY MOUTH EVERY DAY Januvia 50 mg tablet RxNorm: 280976 1 Tablet(s) PO daily 11/14/2011 02/19/2012 Inactive simvastatin 80 mg ta blet RxNorm: 642230 1/2 Tablet(s) PO daily 11/07/2011 12/02/2011 Inactive lisinopril 40 mg tablet RxNorm: 547156 1 Tablet(s) PO daily 11/07/2011 12/06/2011 Inactive spironolactone 25 mg tablet RxNorm: 825803 1 Tablet(s) PO daily 12/17/2010 03/16/2011 Inactive digoxin 250 mcg tablet RxNorm: 937954 1 Tablet(s) PO daily 12/17/2010 03/16/2011 Inactive Trilipix 135 mg caps ule,delayed release RxNorm: 425853 1 Capsule(s) PO daily 12/17/2010 03/16/2011 In active Lipitor 40 mg tablet RxNorm: 096469 1 Tablet(s) PO daily No Start Date Active Fish Oil 1,000 mg Cap RxNorm: 3 Capsule(s) PO daily No Start Date Active Trilipix 135 mg Caps ule, delayed release RxNorm: 997141 1 Capsule(s) PO daily No Start Date Active bumetanide 1 mg Tab RxNorm: 596619 Tablet(s) PO PRN No Start Date Active Xarelto 20 mg tablet RxNorm: 8696279 1 Tablet(s) PO daily No Start Date Active simvastatin 80 mg ta blet RxNorm: 445227 1/2 Tablet(s) PO daily No Start Date 11/06/2011 Inactive spironolactone 25 mg Tab RxNorm: 933358 1 Tablet(s) PO daily No Start Date 08/05/2018 Inactive metformin 500 mg tablet RxNorm: 186812 1/2 Tablet(s) PO BID No Start Date 06/02/2013 Inactive carvedilol 25 mg Tab RxNorm: 347143 1 Tablet(s) PO BID No Start Date 09/20/2015 Inactive aspirin 325 mg tablet RxNorm: 790276 1 Tablet(s) PO daily No Start Date 09/20/2015 Inactive digoxin 250 mcg Tab RxNorm: 3825849 1/2 Tablet(s) PO daily No Start Date 09/20/2015 Inactive Coumadin 5 mg tablet RxNorm: 637809 Tablet(s) PO No Start Date 02/27/2012 Inactive 7.5 mg mon wed ryen9yg other days Bactroban 2 % topica l ointment RxNorm: 559686 1 TOP BID No Start Date 12/07/2013 Inactive Contour Test Strips RxNorm: 1 Miscellaneous BID No Start Date 10/23/2012 Inactive coun tour ts lisinopril 40 mg tablet RxNorm: 022885 1 Tablet(s) PO daily No Start Date 11/06/2011 Inactive Medication Administered Medication Codes Instruc tions Start Date Status ceftriaxone 500 mg solution for injection RxNorm: 9452163 11/17/2015 No longer A ctive ceftriaxone 1 gram solution for injection RxNorm: 360237 11/25/2013 No longer A ctive Rocephin 500 mg solution for injection RxNorm: 490574 1Gramonce 11/24/2013 No longer Active Rocephin 500 mg Solution for Injection RxNorm: 3542187 1 04/07/2012 No longer A ctive Immunizations No Immunization data Assessments Condition Codes Effectiv e Dates Mixed hyperlipidemia ICD-10: E78.2 ICD-9: 272.2 08/06/2018 Essential (primary) hypertension ICD -10: I10 ICD-9: 401.9 08/06/2018 Type 2 diabetes mellitus with hyperglycemia ICD-10: E11.65 ICD-9: 250.02 08/06/2018 Type 2 diabetes mellitus without complications [...] SCABIES ICD-9: 133.0 DIABETES TYPE II SNOMED: 347467912 ICD-9: 250.00 07/01/2013 Abrasion of leg ICD-9: 916.0 11/26/2012 Hypotension ICD-9: 458.9 11/16/2012 Hordeolum externum of right eye ICD- 9: 373.11 04/07/2012 Periorbital cellulitis ICD-9: 373.13 04/07/2012 ESSENTIAL HYPERTENSION SNOMED: 75012 000 ICD-9: 401.9 11/14/2011 Leg pain ICD-9: [...] Item Item Code Result Date Comp Metabolic Xfi266 NA 135 mEq/L 08/06/2018 Comp Metabolic Twp104 K 4.4 mEq/L 08/06/2018 Comp Metabolic Ecm203 CL 97 mEq/L 08/06/2018 Comp Metabolic Ucl484 CO2 25.0 mEq/L 08/06/2018 Comp Metabolic Eoi134 AN ION GAP 17 08/06/2018 Comp Metabolic Zrb265 GL UCOSE 367 mg/dL 08/06/2018 Comp Metabolic Vlx680 Cr eat 0.7 mg/dL 08/06/2018 Comp Metabolic Cbr076 eG FR 119 ml/min/1.73m2 07/20 Comp Metabolic Seq540 BUN 21 mg/dL 08/06/2018 Comp Metabolic Izj207 B/ C Ratio 29.2 Ratio 08/06/2018 Comp Metabolic Byz425 CA LCIUM 9.1 mg/dL 08/06/2018 Comp Metabolic Bzd088 AL K PHOS 67 U/L 08/06/2018 Comp Metabolic Vps333 T(SGOT) 18 U/L 08/06/2018 Comp Metabolic Cvw949 AL T(SGPT) 33 U/L 08/06/2018 Comp Metabolic Jou911 BI LI T 0.4 mg/dL 08/06/2018 Comp Metabolic Zmw892 AL BUMIN 4.2 g/dL 08/06/2018 Comp Metabolic Tkg804 TP RO 6.8 g/dL 08/06/2018 Comp Metabolic Tkt075 GL OB 2.6 g/dL 08/06/2018 Comp Metabolic Xlc727 A/ G Ratio 1.6 Ratio 08/06/2018 Comp Metabolic Mss083 Os mo 288 mOsmo 08/06/2018 Tsh Ord6 [...] 29.5 pg 08/06/2018 Cbc With Differential Ord2 [place]% 11.5 % 08/06/2018 Cbc With Differential Ord2 [...] 1.31 K/ul 08/06/2018 Cbc With Differential Ord2 [place] ABS# 0.6 K/ul 08/06/2018 Cbc With Differential Ord2 Eos ABS# 0.0 K/ul 08/06/2018 Cbc With Differential Ord2 Baso ABS# 0.0 K/ul 08/06/2018 %Hba1C Wae115 % HbA1c 08956-6 11.5 % 08/06/2018 %Hba1C Dch245 Gluc Ave 283 mg/dL 08/06/2018 Comp Metabolic Nrz778 NA 133 mEq/L 11/17/2015 Comp Metabolic Nje320 K 4.5 mEq/L 11/17/2015 Comp Metabolic Hax856 CL 101 mEq/L 11/17/2015 Comp Metabolic Rsw272 CO2 22.0 mEq/L 11/17/2015 Comp Metabolic Yqp663 AN ION GAP 15 11/17/2015 Comp Metabolic Ihr956 GL UCOSE 197 mg/dL 11/17/2015 Comp Metabolic Won312 Cr eat 0.8 mg/dL 11/17/2015 Comp Metabolic Rvv440 eG FR 110 ml/min/1.73m2 10/20 Comp Metabolic Lyc988 BUN 20 mg/dL 11/17/2015 Comp Metabolic Xoq072 B/ C Ratio 25.6 Ratio 11/17/2015 Comp Metabolic Jst959 CA LCIUM 9.4 mg/dL 11/17/2015 Comp Metabolic Prw461 AL K PHOS 65 U/L 11/17/2015 Comp Metabolic Bqa515 T(SGOT) 22 U/L 11/17/2015 Comp Metabolic Wnj964 AL T(SGPT) 40 U/L 11/17/2015 Comp Metabolic Tgz198 BI LI T 0.5 mg/dL 11/17/2015 Comp Metabolic Crm242 AL BUMIN 4.2 g/dL 11/17/2015 Comp Metabolic Wbz056 TP RO 7.0 g/dL 11/17/2015 Comp Metabolic Txv297 GL OB 2.8 g/dL 11/17/2015 Comp Metabolic Eza981 A/ G Ratio 1.5 Ratio 11/17/2015 Comp Metabolic Nns765 Os mo 274 mOsmo 11/17/2015 Cbc With [...] 29.6 pg 11/17/2015 Cbc With Differential Ord2 [place]% 7.0 % 11/17/2015 Cbc With Differential Ord2 [...] 0.68 K/ul 11/17/2015 Cbc With Differential Ord2 [place] ABS# 1.1 K/ul 11/17/2015 Cbc With Differential [...] 29.4 pg 11/08/2015 Cbc With Differential Ord2 [place]% 10.2 % 11/08/2015 Cbc With Differential Ord2 [...] 2.10 K/ul 11/08/2015 Cbc With Differential Ord2 [place] ABS# 0.9 K/ul 11/08/2015 Cbc With Differential Ord2 Eos ABS# 0.1 K/ul 11/08/2015 Cbc With Differential Ord2 Baso ABS# 0.0 K/ul 11/08/2015 Microalbumin Nud761 Micr oAlb <0.7 mg/dL 11/08/2015 Tsh Ord6 hTSH II 0.65 uIU/mL 11/08/2015 Lipid Ord30 CHOL 157 mg/dL 11/08/2015 Lipid Ord30 HDL 30.0 mg/dl 11/08/2015 Lipid Ord30 TRIG 228 mg/dL 11/08/2015 Lipid Ord30 LDL 81 mg/dL 11/08/2015 Lipid Ord30 C/HDL 5.2 Ratio 11/08/2015 Comp Metabolic Ffw409 NA 130 mEq/L 11/08/2015 Comp Metabolic Nha648 K 4.4 mEq/L 11/08/2015 Comp Metabolic Oeb240 CL 97 mEq/L 11/08/2015 Comp Metabolic Ffr975 CO2 27.0 mEq/L 11/08/2015 Comp Metabolic Vlm344 AN ION GAP 10 11/08/2015 Comp Metabolic Dup778 GL UCOSE 175 mg/dL 11/08/2015 Comp Metabolic Zit366 Cr eat 0.8 mg/dL 11/08/2015 Comp Metabolic Awv391 eG FR 104 ml/min/1.73m2 10/20 Comp Metabolic Yci931 BUN 26 mg/dL 11/08/2015 Comp Metabolic Uyt608 B/ C Ratio 31.7 Ratio 11/08/2015 Comp Metabolic Cny055 CA LCIUM 9.3 mg/dL 11/08/2015 Comp Metabolic Aze924 AL K PHOS 68 U/L 11/08/2015 Comp Metabolic Aut429 T(SGOT) 26 U/L 11/08/2015 Comp Metabolic Bxq077 AL T(SGPT) 42 U/L 11/08/2015 Comp Metabolic Mgj844 BI LI T 0.7 mg/dL 11/08/2015 Comp Metabolic Tmz408 AL BUMIN 4.3 g/dL 11/08/2015 Comp Metabolic Wur507 TP RO 7.0 g/dL 11/08/2015 Comp Metabolic Spo273 GL OB 2.7 g/dL 11/08/2015 Comp Metabolic Sle791 A/ G Ratio 1.6 Ratio 11/08/2015 Comp Metabolic Nrl418 Os mo 270 mOsmo 11/08/2015 Total Psa Ord10 PSA 1.26 ng/mL 11/08/2015 %Hba1C Lkw479 % HbA1c 90038-5 8.2 % 11/08/2015 %Hba1C Tmt832 Gluc Ave 189 mg/dL 11/08/2015 Lipid Ord30 CHOL 155 mg/dL 01/23/2015 Lipid Ord30 HDL 34.0 mg/dl 01/23/2015 Lipid Ord30 TRIG 198 mg/dL 01/23/2015 Lipid Ord30 LDL 81 mg/dL 01/23/2015 Lipid Ord30 C/HDL 4.6 Ratio 01/23/2015 Hepatic Xgh458 ALBUMIN 4.2 g/dL 01/23/2015 Hepatic Bgy867 TPRO 6.9 g/dL 01/23/2015 Hepatic Hlw332 GLOB 2.7 g/dL 01/23/2015 Hepatic Khv748 A/G Ratio 1.6 Ratio 01/23/2015 Hepatic Bda225 ALK PHOS 59 U/L 01/23/2015 Hepatic Ara665 ALT(SGPT) 46 U/L 01/23/2015 Hepatic Wpx825 AST(SGOT) 21 U/L 01/23/2015 Hepatic Ejk061 BILI T 0.5 mg/dL 01/23/2015 Hepatic Wid623 BILI D 0.1 mg/dL 01/23/2015 Hepatic Vug238 BILI I 0.4 mg/dL 01/23/2015 Review of [...] clear 11/24/2013 None Full Exam - General 1995 Ears/Nose/Throat [...] sounds 11/16/2012 None Full Exam - General 1995 Abdomen abdominal exam Overall: no tenderness 11/16/2012 None Full Exam - General 1995 Abdomen abdominal exam Overall: normal bowel sounds 11/16/2012 None Full Exam - General 1995 Abdomen abdominal exam Contour: protuberant 11/16/2012 None Full Exam - General 1995 [...] 1995 Ears/Nose/Throat oral cavity/pharynx/larynx Overall: no masses 11/14/2011 [...] CPT-4: J0696 11/17/2015 THER/PROPH/DIAG INJ SC/IM CPT-4: 85376 11/25/2013 ROCEPHIN, PER 250 MG CPT-4: J0696 11/25/2013 ROCEPHIN, PER 250 MG CPT-4: J0696 11/24/2013 THER/PROPH/DIAG INJ SC/IM CPT-4: 94383 11/24/2013 ROCEPHIN, PER 250 MG CPT-4: J0696 04/07/2012 THER/PROPH/DIAG INJ SC/IM CPT-4: 89019 04/07/2012 Vital Signs Date Vital 08/06/2018 Blood Pressure 1: 142/72 Code: 8480-6 BMI: 44.2 Code: 96200-5 Heart Rate 1: 81 bpm Height: 5'7" SpO2: 96% Weight: 282 lbs 11/17/2015 Blood Pressure 1: 112/82 Code: 8480-6 BMI: 44.6 Code: 74036-7 Heart Rate 1: 100 bpm Height: 5'7" SpO2: 96% Temperature: 37.3 (C ) / 99.1 (F) Weight: 285 lbs 09/21/2015 Blood Pressure 1: 132/72 Code: 8480-6 BMI: 44.0 Code: 24648-9 Heart Rate 1: 86 bpm Height: 5'7" SpO2: 97% Weight: 281 lbs 11/24/2013 Blood Pressure 1: 138/78 Code: 8480-6 Heart Rate 1: 96 bpm Temperature: 36.7 (C) / 98.0 (F) Weight: 280 lbs 10/15/2013 Blood Pressure 1: 124/70 Code: 8480-6 BMI: 43.2 Code: 57019-9 Heart Rate 1: 64 bpm Height: 5'7" [...] of immodium." States he ate at the [employer] and had ribs/chicken/pot roast. nausea Frequency of Episodes decreasing 10/29/2011 States he ate a pot pie l ast night and did not vomit afterwards. nausea Triggers no known associated factors 10/29/2011 None cellulitis Onset and Resolution ongoing 10/29/2011 States he did go to [employer] on Friday and he was walking around [...] Encounters Encounter Performer Loca tion Codes Date ([id number]) [id number] EST. [facility] Diagnosis: Type 2 diabetes mellitus with hyperglycemia[ICD10: E11.65] Diagnosis: Essential (primary) hypertension[ICD10: I10] Diagnosis: Mixed hyperlipidemia[ICD10: E78.2] Sandy Price MD, [facility] CPT-4: 07326 08/06/2018 ([id number]) [id number] EST. P ATIENT, LEVEL IV Diagnosis: Cellulitis of left lower limb[ICD10: L03.116] Diagnosis: Localized edema[ICD10: R60.0] Diagnosis: Type 2 diabetes mellitus without complications[ICD10: E11.9] Akosua Price MD, [facility] CPT-4: 45918 11/17/2015 ([id number]) [id number] EST. P ATIENT, LEVEL IV Diagnosis: Essential (primary) hypertension[ICD10: I10] Diagnosis: Type 2 diabetes mellitus without complications[ICD10: E11.9] Diagnosis: Mixed hyperlipidemia[ICD10: E78.2] Diagnosis: Other obesity due to excess calories[ICD10: E66.09] Sandy Price MD, [facility] CPT-4: 01168 09/21/2015 ([id number]) 12052 EST. P ATIENT, LEVEL III Diagnosis: CELLULITIS OF LEG[ICD9: 682.6] Diagnosis: EDEMA[ICD9: 782.3] Diagnosis: FEVER NOS[ICD9: 780.60] Diagnosis: Cough[ICD9: 786.2] Akosua Price MD, [facility] CPT-4: 94355 11/24/2013 ([id number]) 49781 EST. P ATIENT, LEVEL III Diagnosis: SCABIES[ICD9: 133.0] Sandy Price MD, [facility] CPT-4: 31846 10/15/2013 ([id number]) 06874 EST. P ATIENT, LEVEL III Diagnosis: DIABETES TYPE II[SNOMED: [id number]] [facility] CPT- 4: 13196 07/01/2013 ([id number]) 16165 EST. P ATIENT, LEVEL III Diagnosis: CELLULITIS OF LEG[ICD9: 682.6] Sandy Price MD, [facility] CPT- 4: 41056 05/17/2013 ([id number]) 33695 EST. P ATIENT, LEVEL III Diagnosis: CELLULITIS OF LEG[ICD9: 682.6] Diagnosis: Abrasion of leg[ICD9: 916.0] Akosua Price MD, [facility] CPT-4: 37296 11/26/2012 ([id number]) 63917 EST. P ATIENT, LEVEL IV Diagnosis: EDEMA[ICD9: 782.3] Diagnosis: CELLULITIS OF LEG[ICD9: 682.6] Diagnosis: Hypotension[ICD9: 458.9] Akosua Price MD, [facility] CPT-4: 02170 11/16/2012 ([id number]) [id number] EST. P ATIENT, LEVEL IV Diagnosis: EDEMA[ICD9: 782.3] Diagnosis: CELLULITIS OF LEG[ICD9: 682.6] Diagnosis: DIABETES TYPE II[SNOMED: 302057615] Akosua Price MD, [facility] CPT- 4: 96726 08/27/2012 ([id number]) [id number] EST. P ATIENT, LEVEL III Diagnosis: Hordeolum externum of right eye[ICD9: 373.11] Akosua Price MD, [facility] CPT-4: 35272 04/07/2012 ([id number]) [id number] EST. P ATIENT, LEVEL IV Diagnosis: ESSENTIAL HYPERTENSION[SNOMED: 94661050] Diagnosis: DIABETES TYPE II[SNOMED: 922993744] Akosua Price MD, [facility] CPT- 4: 06187 11/14/2011 ([id number]) Patient adm itted to the hospital from clinic (NO CHARGE) Diagnosis: Cellulitis of left leg[ICD9: 682.6] Diagnosis: Hypotension[ICD9: 458.9] Diagnosis: Nausea vomiting and diarrhea[ICD9: 787.01] Diagnosis: Leg pain[ICD9: 729.5] Diagnosis: Anticoagulant long-term use[ICD9: V58.61] Diagnosis: Coronary artery disease[ICD9: 414.00] Sandy Price MD, [facility] CPT-4: 76914L 10/29/2011 Plan of Care Planned Activity Notes [...] blood pressure readings at home. Hyperlipidemia-managed by sales center associate 08/06/2018 Appointment: Sandy Tong WPtel: [phone] [id number] [place] [address] (30 min) Complex 08/06/2018 Patient Education: Patient [...] sugars closely. 11/17/2015 Appointment: Sandy Tong WPtel: [facility][note 3]5 [phone] (15 min) Moderate 11/17/2015 Patient [...] weight check. 09/21/2015 Appointment: Sandy Tong WPtel: [facility]note 3[phone] ([facility] 09/21/2015 Patient Education: Patient Medication Summary Completed [...] itching. Rx for [facility]ethrin cream [facility] and instructed on use. Patient verbalized [...] for greater blood glucose control. Cellulitis of zwg-aobwwznd-feau if symptoms return 07/01/2013 Appointment: Sandy Tong WPtel: [address] [place] [address] 07/01/2013 Patient Education: Patient Medication Summary Completed 07/01/2013 Appointment: Sandy Tong WPtel: [address] [place] [address] Follow up 06/29/2013 Appointment: Akosua Price WPtel: [address] [place] [address] follow up 06/28/2013 Visit Plan: Cellulitis - [...] days-continue topical antibiotic ointment as previously directed Qdbqigpnelv-trbjgkwb-tyrwrnx blood pressure at home. 11/26/2012 Appointment: Sandy Tong WPtel: [address] [place], [place] [id number] [place] [address] Follow up 11/26/2012 Patient Education: Patient Medication [...] ELEVATE LEGS. 11/16/2012 Appointment: Akosua Price WPtel: [phone] [phone] Other 11/16/2012 Patient Education: Patient Medication Summary Completed 11/16/2012 Visit Plan: Edema - pt has been adv ised to elevate legs to prevent dependent edema, compression has been recommended to help to naturally decrease peripheral edema. Diuretic use has been discussed and pt has been i nstructed in appropriate use of such medication as necessary to further attempt to reduce peripheral edema. Qaccsynqdh-kurmhigf-pros for symptoms Diabetes Mellitus - controlled - [...] controlled. 08/27/2012 Appointment: Sandy Tong WPtel: [facility][note 3]5 [phone] Follow up 08/27/2012 Patient Education: Patient Medication Summary Completed 08/27/2012 Visit Plan: Cellulitis - continue w ith oral antibiotics as directed, return to clinic as previously directed, call for acute change in symptoms, worsening redness, warmth, discharge. 04/07/2012 Appointment: Akosua Price WPtel: [phone] [phone] Other 04/07/2012 Patient Education: Patient Medication Summary [...] at home. 11/14/2011 Appointment: Akosua Price WPtel: [phone] [facility] Other 11/14/2011 Appointment: Akosua Price WPtel: [phone] [facility] Other 11/14/2011 Patient Education: Patient Medication Summary [...] benefit. 10/29/2011 Appointment: Sandy Tong WPtel: [phone] [phone] Other 10/29/2011 Patient Education: Patient Medication Summary Completed 10/29/2011 Instructions Comment . Edema - pt has bee n advised to elevate legs to prevent dependent edema, compression has been recommended to help to naturally decrease peripheral edema. Diuretic use has been discussed and pt has been instructed in appropriate use of such medication as necessary to further attempt to reduce peripheral edema. Ssdlazlals-aqxqiyyx-msvg for symptoms Diabetes Mellitus - controlled - [...] become less controlled. . Cellulitis and abr raigj-xhzscbnts-iprtqnhu bactrim x 5 days-continue topical antibiotic ointment as previously directed Wqfbcbvlqhg-qfpasfoc-jxjymcj blood pressure at home. . Diabetes Mellitus [...] for greater blood glucose control. Cellulitis of rqx-xsboysrn-ckeg if symptoms return . Diabetes Mellitus -noncompliant [...] blood pressure readings at home. Hyperlipidemia-managed by sales center associate labs-cbc, cmp bactrim ds 1 po BID [...] Rx for permethrin cream sent to [facility] and instructed on use. [...] verbalized understanding of plan. . Admission to [facility] -cellulitis left lower leg/hypotension/n/v/d -Dr Price [...] be adjusted as needed. . [facility] -cellulitis left lower leg/hypotension/n/v/d -Dr Price in [...]
--- OUTSIDE RECORDS SUMMARY | 2019-07-19 20:02 | XMS REPORT | CCD ---
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 Role Phone PP Unavailable CCM Unavailable Summary Purpose Interface Exchange Insurance Providers Payer name Policy type / Coverage type Covered libertarian ID Effective Begin Date Effective End Date [facility] Commercial Insurance [id number] Unknown Family history Father Diagnosis Age At Onset Congestive heart failure Unknown Mother Diagnosis Age At Onset No Family Disease Entered N/A Sister Diagnosis Age At Onset No Family Disease Entered N/A Social History Social History Element Codes Description Effective Dates Tobacco history SNOMED CT: 7071895 Former smoker 10/29/2011 Number of years using [...] Date Stop Date Sta tus Fill Instructions carvedilol 25 mg tablet RxNorm: 548665 TAKE 1 TABLET BY MOUTH TWICE DAILY 09/15/2018 No Stop Date Active Tresiba FlexTouch U- 100 insulin 100 unit/mL (3 mL) subcutaneous pen RxNorm: 7978297 10 Unit(s) SQ daily 08/24/2018 11/21/2018 Active Please provide 30 day supply Tresiba FlexTouch U- 100 insulin 100 unit/mL (3 mL) subcutaneous pen RxNorm: 1248174 10 Unit(s) SQ daily 08/24/2018 08/23/2018 Inactive Please provide 30 day supply lisinopril 40 mg tablet RxNorm: 313213 TAKE ONE-HALF (1/2) TABLET DAILY 08/11/2018 No Stop Date Active Januvia 100 mg tablet RxNorm: 911303 Tablet(s) TAKE 1 TABLET DAILY 08/06/2018 No Stop Date Active Trilipix 135 mg caps ule,delayed release RxNorm: 922770 TAKE 1 CAPSULE DAILY 04/20/2018 No Stop Date Active spironolactone 25 mg tablet RxNorm: 323676 TAKE ONE-HALF (1/2) T ABLET DAILY 04/20/2018 08/05/2018 In active lisinopril 40 mg tablet RxNorm: 409786 TAKE ONE-HALF (1/2) TABLET DAILY 02/25/2018 08/10/2018 In active metformin 500 mg tablet RxNorm: 305976 Tablet(s) TAKE ONE TABLET BY MOUTH TWICE DAILY 11/14/2017 11/08/2018 Active carvedilol 25 mg tablet RxNorm: 498774 TAKE ONE TABLET BY MOUTH TWICE DAILY 06/06/2017 09/14/2018 In active metformin 500 mg tablet RxNorm: 868487 TAKE ONE TABLET BY MOUTH TWICE DAILY 06/06/2017 11/13/2017 In active Januvia 100 mg tablet RxNorm: 469662 TAKE 1 TABLET DAILY 04/29/2017 08/05/2018 Inactive Trilipix 135 mg caps ule,delayed release RxNorm: 560597 TAKE 1 CAPSULE DAILY 04/22/2017 04/19/2018 In active spironolactone 25 mg tablet RxNorm: 393190 TAKE ONE-HALF (1/2) T ABLET DAILY 02/11/2017 04/19/2018 In active Januvia 100 mg tablet RxNorm: 819757 TAKE 1 TABLET DAILY 01/21/2017 04/28/2017 Inactive lisinopril 40 mg tablet RxNorm: 751645 TAKE ONE-HALF (1/2) TABLET DAILY 12/24/2016 02/24/2018 In active nystatin 100,000 uni t/gram topical powder RxNorm: 034355 1 Application TOP BID 11/11/2016 08/05/2018 In active Trilipix 135 mg caps ule,delayed release RxNorm: 130672 TAKE 1 CAPSULE DAILY 11/11/2016 04/21/2017 In active carvedilol 25 mg tablet RxNorm: 801912 TAKE ONE TABLET BY MOUTH TWICE DAILY 09/23/2016 03/21/2017 In active metformin 500 mg tablet RxNorm: 210818 1 Tablet(s) PO BID 04/09/2016 01/03/2017 Inactive metformin 500 mg tablet RxNorm: 781595 TAKE ONE TABLET BY MOUTH TWICE DAILY 04/09/2016 05/08/2016 In active carvedilol 25 mg tablet RxNorm: 924521 TAKE ONE TABLET BY MOUTH TWICE DAILY 03/25/2016 09/20/2016 In active metformin 500 mg tablet RxNorm: 697958 1 Tablet(s) BID 01/30/2016 04/08/2016 Inactive metformin 500 mg tablet RxNorm: 071045 1 Tablet(s) PO BID 01/26/2016 01/29/2016 Inactive digoxin 250 mcg tablet RxNorm: 743451 TAKE ONE-HALF (1/2) TABLET DAILY 01/15/2016 08/05/2018 In active Trilipix 135 mg caps ule,delayed release RxNorm: 047402 TAKE 1 CAPSULE DAILY 01/01/2016 11/10/2016 In active spironolactone 25 mg tablet RxNorm: 752855 TAKE ONE-HALF (1/2) T ABLET DAILY 12/26/2015 02/10/2017 In active lisinopril 40 mg tablet RxNorm: 017856 TAKE ONE-HALF (1/2) TABLET DAILY 12/18/2015 12/23/2016 In active Januvia 100 mg tablet RxNorm: 940853 TAKE 1 TABLET DAILY 11/20/2015 01/20/2017 Inactive ceftriaxone 500 mg s olution for injection RxNorm: 2058956 Inj 11/17/2015 11/17/2015 Inactive Bactrim DS 800 mg-16 0 mg tablet RxNorm: 646978 1 Tablet(s) PO BID 11/17/2015 11/23/2015 Inactive metformin 500 mg tablet RxNorm: 750918 1 Tablet(s) PO BID 11/15/2015 01/25/2016 Inactive increase Aspir-81 81 mg table t,delayed release RxNorm: 491746 1 Tablet(s) PO daily 09/21/2015 No Stop Date Active metformin 500 mg tablet RxNorm: 965892 1/2 Tablet(s) PO BID Tablet(s) TAKE ONE- HALF TABLET BY MOUTH TWICE DAILY 09/21/2015 11/14/2015 Inactive carvedilol 25 mg tablet RxNorm: 014197 1 Tablet(s) PO BID 09/21/2015 03/18/2016 Inactive Trilipix 135 mg caps ule,delayed release RxNorm: 395316 CAPSULE(S) TAKE 1 CAP KRISH DAILY 07/04/2015 12/31/2015 Inactive Contour Test Strips RxNorm: USE TO TEST EVERY MORNING AND EVERY EVEN ING DIRECTED 06/23/2015 No Stop Date Active metformin 500 mg tablet RxNorm: 224449 Tablet(s) TAKE ONE-HALF TABLET BY MOUTH TWICE DAILY 06/01/2015 06/30/2015 Inactive metformin 500 mg tablet RxNorm: 647038 Tablet(s) TAKE ONE-HALF TABLET BY MOUTH TWICE DAILY 02/16/2015 05/31/2015 Inactive lisinopril 40 mg tablet RxNorm: 633663 TAKE ONE-HALF (1/2) TABLET DAILY 01/10/2015 12/17/2015 In active metformin 500 mg tablet RxNorm: 021833 Tablet(s) TAKE ONE-HALF TABLET BY MOUTH TWICE DAILY 11/22/2014 03/21/2015 Inactive metformin 500 mg tablet RxNorm: 232194 Tablet(s) TAKE ONE-HALF TABLET BY MOUTH TWICE DAILY 11/21/2014 11/21/2014 Inactive digoxin 250 mcg tablet RxNorm: 783258 Tablet(s) TAKE ONE-HALF (1/2) TABLET PHILLIP LY 11/14/2014 08/10/2015 In active spironolactone 25 mg tablet RxNorm: 300430 TAKE ONE-HALF (1/2) T ABLET DAILY 10/26/2014 12/25/2015 In active spironolactone 25 mg tablet RxNorm: 804390 Tablet(s) TAKE ONE-BRINK LF (1/2) TABLET DAILY 10/25/2014 10/25/2014 Inactive Januvia 100 mg tablet RxNorm: 929483 TAKE 1 TABLET DAILY 09/20/2014 11/19/2015 Inactive Bactrim DS 800 mg-16 0 mg tablet RxNorm: 216779 1 Tablet(s) PO BID TA KE ONE TABLET BY MOUTH TWICE DAILY 09/20/2014 09/26/2014 Inactive Contour Test Strips RxNorm: USE TO TEST EVERY MORNING AND EVERY EVEN ING DIRECTED 08/08/2014 06/22/2015 Inactive Trilipix 135 mg caps ule,delayed release RxNorm: 028422 Capsule(s) TAKE 1 CAP KRISH DAILY 07/27/2014 01/22/2015 Inactive metformin 500 mg tablet RxNorm: 228949 Tablet(s) TAKE ONE-HALF TABLET BY MOUTH TWICE DAILY 06/06/2014 06/05/2014 Inactive metformin 500 mg tablet RxNorm: 164360 TAKE ONE-HALF TABLET BY MOUTH TWICE SERGIO Y 06/06/2014 09/03/2014 In active digoxin 250 mcg tablet RxNorm: 243176 TAKE ONE-HALF (1/2) TABLET DAILY 04/28/2014 11/13/2014 In active spironolactone 25 mg tablet RxNorm: 299755 TAKE ONE-HALF (1/2) T ABLET DAILY 04/28/2014 10/24/2014 In active Trilipix 135 mg caps ule,delayed release RxNorm: 562328 TAKE 1 CAPSULE DAILY 04/28/2014 07/26/2014 In active Januvia 100 mg tablet RxNorm: 082694 TAKE 1 TABLET DAILY 03/30/2014 09/19/2014 Inactive metformin 500 mg tablet RxNorm: 269509 TAKE ONE-HALF TABLET BY MOUTH TWICE SERGIO Y 01/11/2014 06/05/2014 In active Januvia 100 mg tablet RxNorm: 692319 1 TABLET(S) PO DAILY TAKE ONE TABLET BY MOUTH EVERY DAY 12/30/2013 03/29/2014 Inactive Bactroban 2 % topica l ointment RxNorm: 754131 1 TOP BID 12/08/2013 No Stop Date Active sulfamethoxazole 800 mg-trimethoprim 160 mg tablet RxNorm: 975533 1 Tablet(s) PO BID 12/08/2013 12/17/2013 Inactive sulfamethoxazole 800 mg-trimethoprim 160 mg tablet RxNorm: 414230 1 Tablet(s) PO BID 12/08/2013 12/07/2013 Inactive lisinopril 40 mg tablet RxNorm: 683295 1/2 Tablet(s) PO daily 12/02/2013 03/01/2014 Inactive lisinopril 40 mg tablet RxNorm: 082482 1/2 Tablet(s) PO daily 1/2 TABLET(S) PO DAILY 12/02/2013 01/30/2014 Inactive ceftriaxone 1 gram s olution for injection RxNorm: 062154 Inj 11/25/2013 11/25/2013 Inactive Rocephin 500 mg solu tion for injection RxNorm: 719600 1 Gram(s) Inj once 11/24/2013 11/24/2013 In active sulfamethoxazole 800 mg-trimethoprim 160 mg tablet RxNorm: 957749 1 Tablet(s) PO BID 11/24/2013 12/07/2013 Inactive permethrin 5 % topic al cream RxNorm: 904439 1 Application TOP daily 10/19/2013 08/05/2018 Inactive apply head to toe, leave on 12 hours the n wash off, may repeat x 1 if needed permethrin 5 % topic al cream RxNorm: 372059 1 Application TOP daily 10/15/2013 10/18/2013 Inactive apply head to toe, leave on 12 hours the n wash off, may repeat x 1 if needed metformin 500 mg tablet RxNorm: 501259 TAKE ONE-HALF TABLET BY MOUTH TWICE SERGIO Y 10/05/2013 01/02/2014 In active Contour Test Strips RxNorm: Miscellaneous USE TO TEST BLOOD SUGAR TW ICE A DAY 06/28/2013 08/07/2014 In active spironolactone 25 mg tablet RxNorm: 334185 Tablet(s) PO TAKE ONE -HALF (1/2) TABLET DAILY 06/18/2013 04/27/2014 Inactive Trilipix 135 mg caps ule,delayed release RxNorm: 640470 Capsule(s) PO TAKE 1 CAPSULE DAILY 06/18/2013 04/27/2014 Inactive digoxin 250 mcg tablet RxNorm: 714154 Tablet(s) PO TAKE ONE-HALF (1/2) TABLET DAILY 06/18/2013 04/27/2014 Inactive metformin 500 mg tablet RxNorm: 602265 1/2 Tablet(s) PO BID 06/03/2013 09/30/2013 Inactive Microlet Lancet RxNorm: 1 Miscellaneous BID 05/31/2013 08/23/2014 Inactive Microlet Lancet RxNorm: 1 Miscellaneous BID 05/31/2013 05/30/2013 Inactive nystatin 100,000 uni t/gram topical powder RxNorm: 713502 1 Application TOP BID 05/31/2013 08/28/2013 In active Januvia 100 mg tablet RxNorm: 267002 1 Tablet(s) PO daily TAKE ONE TABLET BY MOUTH EVERY DAY 05/31/2013 11/26/2013 Inactive nystatin 100,000 uni t/gram topical powder RxNorm: 530266 1 Application TOP BID 05/17/2013 05/30/2013 In active Bactrim DS 800 mg-16 0 mg tablet RxNorm: 829866 1 Tablet(s) PO BID TA KE ONE TABLET BY MOUTH TWICE DAILY 05/17/2013 05/23/2013 Inactive Bactrim DS 800 mg-16 0 mg tablet RxNorm: 096008 Tablet(s) PO TAKE ONE TABLET BY MOUTH TWICE DAILY 12/03/2012 05/16/2013 Inactive Bactrim DS 800 mg-16 0 mg tablet RxNorm: 751893 1 Tablet(s) PO BID 11/26/2012 11/30/2012 Inactive lisinopril 40 mg tablet RxNorm: 522780 1/2 Tablet(s) PO daily 11/16/2012 12/01/2013 Inactive Januvia 100 mg tablet RxNorm: 762524 1 Tablet(s) PO daily TAKE ONE TABLET BY MOUTH EVERY DAY 11/16/2012 05/30/2013 Inactive lisinopril 40 mg tablet RxNorm: 293993 Tablet(s) PO TAKE 1 TABLET DAILY 10/24/2012 11/15/2012 In active Contour Test Strips RxNorm: Strip Miscellaneous USE TO TEST BLOOD [place]ARK GAR TWICE A DAY 10/24/2012 06/28/2013 Inactive Trilipix 135 mg caps ule,delayed release RxNorm: 390484 Capsule(s) PO TAKE 1 CAPSULE DAILY 10/14/2012 06/17/2013 Inactive Bactrim DS 800 mg-16 0 mg tablet RxNorm: 393205 1 Tablet(s) PO BID 10/07/2012 10/16/2012 Inactive Bactrim DS 800 mg-16 0 mg tablet RxNorm: 701962 1 Tablet(s) PO BID 10/07/2012 10/06/2012 Inactive Januvia 100 mg tablet RxNorm: 155344 1 Tablet(s) PO daily 09/21/2012 01/18/2013 Inactive may have #90 if cheaper digoxin 250 mcg tablet RxNorm: 5830252 1/2 tab MWF sat sun, 1 tab tues thurs Tablet(s) PO daily 1/2 tab MWF sat sun, 1 tab tues thurs 09/21/2012 09/20/2015 Inactive TAKE 1 TABLET DAILY digoxin 250 mcg tablet RxNorm: 4185957 1/2 Tablet(s) PO daily 04/07/2012 09/20/2012 Inactive TAKE 1 TABLET DAILY sulfamethoxazole-tri methoprim 800 mg-160 mg tablet RxNorm: 837276 1 Tablet(s) PO BID 04/07/2012 04/13/2012 Inactive Januvia 100 mg tablet RxNorm: 624012 1/2 Tablet(s) PO daily 04/07/2012 08/04/2012 Inactive may have #90 if cheaper Rocephin 500 mg Solu tion for Injection RxNorm: 2556831 1 Inj 04/07/2012 04/07/2012 Inactive Gentak 0.3 % Eye Drops RxNorm: 710485 3 Drop(s) OPH QID 3 drops 4 times daily x 7 days 04/07/2012 04/13/2012 Inactive spironolactone 25 mg tablet RxNorm: 751898 1/2 Tablet(s) PO daily 04/07/2012 06/17/2013 Inactive TAKE 1 TABLET DAILY Coumadin 5 mg tablet RxNorm: 390594 Tablet(s) PO Luz manages 02/28/2012 08/26/2012 Inactive 7.5 mg mon wed [id number] other daysDr. Tara villar manages Januvia 100 mg tablet RxNorm: 256639 1 Tablet(s) PO 02/20/2012 11/16/2012 Inactive may have #90 if cheaper Trilipix 135 mg caps ule,delayed release RxNorm: 568521 Capsule(s) PO 02/10/2012 06/16/2012 Inactive TAKE 1 CAPSULE DAILY digoxin 250 mcg tablet RxNorm: 111723 Tablet(s) PO 02/10/2012 04/06/2012 Inactive TAKE 1 TABLET DAILY spironolactone 25 mg tablet RxNorm: 418247 Tablet(s) PO 02/10/2012 04/06/2012 Inactive TAKE 1 TABLET DAILY simvastatin 80 mg ta blet RxNorm: 971472 Tablet(s) PO 12/03/2011 11/15/2012 Inactive TAKE ONE- HALF TABLET BY MOUTH EVERY DAY Januvia 50 mg tablet RxNorm: 685224 1 Tablet(s) PO daily 11/14/2011 02/19/2012 Inactive simvastatin 80 mg ta blet RxNorm: 282842 1/2 Tablet(s) PO daily 11/07/2011 12/02/2011 Inactive lisinopril 40 mg tablet RxNorm: 858109 1 Tablet(s) PO daily 11/07/2011 12/06/2011 Inactive spironolactone 25 mg tablet RxNorm: 653062 1 Tablet(s) PO daily 12/17/2010 03/16/2011 Inactive digoxin 250 mcg tablet RxNorm: 598824 1 Tablet(s) PO daily 12/17/2010 03/16/2011 Inactive Trilipix 135 mg caps ule,delayed release RxNorm: 613733 1 Capsule(s) PO daily 12/17/2010 03/16/2011 In active Lipitor 40 mg tablet RxNorm: 902019 1 Tablet(s) PO daily No Start Date Active Fish Oil 1,000 mg Cap RxNorm: 3 Capsule(s) PO daily No Start Date Active Trilipix 135 mg Caps ule, delayed release RxNorm: 109510 1 Capsule(s) PO daily No Start Date Active bumetanide 1 mg Tab RxNorm: 879688 Tablet(s) PO PRN No Start Date Active Xarelto 20 mg tablet RxNorm: 7506747 1 Tablet(s) PO daily No Start Date Active simvastatin 80 mg ta blet RxNorm: 927771 1/2 Tablet(s) PO daily No Start Date 11/06/2011 Inactive spironolactone 25 mg Tab RxNorm: 244020 1 Tablet(s) PO daily No Start Date 08/05/2018 Inactive metformin 500 mg tablet RxNorm: 436936 1/2 Tablet(s) PO BID No Start Date 06/02/2013 Inactive carvedilol 25 mg Tab RxNorm: 162564 1 Tablet(s) PO BID No Start Date 09/20/2015 Inactive aspirin 325 mg tablet RxNorm: 381639 1 Tablet(s) PO daily No Start Date 09/20/2015 Inactive digoxin 250 mcg Tab RxNorm: 4922627 1/2 Tablet(s) PO daily No Start Date 09/20/2015 Inactive Coumadin 5 mg tablet RxNorm: 378330 Tablet(s) PO No Start Date 02/27/2012 Inactive 7.5 mg mon fri [id number] other days Bactroban 2 % topica l ointment RxNorm: 774586 1 TOP BID No Start Date 12/07/2013 Inactive Contour Test Strips RxNorm: 1 Miscellaneous BID No Start Date 10/23/2012 Inactive coun tour ts lisinopril 40 mg tablet RxNorm: 310252 1 Tablet(s) PO daily No Start Date 11/06/2011 Inactive Medication Administered Medication Codes Instruc tions Start Date Status ceftriaxone 500 mg solution for injection RxNorm: 0048736 11/17/2015 No longer A ctive ceftriaxone 1 gram solution for injection RxNorm: 277648 11/25/2013 No longer A ctive Rocephin 500 mg solution for injection RxNorm: 170410 1Gramonce 11/24/2013 No longer Active Rocephin 500 mg Solution for Injection RxNorm: 6764396 1 04/07/2012 No longer A ctive Immunizations [...] SCABIES ICD-9: 133.0 DIABETES TYPE II SNOMED: 962202019 ICD-9: 250.00 07/01/2013 Abrasion of leg ICD-9: 916.0 11/26/2012 Hypotension ICD-9: 458.9 11/16/2012 Hordeolum externum of right eye ICD- 9: 373.11 04/07/2012 Periorbital cellulitis ICD-9: 373.13 04/07/2012 ESSENTIAL HYPERTENSION SNOMED: 84351 000 ICD-9: 401.9 11/14/2011 Leg pain ICD-9: [...] Item Item Code Result Date Comp Metabolic Hbs904 NA 135 mEq/L 08/06/2018 Comp Metabolic Cfk393 K 4.4 mEq/L 08/06/2018 Comp Metabolic Sdt006 CL 97 mEq/L 08/06/2018 Comp Metabolic Bfy499 CO2 25.0 mEq/L 08/06/2018 Comp Metabolic Qky529 AN ION GAP 17 08/06/2018 Comp Metabolic Wjl964 GL UCOSE 367 mg/dL 08/06/2018 Comp Metabolic Ybm870 Cr eat 0.7 mg/dL 08/06/2018 Comp Metabolic Rle034 eG FR 119 ml/min/1.73m2 07/20 Comp Metabolic Nxu505 BUN 21 mg/dL 08/06/2018 Comp Metabolic Lil273 B/ C Ratio 29.2 Ratio 08/06/2018 Comp Metabolic Kwu460 CA LCIUM 9.1 mg/dL 08/06/2018 Comp Metabolic Xut124 AL K PHOS 67 U/L 08/06/2018 Comp Metabolic Ijh596 T(SGOT) 18 U/L 08/06/2018 Comp Metabolic Xyy771 AL T(SGPT) 33 U/L 08/06/2018 Comp Metabolic Eah087 BI LI T 0.4 mg/dL 08/06/2018 Comp Metabolic Ehn637 AL BUMIN 4.2 g/dL 08/06/2018 Comp Metabolic Inf430 TP RO 6.8 g/dL 08/06/2018 Comp Metabolic Geo850 GL OB 2.6 g/dL 08/06/2018 Comp Metabolic Icv068 A/ G Ratio 1.6 Ratio 08/06/2018 Comp Metabolic Ojt281 Os mo 288 mOsmo 08/06/2018 Tsh Ord6 [...] 29.5 pg 08/06/2018 Cbc With Differential Ord2 Charles Mix% 11.5 % 08/06/2018 Cbc With Differential Ord2 [...] 1.31 K/ul 08/06/2018 Cbc With Differential Ord2 Charles Mix ABS# 0.6 K/ul 08/06/2018 Cbc With Differential Ord2 Eos ABS# 0.0 K/ul 08/06/2018 Cbc With Differential Ord2 Baso ABS# 0.0 K/ul 08/06/2018 %Hba1C Qef041 % HbA1c 06993-7 11.5 % 08/06/2018 %Hba1C Umc496 Gluc Ave 283 mg/dL 08/06/2018 Comp Metabolic Tyd434 NA 133 mEq/L 11/17/2015 Comp Metabolic Glu071 K 4.5 mEq/L 11/17/2015 Comp Metabolic Yct291 CL 101 mEq/L 11/17/2015 Comp Metabolic Ndv140 CO2 22.0 mEq/L 11/17/2015 Comp Metabolic Klc762 AN ION GAP 15 11/17/2015 Comp Metabolic Mqe980 GL UCOSE 197 mg/dL 11/17/2015 Comp Metabolic Cic770 Cr eat 0.8 mg/dL 11/17/2015 Comp Metabolic Vui219 eG FR 110 ml/min/1.73m2 10/20 Comp Metabolic Aaf769 BUN 20 mg/dL 11/17/2015 Comp Metabolic Jlp350 B/ C Ratio 25.6 Ratio 11/17/2015 Comp Metabolic Tkn297 CA LCIUM 9.4 mg/dL 11/17/2015 Comp Metabolic Zqu185 AL K PHOS 65 U/L 11/17/2015 Comp Metabolic Iub734 T(SGOT) 22 U/L 11/17/2015 Comp Metabolic Eau131 AL T(SGPT) 40 U/L 11/17/2015 Comp Metabolic Ctp159 BI LI T 0.5 mg/dL 11/17/2015 Comp Metabolic Ixd191 AL BUMIN 4.2 g/dL 11/17/2015 Comp Metabolic Toh006 TP RO 7.0 g/dL 11/17/2015 Comp Metabolic Gvz051 GL OB 2.8 g/dL 11/17/2015 Comp Metabolic Amm829 A/ G Ratio 1.5 Ratio 11/17/2015 Comp Metabolic Rue573 Os mo 274 mOsmo 11/17/2015 Cbc With [...] 29.6 pg 11/17/2015 Cbc With Differential Ord2 Charles Mix% 7.0 % 11/17/2015 Cbc With Differential Ord2 [...] 0.68 K/ul 11/17/2015 Cbc With Differential Ord2 Charles Mix ABS# 1.1 K/ul 11/17/2015 Cbc With Differential [...] 29.4 pg 11/08/2015 Cbc With Differential Ord2 Charles Mix% 10.2 % 11/08/2015 Cbc With Differential Ord2 [...] 2.10 K/ul 11/08/2015 Cbc With Differential Ord2 Charles Mix ABS# 0.9 K/ul 11/08/2015 Cbc With Differential Ord2 Eos ABS# 0.1 K/ul 11/08/2015 Cbc With Differential Ord2 Baso ABS# 0.0 K/ul 11/08/2015 Microalbumin Qjz465 Micr oAlb <0.7 mg/dL 11/08/2015 Tsh Ord6 hTSH II 0.65 uIU/mL 11/08/2015 Lipid Ord30 CHOL 157 mg/dL 11/08/2015 Lipid Ord30 HDL 30.0 mg/dl 11/08/2015 Lipid Ord30 TRIG 228 mg/dL 11/08/2015 Lipid Ord30 LDL 81 mg/dL 11/08/2015 Lipid Ord30 C/HDL 5.2 Ratio 11/08/2015 Comp Metabolic Btq358 NA 130 mEq/L 11/08/2015 Comp Metabolic Zkm977 K 4.4 mEq/L 11/08/2015 Comp Metabolic Mfu985 CL 97 mEq/L 11/08/2015 Comp Metabolic Fhk237 CO2 27.0 mEq/L 11/08/2015 Comp Metabolic Ezb561 AN ION GAP 10 11/08/2015 Comp Metabolic Slt072 GL UCOSE 175 mg/dL 11/08/2015 Comp Metabolic Wrr443 Cr eat 0.8 mg/dL 11/08/2015 Comp Metabolic Brr103 eG FR 104 ml/min/1.73m2 10/20 Comp Metabolic Anh605 BUN 26 mg/dL 11/08/2015 Comp Metabolic Joh779 B/ C Ratio 31.7 Ratio 11/08/2015 Comp Metabolic Lej885 CA LCIUM 9.3 mg/dL 11/08/2015 Comp Metabolic Kap726 AL K PHOS 68 U/L 11/08/2015 Comp Metabolic Jpq528 T(SGOT) 26 U/L 11/08/2015 Comp Metabolic Ccs838 AL T(SGPT) 42 U/L 11/08/2015 Comp Metabolic Uuy479 BI LI T 0.7 mg/dL 11/08/2015 Comp Metabolic Xbe766 AL BUMIN 4.3 g/dL 11/08/2015 Comp Metabolic Xim148 TP RO 7.0 g/dL 11/08/2015 Comp Metabolic Wru990 GL OB 2.7 g/dL 11/08/2015 Comp Metabolic Gss162 A/ G Ratio 1.6 Ratio 11/08/2015 Comp Metabolic Fvm387 Os mo 270 mOsmo 11/08/2015 Total Psa Ord10 PSA 1.26 ng/mL 11/08/2015 %Hba1C Uha603 % HbA1c 22972-7 8.2 % 11/08/2015 %Hba1C Oqt183 Gluc Ave 189 mg/dL 11/08/2015 Lipid Ord30 CHOL 155 mg/dL 01/23/2015 Lipid Ord30 HDL 34.0 mg/dl 01/23/2015 Lipid Ord30 TRIG 198 mg/dL 01/23/2015 Lipid Ord30 LDL 81 mg/dL 01/23/2015 Lipid Ord30 C/HDL 4.6 Ratio 01/23/2015 Hepatic Tdm642 ALBUMIN 4.2 g/dL 01/23/2015 Hepatic Itx155 TPRO 6.9 g/dL 01/23/2015 Hepatic Pib808 GLOB 2.7 g/dL 01/23/2015 Hepatic Arj216 A/G Ratio 1.6 Ratio 01/23/2015 Hepatic Izf020 ALK PHOS 59 U/L 01/23/2015 Hepatic Zrm494 ALT(SGPT) 46 U/L 01/23/2015 Hepatic Ogt838 AST(SGOT) 21 U/L 01/23/2015 Hepatic Wgt827 BILI T 0.5 mg/dL 01/23/2015 Hepatic Txd595 BILI D 0.1 mg/dL 01/23/2015 Hepatic Shz427 BILI I 0.4 mg/dL 01/23/2015 Review of [...] ant erior leg Full Exam - General 1995 Constitutional general appearance Development: well developed 11/16/2012 [...] _ 11/16/2012 None Full Exam - General 1995 [...] clubbing 11/16/2012 None Full Exam - General 1995 [...] masses 08/27/2012 None Full Exam - General 1995 Respiratory auscultation Overall: breath sounds clear bilaterally 08/27/2012 None Full Exam - General 1995 Respiratory respiratory effort/rhythm Overall: no retractions 08/27/2012 None Full Exam - General 1994 Respiratory respiratory effort/rhythm Overall: normal rate 08/27/2012 None Full Exam - General 1995 Cardiovascular [...] edema 04/07/2012 None Full Exam - General 1995 Eyes conjunctiva/eyelids Eyelid: periorbital edema 04/07/2012 None [...] CPT-4: J0696 11/17/2015 THER/PROPH/DIAG INJ SC/IM CPT-4: 23951 11/25/2013 ROCEPHIN, PER 250 MG CPT-4: J0696 11/25/2013 ROCEPHIN, PER 250 MG CPT-4: J0696 11/24/2013 THER/PROPH/DIAG INJ SC/IM CPT-4: 38473 11/24/2013 ROCEPHIN, PER 250 MG CPT-4: J0696 04/07/2012 THER/PROPH/DIAG INJ SC/IM CPT-4: 51866 04/07/2012 Vital Signs Date Vital 08/06/2018 Blood Pressure 1: 142/72 Code: 8480-6 BMI: 44.2 Code: 18546-5 Heart Rate 1: 81 bpm Height: 5'7" SpO2: 96% Weight: 282 lbs 11/17/2015 Blood Pressure 1: 112/82 Code: 8480-6 BMI: 44.6 Code: 74025-8 Heart Rate 1: 100 bpm Height: 5'7" SpO2: 96% Temperature: 37.3 (C ) / 99.1 (F) Weight: 285 lbs 09/21/2015 Blood Pressure 1: 132/72 Code: 8480-6 BMI: 44.0 Code: 11556-5 Heart Rate 1: 86 bpm Height: 5'7" SpO2: 97% Weight: 281 lbs 11/24/2013 Blood Pressure 1: 13878 Code: 8480-6 Heart Rate 1: 96 bpm Temperature: 36.7 (C) / 98.0 (F) Weight: 280 lbs 10/15/2013 Blood Pressure 1: 124/70 Code: 8480-6 BMI: 43.2 Code: 11584-9 Heart Rate 1: 64 bpm Height: 5'7" Temperature: 36.4 (C ) / 97.6 (F) Weight: 276 lbs 07/01/2013 Blood Pressure 1: 106 Code: 8480-6 Heart Rate 1: 80 bpm [...] of immodium." States he ate at the [employer] and had ribs/chicken/pot roast. nausea Frequency of Episodes decreasing 10/29/2011 States he ate a pot pie l ast night and did not vomit afterwards. nausea Triggers no known associated factors 10/29/2011 None cellulitis Onset and Resolution ongoing 10/29/2011 States he did go to [facility] [employer] on Friday and he was walking around [...] Encounters Encounter Performer Loca tion Codes Date ([id number]) [id number] EST. P ATIENT, LEVEL IV Diagnosis: Type 2 diabetes mellitus with hyperglycemia[ICD10: E11.65] Diagnosis: Essential (primary) hypertension[ICD10: I10] Diagnosis: Mixed hyperlipidemia[ICD10: E78.2] Sandy Price MD, [facility] CPT-4: 52028 08/06/2018 ([id number]) 11313 EST. P ATIENT, LEVEL IV Diagnosis: Cellulitis of left lower limb[ICD10: L03.116] Diagnosis: Localized edema[ICD10: R60.0] Diagnosis: Type 2 diabetes mellitus without complications[ICD10: E11.9] Akosua Price MD, [facility] CPT-4: 36929 11/17/2015 ([id number]) [id number] EST. P ATIENT, LEVEL IV Diagnosis: Essential (primary) hypertension[ICD10: I10] Diagnosis: Type 2 diabetes mellitus without complications[ICD10: E11.9] Diagnosis: Mixed hyperlipidemia[ICD10: E78.2] Diagnosis: Other obesity due to excess calories[ICD10: E66.09] Sandy Price MD, [facility] CPT-4: 12970 09/21/2015 ([id number]) [id number] EST. P ATIENT, LEVEL III Diagnosis: CELLULITIS OF LEG[ICD9: 682.6] Diagnosis: EDEMA[ICD9: 782.3] Diagnosis: FEVER NOS[ICD9: 780.60] Diagnosis: Cough[ICD9: 786.2] Akosua Price MD, [facility] CPT-4: 72340 11/24/2013 ([id number]) 74520 EST. P ATIENT, LEVEL III Diagnosis: SCABIES[ICD9: 133.0] Sandy Price MD, [facility] CPT-4: 77286 10/15/2013 ([id number]) [id number] EST. P ATIENT, LEVEL III Diagnosis: DIABETES TYPE II[SNOMED: [id number]] Akosua Price MD, [facility] CPT- 4: 11441 07/01/2013 ([id number]) 32610 EST. P ATIENT, LEVEL III Diagnosis: CELLULITIS OF LEG[ICD9: 682.6] Sandy Price MD, [facility] CPT- 4: 09745 05/17/2013 ([id number]) 20672 EST. P ATIENT, LEVEL III Diagnosis: CELLULITIS OF LEG[ICD9: 682.6] Diagnosis: Abrasion of leg[ICD9: 916.0] Akosua Price MD, [facility] CPT-4: 52424 11/26/2012 ([id number]) [id number] EST. P ATIENT, LEVEL IV Diagnosis: EDEMA[ICD9: 782.3] Diagnosis: CELLULITIS OF LEG[ICD9: 682.6] Diagnosis: Hypotension[ICD9: 458.9] Akosua Price MD, [facility] CPT-4: 65264 11/16/2012 ([id number]) 69119 EST. P ATIENT, LEVEL IV Diagnosis: EDEMA[ICD9: 782.3] Diagnosis: CELLULITIS OF LEG[ICD9: 682.6] Diagnosis: DIABETES TYPE II[SNOMED: 766191019] Akosua Price MD, [facility] CPT- 4: 22056 08/27/2012 ([id number]) 42674 EST. P ATIENT, LEVEL III Diagnosis: Hordeolum externum of right eye[ICD9: 373.11] Akosua Price MD, [facility] CPT-4: 65890 04/07/2012 ([id number]) [id number] EST. P ATIENT, LEVEL IV Diagnosis: ESSENTIAL HYPERTENSION[SNOMED: 93538468] Diagnosis: DIABETES TYPE II[SNOMED: 899074023] Akosua Price MD, [facility] CPT- 4: 40503 11/14/2011 ([id number]) Patient adm itted to the hospital from clinic (NO CHARGE) Diagnosis: Cellulitis of left leg[ICD9: 682.6] Diagnosis: Hypotension[ICD9: 458.9] Diagnosis: Nausea vomiting and diarrhea[ICD9: 787.01] Diagnosis: Leg pain[ICD9: 729.5] Diagnosis: Anticoagulant long-term use[ICD9: V58.61] Diagnosis: Coronary artery disease[ICD9: 414.00] Sandy Price MD, [facility] CPT-4: 16469P 10/29/2011 Plan of Care Planned Activity Notes [...] blood pressure readings at home. Hyperlipidemia-managed by dental hygienist mobile coordinator 08/06/2018 Appointment: Sandy Tong WPtel: [phone] [phone] (30 min) Complex 08/06/2018 Patient Education: Patient [...] closely. 11/17/2015 Appointment: Sandy Tong WPtel: [phone] [phone] (15 min) Moderate 11/17/2015 Patient Education: Patient [...] weight check. 09/21/2015 Appointment: Sandy Tong WPtel: [address] [place], [place] [phone] (30 min) [facility] 09/21/2015 Patient Education: Patient Medication Summary Completed [...] itching. Rx for permethrin cream sent to [facility] pharmacy and instructed on use. [...] for greater blood glucose control. Cellulitis of xgu-tpfnhyjw-bycf if symptoms return 07/01/2013 Appointment: Sandy Tong WPtel: [address] [place] [address] 07/01/2013 Patient Education: Patient Medication Summary Completed 07/01/2013 Appointment: Sandy Tong WPtel: [address] [place] [address] Follow up 06/29/2013 Appointment: Akosua Price WPtel: [address] [place] [address] follow up 06/28/2013 Visit Plan: Cellulitis - [...] days-continue topical antibiotic ointment as previously directed Ngpafibwirg-opoaaxxm-prjjcdo blood pressure at home. 11/26/2012 Appointment: Sandy Tong WPtel: [address] [place], [place] [phone] Follow up 11/26/2012 Patient Education: Patient Medication [...] ELEVATE LEGS. 11/16/2012 Appointment: Akosua Price WPtel: [phone] [facility] Other 11/16/2012 Patient Education: Patient Medication Summary Completed 11/16/2012 Visit Plan: Edema - pt has been adv ised to elevate legs to prevent dependent edema, compression has been recommended to help to naturally decrease peripheral edema. Diuretic use has been discussed and pt has been i nstructed in appropriate use of such medication as necessary to further attempt to reduce peripheral edema. Yvsatueowo-mdekchky-nbhj for symptoms Diabetes Mellitus - controlled - [...] controlled. 08/27/2012 Appointment: Sandy Tong WPtel: [phone] [phone] Follow up 08/27/2012 Patient Education: Patient Medication Summary Completed 08/27/2012 Visit Plan: Cellulitis - continue w ith oral antibiotics as directed, return to clinic as previously directed, call for acute change in symptoms, worsening redness, warmth, discharge. 04/07/2012 Appointment: Akosua Price WPtel: [facility] [place] Other 04/07/2012 Patient Education: Patient Medication Summary [...] at home. 11/14/2011 Appointment: Akosua Price WPtel: [phone] [facility] Other 11/14/2011 Appointment: Akosua Price WPtel: [facility] Other 11/14/2011 Patient Education: Patient Medication Summary [...] benefit. 10/29/2011 Appointment: Sandy Tong WPtel: [phone] [phone] Other 10/29/2011 Patient Education: Patient [...] to further attempt to reduce peripheral edema. Otanjvdgkr-bmhhxuqq-fmuh for symptoms Diabetes Mellitus - controlled - [...] become less controlled. . Cellulitis and abr wgzet-aaomobyvn-zzvmwlts bactrim x 5 days-continue topical antibiotic ointment as previously directed Cxppwfievhy-vfloxpvw-meifnep blood pressure at home. . Diabetes Mellitus [...] for greater blood glucose control. Cellulitis of aam-dphpgvkk-rbjq if symptoms return . Diabetes Mellitus -noncompliant [...] blood pressure readings at home. Hyperlipidemia-managed by dental hygienist mobile coordinator labs-cbc, cmp bactrim ds 1 po BID [...] itching. Rx for permethrin cream sent to [facility] pharmacy and instructed on use. [...] verbalized understanding of plan. . Admission to [facility] -cellulitis left lower leg/hypotension/n/v/d -Dr Price in [...] be adjusted as needed. . Admission to [facility] -cellulitis left lower leg/hypotension/n/v/d -Dr Price in [...]
--- OUTSIDE RECORDS SUMMARY | 2019-07-19 20:03 | XMS REPORT | CCD ---
Author Author Claudy Tong Organization [facility] Address [address] [place] [address] Phone Care Team Providers Care Cell Coverer Name Role Phone PP Unavailable CCM Unavailable Summary Purpose Interface Exchange Insurance Providers Payer name Policy type / Coverage type Covered green party ID Effective Begin Date Effective End Date [facility] Commercial Insurance [id number] Unknown Family history Father Diagnosis Age At Onset Congestive heart failure Unknown Mother Diagnosis Age At Onset No Family Disease Entered N/A Sister Diagnosis Age At Onset No Family Disease Entered N/A Social History Social History Element Codes Description Effective Dates Tobacco history SNOMED CT: 5666172 Former smoker 10/29/2011 Number of years using tobacco Unknown 20 22 10/29/2011 Alcohol history Unknown occasionally drinks alcohol had 2 glasses of wine about 4 months ago. beer occasionally 10/29/2011 Has the patient used marijuana? Unknown Yes quit at age 25 10/29/2011 Allergies, Adverse Reactions, Alerts Allergies, Adverse Reactions, Alerts data not found Past Medical History Illness Codes Condition Status Onset Date Resolved Date Cellulitis of left l ower limb ICD-9: [...] Condition Codes Effectiv e Dates Condition Status Cellulitis of left l ower limb ICD-9: [...] Fill Instructions carvedilol 25 mg tablet RxNorm: 198267 TAKE ONE TABLET BY MOUTH TWICE DAILY 09/23/2016 03/21/2017 Ac tive metformin 500 mg tablet RxNorm: 437591 1 Tablet(s) PO BID 04/09/2016 01/03/2017 Active metformin 500 mg tablet RxNorm: 508088 TAKE ONE TABLET BY MOUTH TWICE DAILY 04/09/2016 05/08/2016 In active carvedilol 25 mg tablet RxNorm: 239487 TAKE ONE TABLET BY MOUTH TWICE DAILY 03/25/2016 09/20/2016 In active metformin 500 mg tablet RxNorm: 038000 1 Tablet(s) BID 01/30/2016 04/08/2016 Inactive metformin 500 mg tablet RxNorm: 913259 1 Tablet(s) PO BID 01/26/2016 01/29/2016 Inactive digoxin 250 mcg tablet RxNorm: 973581 TAKE ONE-HALF (1/2) TABLET DAILY 01/15/2016 No Stop Date Active Trilipix 135 mg caps ule,delayed release RxNorm: 794910 TAKE 1 CAPSULE DAILY 01/01/2016 No Stop Date Active spironolactone 25 mg tablet RxNorm: 276501 TAKE ONE-HALF (1/2) T ABLET DAILY 12/26/2015 No Stop Date Active lisinopril 40 mg tablet RxNorm: 709834 TAKE ONE-HALF (1/2) TABLET DAILY 12/18/2015 No Stop Date Active Januvia 100 mg tablet RxNorm: 576640 TAKE 1 TABLET DAILY 11/20/2015 No Stop Date Active ceftriaxone 500 mg s olution for injection RxNorm: 5622725 Inj 11/17/2015 11/17/2015 Inactive Bactrim DS 800 mg-16 0 mg tablet RxNorm: 802802 1 Tablet(s) PO BID 11/17/2015 11/23/2015 Inactive metformin 500 mg tablet RxNorm: 917805 1 Tablet(s) PO BID 11/15/2015 01/25/2016 Inactive increase Aspir-81 81 mg table t,delayed release RxNorm: 894722 1 Tablet(s) PO daily 09/21/2015 No Stop Date Active metformin 500 mg tablet RxNorm: 118145 1/2 Tablet(s) PO BID Tablet(s) TAKE ONE- HALF TABLET BY MOUTH TWICE DAILY 09/21/2015 11/14/2015 Inactive carvedilol 25 mg tablet RxNorm: 895099 1 Tablet(s) PO BID 09/21/2015 03/18/2016 Inactive Trilipix 135 mg caps ule,delayed release RxNorm: 966577 CAPSULE(S) TAKE 1 CAP KRISH DAILY 07/04/2015 12/31/2015 Inactive Contour Test Strips RxNorm: USE TO TEST EVERY MORNING AND EVERY EVEN ING DIRECTED 06/23/2015 No Stop Date Active metformin 500 mg tablet RxNorm: 402570 Tablet(s) TAKE ONE-HALF TABLET BY MOUTH TWICE DAILY 06/01/2015 06/30/2015 Inactive metformin 500 mg tablet RxNorm: 089088 Tablet(s) TAKE ONE-HALF TABLET BY MOUTH TWICE DAILY 02/16/2015 05/31/2015 Inactive lisinopril 40 mg tablet RxNorm: 891438 TAKE ONE-HALF (1/2) TABLET DAILY 01/10/2015 12/17/2015 In active metformin 500 mg tablet RxNorm: 584624 Tablet(s) TAKE ONE-HALF TABLET BY MOUTH TWICE DAILY 11/22/2014 03/21/2015 Inactive metformin 500 mg tablet RxNorm: 723135 Tablet(s) TAKE ONE-HALF TABLET BY MOUTH TWICE DAILY 11/21/2014 11/21/2014 Inactive digoxin 250 mcg tablet RxNorm: 090143 Tablet(s) TAKE ONE-HALF (1/2) TABLET PHILLIP LY 11/14/2014 08/10/2015 In active spironolactone 25 mg tablet RxNorm: 366835 TAKE ONE-HALF (1/2) T ABLET DAILY 10/26/2014 12/25/2015 In active spironolactone 25 mg tablet RxNorm: 765656 Tablet(s) TAKE ONE-BRINK LF (1/2) TABLET DAILY 10/25/2014 10/25/2014 Inactive Januvia 100 mg tablet RxNorm: 515796 TAKE 1 TABLET DAILY 09/20/2014 11/19/2015 Inactive Bactrim DS 800 mg-16 0 mg tablet RxNorm: 383256 1 Tablet(s) PO BID TA KE ONE TABLET BY MOUTH TWICE DAILY 09/20/2014 09/26/2014 Inactive Contour Test Strips RxNorm: USE TO TEST EVERY MORNING AND EVERY EVEN ING DIRECTED 08/08/2014 06/22/2015 Inactive Trilipix 135 mg caps ule,delayed release RxNorm: 421379 Capsule(s) TAKE 1 CAP KRISH DAILY 07/27/2014 01/22/2015 Inactive metformin 500 mg tablet RxNorm: 316277 Tablet(s) TAKE ONE-HALF TABLET BY MOUTH TWICE DAILY 06/06/2014 06/05/2014 Inactive metformin 500 mg tablet RxNorm: 586151 TAKE ONE-HALF TABLET BY MOUTH TWICE SERGIO Y 06/06/2014 09/03/2014 In active digoxin 250 mcg tablet RxNorm: 816087 TAKE ONE-HALF (1/2) TABLET DAILY 04/28/2014 11/13/2014 In active spironolactone 25 mg tablet RxNorm: 760988 TAKE ONE-HALF (1/2) T ABLET DAILY 04/28/2014 10/24/2014 In active Trilipix 135 mg caps ule,delayed release RxNorm: 493057 TAKE 1 CAPSULE DAILY 04/28/2014 07/26/2014 In active Januvia 100 mg tablet RxNorm: 515532 TAKE 1 TABLET DAILY 03/30/2014 09/19/2014 Inactive metformin 500 mg tablet RxNorm: 134915 TAKE ONE-HALF TABLET BY MOUTH TWICE SERGIO Y 01/11/2014 06/05/2014 In active Januvia 100 mg tablet RxNorm: 268669 1 TABLET(S) PO DAILY TAKE ONE TABLET BY MOUTH EVERY DAY 12/30/2013 03/29/2014 Inactive Bactroban 2 % topica l ointment RxNorm: 271713 1 TOP BID 12/08/2013 No Stop Date Active sulfamethoxazole 800 mg-trimethoprim 160 mg tablet RxNorm: 238842 1 Tablet(s) PO BID 12/08/2013 12/17/2013 Inactive sulfamethoxazole 800 mg-trimethoprim 160 mg tablet RxNorm: 315497 1 Tablet(s) PO BID 12/08/2013 12/07/2013 Inactive lisinopril 40 mg tablet RxNorm: 693721 1/2 Tablet(s) PO daily 12/02/2013 03/01/2014 Inactive lisinopril 40 mg tablet RxNorm: 729121 1/2 Tablet(s) PO daily 1/2 TABLET(S) PO DAILY 12/02/2013 01/30/2014 Inactive ceftriaxone 1 gram s olution for injection RxNorm: 587091 Inj 11/25/2013 11/25/2013 Inactive Rocephin 500 mg solu tion for injection RxNorm: 254750 1 Gram(s) Inj once 11/24/2013 11/24/2013 In active sulfamethoxazole 800 mg-trimethoprim 160 mg tablet RxNorm: 361365 1 Tablet(s) PO BID 11/24/2013 12/07/2013 Inactive permethrin 5 % topic al cream RxNorm: 499120 1 Application TOP daily 10/19/2013 No Stop Date Active apply head to toe, leave on 12 hours the n wash off, may repeat x 1 if needed permethrin 5 % topic al cream RxNorm: 020238 1 Application TOP daily 10/15/2013 10/18/2013 Inactive apply head to toe, leave on 12 hours the n wash off, may repeat x 1 if needed metformin 500 mg tablet RxNorm: 058932 TAKE ONE-HALF TABLET BY MOUTH TWICE SERGIO Y 10/05/2013 01/02/2014 In active Contour Test Strips RxNorm: Miscellaneous USE TO TEST BLOOD SUGAR TW ICE A 06/28/2013 08/07/2014 In active spironolactone 25 mg tablet RxNorm: 024012 Tablet(s) PO TAKE ONE -HALF (1/2) TABLET DAILY 06/18/2013 04/27/2014 Inactive Trilipix 135 mg caps ule,delayed release RxNorm: 466063 Capsule(s) PO TAKE 1 CAPSULE DAILY 06/18/2013 04/27/2014 Inactive digoxin 250 mcg tablet RxNorm: 017724 Tablet(s) PO TAKE ONE-HALF (1/2) TABLET DAILY 06/18/2013 04/27/2014 Inactive metformin 500 mg tablet RxNorm: 604985 1/2 Tablet(s) PO BID 06/03/2013 09/30/2013 Inactive Microlet Lancet RxNorm: 1 Miscellaneous BID 05/31/2013 08/23/2014 Inactive nystatin 100,000 uni t/gram topical powder RxNorm: 255748 1 Application TOP BID 05/31/2013 08/28/2013 In active Microlet Lancet RxNorm: 1 Miscellaneous BID 05/31/2013 05/30/2013 Inactive Januvia 100 mg tablet RxNorm: 180395 1 Tablet(s) PO daily TAKE ONE TABLET BY MOUTH EVERY DAY 05/31/2013 11/26/2013 Inactive nystatin 100,000 uni t/gram topical powder RxNorm: 169058 1 Application TOP BID 05/17/2013 05/30/2013 In active Bactrim DS 800 mg-16 0 mg tablet RxNorm: 991902 1 Tablet(s) PO BID TA KE ONE TABLET BY MOUTH TWICE DAILY 05/17/2013 05/23/2013 Inactive Bactrim DS 800 mg-16 0 mg tablet RxNorm: 843638 Tablet(s) PO TAKE ONE TABLET BY MOUTH TWICE DAILY 12/03/2012 05/16/2013 Inactive Bactrim DS 800 mg-16 0 mg tablet RxNorm: 346148 1 Tablet(s) PO BID 11/26/2012 11/30/2012 Inactive lisinopril 40 mg tablet RxNorm: 248843 1/2 Tablet(s) PO daily 11/16/2012 12/01/2013 Inactive Januvia 100 mg tablet RxNorm: 903286 1 Tablet(s) PO daily TAKE ONE TABLET BY MOUTH EVERY DAY 11/16/2012 05/30/2013 Inactive lisinopril 40 mg tablet RxNorm: 987215 Tablet(s) PO TAKE 1 TABLET DAILY 10/24/2012 11/15/2012 In active Contour Test Strips RxNorm: Strip Miscellaneous USE TO TEST BLOOD [place] TWICE A DAY 10/24/2012 06/28/2013 Inactive Trilipix 135 mg caps ule,delayed release RxNorm: 432491 Capsule(s) PO TAKE 1 CAPSULE DAILY 10/14/2012 06/17/2013 Inactive Bactrim DS 800 mg-16 0 mg tablet RxNorm: 082745 1 Tablet(s) PO BID 10/07/2012 10/16/2012 Inactive Bactrim DS 800 mg-16 0 mg tablet RxNorm: 942675 1 Tablet(s) PO BID 10/07/2012 10/06/2012 Inactive Januvia 100 mg tablet RxNorm: 600486 1 Tablet(s) PO daily 09/21/2012 01/18/2013 Inactive may have #90 if cheaper digoxin 250 mcg tablet RxNorm: 4015214 1/2 tab MWF sat sun, 1 tab tues thurs Tablet(s) PO daily 1/2 tab MWF sat sun, 1 tab tues thurs 09/21/2012 09/20/2015 Inactive TAKE 1 TABLET DAILY digoxin 250 mcg tablet RxNorm: 9191925 1/2 Tablet(s) PO daily 04/07/2012 09/20/2012 Inactive TAKE 1 TABLET DAILY sulfamethoxazole-tri methoprim 800 mg-160 mg tablet RxNorm: 135510 1 Tablet(s) PO BID 04/07/2012 04/13/2012 Inactive Januvia 100 mg tablet RxNorm: 853901 1/2 Tablet(s) PO daily 04/07/2012 08/04/2012 Inactive may have #90 if cheaper Rocephin 500 mg Solu tion for Injection RxNorm: 785598 1 Inj 04/07/2012 04/07/2012 Inactive Gentak 0.3 % Eye Drops RxNorm: 838041 3 Drop(s) OPH QID 3 drops 4 times daily x 7 days 04/07/2012 04/13/2012 Inactive spironolactone 25 mg tablet RxNorm: 533186 1/2 Tablet(s) PO daily 04/07/2012 06/17/2013 Inactive TAKE 1 TABLET DAILY Coumadin 5 mg tablet RxNorm: 464515 Tablet(s) PO Luz manages 02/28/2012 08/26/2012 Inactive 7.5 mg mon fri [id number] other daysDr. Tara villar manages Januvia 100 mg tablet RxNorm: 464776 1 Tablet(s) PO 02/20/2012 11/16/2012 Inactive may have #90 if cheaper Trilipix 135 mg caps ule,delayed release RxNorm: 566057 Capsule(s) PO 02/10/2012 06/16/2012 Inactive TAKE 1 CAPSULE DAILY digoxin 250 mcg tablet RxNorm: 2320894 Tablet(s) PO 02/10/2012 04/06/2012 Inactive TAKE 1 TABLET DAILY spironolactone 25 mg tablet RxNorm: 237697 Tablet(s) PO 02/10/2012 04/06/2012 Inactive TAKE 1 TABLET DAILY simvastatin 80 mg ta blet RxNorm: 556274 Tablet(s) PO 12/03/2011 11/15/2012 Inactive TAKE ONE- HALF TABLET BY MOUTH EVERY DAY Januvia 50 mg tablet RxNorm: 556857 1 Tablet(s) PO daily 11/14/2011 02/19/2012 Inactive simvastatin 80 mg ta blet RxNorm: 188514 1/2 Tablet(s) PO daily 11/07/2011 12/02/2011 Inactive lisinopril 40 mg tablet RxNorm: 599973 1 Tablet(s) PO daily 11/07/2011 12/06/2011 Inactive spironolactone 25 mg tablet RxNorm: 815546 1 Tablet(s) PO daily 12/17/2010 03/16/2011 Inactive digoxin 250 mcg tablet RxNorm: 8271376 1 Tablet(s) PO daily 12/17/2010 03/16/2011 Inactive Trilipix 135 mg caps ule,delayed release RxNorm: 391642 1 Capsule(s) PO daily 12/17/2010 03/16/2011 In active spironolactone 25 mg Tab RxNorm: 750139 1 Tablet(s) PO daily No Start Date Active Lipitor 40 mg tablet RxNorm: 991498 1 Tablet(s) PO daily No Start Date Active Fish Oil 1,000 mg Cap RxNorm: 3 Capsule(s) PO daily No Start Date Active Trilipix 135 mg Caps ule, delayed release RxNorm: 621809 1 Capsule(s) PO daily No Start Date Active bumetanide 1 mg Tab RxNorm: 544308 Tablet(s) PO PRN No Start Date Active Xarelto 20 mg tablet RxNorm: 8039897 1 Tablet(s) PO daily No Start Date Active simvastatin 80 mg ta blet RxNorm: 312653 1/2 Tablet(s) PO daily No Start Date 11/06/2011 Inactive metformin 500 mg tablet RxNorm: 520030 1/2 Tablet(s) PO BID No Start Date 06/02/2013 Inactive carvedilol 25 mg Tab RxNorm: 648453 1 Tablet(s) PO BID No Start Date 09/20/2015 Inactive aspirin 325 mg tablet RxNorm: 426305 1 Tablet(s) PO daily No Start Date 09/20/2015 Inactive digoxin 250 mcg Tab RxNorm: 6969833 1/2 Tablet(s) PO daily No Start Date 09/20/2015 Inactive Coumadin 5 mg tablet RxNorm: 795709 Tablet(s) PO No Start Date 02/27/2012 Inactive 7.5 mg mon fri [id number] other days Bactroban 2 % topica l ointment RxNorm: 517689 1 TOP BID No Start Date 12/07/2013 Inactive Contour Test Strips RxNorm: 1 Miscellaneous BID No Start Date 10/23/2012 Inactive coun tour ts lisinopril 40 mg tablet RxNorm: 687121 1 Tablet(s) PO daily No Start Date 11/06/2011 Inactive Medication Administered Medication Codes Instruc tions Start Date Status ceftriaxone 500 mg solution for injection RxNorm: 2734017 11/17/2015 No longer A ctive ceftriaxone 1 gram solution for injection RxNorm: 049641 11/25/2013 No longer A ctive Rocephin 500 mg solution for injection RxNorm: 121019 1Gramonce 11/24/2013 No longer Active Rocephin 500 mg Solution for Injection RxNorm: 415246 1 04/07/2012 No longer A ctive Immunizations No Immunization data Assessments Condition Codes Effectiv e Dates Type 2 diabetes mellitus without complications ICD-10: E11.9 ICD-9: 250.00 11/17/2015 Localized edema ICD-10: R60.0 ICD-9: 782.3 11/17/2015 Cellulitis of left lower limb ICD-10 : L03.116 ICD-9: 682.6 11/17/2015 Other obesity due to excess calories ICD-10: E66.09 ICD-9: 278.00 09/21/2015 Essential (primary) hypertension ICD -10: I10 ICD-9: 401.9 09/21/2015 Mixed hyperlipidemia ICD-10: E78.2 ICD-9: 272.2 09/21/2015 CELLULITIS OF LEG ICD-9: 682.6 11/25/2013 Cough ICD-9: 786.2 11/24 FEVER NOS ICD-9: 780.60 11/24/2013 EDEMA ICD-9: 782.3 11/24 SCABIES ICD-9: 133.0 DIABETES TYPE II SNOMED: 695928041 ICD-9: 250.00 07/01/2013 Abrasion of leg ICD-9: 916.0 11/26/2012 Hypotension ICD-9: 458.9 11/16/2012 Hordeolum externum of right eye ICD- 9: 373.11 04/07/2012 Periorbital cellulitis ICD-9: 373.13 04/07/2012 ESSENTIAL HYPERTENSION SNOMED: 78738 000 ICD-9: 401.9 11/14/2011 Leg pain ICD-9: [...] Item Item Code Result Date Comp Metabolic Etk024 NA 133 mEq/L 11/17/2015 Comp Metabolic Zyw960 K 4.5 mEq/L 11/17/2015 Comp Metabolic Gha621 CL 101 mEq/L 11/17/2015 Comp Metabolic Lqk974 CO2 22.0 mEq/L 11/17/2015 Comp Metabolic Huk793 AN ION GAP 15 11/17/2015 Comp Metabolic Dxi934 GL UCOSE 197 mg/dL 11/17/2015 Comp Metabolic Mio986 Cr eat 0.8 mg/dL 11/17/2015 Comp Metabolic Voa081 eG FR 110 ml/min/1.73m2 10/20 Comp Metabolic Bwz981 BUN 20 mg/dL 11/17/2015 Comp Metabolic Cyp309 B/ C Ratio 25.6 Ratio 11/17/2015 Comp Metabolic Yca329 CA LCIUM 9.4 mg/dL 11/17/2015 Comp Metabolic Qhf411 AL K PHOS 65 U/L 11/17/2015 Comp Metabolic Nkl238 T(SGOT) 22 U/L 11/17/2015 Comp Metabolic Pnu835 AL T(SGPT) 40 U/L 11/17/2015 Comp Metabolic Fio635 BI LI T 0.5 mg/dL 11/17/2015 Comp Metabolic Pai910 AL BUMIN 4.2 g/dL 11/17/2015 Comp Metabolic Jte740 TP RO 7.0 g/dL 11/17/2015 Comp Metabolic Jnh576 GL OB 2.8 g/dL 11/17/2015 Comp Metabolic Mgz031 A/ G Ratio 1.5 Ratio 11/17/2015 Comp Metabolic Jmx145 Os mo 274 mOsmo 11/17/2015 Cbc With [...] 29.6 pg 11/17/2015 Cbc With Differential Ord2 [place]% 7.0 % 11/17/2015 Cbc With Differential Ord2 [...] 0.68 K/ul 11/17/2015 Cbc With Differential Ord2 [place] ABS# 1.1 K/ul 11/17/2015 Cbc With Differential [...] 24.4 % 11/08/2015 Cbc With Differential Ord2 [place]% 10.2 % 11/08/2015 Cbc With Differential Ord2 [...] 2.10 K/ul 11/08/2015 Cbc With Differential Ord2 [place] ABS# 0.9 K/ul 11/08/2015 Cbc With Differential Ord2 Eos ABS# 0.1 K/ul 11/08/2015 Cbc With Differential Ord2 Baso ABS# 0.0 K/ul 11/08/2015 Microalbumin Rhy041 Micr oAlb <0.7 mg/dL 11/08/2015 Tsh Ord6 hTSH II 0.65 uIU/mL 11/08/2015 Lipid Ord30 CHOL 157 mg/dL 11/08/2015 Lipid Ord30 HDL 30.0 mg/dl 11/08/2015 Lipid Ord30 TRIG 228 mg/dL 11/08/2015 Lipid Ord30 LDL 81 mg/dL 11/08/2015 Lipid Ord30 C/HDL 5.2 Ratio 11/08/2015 Comp Metabolic Lcs657 NA 130 mEq/L 11/08/2015 Comp Metabolic Dso637 K 4.4 mEq/L 11/08/2015 Comp Metabolic Gcb677 CL 97 mEq/L 11/08/2015 Comp Metabolic Mfb755 CO2 27.0 mEq/L 11/08/2015 Comp Metabolic Mnl915 AN ION GAP 10 11/08/2015 Comp Metabolic Tdw126 GL UCOSE 175 mg/dL 11/08/2015 Comp Metabolic Yxd878 Cr eat 0.8 mg/dL 11/08/2015 Comp Metabolic Tke799 eG FR 104 ml/min/1.73m2 10/20 Comp Metabolic Mld869 BUN 26 mg/dL 11/08/2015 Comp Metabolic Hwz409 B/ C Ratio 31.7 Ratio 11/08/2015 Comp Metabolic Yrx681 CA LCIUM 9.3 mg/dL 11/08/2015 Comp Metabolic Wgc797 AL K PHOS 68 U/L 11/08/2015 Comp Metabolic Vqd773 T(SGOT) 26 U/L 11/08/2015 Comp Metabolic Exc859 AL T(SGPT) 42 U/L 11/08/2015 Comp Metabolic Gzo800 BI LI T 0.7 mg/dL 11/08/2015 Comp Metabolic Ycz635 AL BUMIN 4.3 g/dL 11/08/2015 Comp Metabolic Zrq097 TP RO 7.0 g/dL 11/08/2015 Comp Metabolic Mdw092 GL OB 2.7 g/dL 11/08/2015 Comp Metabolic Qcn334 A/ G Ratio 1.6 Ratio 11/08/2015 Comp Metabolic Ksv646 Os mo 270 mOsmo 11/08/2015 Total Psa Ord10 PSA 1.26 ng/mL 11/08/2015 %Hba1C Ero969 % HbA1c 38486-0 8.2 % 11/08/2015 %Hba1C Ofy045 Gluc Ave 189 mg/dL 11/08/2015 Lipid Ord30 CHOL 155 mg/dL 01/23/2015 Lipid Ord30 HDL 34.0 mg/dl 01/23/2015 Lipid Ord30 TRIG 198 mg/dL 01/23/2015 Lipid Ord30 LDL 81 mg/dL 01/23/2015 Lipid Ord30 C/HDL 4.6 Ratio 01/23/2015 Hepatic Gbo713 ALBUMIN 4.2 g/dL 01/23/2015 Hepatic Irz646 TPRO 6.9 g/dL 01/23/2015 Hepatic Qnq589 GLOB 2.7 g/dL 01/23/2015 Hepatic Fhc224 A/G Ratio 1.6 Ratio 01/23/2015 Hepatic Api299 ALK PHOS 59 U/L 01/23/2015 Hepatic Zph586 ALT(SGPT) 46 U/L 01/23/2015 Hepatic Ccm622 AST(SGOT) 21 U/L 01/23/2015 Hepatic Lca302 BILI T 0.5 mg/dL 01/23/2015 Hepatic Bna848 BILI D 0.1 mg/dL 01/23/2015 Hepatic Ndp017 BILI I 0.4 mg/dL 01/23/2015 Review of [...] station 05/17/2013 None Full Exam - General 1995 [...] masses 11/16/2012 None Full Exam - General 1995 Respiratory auscultation Overall: breath sounds clear bilaterally 11/16/2012 None Full Exam - General 1995 Respiratory respiratory effort/rhythm Overall: no retractions 11/16/2012 [...] age 0508/27/2012 None Full Exam - General 1995 Eyes conjunctiva/eyelids Overall: conjunctiva clear 08/27/2012 None [...] time 04/07/2012 None Full Exam - General 1995 Eyes conjunctiva/eyelids Conjunctiva: erythema 04/07/2012 None Full [...] abdomen, and back Full Exam - General 1995 Abdomen abdominal exam Overall: no tenderness 10/29/2011 [...] Codes Date ROCEPHIN, PER 250 MG CPT-4: S1026Krxshld 11/17/2015 THER/PROPH/DIAG INJ SC/IM CPT-4: 45436Aryabsw 11/25/2013 ROCEPHIN, PER 250 MG CPT-4: H5096Znvzymz 11/25/2013 ROCEPHIN, PER 250 MG CPT-4: L7974Zzupdlh 11/24/2013 THER/PROPH/DIAG INJ SC/IM CPT-4: 59163Zelxfmf 11/24/2013 ROCEPHIN, PER 250 MG CPT-4: D5840Amdzdbf 04/07/2012 THER/PROPH/DIAG INJ SC/IM CPT-4: 72465Tserbbg 04/07/2012 Vital Signs Date Vital 11/17/2015 Blood Pressure 1: 112/82 Code: 8480-6 BMI: 44.6 Code: 52826-7 Heart Rate 1: 100 bpm Height: 5'7" SpO2: 96% Temperature: 37.3 (C ) / 99.1 (F) Weight: 285 lbs 09/21/2015 Blood Pressure 1: 132/72 Code: 8480-6 BMI: 44.0 Code: 93115-8 Heart Rate 1: 86 bpm Height: 5'7" SpO2: 97% Weight: 281 lbs 11/24/2013 Blood Pressure 1: 138/78 Code: 8480-6 Heart Rate 1: 96 bpm Temperature: 36.7 (C) / 98.0 (F) Weight: 280 lbs 10/15/2013 Blood Pressure 1: 124/70 Code: 8480-6 BMI: 43.2 Code: 85678-3 Heart Rate 1: 64 bpm Height: 5'7" [...] Name Status Resu lt Effective Date Notes cellulitis Quality acute 11/17/2015 [...] of immodium." States he ate at the [employer] and had ribs/chicken/pot roast. nausea Frequency of Episodes decreasing 10/29/2011 States he ate a pot pie l ast night and did not vomit afterwards. nausea Triggers no known associated factors 10/29/2011 None cellulitis Onset and Resolution ongoing 10/29/2011 States he did go to [employer] on Friday and he was walking around [...] Encounters Encounter Performer Loca tion Codes Date ([id number]) [id number] EST. P ATIENT, LEVEL IV Diagnosis: Cellulitis of left lower limb[ICD10: L03.116] Diagnosis: Localized edema[ICD10: R60.0] Diagnosis: Type 2 diabetes mellitus without complications[ICD10: E11.9] Akosua Price MD, [facility] CPT-4: 89324 11/17/2015 ([id number]) 04811 EST. P ATIENT, LEVEL IV Diagnosis: Essential (primary) hypertension[ICD10: I10] Diagnosis: Type 2 diabetes mellitus without complications[ICD10: E11.9] Diagnosis: Mixed hyperlipidemia[ICD10: E78.2] Diagnosis: Other obesity due to excess calories[ICD10: E66.09] Sandy Price MD, [facility] CPT-4: 66177 09/21/2015 ([id number]) 99506 EST. P ATIENT, LEVEL III Diagnosis: CELLULITIS OF LEG[ICD9: 682.6] Diagnosis: EDEMA[ICD9: 782.3] Diagnosis: FEVER NOS[ICD9: 780.60] Diagnosis: Cough[ICD9: 786.2] Akosua Price MD, [facility] CPT-4: 63013 11/24/2013 ([id number]) 36584 EST. P ATIENT, LEVEL III Diagnosis: SCABIES[ICD9: 133.0] Sandy Price MD, [facility] CPT-4: 49395 10/15/2013 ([id number]) 50723 EST. P ATIENT, LEVEL III Diagnosis: DIABETES TYPE II[SNOMED: 533041496] Akosua Price MD, [facility] CPT- 4: 86202 07/01/2013 ([id number]) 67297 EST. P ATIENT, LEVEL III Diagnosis: CELLULITIS OF LEG[ICD9: 682.6] Sandy Price MD, [facility] CPT- 4: 54574 05/17/2013 ([id number]) 61923 EST. P ATIENT, LEVEL III Diagnosis: CELLULITIS OF LEG[ICD9: 682.6] Diagnosis: Abrasion of leg[ICD9: 916.0] Akosua Price MD, [facility] CPT-4: 07000 11/26/2012 ([id number]) 78465 EST. P ATIENT, LEVEL IV Diagnosis: EDEMA[ICD9: 782.3] Diagnosis: CELLULITIS OF LEG[ICD9: 682.6] Diagnosis: Hypotension[ICD9: 458.9] Akosua Price MD, [facility] CPT-4: 02223 11/16/2012 ([id number]) 35093 EST. P ATIENT, LEVEL IV Diagnosis: EDEMA[ICD9: 782.3] Diagnosis: CELLULITIS OF LEG[ICD9: 682.6] Diagnosis: DIABETES TYPE II[SNOMED: 937184732] Akosua Price MD, [facility] CPT- 4: 96614 08/27/2012 ([id number]) [id number] EST. P ATIENT, LEVEL III Diagnosis: Hordeolum externum of right eye[ICD9: 373.11] Akosua Price MD, [facility] CPT-4: 94933 04/07/2012 ([id number]) 47116 EST. P ATIENT, LEVEL IV Diagnosis: ESSENTIAL HYPERTENSION[SNOMED: 07391015] Diagnosis: DIABETES TYPE II[SNOMED: 956779969] Akosua Price MD, [facility] CPT- 4: 46452 11/14/2011 ([id number]) Patient adm itted to the hospital from clinic (NO CHARGE) Diagnosis: Cellulitis of left leg[ICD9: 682.6] Diagnosis: Hypotension[ICD9: 458.9] Diagnosis: Nausea vomiting and diarrhea[ICD9: 787.01] Diagnosis: Leg pain[ICD9: 729.5] Diagnosis: Anticoagulant long-term use[ICD9: V58.61] Diagnosis: Coronary artery disease[ICD9: 414.00] Sandy Price MD, [facility] CPT-4: 56231Y 10/29/2011 Plan of Care Planned Activity Notes C odes Status Date Visit Plan: Cellulitis - start oral abx as directed-rocephin injection today in the office, follow up as directed, call for acute change in symptoms, worsening redness, warmth, discharge.Edema - pt has been advised to elevate legs to prevent dependent edema, compression has been recommended to help to naturally decrease peripheral edema. Diuretic use has been discussed and pt has been instructed in appropriate use of such medication as necessary to further attempt to reduce peripheral edema.Diabetes Mellitus - decrease metformin to 1/2 tab twice daily x 1 week and then increase dose as directed-take probiotic twice daily for diarrhea-monitor blood sugars closely. 11/17/2015 Appointment: Sandy Tong WPtel: [phone] [id number] (15 min) Moderate 11/17/2015 Patient Education: Patient Medication Summary Completed 11/17/2015 Patient Education: Obesity Completed 11/17/2015 Visit Plan: Hypertension - well controll ed - continue with current medications, continue with no added salt diet. Pt has been encouraged to exercise daily.The pt has been advised to call the office if there are any acute concerns about change in blood pressure readings at home.Diabetes Mellitus - controlled - per recent FSBS [...] glucose readings are starting to become less controlled.Hyperlipidemia - pt has been counseled about appropriate [...] and to assure normal liver response to medications.Obesity - chronic issue with this patient. The pt has been counseled about diet changes, calorie restriction, and need to exercise. Pt will RTC in one month for weight check. 09/21/2015 Appointment: Sandy Tong WPtel: [phone] (30 min) Complex 09/21/2015 Patient Education: Patient Medication Summary Completed 09/21/2015 Patient Education: Obesity Completed 09/21/2015 Care Plan: BMI Above normal followup [facility] F-MGMT EDUC & TRAIN 1 PT Pending 09/21/2015 Patient Education: Patient Medication Summary Completed 11/25/2013 Visit Plan: Cellulitis - continue with o ral antibiotics as previously directed, return to clinic as previously directed, call for acute change in symptoms, worsening redness, warmth, discharge.Pt to start on generic bactrim - take twice daily x 2 weeks, and call if symptoms are not improving.Cough and fever, likely due to sinus congestion - the patient's antibiotic should cover his cellulitis and sinus infection. 11/24/2013 Patient Education: Patient Medication Summary Completed 11/24/2013 Visit Plan: Scabies-discussed diagnosis with patient-recommend washing all bedding, clean and vaccuum thoroughly-use oral antihistamine for the severe itching. [facility] and instructed on use. Patient verbalized understanding of plan. 10/15/2013 Appointment: rash 10/15/2013 Patient Education: Patient Medication Summary Completed 10/15/2013 Visit Plan: Diabetes Mellitus - Uncontro lled - per recent FSBS reports. I have [...] glucose readings are starting to become less controlled.I have recommended for the patient to follow more strictly to the diabetic diet as discussed in clinic to allow for greater blood glucose control.Cellulitis of yol-slwkuwol-tkxl if symptoms return 07/01/2013 Appointment: Sandy Tong WPtel: [address] [place] [address] 07/01/2013 Patient Education: Patient Medication Summary Completed 07/01/2013 Appointment: Sandy Tong WPtel: [address] [place], [place] [id number] [place] [address] Follow up 06/29/2013 Appointment: Akosua Price WPtel: [address] [place], [place] [id number] follow up 06/28/2013 Visit Plan: Cellulitis - continue with o ral antibiotics as previously directed, return to clinic as previously directed, call for acute change in symptoms, worsening redness, warmth, discharge.HTN-blood pressure elevated-instructed patient to monitor at home and bring in readings for review in 2-3 weeks. Patient verbalized understanding of plan. 05/17/2013 Patient Education: Patient Medication Summary Completed 05/17/2013 Visit Plan: Cellulitis and abrasion-impr oving-continue bactrim x 5 days-continue topical antibiotic ointment as previously dncsdgmiQxqwybgrznh-hjkkfhrz-bdmzitl blood pressure at home. 11/26/2012 Appointment: Sandy Tong WPtel: [facility]5 [phone] Follow up 11/26/2012 Patient Education: Patient Medication Summary Completed 11/26/2012 Visit Plan: Cellulitis - continue with o ral antibiotics as previously directed, return to clinic as previously directed, call for acute change in symptoms, worsening redness, warmth, discharge.CONTINUE WITH KEFLEX AND MONITOR SYMPTOMS, IF NOT BETTER, CALL OFFICE EJFERSON.HYPOTENSION - PT TO DECREASE LISIONPRIL TO 1/2 PILL DAILY AND CHECK BLOOD PRESSURES TWICE DAILY AND CALL WITH RESULTS.EDEMA - ELEVATE LEGS. 11/16/2012 Appointment: Akosua Price WPtel: [facility]5 [facility]66[facility] Other 11/16/2012 Patient Education: Patient Medication Summary Completed 11/16/2012 Visit Plan: Edema - pt has been advised to elevate legs to prevent dependent edema, compression has been recommended to help to naturally decrease peripheral edema. Diuretic use has been discussed and pt has been instructed in appropriate use of such medication as necessary to further attempt to reduce peripheral edema.Phpmrkzzab-mrihiydo-kzek for symptoms Diabetes Mellitus - controlled - [...] less controlled. 08/27/2012 Appointment: Sandy Tong WPtel: [facility]5 [phone] Follow up 08/27/2012 Patient Education: Patient Medication Summary Completed 08/27/2012 Visit Plan: Cellulitis - continue with o ral antibiotics as directed, return to clinic as previously directed, call for acute change in symptoms, worsening redness, warmth, discharge. 04/07/2012 Appointment: Akosua Price WPtel: [facility]5 [facility] [place] Other 04/07/2012 Patient Education: Patient Medication Summary Completed 04/07/2012 Visit Plan: Diabetes Mellitus - controll ed - per recent FSBS reports. I have [...] glucose readings are starting to become less controlled.Pt is to bring in the blood sugars in two weeks. Hypertension - well controlled - continue with current medications, continue with no added salt diet. Pt has been encouraged to exercise daily.The pt has been advised to call the office if there are any acute concerns about change in blood pressure readings at home. 2011 Appointment: Akosua Price WPtel: [facility]7 [facility] Other 11/14/2011 Appointment: Akosua Price WPtel: [phone] [facility] Other 11/14/2011 Patient Education: Patient Medication Summary Completed 11/14/2011 Patient Education: High Blood Pressure: Essential Hypertension Completed 11/14/2011 Visit Plan: Admission to Hospital -cellu litis left lower leg/hypotension/n/v/d - Dr Price in to evaluate patient as patient has diagnosis of acute illness necessitating hospital admission from the clinic. I have discussed the diagnosis and need for further work-up and acute hospital stay for the patient's health benefit.Nausea and emesis - pt will be started on IV fluids and symptoms monitored, if needed will then start antiemetics.Diarrhea - monitor output, DR to be called [...] HPI, physical exam, and the assessment and plan.Leg pain - check venous dopplers, lovenox to be given and coumadin dose to be adjusted as needed. 10/29/2011 Visit Plan: Admission to Hospital -cellu litis left lower leg/hypotension/n/v/d - Dr Price in to evaluate patient as patient has diagnosis of acute illness necessitating hospital admission from the clinic. I have discussed the diagnosis and need for further work-up and acute hospital stay for the patient's health benefit. 10/29/2011 Appointment: Ran Sandy WPtel: [facility]1 [phone] Other 10/29/2011 Patient Education: Patient Medication Summary Completed 10/29/2011 Instructions Comment . Edema - pt has bee n advised to elevate legs to prevent dependent edema, compression has been recommended to help to naturally decrease peripheral edema. Diuretic use has been discussed and pt has been instructed in appropriate use of such medication as necessary to further attempt to reduce peripheral edema. Czacfesxpc-ndhjcmgi-klnc for symptoms Diabetes Mellitus - controlled - [...] become less controlled. . Cellulitis and abr xjyfx-gvjegxkcg-zupfwdzn bactrim x 5 days-continue topical antibiotic ointment as previously directed Tbaynknkfhn-xsygqhmj-gdrjqiy blood pressure at home. . Diabetes Mellitus [...] for greater blood glucose control. Cellulitis of pob-ogiljwcl-pjbl if symptoms return labs-cbc, cmp bactrim ds [...] itching. [facility] permethrin cream [facility] and instructed on use. Patient [...] verbalized understanding of plan. . Admission to [facility] -cellulitis left lower leg/hypotension/n/v/d -Dr Price [...] be adjusted as needed. . Admission to [facility] -cellulitis left lower leg/hypotension/n/v/d -Dr Price [...]
--- OUTSIDE RECORDS SUMMARY | 2019-07-19 20:04 | XMS REPORT | CCD ---
Author Author Claudy Tong Organization [facility] Address [address] [place] [address] Phone Care Team Providers Care Technical Services Assistant Name Role Phone PP Unavailable CCM Unavailable Summary Purpose Interface Exchange Insurance Providers Payer name Policy type / Coverage type Covered democrat ID Effective Begin Date Effective End Date [facility] Commercial Insurance [id number] Unknown Family history Father Diagnosis Age At Onset Congestive heart failure Unknown Mother Diagnosis Age At Onset No Family Disease Entered N/A Sister Diagnosis Age At Onset No Family Disease Entered N/A Social History Social History Element Codes Description Effective Dates Tobacco history SNOMED CT: 2298195 Former smoker 10/29/2011 Number of years using [...] Date Stop Date Sta tus Fill Instructions lisinopril 40 mg tablet RxNorm: 767027 TAKE ONE-HALF (1/2) TABLET DAILY 08/11/2018 No Stop Date Active Januvia 100 mg tablet RxNorm: 440324 Tablet(s) TAKE 1 TABLET DAILY 08/06/2018 No Stop Date Active Trilipix 135 mg caps ule,delayed release RxNorm: 264208 TAKE 1 CAPSULE DAILY 04/20/2018 No Stop Date Active spironolactone 25 mg tablet RxNorm: 621826 TAKE ONE-HALF (1/2) T ABLET DAILY 04/20/2018 08/05/2018 In active lisinopril 40 mg tablet RxNorm: 079036 TAKE ONE-HALF (1/2) TABLET DAILY 02/25/2018 08/10/2018 In active metformin 500 mg tablet RxNorm: 756247 Tablet(s) TAKE ONE TABLET BY MOUTH TWICE DAILY 11/14/2017 11/08/2018 Active carvedilol 25 mg tablet RxNorm: 032047 TAKE ONE TABLET BY MOUTH TWICE DAILY 06/06/2017 No Stop Date Active metformin 500 mg tablet RxNorm: 786090 TAKE ONE TABLET BY MOUTH TWICE DAILY 06/06/2017 11/13/2017 In active Januvia 100 mg tablet RxNorm: 500608 TAKE 1 TABLET DAILY 04/29/2017 08/05/2018 Inactive Trilipix 135 mg caps ule,delayed release RxNorm: 089991 TAKE 1 CAPSULE DAILY 04/22/2017 04/19/2018 In active spironolactone 25 mg tablet RxNorm: 011698 TAKE ONE-HALF (1/2) T ABLET DAILY 02/11/2017 04/19/2018 In active Januvia 100 mg tablet RxNorm: 107691 TAKE 1 TABLET DAILY 01/21/2017 04/28/2017 Inactive lisinopril 40 mg tablet RxNorm: 797197 TAKE ONE-HALF (1/2) TABLET DAILY 12/24/2016 02/24/2018 In active nystatin 100,000 uni t/gram topical powder RxNorm: 822239 1 Application TOP BID 11/11/2016 08/05/2018 In active Trilipix 135 mg caps ule,delayed release RxNorm: 445711 TAKE 1 CAPSULE DAILY 11/11/2016 04/21/2017 In active carvedilol 25 mg tablet RxNorm: 125707 TAKE ONE TABLET BY MOUTH TWICE DAILY 09/23/2016 03/21/2017 In active metformin 500 mg tablet RxNorm: 077369 1 Tablet(s) PO BID 04/09/2016 01/03/2017 Inactive metformin 500 mg tablet RxNorm: 958938 TAKE ONE TABLET BY MOUTH TWICE DAILY 04/09/2016 05/08/2016 In active carvedilol 25 mg tablet RxNorm: 134027 TAKE ONE TABLET BY MOUTH TWICE DAILY 03/25/2016 09/20/2016 In active metformin 500 mg tablet RxNorm: 655814 1 Tablet(s) BID 01/30/2016 04/08/2016 Inactive metformin 500 mg tablet RxNorm: 942629 1 Tablet(s) PO BID 01/26/2016 01/29/2016 Inactive digoxin 250 mcg tablet RxNorm: 447286 TAKE ONE-HALF (1/2) TABLET DAILY 01/15/2016 08/05/2018 In active Trilipix 135 mg caps ule,delayed release RxNorm: 555080 TAKE 1 CAPSULE DAILY 01/01/2016 11/10/2016 In active spironolactone 25 mg tablet RxNorm: 661314 TAKE ONE-HALF (1/2) T ABLET DAILY 12/26/2015 02/10/2017 In active lisinopril 40 mg tablet RxNorm: 659174 TAKE ONE-HALF (1/2) TABLET DAILY 12/18/2015 12/23/2016 In active Januvia 100 mg tablet RxNorm: 362170 TAKE 1 TABLET DAILY 11/20/2015 01/20/2017 Inactive ceftriaxone 500 mg s olution for injection RxNorm: 1748738 Inj 11/17/2015 11/17/2015 Inactive Bactrim DS 800 mg-16 0 mg tablet RxNorm: 974366 1 Tablet(s) PO BID 11/17/2015 11/23/2015 Inactive metformin 500 mg tablet RxNorm: 024345 1 Tablet(s) PO BID 11/15/2015 01/25/2016 Inactive increase Aspir-81 81 mg table t,delayed release RxNorm: 586658 1 Tablet(s) PO daily 09/21/2015 No Stop Date Active metformin 500 mg tablet RxNorm: 277626 1/2 Tablet(s) PO BID Tablet(s) TAKE ONE- HALF TABLET BY MOUTH TWICE DAILY 09/21/2015 11/14/2015 Inactive carvedilol 25 mg tablet RxNorm: 223542 1 Tablet(s) PO BID 09/21/2015 03/18/2016 Inactive Trilipix 135 mg caps ule,delayed release RxNorm: 061182 CAPSULE(S) TAKE 1 CAP KRISH DAILY 07/04/2015 12/31/2015 Inactive Contour Test Strips RxNorm: USE TO TEST EVERY MORNING AND EVERY EVEN ING DIRECTED 06/23/2015 No Stop Date Active metformin 500 mg tablet RxNorm: 797722 Tablet(s) TAKE ONE-HALF TABLET BY MOUTH TWICE DAILY 06/01/2015 06/30/2015 Inactive metformin 500 mg tablet RxNorm: 355497 Tablet(s) TAKE ONE-HALF TABLET BY MOUTH TWICE DAILY 02/16/2015 05/31/2015 Inactive lisinopril 40 mg tablet RxNorm: 918947 TAKE ONE-HALF (1/2) TABLET DAILY 01/10/2015 12/17/2015 In active metformin 500 mg tablet RxNorm: 046098 Tablet(s) TAKE ONE-HALF TABLET BY MOUTH TWICE DAILY 11/22/2014 03/21/2015 Inactive metformin 500 mg tablet RxNorm: 395287 Tablet(s) TAKE ONE-HALF TABLET BY MOUTH TWICE DAILY 11/21/2014 11/21/2014 Inactive digoxin 250 mcg tablet RxNorm: 100032 Tablet(s) TAKE ONE-HALF (1/2) TABLET PHILLIP LY 11/14/2014 08/10/2015 In active spironolactone 25 mg tablet RxNorm: 316212 TAKE ONE-HALF (1/2) T ABLET DAILY 10/26/2014 12/25/2015 In active spironolactone 25 mg tablet RxNorm: 778054 Tablet(s) TAKE ONE-BRINK LF (1/2) TABLET DAILY 10/25/2014 10/25/2014 Inactive Januvia 100 mg tablet RxNorm: 892145 TAKE 1 TABLET DAILY 09/20/2014 11/19/2015 Inactive Bactrim DS 800 mg-16 0 mg tablet RxNorm: 970442 1 Tablet(s) PO BID TA KE ONE TABLET BY MOUTH TWICE DAILY 09/20/2014 09/26/2014 Inactive Contour Test Strips RxNorm: USE TO TEST EVERY MORNING AND EVERY EVEN ING DIRECTED 08/08/2014 06/22/2015 Inactive Trilipix 135 mg caps ule,delayed release RxNorm: 402062 Capsule(s) TAKE 1 CAP KRISH DAILY 07/27/2014 01/22/2015 Inactive metformin 500 mg tablet RxNorm: 989974 Tablet(s) TAKE ONE-HALF TABLET BY MOUTH TWICE DAILY 06/06/2014 06/05/2014 Inactive metformin 500 mg tablet RxNorm: 460902 TAKE ONE-HALF TABLET BY MOUTH TWICE SERGIO Y 06/06/2014 09/03/2014 In active digoxin 250 mcg tablet RxNorm: 421861 TAKE ONE-HALF (1/2) TABLET DAILY 04/28/2014 11/13/2014 In active spironolactone 25 mg tablet RxNorm: 643622 TAKE ONE-HALF (1/2) T ABLET DAILY 04/28/2014 10/24/2014 In active Trilipix 135 mg caps ule,delayed release RxNorm: 834400 TAKE 1 CAPSULE DAILY 04/28/2014 07/26/2014 In active Januvia 100 mg tablet RxNorm: 626164 TAKE 1 TABLET DAILY 03/30/2014 09/19/2014 Inactive metformin 500 mg tablet RxNorm: 565051 TAKE ONE-HALF TABLET BY MOUTH TWICE SERGIO Y 01/11/2014 06/05/2014 In active Januvia 100 mg tablet RxNorm: 214333 1 TABLET(S) PO DAILY TAKE ONE TABLET BY MOUTH EVERY DAY 12/30/2013 03/29/2014 Inactive Bactroban 2 % topica l ointment RxNorm: 032177 1 TOP BID 12/08/2013 No Stop Date Active sulfamethoxazole 800 mg-trimethoprim 160 mg tablet RxNorm: 189400 1 Tablet(s) PO BID 12/08/2013 12/17/2013 Inactive sulfamethoxazole 800 mg-trimethoprim 160 mg tablet RxNorm: 781266 1 Tablet(s) PO BID 12/08/2013 12/07/2013 Inactive lisinopril 40 mg tablet RxNorm: 541984 1/2 Tablet(s) PO daily 12/02/2013 03/01/2014 Inactive lisinopril 40 mg tablet RxNorm: 736566 1/2 Tablet(s) PO daily 1/2 TABLET(S) PO DAILY 12/02/2013 01/30/2014 Inactive ceftriaxone 1 gram s olution for injection RxNorm: 417329 Inj 11/25/2013 11/25/2013 Inactive Rocephin 500 mg solu tion for injection RxNorm: 445466 1 Gram(s) Inj once 11/24/2013 11/24/2013 In active sulfamethoxazole 800 mg-trimethoprim 160 mg tablet RxNorm: 715554 1 Tablet(s) PO BID 11/24/2013 12/07/2013 Inactive permethrin 5 % topic al cream RxNorm: 134873 1 Application TOP daily 10/19/2013 08/05/2018 Inactive apply head to toe, leave on 12 hours the n wash off, may repeat x 1 if needed permethrin 5 % topic al cream RxNorm: 251982 1 Application TOP daily 10/15/2013 10/18/2013 Inactive apply head to toe, leave on 12 hours the n wash off, may repeat x 1 if needed metformin 500 mg tablet RxNorm: 734506 TAKE ONE-HALF TABLET BY MOUTH TWICE SERGIO Y 10/05/2013 01/02/2014 In active Contour Test Strips RxNorm: Miscellaneous USE TO TEST BLOOD SUGAR TW ICE A DAY 06/28/2013 08/07/2014 In active spironolactone 25 mg tablet RxNorm: 331383 Tablet(s) PO TAKE ONE -HALF (1/2) TABLET DAILY 06/18/2013 04/27/2014 Inactive Trilipix 135 mg caps ule,delayed release RxNorm: 926875 Capsule(s) PO TAKE 1 CAPSULE DAILY 06/18/2013 04/27/2014 Inactive digoxin 250 mcg tablet RxNorm: 696529 Tablet(s) PO TAKE ONE-HALF (1/2) TABLET DAILY 06/18/2013 04/27/2014 Inactive metformin 500 mg tablet RxNorm: 510806 1/2 Tablet(s) PO BID 06/03/2013 09/30/2013 Inactive Microlet Lancet RxNorm: 1 Miscellaneous BID 05/31/2013 08/23/2014 Inactive Microlet Lancet RxNorm: 1 Miscellaneous BID 05/31/2013 05/30/2013 Inactive nystatin 100,000 uni t/gram topical powder RxNorm: 477070 1 Application TOP BID 05/31/2013 08/28/2013 In active Januvia 100 mg tablet RxNorm: 882795 1 Tablet(s) PO daily TAKE ONE TABLET BY MOUTH EVERY DAY 05/31/2013 11/26/2013 Inactive nystatin 100,000 uni t/gram topical powder RxNorm: 098433 1 Application TOP BID 05/17/2013 05/30/2013 In active Bactrim DS 800 mg-16 0 mg tablet RxNorm: 326834 1 Tablet(s) PO BID TA KE ONE TABLET BY MOUTH TWICE DAILY 05/17/2013 05/23/2013 Inactive Bactrim DS 800 mg-16 0 mg tablet RxNorm: 584282 Tablet(s) PO TAKE ONE TABLET BY MOUTH TWICE DAILY 12/03/2012 05/16/2013 Inactive Bactrim DS 800 mg-16 0 mg tablet RxNorm: 210400 1 Tablet(s) PO BID 11/26/2012 11/30/2012 Inactive lisinopril 40 mg tablet RxNorm: 425876 1/2 Tablet(s) PO daily 11/16/2012 12/01/2013 Inactive Januvia 100 mg tablet RxNorm: 941190 1 Tablet(s) PO daily TAKE ONE TABLET BY MOUTH EVERY DAY 11/16/2012 05/30/2013 Inactive lisinopril 40 mg tablet RxNorm: 637284 Tablet(s) PO TAKE 1 TABLET DAILY 10/24/2012 11/15/2012 In active Contour Test Strips RxNorm: Strip Miscellaneous USE TO TEST BLOOD [place]ARK [place]AR TWICE A DAY 10/24/2012 06/28/2013 Inactive Trilipix 135 mg caps ule,delayed release RxNorm: 554566 Capsule(s) PO TAKE 1 CAPSULE DAILY 10/14/2012 06/17/2013 Inactive Bactrim DS 800 mg-16 0 mg tablet RxNorm: 246618 1 Tablet(s) PO BID 10/07/2012 10/16/2012 Inactive Bactrim DS 800 mg-16 0 mg tablet RxNorm: 491701 1 Tablet(s) PO BID 10/07/2012 10/06/2012 Inactive Januvia 100 mg tablet RxNorm: 779650 1 Tablet(s) PO daily 09/21/2012 01/18/2013 Inactive may have #90 if cheaper digoxin 250 mcg tablet RxNorm: 3178701 1/2 tab MWF sat sun, 1 tab tues thurs Tablet(s) PO daily 1/2 tab MWF sat sun, 1 tab tues thurs 09/21/2012 09/20/2015 Inactive TAKE 1 TABLET DAILY digoxin 250 mcg tablet RxNorm: 5008063 1/2 Tablet(s) PO daily 04/07/2012 09/20/2012 Inactive TAKE 1 TABLET DAILY sulfamethoxazole-tri methoprim 800 mg-160 mg tablet RxNorm: 562929 1 Tablet(s) PO BID 04/07/2012 04/13/2012 Inactive Januvia 100 mg tablet RxNorm: 284031 1/2 Tablet(s) PO daily 04/07/2012 08/04/2012 Inactive may have #90 if cheaper Rocephin 500 mg Solu tion for Injection RxNorm: 4082619 1 Inj 04/07/2012 04/07/2012 Inactive Gentak 0.3 % Eye Drops RxNorm: 087065 3 Drop(s) OPH QID 3 drops 4 times daily x 7 days 04/07/2012 04/13/2012 Inactive spironolactone 25 mg tablet RxNorm: 230140 1/2 Tablet(s) PO daily 04/07/2012 06/17/2013 Inactive TAKE 1 TABLET DAILY Coumadin 5 mg tablet RxNorm: 706275 Tablet(s) PO Luz manages 02/28/2012 08/26/2012 Inactive 7.5 mg mon wed [id number] other daysDr. Tara villar manages Januvia 100 mg tablet RxNorm: 374058 1 Tablet(s) PO 02/20/2012 11/16/2012 Inactive may have #90 if cheaper Trilipix 135 mg caps ule,delayed release RxNorm: 951130 Capsule(s) PO 02/10/2012 06/16/2012 Inactive TAKE 1 CAPSULE DAILY digoxin 250 mcg tablet RxNorm: 378755 Tablet(s) PO 02/10/2012 04/06/2012 Inactive TAKE 1 TABLET DAILY spironolactone 25 mg tablet RxNorm: 514016 Tablet(s) PO 02/10/2012 04/06/2012 Inactive TAKE 1 TABLET DAILY simvastatin 80 mg ta blet RxNorm: 286454 Tablet(s) PO 12/03/2011 11/15/2012 Inactive TAKE ONE- HALF TABLET BY MOUTH EVERY DAY Januvia 50 mg tablet RxNorm: 142845 1 Tablet(s) PO daily 11/14/2011 02/19/2012 Inactive simvastatin 80 mg ta blet RxNorm: 944205 1/2 Tablet(s) PO daily 11/07/2011 12/02/2011 Inactive lisinopril 40 mg tablet RxNorm: 586668 1 Tablet(s) PO daily 11/07/2011 12/06/2011 Inactive spironolactone 25 mg tablet RxNorm: 792200 1 Tablet(s) PO daily 12/17/2010 03/16/2011 Inactive digoxin 250 mcg tablet RxNorm: 041240 1 Tablet(s) PO daily 12/17/2010 03/16/2011 Inactive Trilipix 135 mg caps ule,delayed release RxNorm: 267464 1 Capsule(s) PO daily 12/17/2010 03/16/2011 In active Lipitor 40 mg tablet RxNorm: 595621 1 Tablet(s) PO daily No Start Date Active Fish Oil 1,000 mg Cap RxNorm: 3 Capsule(s) PO daily No Start Date Active Trilipix 135 mg Caps ule, delayed release RxNorm: 780239 1 Capsule(s) PO daily No Start Date Active bumetanide 1 mg Tab RxNorm: 121142 Tablet(s) PO PRN No Start Date Active Xarelto 20 mg tablet RxNorm: 4507232 1 Tablet(s) PO daily No Start Date Active simvastatin 80 mg ta blet RxNorm: 052264 1/2 Tablet(s) PO daily No Start Date 11/06/2011 Inactive spironolactone 25 mg Tab RxNorm: 379195 1 Tablet(s) PO daily No Start Date 08/05/2018 Inactive metformin 500 mg tablet RxNorm: 463540 1/2 Tablet(s) PO BID No Start Date 06/02/2013 Inactive carvedilol 25 mg Tab RxNorm: 629984 1 Tablet(s) PO BID No Start Date 09/20/2015 Inactive aspirin 325 mg tablet RxNorm: 931064 1 Tablet(s) PO daily No Start Date 09/20/2015 Inactive digoxin 250 mcg Tab RxNorm: 0466949 1/2 Tablet(s) PO daily No Start Date 09/20/2015 Inactive Coumadin 5 mg tablet RxNorm: 620135 Tablet(s) PO No Start Date 02/27/2012 Inactive 7.5 mg fri [id number] other days Bactroban 2 % topica l ointment RxNorm: 533406 1 TOP BID No Start Date 12/07/2013 Inactive Contour Test Strips RxNorm: 1 Miscellaneous BID No Start Date 10/23/2012 Inactive coun tour ts lisinopril 40 mg tablet RxNorm: 528470 1 Tablet(s) PO daily No Start Date 11/06/2011 Inactive Medication Administered Medication Codes Instruc tions Start Date Status ceftriaxone 500 mg solution for injection RxNorm: 1887652 11/17/2015 No longer A ctive ceftriaxone 1 gram solution for injection RxNorm: 476876 11/25/2013 No longer A ctive Rocephin 500 mg solution for injection RxNorm: 861452 1Gramonce 11/24/2013 No longer Active Rocephin 500 mg Solution for Injection RxNorm: 6435931 1 04/07/2012 No longer A ctive Immunizations [...] SCABIES ICD-9: 133.0 DIABETES TYPE II SNOMED: 132709355 ICD-9: 250.00 07/01/2013 Abrasion of leg ICD-9: 916.0 11/26/2012 Hypotension ICD-9: 458.9 11/16/2012 Hordeolum externum of right eye ICD- 9: 373.11 04/07/2012 Periorbital cellulitis ICD-9: 373.13 04/07/2012 ESSENTIAL HYPERTENSION SNOMED: 88793 000 ICD-9: 401.9 11/14/2011 Leg pain ICD-9: [...] Item Item Code Result Date Comp Metabolic Ajj505 NA 135 mEq/L 08/06/2018 Comp Metabolic Wns207 K 4.4 mEq/L 08/06/2018 Comp Metabolic Pvp082 CL 97 mEq/L 08/06/2018 Comp Metabolic Hbe364 CO2 25.0 mEq/L 08/06/2018 Comp Metabolic Tnx644 AN ION GAP 17 08/06/2018 Comp Metabolic Uqf901 GL UCOSE 367 mg/dL 08/06/2018 Comp Metabolic Lgb078 Cr eat 0.7 mg/dL 08/06/2018 Comp Metabolic Fqg467 eG FR 119 ml/min/1.73m2 07/20 Comp Metabolic Esy505 BUN 21 mg/dL 08/06/2018 Comp Metabolic Mbz313 B/ C Ratio 29.2 Ratio 08/06/2018 Comp Metabolic Sdf317 CA LCIUM 9.1 mg/dL 08/06/2018 Comp Metabolic Klu225 AL K PHOS 67 U/L 08/06/2018 Comp Metabolic Tlm303 T(SGOT) 18 U/L 08/06/2018 Comp Metabolic Aoo402 AL T(SGPT) 33 U/L 08/06/2018 Comp Metabolic Xgp302 BI LI T 0.4 mg/dL 08/06/2018 Comp Metabolic Tzl884 AL BUMIN 4.2 g/dL 08/06/2018 Comp Metabolic Ruk925 TP RO 6.8 g/dL 08/06/2018 Comp Metabolic Qgw514 GL OB 2.6 g/dL 08/06/2018 Comp Metabolic Rrw819 A/ G Ratio 1.6 Ratio 08/06/2018 Comp Metabolic Mpi703 Os mo 288 mOsmo 08/06/2018 Tsh Ord6 [...] 29.5 pg 08/06/2018 Cbc With Differential Ord2 Blount% 11.5 % 08/06/2018 Cbc With Differential Ord2 [...] 1.31 K/ul 08/06/2018 Cbc With Differential Ord2 Blount ABS# 0.6 K/ul 08/06/2018 Cbc With Differential Ord2 Eos ABS# 0.0 K/ul 08/06/2018 Cbc With Differential Ord2 Baso ABS# 0.0 K/ul 08/06/2018 %Hba1C Jhj372 % HbA1c 11535-1 11.5 % 08/06/2018 %Hba1C Flg798 Gluc Ave 283 mg/dL 08/06/2018 Comp Metabolic Ire742 NA 133 mEq/L 11/17/2015 Comp Metabolic Ogl823 K 4.5 mEq/L 11/17/2015 Comp Metabolic Ogf289 CL 101 mEq/L 11/17/2015 Comp Metabolic Vvk717 CO2 22.0 mEq/L 11/17/2015 Comp Metabolic Hsp116 AN ION GAP 15 11/17/2015 Comp Metabolic Vli672 GL UCOSE 197 mg/dL 11/17/2015 Comp Metabolic Jkk660 Cr eat 0.8 mg/dL 11/17/2015 Comp Metabolic Yrp131 eG FR 110 ml/min/1.73m2 10/20 Comp Metabolic Sgk901 BUN 20 mg/dL 11/17/2015 Comp Metabolic Obw138 B/ C Ratio 25.6 Ratio 11/17/2015 Comp Metabolic Qkw461 CA LCIUM 9.4 mg/dL 11/17/2015 Comp Metabolic Rqf408 AL K PHOS 65 U/L 11/17/2015 Comp Metabolic Xwx713 T(SGOT) 22 U/L 11/17/2015 Comp Metabolic Zln700 AL T(SGPT) 40 U/L 11/17/2015 Comp Metabolic Gcv735 BI LI T 0.5 mg/dL 11/17/2015 Comp Metabolic Odi750 AL BUMIN 4.2 g/dL 11/17/2015 Comp Metabolic Zmy791 TP RO 7.0 g/dL 11/17/2015 Comp Metabolic Dpn861 GL OB 2.8 g/dL 11/17/2015 Comp Metabolic Gvk284 A/ G Ratio 1.5 Ratio 11/17/2015 Comp Metabolic Lbp794 Os mo 274 mOsmo 11/17/2015 Cbc With [...] 29.6 pg 11/17/2015 Cbc With Differential Ord2 Blount% 7.0 % 11/17/2015 Cbc With Differential Ord2 [...] 0.68 K/ul 11/17/2015 Cbc With Differential Ord2 Blount ABS# 1.1 K/ul 11/17/2015 Cbc With Differential [...] 29.4 pg 11/08/2015 Cbc With Differential Ord2 Blount% 10.2 % 11/08/2015 Cbc With Differential Ord2 [...] 2.10 K/ul 11/08/2015 Cbc With Differential Ord2 Blount ABS# 0.9 K/ul 11/08/2015 Cbc With Differential Ord2 Eos ABS# 0.1 K/ul 11/08/2015 Cbc With Differential Ord2 Baso ABS# 0.0 K/ul 11/08/2015 Microalbumin Mon325 Micr oAlb <0.7 mg/dL 11/08/2015 Tsh Ord6 hTSH II 0.65 uIU/mL 11/08/2015 Lipid Ord30 CHOL 157 mg/dL 11/08/2015 Lipid Ord30 HDL 30.0 mg/dl 11/08/2015 Lipid Ord30 TRIG 228 mg/dL 11/08/2015 Lipid Ord30 LDL 81 mg/dL 11/08/2015 Lipid Ord30 C/HDL 5.2 Ratio 11/08/2015 Comp Metabolic Bda320 NA 130 mEq/L 11/08/2015 Comp Metabolic Olu083 K 4.4 mEq/L 11/08/2015 Comp Metabolic Auc610 CL 97 mEq/L 11/08/2015 Comp Metabolic Oqe753 CO2 27.0 mEq/L 11/08/2015 Comp Metabolic Qdu996 AN ION GAP 10 11/08/2015 Comp Metabolic Chp397 GL UCOSE 175 mg/dL 11/08/2015 Comp Metabolic Avk079 Cr eat 0.8 mg/dL 11/08/2015 Comp Metabolic Chq119 eG FR 104 ml/min/1.73m2 10/20 Comp Metabolic Adm361 BUN 26 mg/dL 11/08/2015 Comp Metabolic Dxt665 B/ C Ratio 31.7 Ratio 11/08/2015 Comp Metabolic Bsx913 CA LCIUM 9.3 mg/dL 11/08/2015 Comp Metabolic Ury375 AL K PHOS 68 U/L 11/08/2015 Comp Metabolic Khd308 T(SGOT) 26 U/L 11/08/2015 Comp Metabolic Tqp424 AL T(SGPT) 42 U/L 11/08/2015 Comp Metabolic Bfy912 BI LI T 0.7 mg/dL 11/08/2015 Comp Metabolic Oaj051 AL BUMIN 4.3 g/dL 11/08/2015 Comp Metabolic Aqj566 TP RO 7.0 g/dL 11/08/2015 Comp Metabolic Ekx305 GL OB 2.7 g/dL 11/08/2015 Comp Metabolic Unb082 A/ G Ratio 1.6 Ratio 11/08/2015 Comp Metabolic Mqx623 Os mo 270 mOsmo 11/08/2015 Total Psa Ord10 PSA 1.26 ng/mL 11/08/2015 %Hba1C Bmm405 % HbA1c 52830-8 8.2 % 11/08/2015 %Hba1C Lbp602 Gluc Ave 189 mg/dL 11/08/2015 Lipid Ord30 CHOL 155 mg/dL 01/23/2015 Lipid Ord30 HDL 34.0 mg/dl 01/23/2015 Lipid Ord30 TRIG 198 mg/dL 01/23/2015 Lipid Ord30 LDL 81 mg/dL 01/23/2015 Lipid Ord30 C/HDL 4.6 Ratio 01/23/2015 Hepatic Cjx886 ALBUMIN 4.2 g/dL 01/23/2015 Hepatic Csd006 TPRO 6.9 g/dL 01/23/2015 Hepatic Bmk815 GLOB 2.7 g/dL 01/23/2015 Hepatic Bxw271 A/G Ratio 1.6 Ratio 01/23/2015 Hepatic Hmv165 ALK PHOS 59 U/L 01/23/2015 Hepatic Viw452 ALT(SGPT) 46 U/L 01/23/2015 Hepatic Nki604 AST(SGOT) 21 U/L 01/23/2015 Hepatic Dtu249 BILI T 0.5 mg/dL 01/23/2015 Hepatic Gjd942 BILI D 0.1 mg/dL 01/23/2015 Hepatic Hbh546 BILI I 0.4 mg/dL 01/23/2015 Review of [...] atraumatic 11/16/2012 None Full Exam - General 1995 [...] tenderness 08/27/2012 None Full Exam - General 1995 Abdomen abdominal exam Overall: normal bowel sounds 08/27/2012 None Full Exam - General 1995 Abdomen abdominal exam Contour: protuberant 08/27/2012 None Full Exam - General 1994 Musculoskeletal digits and nails Overall: no clubbing 08/27/2012 None Full Exam - General 1995 Musculoskeletal digits and nails Overall: digits benign 08/27/2012 None Full Exam - General 1995 [...] masses 11/14/2011 None Full Exam - General 1995 Constitutional general appearance Development: well developed 10/29/2011 None Full Exam - General 1994 Eyes conjunctiva/eyelids Overall: conjunctiva clear 10/29/2011 None Full Exam - General 1995 Constitutional general appearance Development: appears older than stated age 0710/29/2011 None Full Exam - General 1995 Eyes pupils and irises Overall: pupils equal, [...] CPT-4: J0696 11/17/2015 THER/PROPH/DIAG INJ SC/IM CPT-4: 27750 11/25/2013 ROCEPHIN, PER 250 MG CPT-4: J0696 11/25/2013 ROCEPHIN, PER 250 MG CPT-4: J0696 11/24/2013 THER/PROPH/DIAG INJ SC/IM CPT-4: 44239 11/24/2013 ROCEPHIN, PER 250 MG CPT-4: J0696 04/07/2012 THER/PROPH/DIAG INJ SC/IM CPT-4: 53205 04/07/2012 Vital Signs Date Vital 08/06/2018 Blood Pressure 1: 142/72 Code: 8480-6 BMI: 44.2 Code: 41161-9 Heart Rate 1: 81 bpm Height: 5'7" SpO2: 96% Weight: 282 lbs 11/17/2015 Blood Pressure 1: 112/82 Code: 8480-6 BMI: 44.6 Code: 86053-0 Heart Rate 1: 100 bpm Height: 5'7" SpO2: 96% Temperature: 37.3 (C ) / 99.1 (F) Weight: 285 lbs 09/21/2015 Blood Pressure 1: 132/72 Code: 8480-6 BMI: 44.0 Code: 87430-5 Heart Rate 1: 86 bpm Height: 5'7" SpO2: 97% Weight: 281 lbs 11/24/2013 Blood Pressure 1: 138/78 Code: 8480-6 Heart Rate 1: 96 bpm Temperature: 36.7 (C) / 98.0 (F) Weight: 280 lbs 10/15/2013 Blood Pressure 1: 124/70 Code: 8480-6 BMI: 43.2 Code: 91088-9 Heart Rate 1: 64 bpm Height: 5'7" [...] of immodium." States he ate at the [employer] and had ribs/chicken/pot roast. nausea Frequency of Episodes decreasing 10/29/2011 States he ate a pot pie l ast night and did not vomit afterwards. nausea Triggers no known associated factors 10/29/2011 None cellulitis Onset and Resolution ongoing 10/29/2011 States he did go to [employer] on Friday and he was walking around [...] Encounters Encounter Performer Loca tion Codes Date ([id number]) [id number] EST. P ATIENT, LEVEL IV Diagnosis: Type 2 diabetes mellitus with hyperglycemia[ICD10: E11.65] Diagnosis: Essential (primary) hypertension[ICD10: I10] Diagnosis: Mixed hyperlipidemia[ICD10: E78.2] Sandy Price MD, [facility] CPT-4: 04063 08/06/2018 ([id number]) [id number] EST. P ATIENT, LEVEL IV Diagnosis: Cellulitis of left lower limb[ICD10: L03.116] Diagnosis: Localized edema[ICD10: R60.0] Diagnosis: Type 2 diabetes mellitus without complications[ICD10: E11.9] Akosua Price MD, [facility] CPT-4: 35870 11/17/2015 ([id number]) 15292 EST. P ATIENT, LEVEL IV Diagnosis: Essential (primary) hypertension[ICD10: I10] Diagnosis: Type 2 diabetes mellitus without complications[ICD10: E11.9] Diagnosis: Mixed hyperlipidemia[ICD10: E78.2] Diagnosis: Other obesity due to excess calories[ICD10: E66.09] Sandy Price MD, [facility] CPT-4: 35527 09/21/2015 ([id number]) 62007 EST. P ATIENT, LEVEL III Diagnosis: CELLULITIS OF LEG[ICD9: 682.6] Diagnosis: EDEMA[ICD9: 782.3] Diagnosis: FEVER NOS[ICD9: 780.60] Diagnosis: Cough[ICD9: 786.2] Akosua Price MD, [facility] CPT-4: 32383 11/24/2013 ([id number]) 17468 EST. P ATIENT, LEVEL III Diagnosis: SCABIES[ICD9: 133.0] Sandy Price MD, [facility] CPT-4: 58487 10/15/2013 ([id number]) 19287 EST. P ATIENT, LEVEL III Diagnosis: DIABETES TYPE II[SNOMED: [id number]] Akosua Price MD, [facility] CPT- 4: 49306 07/01/2013 ([id number]) 21638 EST. P ATIENT, LEVEL III Diagnosis: CELLULITIS OF LEG[ICD9: 682.6] Sandy Price MD, [facility] CPT- 4: 55404 05/17/2013 ([id number]) 93045 EST. P ATIENT, LEVEL III Diagnosis: CELLULITIS OF LEG[ICD9: 682.6] Diagnosis: Abrasion of leg[ICD9: 916.0] Akosua Price MD, [facility] CPT-4: 26148 11/26/2012 ([id number]) 65923 EST. P ATIENT, LEVEL IV Diagnosis: EDEMA[ICD9: 782.3] Diagnosis: CELLULITIS OF LEG[ICD9: 682.6] Diagnosis: Hypotension[ICD9: 458.9] Akosua Price MD, [facility] CPT-4: 52822 11/16/2012 ([id number]) 43234 EST. P ATIENT, LEVEL IV Diagnosis: EDEMA[ICD9: 782.3] Diagnosis: CELLULITIS OF LEG[ICD9: 682.6] Diagnosis: DIABETES TYPE II[SNOMED: 502354929] Akosua Price MD, [facility] CPT- 4: 68423 08/27/2012 ([id number]) 16157 EST. P ATIENT, LEVEL III Diagnosis: Hordeolum externum of right eye[ICD9: 373.11] Akosua Price MD, [facility] CPT-4: 42710 04/07/2012 ([id number]) 17579 EST. P ATIENT, LEVEL IV Diagnosis: ESSENTIAL HYPERTENSION[SNOMED: 58005466] Diagnosis: DIABETES TYPE II[SNOMED: 048063013] Akosua Price MD, [facility] CPT- 4: 67371 11/14/2011 ([id number]) Patient adm itted to the hospital from clinic (NO CHARGE) Diagnosis: Cellulitis of left leg[ICD9: 682.6] Diagnosis: Hypotension[ICD9: 458.9] Diagnosis: Nausea vomiting and diarrhea[ICD9: 787.01] Diagnosis: Leg pain[ICD9: 729.5] Diagnosis: Anticoagulant long-term use[ICD9: V58.61] Diagnosis: Coronary artery disease[ICD9: 414.00] Sandy Price MD, [facility] CPT-4: 49705S 10/29/2011 Plan of Care Planned Activity Notes [...] blood pressure readings at home. Hyperlipidemia-managed by insecticide sprayer 08/06/2018 Appointment: Sandy Tong WPtel: [phone] [phone] (30 min) Complex 08/06/2018 Patient Education: Patient [...] [facility]ment[phone] (15 min) Moderate 11/17/2015 Patient Education: Patient [...] one month for weight check. 09/21/2015 Appointment: [phone] ([facility] min) [facility] 09/21/2015 Patient Education: Patient Medication Summary Completed [...] itching. Rx for permethrin cream sent to [facility] pharmacy and instructed on use. [...] for greater blood glucose control. Cellulitis of rdd-ojbepgrm-qcal if symptoms return 07/01/2013 Appointment: Sandy Tong WPtel: [address] [place] [address] Other 07/01/2013 Patient Education: Patient Medication Summary Completed 07/01/2013 Appointment: Sandy Tong WPtel: [address] [place], [place] [id number] [place] [address] Follow up 06/29/2013 Appointment: Akosua Price WPtel: [address] [place] [address] follow up 06/28/2013 Visit Plan: Cellulitis - [...] days-continue topical antibiotic ointment as previously directed Eiiscjxlytj-tbpxdxos-predzxs blood pressure at home. 11/26/2012 Appointment: Sandy Tong WPtel: [address] [place] [address] Follow up 11/26/2012 Patient Education: Patient Medication [...] ELEVATE LEGS. 11/16/2012 Appointment: Akosua Price WPtel: [address] [place], [place] [id number] Other 11/16/2012 Patient Education: Patient Medication Summary Completed 11/16/2012 Visit Plan: Edema - pt has been adv ised to elevate legs to prevent dependent edema, compression has been recommended to help to naturally decrease peripheral edema. Diuretic use has been discussed and pt has been i nstructed in appropriate use of such medication as necessary to further attempt to reduce peripheral edema. Hxodbbeoeh-qakxzcnw-hibk for symptoms Diabetes Mellitus - controlled - [...] less controlled. 08/27/2012 Appointment: Sandy Tong WPtel: [phone] Follow up 08/27/2012 Patient Education: Patient Medication Summary Completed 08/27/2012 Visit Plan: Cellulitis - continue w ith oral antibiotics as directed, return to clinic as previously directed, call for acute change in symptoms, worsening redness, warmth, discharge. 04/07/2012 Appointment: Akosua Price WPtel: [facility] [place] Other 04/07/2012 Patient Education: Patient Medication [...] at home. 11/14/2011 Appointment: Akosua Price WPtel: [facility] Other 11/14/2011 Appointment: Akosua Price WPtel: [facility]66[facility] Other 11/14/2011 Patient Education: Patient Medication Summary [...] health benefit. 10/29/2011 Appointment: Sandy Tong WPtel: [address] [place], [place] [phone] Other 10/29/2011 Patient Education: Patient Medication Summary Completed 10/29/2011 Instructions Comment . Edema - pt has bee n advised to elevate legs to prevent dependent edema, compression has been recommended to help to naturally decrease peripheral edema. Diuretic use has been discussed and pt has been instructed in appropriate use of such medication as necessary to further attempt to reduce peripheral edema. Asonwinsyk-bwdkedmr-tzui for symptoms Diabetes Mellitus - controlled - [...] become less controlled. . Cellulitis and abr wjjxp-hhhcbyewh-shfuamsv bactrim x 5 days-continue topical antibiotic ointment as previously directed Imzqhixcyoy-refthctf-gartphs blood pressure at home. . Diabetes Mellitus [...] for greater blood glucose control. Cellulitis of qiy-oenhdkwd-phsp if symptoms return . Diabetes Mellitus -noncompliant [...] blood pressure readings at home. Hyperlipidemia-managed by insecticide sprayer labs-cbc, cmp bactrim ds 1 po BID [...] itching. [facility] and instructed on use. Patient verbalized [...] verbalized understanding of plan. . Admission to [facility] -cellulitis left lower leg/hypotension/n/v/d -Dr Price [...] be adjusted as needed. . Admission to [facility] -cellulitis left lower leg/hypotension/n/v/d -Dr Price [...]
--- OUTSIDE RECORDS SUMMARY | 2019-07-19 20:05 | XMS REPORT | CCD ---
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 Name Role Phone PP Unavailable CCM Unavailable Summary Purpose Interface Exchange Insurance Providers Payer name Policy type / Coverage type Covered alliance party ID Effective Begin Date Effective End Date [facility] Commercial Insurance [id number] Unknown Family history Father Diagnosis Age At Onset Congestive heart failure Unknown Mother Diagnosis Age At Onset No Family Disease Entered N/A Sister Diagnosis Age At Onset No Family Disease Entered N/A Social History Social History Element Codes Description Effective Dates Tobacco history SNOMED CT: 5179383 Former smoker 10/29/2011 Number of years using [...] Date Stop Date Sta tus Fill Instructions Januvia 100 mg tablet RxNorm: 479290 Tablet(s) TAKE 1 TABLET DAILY 08/06/2018 No Stop Date Active Trilipix 135 mg caps ule,delayed release RxNorm: 360579 TAKE 1 CAPSULE DAILY 04/20/2018 No Stop Date Active spironolactone 25 mg tablet RxNorm: 363349 TAKE ONE-HALF (1/2) T ABLET DAILY 04/20/2018 08/05/2018 In active lisinopril 40 mg tablet RxNorm: 490437 TAKE ONE-HALF (1/2) TABLET DAILY 02/25/2018 No Stop Date Active metformin 500 mg tablet RxNorm: 661204 Tablet(s) TAKE ONE TABLET BY MOUTH TWICE DAILY 11/14/2017 11/08/2018 Active carvedilol 25 mg tablet RxNorm: 550055 TAKE ONE TABLET BY MOUTH TWICE DAILY 06/06/2017 No Stop Date Active metformin 500 mg tablet RxNorm: 792154 TAKE ONE TABLET BY MOUTH TWICE DAILY 06/06/2017 11/13/2017 In active Januvia 100 mg tablet RxNorm: 082125 TAKE 1 TABLET DAILY 04/29/2017 08/05/2018 Inactive Trilipix 135 mg caps ule,delayed release RxNorm: 687471 TAKE 1 CAPSULE DAILY 04/22/2017 04/19/2018 In active spironolactone 25 mg tablet RxNorm: 690062 TAKE ONE-HALF (1/2) T ABLET DAILY 02/11/2017 04/19/2018 In active Januvia 100 mg tablet RxNorm: 958826 TAKE 1 TABLET DAILY 01/21/2017 04/28/2017 Inactive lisinopril 40 mg tablet RxNorm: 265240 TAKE ONE-HALF (1/2) TABLET DAILY 12/24/2016 02/24/2018 In active nystatin 100,000 uni t/gram topical powder RxNorm: 979950 1 Application TOP BID 11/11/2016 08/05/2018 In active Trilipix 135 mg caps ule,delayed release RxNorm: 828126 TAKE 1 CAPSULE DAILY 11/11/2016 04/21/2017 In active carvedilol 25 mg tablet RxNorm: 253451 TAKE ONE TABLET BY MOUTH TWICE DAILY 09/23/2016 03/21/2017 In active metformin 500 mg tablet RxNorm: 335859 1 Tablet(s) PO BID 04/09/2016 01/03/2017 Inactive metformin 500 mg tablet RxNorm: 889150 TAKE ONE TABLET BY MOUTH TWICE DAILY 04/09/2016 05/08/2016 In active carvedilol 25 mg tablet RxNorm: 287500 TAKE ONE TABLET BY MOUTH TWICE DAILY 03/25/2016 09/20/2016 In active metformin 500 mg tablet RxNorm: 424605 1 Tablet(s) BID 01/30/2016 04/08/2016 Inactive metformin 500 mg tablet RxNorm: 222563 1 Tablet(s) PO BID 01/26/2016 01/29/2016 Inactive digoxin 250 mcg tablet RxNorm: 177425 TAKE ONE-HALF (1/2) TABLET DAILY 01/15/2016 08/05/2018 In active Trilipix 135 mg caps ule,delayed release RxNorm: 545737 TAKE 1 CAPSULE DAILY 01/01/2016 11/10/2016 In active spironolactone 25 mg tablet RxNorm: 515107 TAKE ONE-HALF (1/2) T ABLET DAILY 12/26/2015 02/10/2017 In active lisinopril 40 mg tablet RxNorm: 679599 TAKE ONE-HALF (1/2) TABLET DAILY 12/18/2015 12/23/2016 In active Januvia 100 mg tablet RxNorm: 062383 TAKE 1 TABLET DAILY 11/20/2015 01/20/2017 Inactive ceftriaxone 500 mg s olution for injection RxNorm: 1044777 Inj 11/17/2015 11/17/2015 Inactive Bactrim DS 800 mg-16 0 mg tablet RxNorm: 525811 1 Tablet(s) PO BID 11/17/2015 11/23/2015 Inactive metformin 500 mg tablet RxNorm: 975347 1 Tablet(s) PO BID 11/15/2015 01/25/2016 Inactive increase Aspir-81 81 mg table t,delayed release RxNorm: 084080 1 Tablet(s) PO daily 09/21/2015 No Stop Date Active metformin 500 mg tablet RxNorm: 051699 1/2 Tablet(s) PO BID Tablet(s) TAKE ONE- HALF TABLET BY MOUTH TWICE DAILY 09/21/2015 11/14/2015 Inactive carvedilol 25 mg tablet RxNorm: 456995 1 Tablet(s) PO BID 09/21/2015 03/18/2016 Inactive Trilipix 135 mg caps ule,delayed release RxNorm: 374431 CAPSULE(S) TAKE 1 CAP KRISH DAILY 07/04/2015 12/31/2015 Inactive Contour Test Strips RxNorm: USE TO TEST EVERY MORNING AND EVERY EVEN ING DIRECTED 06/23/2015 No Stop Date Active metformin 500 mg tablet RxNorm: 966163 Tablet(s) TAKE ONE-HALF TABLET BY MOUTH TWICE DAILY 06/01/2015 06/30/2015 Inactive metformin 500 mg tablet RxNorm: 456817 Tablet(s) TAKE ONE-HALF TABLET BY MOUTH TWICE DAILY 02/16/2015 05/31/2015 Inactive lisinopril 40 mg tablet RxNorm: 443827 TAKE ONE-HALF (1/2) TABLET DAILY 01/10/2015 12/17/2015 In active metformin 500 mg tablet RxNorm: 629190 Tablet(s) TAKE ONE-HALF TABLET BY MOUTH TWICE DAILY 11/22/2014 03/21/2015 Inactive metformin 500 mg tablet RxNorm: 545218 Tablet(s) TAKE ONE-HALF TABLET BY MOUTH TWICE DAILY 11/21/2014 11/21/2014 Inactive digoxin 250 mcg tablet RxNorm: 793994 Tablet(s) TAKE ONE-HALF (1/2) TABLET PHILLIP LY 11/14/2014 08/10/2015 In active spironolactone 25 mg tablet RxNorm: 435214 TAKE ONE-HALF (1/2) T ABLET DAILY 10/26/2014 12/25/2015 In active spironolactone 25 mg tablet RxNorm: 345256 Tablet(s) TAKE ONE-BRINK LF (1/2) TABLET DAILY 10/25/2014 10/25/2014 Inactive Januvia 100 mg tablet RxNorm: 669918 TAKE 1 TABLET DAILY 09/20/2014 11/19/2015 Inactive Bactrim DS 800 mg-16 0 mg tablet RxNorm: 631996 1 Tablet(s) PO BID TA KE ONE TABLET BY MOUTH TWICE DAILY 09/20/2014 09/26/2014 Inactive Contour Test Strips RxNorm: USE TO TEST EVERY MORNING AND EVERY EVEN ING DIRECTED 08/08/2014 06/22/2015 Inactive Trilipix 135 mg caps ule,delayed release RxNorm: 826922 Capsule(s) TAKE 1 CAP KRISH DAILY 07/27/2014 01/22/2015 Inactive metformin 500 mg tablet RxNorm: 901288 Tablet(s) TAKE ONE-HALF TABLET BY MOUTH TWICE DAILY 06/06/2014 06/05/2014 Inactive metformin 500 mg tablet RxNorm: 913854 TAKE ONE-HALF TABLET BY MOUTH TWICE SERGIO Y 06/06/2014 09/03/2014 In active digoxin 250 mcg tablet RxNorm: 449615 TAKE ONE-HALF (1/2) TABLET DAILY 04/28/2014 11/13/2014 In active spironolactone 25 mg tablet RxNorm: 657479 TAKE ONE-HALF (1/2) T ABLET DAILY 04/28/2014 10/24/2014 In active Trilipix 135 mg caps ule,delayed release RxNorm: 633866 TAKE 1 CAPSULE DAILY 04/28/2014 07/26/2014 In active Januvia 100 mg tablet RxNorm: 687108 TAKE 1 TABLET DAILY 03/30/2014 09/19/2014 Inactive metformin 500 mg tablet RxNorm: 947676 TAKE ONE-HALF TABLET BY MOUTH TWICE SERGIO Y 01/11/2014 06/05/2014 In active Januvia 100 mg tablet RxNorm: 356138 1 TABLET(S) PO DAILY TAKE ONE TABLET BY MOUTH EVERY DAY 12/30/2013 03/29/2014 Inactive Bactroban 2 % topica l ointment RxNorm: 807515 1 TOP BID 12/08/2013 No Stop Date Active sulfamethoxazole 800 mg-trimethoprim 160 mg tablet RxNorm: 089679 1 Tablet(s) PO BID 12/08/2013 12/17/2013 Inactive sulfamethoxazole 800 mg-trimethoprim 160 mg tablet RxNorm: 516149 1 Tablet(s) PO BID 12/08/2013 12/07/2013 Inactive lisinopril 40 mg tablet RxNorm: 948810 1/2 Tablet(s) PO daily 12/02/2013 03/01/2014 Inactive lisinopril 40 mg tablet RxNorm: 798075 1/2 Tablet(s) PO daily 1/2 TABLET(S) PO DAILY 12/02/2013 01/30/2014 Inactive ceftriaxone 1 gram s olution for injection RxNorm: 844632 Inj 11/25/2013 11/25/2013 Inactive Rocephin 500 mg solu tion for injection RxNorm: 674518 1 Gram(s) Inj once 11/24/2013 11/24/2013 In active sulfamethoxazole 800 mg-trimethoprim 160 mg tablet RxNorm: 294951 1 Tablet(s) PO BID 11/24/2013 12/07/2013 Inactive permethrin 5 % topic al cream RxNorm: 210120 1 Application TOP daily 10/19/2013 08/05/2018 Inactive apply head to toe, leave on 12 hours the n wash off, may repeat x 1 if needed permethrin 5 % topic al cream RxNorm: 506122 1 Application TOP daily 10/15/2013 10/18/2013 Inactive apply head to toe, leave on 12 hours the n wash off, may repeat x 1 if needed metformin 500 mg tablet RxNorm: 364454 TAKE ONE-HALF TABLET BY MOUTH TWICE SERGIO Y 10/05/2013 01/02/2014 In active Contour Test Strips RxNorm: Miscellaneous USE TO TEST BLOOD SUGAR TW ICE A DAY 06/28/2013 08/07/2014 In active spironolactone 25 mg tablet RxNorm: 697859 Tablet(s) PO TAKE ONE -HALF (1/2) TABLET DAILY 06/18/2013 04/27/2014 Inactive Trilipix 135 mg caps ule,delayed release RxNorm: 694674 Capsule(s) PO TAKE 1 CAPSULE DAILY 06/18/2013 04/27/2014 Inactive digoxin 250 mcg tablet RxNorm: 200924 Tablet(s) PO TAKE ONE-HALF (1/2) TABLET DAILY 06/18/2013 04/27/2014 Inactive metformin 500 mg tablet RxNorm: 389210 1/2 Tablet(s) PO BID 06/03/2013 09/30/2013 Inactive Microlet Lancet RxNorm: 1 Miscellaneous BID 05/31/2013 08/23/2014 Inactive Microlet Lancet RxNorm: 1 Miscellaneous BID 05/31/2013 05/30/2013 Inactive nystatin 100,000 uni t/gram topical powder RxNorm: 623168 1 Application TOP BID 05/31/2013 08/28/2013 In active Januvia 100 mg tablet RxNorm: 422866 1 Tablet(s) PO daily TAKE ONE TABLET BY MOUTH EVERY DAY 05/31/2013 11/26/2013 Inactive nystatin 100,000 uni t/gram topical powder RxNorm: 209769 1 Application TOP BID 05/17/2013 05/30/2013 In active Bactrim DS 800 mg-16 0 mg tablet RxNorm: 260216 1 Tablet(s) PO BID TA KE ONE TABLET BY MOUTH TWICE DAILY 05/17/2013 05/23/2013 Inactive Bactrim DS 800 mg-16 0 mg tablet RxNorm: 975784 Tablet(s) PO TAKE ONE TABLET BY MOUTH TWICE DAILY 12/03/2012 05/16/2013 Inactive Bactrim DS 800 mg-16 0 mg tablet RxNorm: 212686 1 Tablet(s) PO BID 11/26/2012 11/30/2012 Inactive lisinopril 40 mg tablet RxNorm: 141008 1/2 Tablet(s) PO daily 11/16/2012 12/01/2013 Inactive Januvia 100 mg tablet RxNorm: 541233 1 Tablet(s) PO daily TAKE ONE TABLET BY MOUTH EVERY DAY 11/16/2012 05/30/2013 Inactive lisinopril 40 mg tablet RxNorm: 585469 Tablet(s) PO TAKE 1 TABLET DAILY 10/24/2012 11/15/2012 In active Contour Test Strips RxNorm: Strip Miscellaneous USE TO TEST BLOOD CLARK GAR TWICE A DAY 10/24/2012 06/28/2013 Inactive Trilipix 135 mg caps ule,delayed release RxNorm: 835789 Capsule(s) PO TAKE 1 CAPSULE DAILY 10/14/2012 06/17/2013 Inactive Bactrim DS 800 mg-16 0 mg tablet RxNorm: 922509 1 Tablet(s) PO BID 10/07/2012 10/16/2012 Inactive Bactrim DS 800 mg-16 0 mg tablet RxNorm: 141734 1 Tablet(s) PO BID 10/07/2012 10/06/2012 Inactive Januvia 100 mg tablet RxNorm: 079767 1 Tablet(s) PO daily 09/21/2012 01/18/2013 Inactive may have #90 if cheaper digoxin 250 mcg tablet RxNorm: 3717353 1/2 tab MWF sat sun, 1 tab tues thurs Tablet(s) PO daily 1/2 tab MWF sat sun, 1 tab tues thurs 09/21/2012 09/20/2015 Inactive TAKE 1 TABLET DAILY digoxin 250 mcg tablet RxNorm: 2927328 1/2 Tablet(s) PO daily 04/07/2012 09/20/2012 Inactive TAKE 1 TABLET DAILY sulfamethoxazole-tri methoprim 800 mg-160 mg tablet RxNorm: 308849 1 Tablet(s) PO BID 04/07/2012 04/13/2012 Inactive Januvia 100 mg tablet RxNorm: 724547 1/2 Tablet(s) PO daily 04/07/2012 08/04/2012 Inactive may have #90 if cheaper Rocephin 500 mg Solu tion for Injection RxNorm: 9857550 1 Inj 04/07/2012 04/07/2012 Inactive Gentak 0.3 % Eye Drops RxNorm: 627687 3 Drop(s) OPH QID 3 drops 4 times daily x 7 days 04/07/2012 04/13/2012 Inactive spironolactone 25 mg tablet RxNorm: 306131 1/2 Tablet(s) PO daily 04/07/2012 06/17/2013 Inactive TAKE 1 TABLET DAILY Coumadin 5 mg tablet RxNorm: 358856 Tablet(s) PO Luz manages 02/28/2012 08/26/2012 Inactive 7.5 mg mon wed [id number] other daysDr. Tara villar manages Januvia 100 mg tablet RxNorm: 428322 1 Tablet(s) PO 02/20/2012 11/16/2012 Inactive may have #90 if cheaper Trilipix 135 mg caps ule,delayed release RxNorm: 859713 Capsule(s) PO 02/10/2012 06/16/2012 Inactive TAKE 1 CAPSULE DAILY digoxin 250 mcg tablet RxNorm: 407916 Tablet(s) PO 02/10/2012 04/06/2012 Inactive TAKE 1 TABLET DAILY spironolactone 25 mg tablet RxNorm: 114818 Tablet(s) PO 02/10/2012 04/06/2012 Inactive TAKE 1 TABLET DAILY simvastatin 80 mg ta blet RxNorm: 656770 Tablet(s) PO 12/03/2011 11/15/2012 Inactive TAKE ONE- HALF TABLET BY MOUTH EVERY DAY Januvia 50 mg tablet RxNorm: 279317 1 Tablet(s) PO daily 11/14/2011 02/19/2012 Inactive simvastatin 80 mg ta blet RxNorm: 493775 1/2 Tablet(s) PO daily 11/07/2011 12/02/2011 Inactive lisinopril 40 mg tablet RxNorm: 050887 1 Tablet(s) PO daily 11/07/2011 12/06/2011 Inactive spironolactone 25 mg tablet RxNorm: 086355 1 Tablet(s) PO daily 12/17/2010 03/16/2011 Inactive digoxin 250 mcg tablet RxNorm: 372513 1 Tablet(s) PO daily 12/17/2010 03/16/2011 Inactive Trilipix 135 mg caps ule,delayed release RxNorm: 927549 1 Capsule(s) PO daily 12/17/2010 03/16/2011 In active Lipitor 40 mg tablet RxNorm: 341643 1 Tablet(s) PO daily No Start Date Active Fish Oil 1,000 mg Cap RxNorm: 3 Capsule(s) PO daily No Start Date Active Trilipix 135 mg Caps ule, delayed release RxNorm: 743422 1 Capsule(s) PO daily No Start Date Active bumetanide 1 mg Tab RxNorm: 777019 Tablet(s) PO PRN No Start Date Active Xarelto 20 mg tablet RxNorm: 4692090 1 Tablet(s) PO daily No Start Date Active simvastatin 80 mg ta blet RxNorm: 114451 1/2 Tablet(s) PO daily No Start Date 11/06/2011 Inactive spironolactone 25 mg Tab RxNorm: 150668 1 Tablet(s) PO daily No Start Date 08/05/2018 Inactive metformin 500 mg tablet RxNorm: 203891 1/2 Tablet(s) PO BID No Start Date 06/02/2013 Inactive carvedilol 25 mg Tab RxNorm: 280829 1 Tablet(s) PO BID No Start Date 09/20/2015 Inactive aspirin 325 mg tablet RxNorm: 955649 1 Tablet(s) PO daily No Start Date 09/20/2015 Inactive digoxin 250 mcg Tab RxNorm: 7062564 1/2 Tablet(s) PO daily No Start Date 09/20/2015 Inactive Coumadin 5 mg tablet RxNorm: 707654 Tablet(s) PO No Start Date 02/27/2012 Inactive 7.5 mg fri [id number] other days Bactroban 2 % topica l ointment RxNorm: 686292 1 TOP BID No Start Date 12/07/2013 Inactive Contour Test Strips RxNorm: 1 Miscellaneous BID No Start Date 10/23/2012 Inactive coun tour ts lisinopril 40 mg tablet RxNorm: 884686 1 Tablet(s) PO daily No Start Date 11/06/2011 Inactive Medication Administered Medication Codes Instruc tions Start Date Status ceftriaxone 500 mg solution for injection RxNorm: 3075702 11/17/2015 No longer A ctive ceftriaxone 1 gram solution for injection RxNorm: 636776 11/25/2013 No longer A ctive Rocephin 500 mg solution for injection RxNorm: 310027 1Gramonce 11/24/2013 No longer Active Rocephin 500 mg Solution for Injection RxNorm: 6043067 1 04/07/2012 No longer A ctive Immunizations [...] SCABIES ICD-9: 133.0 DIABETES TYPE II SNOMED: 058216579 ICD-9: 250.00 07/01/2013 Abrasion of leg ICD-9: 916.0 11/26/2012 Hypotension ICD-9: 458.9 11/16/2012 Hordeolum externum of right eye ICD- 9: 373.11 04/07/2012 Periorbital cellulitis ICD-9: 373.13 04/07/2012 ESSENTIAL HYPERTENSION SNOMED: 48248 000 ICD-9: 401.9 11/14/2011 Leg pain ICD-9: [...] Item Item Code Result Date Comp Metabolic Klo109 NA 135 mEq/L 08/06/2018 Comp Metabolic Ioq018 K 4.4 mEq/L 08/06/2018 Comp Metabolic Wvl318 CL 97 mEq/L 08/06/2018 Comp Metabolic Eur392 CO2 25.0 mEq/L 08/06/2018 Comp Metabolic Jtq656 AN ION GAP 17 08/06/2018 Comp Metabolic Xsn057 GL UCOSE 367 mg/dL 08/06/2018 Comp Metabolic Rqg007 Cr eat 0.7 mg/dL 08/06/2018 Comp Metabolic Fdp339 eG FR 119 ml/min/1.73m2 07/20 Comp Metabolic Vza259 BUN 21 mg/dL 08/06/2018 Comp Metabolic Yxr622 B/ C Ratio 29.2 Ratio 08/06/2018 Comp Metabolic Psx428 CA LCIUM 9.1 mg/dL 08/06/2018 Comp Metabolic Tii884 AL K PHOS 67 U/L 08/06/2018 Comp Metabolic Fcu626 T(SGOT) 18 U/L 08/06/2018 Comp Metabolic Ugm702 AL T(SGPT) 33 U/L 08/06/2018 Comp Metabolic Lfu494 BI LI T 0.4 mg/dL 08/06/2018 Comp Metabolic Yks170 AL BUMIN 4.2 g/dL 08/06/2018 Comp Metabolic Xmk385 TP RO 6.8 g/dL 08/06/2018 Comp Metabolic Gva507 GL OB 2.6 g/dL 08/06/2018 Comp Metabolic Zic191 A/ G Ratio 1.6 Ratio 08/06/2018 Comp Metabolic Wdz322 Os mo 288 mOsmo 08/06/2018 Tsh Ord6 TSH (3rd IS) 0.86 uIU/mL 08/06/2018 Cbc With Differential Ord2 WBC 4.86 K/ul 08/06/2018 Cbc With Differential Ord2 RBC 5.29 M/ul 08/06/2018 Cbc With Differential Ord2 HGB 15.6 g/dl 08/06/2018 Cbc With Differential Ord2 HCT 46.8 % 08/06/2018 Cbc With Differential Ord2 Neut% 60.7 % 08/06/2018 Cbc With Differential Ord2 Lymph% 27.0 % 08/06/2018 Cbc With Differential Ord2 MCV 88.5 fl 08/06/2018 Cbc With Differential Ord2 MCH 29.5 pg 08/06/2018 Cbc With Differential Ord2 Lares% 11.5 % 08/06/2018 Cbc With Differential Ord2 [...] 1.31 K/ul 08/06/2018 Cbc With Differential Ord2 Lares ABS# 0.6 K/ul 08/06/2018 Cbc With Differential Ord2 Eos ABS# 0.0 K/ul 08/06/2018 Cbc With Differential Ord2 Baso ABS# 0.0 K/ul 08/06/2018 %Hba1C Fhv802 % HbA1c 86308-1 11.5 % 08/06/2018 %Hba1C Gmx802 Gluc Ave 283 mg/dL 08/06/2018 Comp Metabolic Cmf415 NA 133 mEq/L 11/17/2015 Comp Metabolic Dci321 K 4.5 mEq/L 11/17/2015 Comp Metabolic Isy973 CL 101 mEq/L 11/17/2015 Comp Metabolic Pej053 CO2 22.0 mEq/L 11/17/2015 Comp Metabolic Ixq787 AN ION GAP 15 11/17/2015 Comp Metabolic Qut830 GL UCOSE 197 mg/dL 11/17/2015 Comp Metabolic Yfm021 Cr eat 0.8 mg/dL 11/17/2015 Comp Metabolic Ibj707 eG FR 110 ml/min/1.73m2 10/20 Comp Metabolic Ern734 BUN 20 mg/dL 11/17/2015 Comp Metabolic Pca367 B/ C Ratio 25.6 Ratio 11/17/2015 Comp Metabolic Hkl565 CA LCIUM 9.4 mg/dL 11/17/2015 Comp Metabolic Ndq010 AL K PHOS 65 U/L 11/17/2015 Comp Metabolic Mvb860 T(SGOT) 22 U/L 11/17/2015 Comp Metabolic Aru371 AL T(SGPT) 40 U/L 11/17/2015 Comp Metabolic Bis204 BI LI T 0.5 mg/dL 11/17/2015 Comp Metabolic Lqk166 AL BUMIN 4.2 g/dL 11/17/2015 Comp Metabolic Svq411 TP RO 7.0 g/dL 11/17/2015 Comp Metabolic Qmv905 GL OB 2.8 g/dL 11/17/2015 Comp Metabolic Jeo258 A/ G Ratio 1.5 Ratio 11/17/2015 Comp Metabolic Ssb062 Os mo 274 mOsmo 11/17/2015 Cbc With [...] 29.6 pg 11/17/2015 Cbc With Differential Ord2 Lares% 7.0 % 11/17/2015 Cbc With Differential Ord2 [...] 0.68 K/ul 11/17/2015 Cbc With Differential Ord2 Lares ABS# 1.1 K/ul 11/17/2015 Cbc With Differential [...] 29.4 pg 11/08/2015 Cbc With Differential Ord2 Lares% 10.2 % 11/08/2015 Cbc With Differential Ord2 [...] 2.10 K/ul 11/08/2015 Cbc With Differential Ord2 Lares ABS# 0.9 K/ul 11/08/2015 Cbc With Differential Ord2 Eos ABS# 0.1 K/ul 11/08/2015 Cbc With Differential Ord2 Baso ABS# 0.0 K/ul 11/08/2015 Microalbumin Ges481 Micr oAlb <0.7 mg/dL 11/08/2015 Tsh Ord6 hTSH II 0.65 uIU/mL 11/08/2015 Lipid Ord30 CHOL 157 mg/dL 11/08/2015 Lipid Ord30 HDL 30.0 mg/dl 11/08/2015 Lipid Ord30 TRIG 228 mg/dL 11/08/2015 Lipid Ord30 LDL 81 mg/dL 11/08/2015 Lipid Ord30 C/HDL 5.2 Ratio 11/08/2015 Comp Metabolic Jlo581 NA 130 mEq/L 11/08/2015 Comp Metabolic Owt923 K 4.4 mEq/L 11/08/2015 Comp Metabolic Qua254 CL 97 mEq/L 11/08/2015 Comp Metabolic Tpr777 CO2 27.0 mEq/L 11/08/2015 Comp Metabolic Gzh594 AN ION GAP 10 11/08/2015 Comp Metabolic Dwo538 GL UCOSE 175 mg/dL 11/08/2015 Comp Metabolic Rtt396 Cr eat 0.8 mg/dL 11/08/2015 Comp Metabolic Zaq654 eG FR 104 ml/min/1.73m2 10/20 Comp Metabolic Pui189 BUN 26 mg/dL 11/08/2015 Comp Metabolic Hcf081 B/ C Ratio 31.7 Ratio 11/08/2015 Comp Metabolic Kyk762 CA LCIUM 9.3 mg/dL 11/08/2015 Comp Metabolic Xbx406 AL K PHOS 68 U/L 11/08/2015 Comp Metabolic Roi765 T(SGOT) 26 U/L 11/08/2015 Comp Metabolic Uvg665 AL T(SGPT) 42 U/L 11/08/2015 Comp Metabolic Hxw195 BI LI T 0.7 mg/dL 11/08/2015 Comp Metabolic Nal132 AL BUMIN 4.3 g/dL 11/08/2015 Comp Metabolic Ytp290 TP RO 7.0 g/dL 11/08/2015 Comp Metabolic Rxy773 GL OB 2.7 g/dL 11/08/2015 Comp Metabolic Rey960 A/ G Ratio 1.6 Ratio 11/08/2015 Comp Metabolic Hgk452 Os mo 270 mOsmo 11/08/2015 Total Psa Ord10 PSA 1.26 ng/mL 11/08/2015 %Hba1C Qod437 % HbA1c 21934-6 8.2 % 11/08/2015 %Hba1C Ayb063 Gluc Ave 189 mg/dL 11/08/2015 Lipid Ord30 CHOL 155 mg/dL 01/23/2015 Lipid Ord30 HDL 34.0 mg/dl 01/23/2015 Lipid Ord30 TRIG 198 mg/dL 01/23/2015 Lipid Ord30 LDL 81 mg/dL 01/23/2015 Lipid Ord30 C/HDL 4.6 Ratio 01/23/2015 Hepatic Qzw421 ALBUMIN 4.2 g/dL 01/23/2015 Hepatic Mmp314 TPRO 6.9 g/dL 01/23/2015 Hepatic Oos401 GLOB 2.7 g/dL 01/23/2015 Hepatic Hrx537 A/G Ratio 1.6 Ratio 01/23/2015 Hepatic Ekp415 ALK PHOS 59 U/L 01/23/2015 Hepatic Vrk286 ALT(SGPT) 46 U/L 01/23/2015 Hepatic Nfq283 AST(SGOT) 21 U/L 01/23/2015 Hepatic Fqb104 BILI T 0.5 mg/dL 01/23/2015 Hepatic Fzd401 BILI D 0.1 mg/dL 01/23/2015 Hepatic Fce399 BILI I 0.4 mg/dL 01/23/2015 Review of [...] 1995 Abdomen abdominal exam Overall: no tenderness 05/17/2013 [...] 1995 Abdomen abdominal exam Overall: no tenderness 08/27/2012 [...] CPT-4: J0696 11/17/2015 THER/PROPH/DIAG INJ SC/IM CPT-4: 63342 11/25/2013 ROCEPHIN, PER 250 MG CPT-4: J0696 11/25/2013 ROCEPHIN, PER 250 MG CPT-4: J0696 11/24/2013 THER/PROPH/DIAG INJ SC/IM CPT-4: 72152 11/24/2013 ROCEPHIN, PER 250 MG CPT-4: J0696 04/07/2012 THER/PROPH/DIAG INJ SC/IM CPT-4: 24160 04/07/2012 Vital Signs Date Vital 08/06/2018 Blood Pressure 1: 142/72 Code: 8480-6 BMI: 44.2 Code: 92979-1 Heart Rate 1: 81 bpm Height: 5'7" SpO2: 96% Weight: 282 lbs 11/17/2015 Blood Pressure 1: 112/82 Code: 8480-6 BMI: 44.6 Code: 92695-7 Heart Rate 1: 100 bpm Height: 5'7" SpO2: 96% Temperature: 37.3 (C ) / 99.1 (F) Weight: 285 lbs 09/21/2015 Blood Pressure 1: 132/72 Code: 8480-6 BMI: 44.0 Code: 56935-1 Heart Rate 1: 86 bpm Height: 5'7" SpO2: 97% Weight: 281 lbs 11/24/2013 Blood Pressure 1: 138/78 Code: 8480-6 Heart Rate 1: 96 bpm Temperature: 36.7 (C) / 98.0 (F) Weight: 280 lbs 10/15/2013 Blood Pressure 1: 124/70 Code: 8480-6 BMI: 43.2 Code: 55611-1 Heart Rate 1: 64 bpm Height: 5'7" [...] of immodium." States he ate at the [employer] and had ribs/chicken/pot roast. nausea Frequency of Episodes decreasing 10/29/2011 States he ate a pot pie l ast night and did not vomit afterwards. nausea Triggers no known associated factors 10/29/2011 None cellulitis Onset and Resolution ongoing 10/29/2011 States he did go to [place] on Friday and he was walking around [...] Encounters Encounter Performer Loca tion Codes Date ([id number]) [id number] EST. P MEHREEN, LEVEL IV Diagnosis: Type 2 diabetes mellitus with hyperglycemia[ICD10: E11.65] Diagnosis: Essential (primary) hypertension[ICD10: I10] Diagnosis: Mixed hyperlipidemia[ICD10: E78.2] [facility] CPT-4: 99524 08/06/2018 ([id number]) [id number] EST. P MEHREEN, LEVEL IV Diagnosis: Cellulitis of left lower limb[ICD10: L03.116] Diagnosis: Localized edema[ICD10: R60.0] Diagnosis: Type 2 diabetes mellitus without complications[ICD10: E11.9] [facility] CPT-4: 69595 11/17/2015 ([id number]) 03244 EST. P ATIENT, LEVEL IV Diagnosis: Essential (primary) hypertension[ICD10: I10] Diagnosis: Type 2 diabetes mellitus without complications[ICD10: E11.9] Diagnosis: Mixed hyperlipidemia[ICD10: E78.2] Diagnosis: Other obesity due to excess calories[ICD10: E66.09] [facility], [facility] CPT-4: 98464 09/21/2015 ([id number]) 26013 EST. P ATIENT, LEVEL III Diagnosis: CELLULITIS OF LEG[ICD9: 682.6] Diagnosis: EDEMA[ICD9: 782.3] Diagnosis: FEVER NOS[ICD9: 780.60] Diagnosis: Cough[ICD9: 786.2] [facility], [facility] CPT-4: 83135 11/24/2013 ([id number]) 75828 EST. P ATIENT, LEVEL III Diagnosis: SCABIES[ICD9: 133.0] [facility], [facility] CPT-4: 32531 10/15/2013 ([id number]) 19156 EST. P ATIENT, LEVEL III Diagnosis: DIABETES TYPE II[SNOMED: 614433110] Akosua Price MD, [facility] CPT- 4: 66308 07/01/2013 ([id number]) 31037 EST. P ATIENT, LEVEL III Diagnosis: CELLULITIS OF LEG[ICD9: 682.6] Sandy Price MD, [facility] CPT- 4: 33161 05/17/2013 ([id number]) 29439 EST. P ATIENT, LEVEL III Diagnosis: CELLULITIS OF LEG[ICD9: 682.6] Diagnosis: Abrasion of leg[ICD9: 916.0] Akosua Price MD, [facility] CPT-4: 70357 11/26/2012 ([id number]) 17931 EST. P ATIENT, LEVEL IV Diagnosis: EDEMA[ICD9: 782.3] Diagnosis: CELLULITIS OF LEG[ICD9: 682.6] Diagnosis: Hypotension[ICD9: 458.9] Akosua Price MD, [facility] CPT-4: 09873 11/16/2012 ([id number]) 15671 EST. P ATIENT, LEVEL IV Diagnosis: EDEMA[ICD9: 782.3] Diagnosis: CELLULITIS OF LEG[ICD9: 682.6] Diagnosis: DIABETES TYPE II[SNOMED: 525785034] Akosua Price MD, [facility] CPT- 4: 93882 08/27/2012 ([id number]) 75003 EST. P ATIENT, LEVEL III Diagnosis: Hordeolum externum of right eye[ICD9: 373.11] Akosua Price MD, [facility] CPT-4: 54058 04/07/2012 ([id number] EST. P ATIENT, LEVEL IV Diagnosis: ESSENTIAL HYPERTENSION[SNOMED: 69303468] Diagnosis: DIABETES TYPE II[SNOMED: 091995474] Akosua Price MD, [facility] CPT- 4: 13500 11/14/2011 ([id number]) Patient adm itted to the hospital from clinic (NO CHARGE) Diagnosis: Cellulitis of left leg[ICD9: 682.6] Diagnosis: Hypotension[ICD9: 458.9] Diagnosis: Nausea vomiting and diarrhea[ICD9: 787.01] Diagnosis: Leg pain[ICD9: 729.5] Diagnosis: Anticoagulant long-term use[ICD9: V58.61] Diagnosis: Coronary artery disease[ICD9: 414.00] Sandy Price MD, [facility] CPT-4: 06450X 10/29/2011 Plan of Care Planned Activity Notes [...] blood pressure readings at home. Hyperlipidemia-managed by corporate affairs manager 08/06/2018 Patient Education: Patient Medication Summary Completed [...] sugars closely. 11/17/2015 Appointment: Sandy Tong WPtel: [address] [place], [place] [phone] (15 min) Moderate 11/17/2015 Patient Education: Patient [...] weight check. 09/21/2015 Appointment: Sandy Tong WPtel: [phone] [place] (30 min) Complex 09/21/2015 Patient Education: Patient [...] itching. Rx for permethrin cream sent to [facility] and instructed on use. Patient verbalized [...] for greater blood glucose control. Cellulitis of cwu-mkmhhila-gtam if symptoms return 07/01/2013 Appointment: Sandy Tong WPtel: [address] [place], [place] [phone] Other 07/01/2013 Patient Education: Patient Medication Summary Completed 07/01/2013 Appointment: Sandy Tong WPtel: [address] [place], [place] [phone] Follow up 06/29/2013 Appointment: Akosua Price WPtel: [address] [place], [place] [phone] [place] [address] follow up 06/28/2013 Visit Plan: Cellulitis - [...] days-continue topical antibiotic ointment as previously directed Ggyitguupfs-dqsgypzi-zteqcwg blood pressure at home. 11/26/2012 Appointment: Sandy Tong WPtel: [address] [place], [place] [phone] [place] [address] Follow up 11/26/2012 Patient Education: Patient Medication [...] ELEVATE LEGS. 11/16/2012 Appointment: Akosua Price WPtel: [address] [place], [place] [phone] [facility] 11/16/2012 Patient Education: Patient Medication Summary Completed 11/16/2012 Visit Plan: Edema - pt has been adv ised to elevate legs to prevent dependent edema, compression has been recommended to help to naturally decrease peripheral edema. Diuretic use has been discussed and pt has been i nstructed in appropriate use of such medication as necessary to further attempt to reduce peripheral edema. Fxicmoogrw-tyqsrgyi-stih for symptoms Diabetes Mellitus - controlled - [...] controlled. 08/27/2012 Appointment: Sandy Tong WPtel: [phone] [phone] Follow up 08/27/2012 Patient Education: Patient Medication Summary Completed 08/27/2012 Visit Plan: Cellulitis - continue w ith oral antibiotics as directed, return to clinic as previously directed, call for acute change in symptoms, worsening redness, warmth, discharge. 04/07/2012 Appointment: Akosua Price WPtel: [address] [facility] [place] Other 04/07/2012 Patient Education: Patient [...] home. 11/14/2011 Appointment: Akosua Price WPtel: [phone] [facility] Other 11/14/2011 Appointment: Akosua Price WPtel: [address] [place] Other 11/14/2011 Patient Education: Patient Medication Summary [...] health benefit. 10/29/2011 Appointment: Sandy Tong WPtel: [address] [place], [place] [phone] Other 10/29/2011 Patient Education: Patient Medication Summary Completed 10/29/2011 Instructions Comment . Edema - pt has bee n advised to elevate legs to prevent dependent edema, compression has been recommended to help to naturally decrease peripheral edema. Diuretic use has been discussed and pt has been instructed in appropriate use of such medication as necessary to further attempt to reduce peripheral edema. Cibftrdinu-kltkyyin-akmp for symptoms Diabetes Mellitus - controlled - [...] become less controlled. . Cellulitis and abr lhzyg-zkqrjmdxm-kwncserc bactrim x 5 days-continue topical antibiotic ointment as previously directed Nyigzzqsmgk-fzvnuvty-aqznten blood pressure at home. . Diabetes Mellitus [...] for greater blood glucose control. Cellulitis of tnb-biinzvjy-gvdu if symptoms return . Diabetes Mellitus -noncompliant [...] blood pressure readings at home. Hyperlipidemia-managed by corporate affairs manager labs-cbc, cmp bactrim ds 1 po BID [...] itching. Rx for permethrin cream sent to [facility] pharmacy and instructed on use. Patient verbalized [...]
--- OUTSIDE RECORDS SUMMARY | 2019-07-19 20:06 | XMS REPORT | CCD ---
Author Author Claudy Tong Organization [facility] Address [address] [place] [address] Phone Care Team Providers Care [address] Vendor Name Role Phone PP Unavailable CCM Unavailable Summary Purpose Interface Exchange Insurance Providers Payer name Policy type / Coverage type Covered democrat ID Effective Begin Date Effective End Date [facility] Commercial Insurance [id number] Unknown Family history Father Diagnosis Age At Onset Congestive heart failure Unknown Mother Diagnosis Age At Onset No Family Disease Entered N/A Sister Diagnosis Age At Onset No Family Disease Entered N/A Social History Social History Element Codes Description Effective Dates Tobacco history SNOMED CT: 8365148 Former smoker 10/29/2011 Number of years using [...] Fill Instructions Januvia 100 mg tablet RxNorm: 991103 Tablet(s) TAKE 1 TABLET DAILY 08/06/2018 No Stop Date Active Trilipix 135 mg caps ule,delayed release RxNorm: 561444 TAKE 1 CAPSULE DAILY 04/20/2018 No Stop Date Active spironolactone 25 mg tablet RxNorm: 955029 TAKE ONE-HALF (1/2) T ABLET DAILY 04/20/2018 08/05/2018 In active lisinopril 40 mg tablet RxNorm: 688879 TAKE ONE-HALF (1/2) TABLET DAILY 02/25/2018 No Stop Date Active metformin 500 mg tablet RxNorm: 599928 Tablet(s) TAKE ONE TABLET BY MOUTH TWICE DAILY 11/14/2017 11/08/2018 Active carvedilol 25 mg tablet RxNorm: 054986 TAKE ONE TABLET BY MOUTH TWICE DAILY 06/06/2017 No Stop Date Active metformin 500 mg tablet RxNorm: 520361 TAKE ONE TABLET BY MOUTH TWICE DAILY 06/06/2017 11/13/2017 In active Januvia 100 mg tablet RxNorm: 277030 TAKE 1 TABLET DAILY 04/29/2017 08/05/2018 Inactive Trilipix 135 mg caps ule,delayed release RxNorm: 552794 TAKE 1 CAPSULE DAILY 04/22/2017 04/19/2018 In active spironolactone 25 mg tablet RxNorm: 233600 TAKE ONE-HALF (1/2) T ABLET DAILY 02/11/2017 04/19/2018 In active Januvia 100 mg tablet RxNorm: 551274 TAKE 1 TABLET DAILY 01/21/2017 04/28/2017 Inactive lisinopril 40 mg tablet RxNorm: 620356 TAKE ONE-HALF (1/2) TABLET DAILY 12/24/2016 02/24/2018 In active nystatin 100,000 uni t/gram topical powder RxNorm: 643210 1 Application TOP BID 11/11/2016 08/05/2018 In active Trilipix 135 mg caps ule,delayed release RxNorm: 972546 TAKE 1 CAPSULE DAILY 11/11/2016 04/21/2017 In active carvedilol 25 mg tablet RxNorm: 798115 TAKE ONE TABLET BY MOUTH TWICE DAILY 09/23/2016 03/21/2017 In active metformin 500 mg tablet RxNorm: 973385 1 Tablet(s) PO BID 04/09/2016 01/03/2017 Inactive metformin 500 mg tablet RxNorm: 382085 TAKE ONE TABLET BY MOUTH TWICE DAILY 04/09/2016 05/08/2016 In active carvedilol 25 mg tablet RxNorm: 801289 TAKE ONE TABLET BY MOUTH TWICE DAILY 03/25/2016 09/20/2016 In active metformin 500 mg tablet RxNorm: 089435 1 Tablet(s) BID 01/30/2016 04/08/2016 Inactive metformin 500 mg tablet RxNorm: 491745 1 Tablet(s) PO BID 01/26/2016 01/29/2016 Inactive digoxin 250 mcg tablet RxNorm: 293864 TAKE ONE-HALF (1/2) TABLET DAILY 01/15/2016 08/05/2018 In active Trilipix 135 mg caps ule,delayed release RxNorm: 050320 TAKE 1 CAPSULE DAILY 01/01/2016 11/10/2016 In active spironolactone 25 mg tablet RxNorm: 907460 TAKE ONE-HALF (1/2) T ABLET DAILY 12/26/2015 02/10/2017 In active lisinopril 40 mg tablet RxNorm: 709011 TAKE ONE-HALF (1/2) TABLET DAILY 12/18/2015 12/23/2016 In active Januvia 100 mg tablet RxNorm: 034470 TAKE 1 TABLET DAILY 11/20/2015 01/20/2017 Inactive ceftriaxone 500 mg s olution for injection RxNorm: 5267004 Inj 11/17/2015 11/17/2015 Inactive Bactrim DS 800 mg-16 0 mg tablet RxNorm: 129194 1 Tablet(s) PO BID 11/17/2015 11/23/2015 Inactive metformin 500 mg tablet RxNorm: 708739 1 Tablet(s) PO BID 11/15/2015 01/25/2016 Inactive increase Aspir-81 81 mg table t,delayed release RxNorm: 770802 1 Tablet(s) PO daily 09/21/2015 No Stop Date Active metformin 500 mg tablet RxNorm: 129025 1/2 Tablet(s) PO BID Tablet(s) TAKE ONE- HALF TABLET BY MOUTH TWICE DAILY 09/21/2015 11/14/2015 Inactive carvedilol 25 mg tablet RxNorm: 389377 1 Tablet(s) PO BID 09/21/2015 03/18/2016 Inactive Trilipix 135 mg caps ule,delayed release RxNorm: 644886 CAPSULE(S) TAKE 1 CAP KRISH DAILY 07/04/2015 12/31/2015 Inactive Contour Test Strips RxNorm: USE TO TEST EVERY MORNING AND EVERY EVEN ING DIRECTED 06/23/2015 No Stop Date Active metformin 500 mg tablet RxNorm: 694948 Tablet(s) TAKE ONE-HALF TABLET BY MOUTH TWICE DAILY 06/01/2015 06/30/2015 Inactive metformin 500 mg tablet RxNorm: 600311 Tablet(s) TAKE ONE-HALF TABLET BY MOUTH TWICE DAILY 02/16/2015 05/31/2015 Inactive lisinopril 40 mg tablet RxNorm: 399098 TAKE ONE-HALF (1/2) TABLET DAILY 01/10/2015 12/17/2015 In active metformin 500 mg tablet RxNorm: 844644 Tablet(s) TAKE ONE-HALF TABLET BY MOUTH TWICE DAILY 11/22/2014 03/21/2015 Inactive metformin 500 mg tablet RxNorm: 655727 Tablet(s) TAKE ONE-HALF TABLET BY MOUTH TWICE DAILY 11/21/2014 11/21/2014 Inactive digoxin 250 mcg tablet RxNorm: 560593 Tablet(s) TAKE ONE-HALF (1/2) TABLET PHILLIP LY 11/14/2014 08/10/2015 In active spironolactone 25 mg tablet RxNorm: 412117 TAKE ONE-HALF (1/2) T ABLET DAILY 10/26/2014 12/25/2015 In active spironolactone 25 mg tablet RxNorm: 765604 Tablet(s) TAKE ONE-BRINK LF (1/2) TABLET DAILY 10/25/2014 10/25/2014 Inactive Januvia 100 mg tablet RxNorm: 019411 TAKE 1 TABLET DAILY 09/20/2014 11/19/2015 Inactive Bactrim DS 800 mg-16 0 mg tablet RxNorm: 775445 1 Tablet(s) PO BID TA KE ONE TABLET BY MOUTH TWICE DAILY 09/20/2014 09/26/2014 Inactive Contour Test Strips RxNorm: USE TO TEST EVERY MORNING AND EVERY EVEN ING DIRECTED 08/08/2014 06/22/2015 Inactive Trilipix 135 mg caps ule,delayed release RxNorm: 981528 Capsule(s) TAKE 1 CAP KRISH DAILY 07/27/2014 01/22/2015 Inactive metformin 500 mg tablet RxNorm: 806506 Tablet(s) TAKE ONE-HALF TABLET BY MOUTH TWICE DAILY 06/06/2014 06/05/2014 Inactive metformin 500 mg tablet RxNorm: 959929 TAKE ONE-HALF TABLET BY MOUTH TWICE SERGIO Y 06/06/2014 09/03/2014 In active digoxin 250 mcg tablet RxNorm: 641941 TAKE ONE-HALF (1/2) TABLET DAILY 04/28/2014 11/13/2014 In active spironolactone 25 mg tablet RxNorm: 492023 TAKE ONE-HALF (1/2) T ABLET DAILY 04/28/2014 10/24/2014 In active Trilipix 135 mg caps ule,delayed release RxNorm: 128324 TAKE 1 CAPSULE DAILY 04/28/2014 07/26/2014 In active Januvia 100 mg tablet RxNorm: 010406 TAKE 1 TABLET DAILY 03/30/2014 09/19/2014 Inactive metformin 500 mg tablet RxNorm: 870435 TAKE ONE-HALF TABLET BY MOUTH TWICE SERGIO Y 01/11/2014 06/05/2014 In active Januvia 100 mg tablet RxNorm: 998277 1 TABLET(S) PO DAILY TAKE ONE TABLET BY MOUTH EVERY DAY 12/30/2013 03/29/2014 Inactive Bactroban 2 % topica l ointment RxNorm: 993741 1 TOP BID 12/08/2013 No Stop Date Active sulfamethoxazole 800 mg-trimethoprim 160 mg tablet RxNorm: 608374 1 Tablet(s) PO BID 12/08/2013 12/17/2013 Inactive sulfamethoxazole 800 mg-trimethoprim 160 mg tablet RxNorm: 911049 1 Tablet(s) PO BID 12/08/2013 12/07/2013 Inactive lisinopril 40 mg tablet RxNorm: 219642 1/2 Tablet(s) PO daily 12/02/2013 03/01/2014 Inactive lisinopril 40 mg tablet RxNorm: 519768 1/2 Tablet(s) PO daily 1/2 TABLET(S) PO DAILY 12/02/2013 01/30/2014 Inactive ceftriaxone 1 gram s olution for injection RxNorm: 698736 Inj 11/25/2013 11/25/2013 Inactive Rocephin 500 mg solu tion for injection RxNorm: 197401 1 Gram(s) Inj once 11/24/2013 11/24/2013 In active sulfamethoxazole 800 mg-trimethoprim 160 mg tablet RxNorm: 279753 1 Tablet(s) PO BID 11/24/2013 12/07/2013 Inactive permethrin 5 % topic al cream RxNorm: 297392 1 Application TOP daily 10/19/2013 08/05/2018 Inactive apply head to toe, leave on 12 hours the n wash off, may repeat x 1 if needed permethrin 5 % topic al cream RxNorm: 363634 1 Application TOP daily 10/15/2013 10/18/2013 Inactive apply head to toe, leave on 12 hours the n wash off, may repeat x 1 if needed metformin 500 mg tablet RxNorm: 139097 TAKE ONE-HALF TABLET BY MOUTH TWICE SERGIO Y 10/05/2013 01/02/2014 In active Contour Test Strips RxNorm: Miscellaneous USE TO TEST BLOOD SUGAR TW ICE A DAY 06/28/2013 08/07/2014 In active spironolactone 25 mg tablet RxNorm: 007436 Tablet(s) PO TAKE ONE -HALF (1/2) TABLET DAILY 06/18/2013 04/27/2014 Inactive Trilipix 135 mg caps ule,delayed release RxNorm: 160510 Capsule(s) PO TAKE 1 CAPSULE DAILY 06/18/2013 04/27/2014 Inactive digoxin 250 mcg tablet RxNorm: 024369 Tablet(s) PO TAKE ONE-HALF (1/2) TABLET DAILY 06/18/2013 04/27/2014 Inactive metformin 500 mg tablet RxNorm: 107531 1/2 Tablet(s) PO BID 06/03/2013 09/30/2013 Inactive Microlet Lancet RxNorm: 1 Miscellaneous BID 05/31/2013 08/23/2014 Inactive Microlet Lancet RxNorm: 1 Miscellaneous BID 05/31/2013 05/30/2013 Inactive nystatin 100,000 uni t/gram topical powder RxNorm: 903275 1 Application TOP BID 05/31/2013 08/28/2013 In active Januvia 100 mg tablet RxNorm: 018175 1 Tablet(s) PO daily TAKE ONE TABLET BY MOUTH EVERY DAY 05/31/2013 11/26/2013 Inactive nystatin 100,000 uni t/gram topical powder RxNorm: 499713 1 Application TOP BID 05/17/2013 05/30/2013 In active Bactrim DS 800 mg-16 0 mg tablet RxNorm: 516344 1 Tablet(s) PO BID TA KE ONE TABLET BY MOUTH TWICE DAILY 05/17/2013 05/23/2013 Inactive Bactrim DS 800 mg-16 0 mg tablet RxNorm: 518164 Tablet(s) PO TAKE ONE TABLET BY MOUTH TWICE DAILY 12/03/2012 05/16/2013 Inactive Bactrim DS 800 mg-16 0 mg tablet RxNorm: 586887 1 Tablet(s) PO BID 11/26/2012 11/30/2012 Inactive lisinopril 40 mg tablet RxNorm: 208697 1/2 Tablet(s) PO daily 11/16/2012 12/01/2013 Inactive Januvia 100 mg tablet RxNorm: 550686 1 Tablet(s) PO daily TAKE ONE TABLET BY MOUTH EVERY DAY 11/16/2012 05/30/2013 Inactive lisinopril 40 mg tablet RxNorm: 804688 Tablet(s) PO TAKE 1 TABLET DAILY 10/24/2012 11/15/2012 In active Contour Test Strips RxNorm: Strip Miscellaneous USE TO TEST BLOOD CLARK GAR TWICE A DAY 10/24/2012 06/28/2013 Inactive Trilipix 135 mg caps ule,delayed release RxNorm: 650557 Capsule(s) PO TAKE 1 CAPSULE DAILY 10/14/2012 06/17/2013 Inactive Bactrim DS 800 mg-16 0 mg tablet RxNorm: 833315 1 Tablet(s) PO BID 10/07/2012 10/16/2012 Inactive Bactrim DS 800 mg-16 0 mg tablet RxNorm: 115888 1 Tablet(s) PO BID 10/07/2012 10/06/2012 Inactive Januvia 100 mg tablet RxNorm: 670929 1 Tablet(s) PO daily 09/21/2012 01/18/2013 Inactive may have #90 if cheaper digoxin 250 mcg tablet RxNorm: 2003535 1/2 tab MWF sat sun, 1 tab tues thurs Tablet(s) PO daily 1/2 tab MWF sat sun, 1 tab tues thurs 09/21/2012 09/20/2015 Inactive TAKE 1 TABLET DAILY digoxin 250 mcg tablet RxNorm: 5674554 1/2 Tablet(s) PO daily 04/07/2012 09/20/2012 Inactive TAKE 1 TABLET DAILY sulfamethoxazole-tri methoprim 800 mg-160 mg tablet RxNorm: 624620 1 Tablet(s) PO BID 04/07/2012 04/13/2012 Inactive Januvia 100 mg tablet RxNorm: 414021 1/2 Tablet(s) PO daily 04/07/2012 08/04/2012 Inactive may have #90 if cheaper Rocephin 500 mg Solu tion for Injection RxNorm: 0973095 1 Inj 04/07/2012 04/07/2012 Inactive Gentak 0.3 % Eye Drops RxNorm: 764689 3 Drop(s) OPH QID 3 drops 4 times daily x 7 days 04/07/2012 04/13/2012 Inactive spironolactone 25 mg tablet RxNorm: 864450 1/2 Tablet(s) PO daily 04/07/2012 06/17/2013 Inactive TAKE 1 TABLET DAILY Coumadin 5 mg tablet RxNorm: 184415 Tablet(s) PO Luz manages 02/28/2012 08/26/2012 Inactive 7.5 mg mon wed [id number] other daysDr. Tara villar manages Januvia 100 mg tablet RxNorm: 019216 1 Tablet(s) PO 02/20/2012 11/16/2012 Inactive may have #90 if cheaper Trilipix 135 mg caps ule,delayed release RxNorm: 446335 Capsule(s) PO 02/10/2012 06/16/2012 Inactive TAKE 1 CAPSULE DAILY digoxin 250 mcg tablet RxNorm: 141728 Tablet(s) PO 02/10/2012 04/06/2012 Inactive TAKE 1 TABLET DAILY spironolactone 25 mg tablet RxNorm: 551025 Tablet(s) PO 02/10/2012 04/06/2012 Inactive TAKE 1 TABLET DAILY simvastatin 80 mg ta blet RxNorm: 472381 Tablet(s) PO 12/03/2011 11/15/2012 Inactive TAKE ONE- HALF TABLET BY MOUTH EVERY DAY Januvia 50 mg tablet RxNorm: 303608 1 Tablet(s) PO daily 11/14/2011 02/19/2012 Inactive simvastatin 80 mg ta blet RxNorm: 531620 1/2 Tablet(s) PO daily 11/07/2011 12/02/2011 Inactive lisinopril 40 mg tablet RxNorm: 212599 1 Tablet(s) PO daily 11/07/2011 12/06/2011 Inactive spironolactone 25 mg tablet RxNorm: 938865 1 Tablet(s) PO daily 12/17/2010 03/16/2011 Inactive digoxin 250 mcg tablet RxNorm: 135575 1 Tablet(s) PO daily 12/17/2010 03/16/2011 Inactive Trilipix 135 mg caps ule,delayed release RxNorm: 707935 1 Capsule(s) PO daily 12/17/2010 03/16/2011 In active Lipitor 40 mg tablet RxNorm: 675879 1 Tablet(s) PO daily No Start Date Active Fish Oil 1,000 mg Cap RxNorm: 3 Capsule(s) PO daily No Start Date Active Trilipix 135 mg Caps ule, delayed release RxNorm: 674195 1 Capsule(s) PO daily No Start Date Active bumetanide 1 mg Tab RxNorm: 198387 Tablet(s) PO PRN No Start Date Active Xarelto 20 mg tablet RxNorm: 0639659 1 Tablet(s) PO daily No Start Date Active simvastatin 80 mg ta blet RxNorm: 191763 1/2 Tablet(s) PO daily No Start Date 11/06/2011 Inactive spironolactone 25 mg Tab RxNorm: 818731 1 Tablet(s) PO daily No Start Date 08/05/2018 Inactive metformin 500 mg tablet RxNorm: 989682 1/2 Tablet(s) PO BID No Start Date 06/02/2013 Inactive carvedilol 25 mg Tab RxNorm: 944049 1 Tablet(s) PO BID No Start Date 09/20/2015 Inactive aspirin 325 mg tablet RxNorm: 115091 1 Tablet(s) PO daily No Start Date 09/20/2015 Inactive digoxin 250 mcg Tab RxNorm: 7987644 1/2 Tablet(s) PO daily No Start Date 09/20/2015 Inactive Coumadin 5 mg tablet RxNorm: 075303 Tablet(s) PO No Start Date 02/27/2012 Inactive 7.5 mg fri [id number] other days Bactroban 2 % topica l ointment RxNorm: 641347 1 TOP BID No Start Date 12/07/2013 Inactive Contour Test Strips RxNorm: 1 Miscellaneous BID No Start Date 10/23/2012 Inactive coun tour ts lisinopril 40 mg tablet RxNorm: 885321 1 Tablet(s) PO daily No Start Date 11/06/2011 Inactive Medication Administered Medication Codes Instruc tions Start Date Status ceftriaxone 500 mg solution for injection RxNorm: 6320530 11/17/2015 No longer A ctive ceftriaxone 1 gram solution for injection RxNorm: 890240 11/25/2013 No longer A ctive Rocephin 500 mg solution for injection RxNorm: 115913 1Gramonce 11/24/2013 No longer Active Rocephin 500 mg Solution for Injection RxNorm: 2369538 1 04/07/2012 No longer A ctive Immunizations [...] SCABIES ICD-9: 133.0 DIABETES TYPE II SNOMED: 868938281 ICD-9: 250.00 07/01/2013 Abrasion of leg ICD-9: 916.0 11/26/2012 Hypotension ICD-9: 458.9 11/16/2012 Hordeolum externum of right eye ICD- 9: 373.11 04/07/2012 Periorbital cellulitis ICD-9: 373.13 04/07/2012 ESSENTIAL HYPERTENSION SNOMED: 48431 000 ICD-9: 401.9 11/14/2011 Leg pain ICD-9: [...] Item Item Code Result Date Comp Metabolic Txe963 NA 133 mEq/L 11/17/2015 Comp Metabolic Vui854 K 4.5 mEq/L 11/17/2015 Comp Metabolic Nyg268 CL 101 mEq/L 11/17/2015 Comp Metabolic Zvx318 CO2 22.0 mEq/L 11/17/2015 Comp Metabolic Zcj081 AN ION GAP 15 11/17/2015 Comp Metabolic Yvv191 GL UCOSE 197 mg/dL 11/17/2015 Comp Metabolic Xiy400 Cr eat 0.8 mg/dL 11/17/2015 Comp Metabolic Dqv261 eG FR 110 ml/min/1.73m2 10/20 Comp Metabolic Jkx786 BUN 20 mg/dL 11/17/2015 Comp Metabolic Imv097 B/ C Ratio 25.6 Ratio 11/17/2015 Comp Metabolic Vig184 CA LCIUM 9.4 mg/dL 11/17/2015 Comp Metabolic Lyy382 AL K PHOS 65 U/L 11/17/2015 Comp Metabolic Dvb150 T(SGOT) 22 U/L 11/17/2015 Comp Metabolic Brj545 AL T(SGPT) 40 U/L 11/17/2015 Comp Metabolic Nay260 BI LI T 0.5 mg/dL 11/17/2015 Comp Metabolic Ijg817 AL BUMIN 4.2 g/dL 11/17/2015 Comp Metabolic Szb211 TP RO 7.0 g/dL 11/17/2015 Comp Metabolic Jrq149 GL OB 2.8 g/dL 11/17/2015 Comp Metabolic Rzv559 A/ G Ratio 1.5 Ratio 11/17/2015 Comp Metabolic Quc101 Os mo 274 mOsmo 11/17/2015 Cbc With [...] 29.6 pg 11/17/2015 Cbc With Differential Ord2 Lynn% 7.0 % 11/17/2015 Cbc With Differential Ord2 [...] 0.68 K/ul 11/17/2015 Cbc With Differential Ord2 Lynn ABS# 1.1 K/ul 11/17/2015 Cbc With Differential [...] 29.4 pg 11/08/2015 Cbc With Differential Ord2 Lynn% 10.2 % 11/08/2015 Cbc With Differential Ord2 [...] 2.10 K/ul 11/08/2015 Cbc With Differential Ord2 Lynn ABS# 0.9 K/ul 11/08/2015 Cbc With Differential Ord2 Eos ABS# 0.1 K/ul 11/08/2015 Cbc With Differential Ord2 Baso ABS# 0.0 K/ul 11/08/2015 Microalbumin Vrv564 Micr oAlb <0.7 mg/dL 11/08/2015 Tsh Ord6 hTSH II 0.65 uIU/mL 11/08/2015 Lipid Ord30 CHOL 157 mg/dL 11/08/2015 Lipid Ord30 HDL 30.0 mg/dl 11/08/2015 Lipid Ord30 TRIG 228 mg/dL 11/08/2015 Lipid Ord30 LDL 81 mg/dL 11/08/2015 Lipid Ord30 C/HDL 5.2 Ratio 11/08/2015 Comp Metabolic Nni474 NA 130 mEq/L 11/08/2015 Comp Metabolic Qho483 K 4.4 mEq/L 11/08/2015 Comp Metabolic Uts699 CL 97 mEq/L 11/08/2015 Comp Metabolic Kga170 CO2 27.0 mEq/L 11/08/2015 Comp Metabolic Hst217 AN ION GAP 10 11/08/2015 Comp Metabolic Rng511 GL UCOSE 175 mg/dL 11/08/2015 Comp Metabolic Bge998 Cr eat 0.8 mg/dL 11/08/2015 Comp Metabolic Aqk952 eG FR 104 ml/min/1.73m2 10/20 Comp Metabolic Bzr465 BUN 26 mg/dL 11/08/2015 Comp Metabolic Que514 B/ C Ratio 31.7 Ratio 11/08/2015 Comp Metabolic Ijq639 CA LCIUM 9.3 mg/dL 11/08/2015 Comp Metabolic Bem147 AL K PHOS 68 U/L 11/08/2015 Comp Metabolic Ywg167 T(SGOT) 26 U/L 11/08/2015 Comp Metabolic Wtq242 AL T(SGPT) 42 U/L 11/08/2015 Comp Metabolic Yqx008 BI LI T 0.7 mg/dL 11/08/2015 Comp Metabolic Qwo992 AL BUMIN 4.3 g/dL 11/08/2015 Comp Metabolic Ydm103 TP RO 7.0 g/dL 11/08/2015 Comp Metabolic Sru103 GL OB 2.7 g/dL 11/08/2015 Comp Metabolic Sch983 A/ G Ratio 1.6 Ratio 11/08/2015 Comp Metabolic Hzg214 Os mo 270 mOsmo 11/08/2015 Total Psa Ord10 PSA 1.26 ng/mL 11/08/2015 %Hba1C Xvs282 % HbA1c 79937-2 8.2 % 11/08/2015 %Hba1C Xto786 Gluc Ave 189 mg/dL 11/08/2015 Lipid Ord30 CHOL 155 mg/dL 01/23/2015 Lipid Ord30 HDL 34.0 mg/dl 01/23/2015 Lipid Ord30 TRIG 198 mg/dL 01/23/2015 Lipid Ord30 LDL 81 mg/dL 01/23/2015 Lipid Ord30 C/HDL 4.6 Ratio 01/23/2015 Hepatic Yne840 ALBUMIN 4.2 g/dL 01/23/2015 Hepatic Xqf087 TPRO 6.9 g/dL 01/23/2015 Hepatic Qzm816 GLOB 2.7 g/dL 01/23/2015 Hepatic Oqi058 A/G Ratio 1.6 Ratio 01/23/2015 Hepatic Qpr999 ALK PHOS 59 U/L 01/23/2015 Hepatic Cci538 ALT(SGPT) 46 U/L 01/23/2015 Hepatic Iwo319 AST(SGOT) 21 U/L 01/23/2015 Hepatic Hem180 BILI T 0.5 mg/dL 01/23/2015 Hepatic Ysa460 BILI D 0.1 mg/dL 01/23/2015 Hepatic Pei689 BILI I 0.4 mg/dL 01/23/2015 Review of [...] clear 07/01/2013 None Full Exam - General 1995 Ears/Nose/Throat oral cavity/pharynx/larynx Overall: oral mucosa clear 07/01/2013 None Full Exam - General 1995 Ears/Nose/Throat [...] gait 05/17/2013 None Full Exam - General 1995 [...] CPT-4: J0696 11/17/2015 THER/PROPH/DIAG INJ SC/IM CPT-4: 49553 11/25/2013 ROCEPHIN, PER 250 MG CPT-4: J0696 11/25/2013 ROCEPHIN, PER 250 MG CPT-4: J0696 11/24/2013 THER/PROPH/DIAG INJ SC/IM CPT-4: 29848 11/24/2013 ROCEPHIN, PER 250 MG CPT-4: J0696 04/07/2012 THER/PROPH/DIAG INJ SC/IM CPT-4: 53999 04/07/2012 Vital Signs Date Vital 08/06/2018 Blood Pressure 1: 142/72 Code: 8480-6 BMI: 44.2 Code: 18257-7 Heart Rate 1: 81 bpm Height: 5'7" SpO2: 96% Weight: 282 lbs 11/17/2015 Blood Pressure 1: 112/82 Code: 8480-6 BMI: 44.6 Code: 45958-1 Heart Rate 1: 100 bpm Height: 5'7" SpO2: 96% Temperature: 37.3 (C ) / 99.1 (F) Weight: 285 lbs 09/21/2015 Blood Pressure 1: 132/72 Code: 8480-6 BMI: 44.0 Code: 91328-6 Heart Rate 1: 86 bpm Height: 5'7" SpO2: 97% Weight: 281 lbs 11/24/2013 Blood Pressure 1: 138/78 Code: 8480-6 Heart Rate 1: 96 bpm Temperature: 36.7 (C) / 98.0 (F) Weight: 280 lbs 10/15/2013 Blood Pressure 1: 124/70 Code: 8480-6 BMI: 43.2 Code: 62380-7 Heart Rate 1: 64 bpm Height: 5'7" [...] of immodium." States he ate at the [employer] and had ribs/chicken/pot roast. nausea Frequency of Episodes decreasing 10/29/2011 States he ate a pot pie l ast night and did not vomit afterwards. nausea Triggers no known associated factors 10/29/2011 None cellulitis Onset and Resolution ongoing 10/29/2011 States he did go to [employer] on Friday and he was walking around [...] Encounters Encounter Performer Loca tion Codes Date ([id number]) [id number] EST. P ATIENT, LEVEL IV Diagnosis: Type 2 diabetes mellitus with hyperglycemia[ICD10: E11.65] Diagnosis: Essential (primary) hypertension[ICD10: I10] Diagnosis: Mixed hyperlipidemia[ICD10: E78.2] Sandy Price MD, [facility] CPT-4: 59659 08/06/2018 ([id number]) 76025 EST. P ATIENT, LEVEL IV Diagnosis: Cellulitis of left lower limb[ICD10: L03.116] Diagnosis: Localized edema[ICD10: R60.0] Diagnosis: Type 2 diabetes mellitus without complications[ICD10: E11.9] Ak[facility] MD, [facility] CPT-4: 06421 11/17/2015 ([id number]) 10601 EST. P ATIENT, LEVEL IV Diagnosis: Essential (primary) hypertension[ICD10: I10] Diagnosis: Type 2 diabetes mellitus without complications[ICD10: E11.9] Diagnosis: Mixed hyperlipidemia[ICD10: E78.2] Diagnosis: Other obesity due to excess calories[ICD10: E66.09] [facility] CPT-4: 44274 09/21/2015 ([id number]) 15060 EST. P ATIENT, LEVEL III Diagnosis: CELLULITIS OF LEG[ICD9: 682.6] Diagnosis: EDEMA[ICD9: 782.3] Diagnosis: FEVER NOS[ICD9: 780.60] Diagnosis: Cough[ICD9: 786.2] Akosua Price MD, [facility] CPT-4: 08077 11/24/2013 ([id number]) 42780 EST. P ATIENT, LEVEL III Diagnosis: SCABIES[ICD9: 133.0] Sandy Price MD, [facility] CPT-4: 02027 10/15/2013 ([id number]) 29410 EST. P ATIENT, LEVEL III Diagnosis: DIABETES TYPE II[SNOMED: 173041017] Akosua Price MD, [facility] CPT- 4: 98583 07/01/2013 ([id number]) 47218 EST. P ATIENT, LEVEL III Diagnosis: CELLULITIS OF LEG[ICD9: 682.6] Sandy Price MD, [facility] CPT- 4: 70619 05/17/2013 ([id number]) 71608 EST. P ATIENT, LEVEL III Diagnosis: CELLULITIS OF LEG[ICD9: 682.6] Diagnosis: Abrasion of leg[ICD9: 916.0] Akosua Price MD, [facility] CPT-4: 84823 11/26/2012 ([id number]) 15331 EST. P ATIENT, LEVEL IV Diagnosis: EDEMA[ICD9: 782.3] Diagnosis: CELLULITIS OF LEG[ICD9: 682.6] Diagnosis: Hypotension[ICD9: 458.9] Ak[facility] Price MD, [facility] CPT-4: 58164 11/16/2012 ([id number]) 95995 EST. P ATIENT, LEVEL IV Diagnosis: EDEMA[ICD9: 782.3] Diagnosis: CELLULITIS OF LEG[ICD9: 682.6] Diagnosis: DIABETES TYPE II[SNOMED: 110683252] Akosua Price MD, [facility] CPT- 4: 06699 08/27/2012 ([id number]) 79364 EST. P ATIENT, LEVEL III Diagnosis: Hordeolum externum of right eye[ICD9: 373.11] Akosua Price MD, [facility] CPT-4: 11565 04/07/2012 ([id number]) 95070 EST. P ATIENT, LEVEL IV Diagnosis: ESSENTIAL HYPERTENSION[SNOMED: 43571410] Diagnosis: DIABETES TYPE II[SNOMED: 454370611] Akosua Price MD, [facility] CPT- 4: 18754 11/14/2011 ([id number]) Patient adm itted to the hospital from clinic (NO CHARGE) Diagnosis: Cellulitis of left leg[ICD9: 682.6] Diagnosis: Hypotension[ICD9: 458.9] Diagnosis: Nausea vomiting and diarrhea[ICD9: 787.01] Diagnosis: Leg pain[ICD9: 729.5] Diagnosis: Anticoagulant long-term use[ICD9: V58.61] Diagnosis: Coronary artery disease[ICD9: 414.00] Sandy Price MD, [facility] CPT-4: 60182S 10/29/2011 Plan of Care Planned Activity Notes [...] blood pressure readings at home. Hyperlipidemia-managed by food and beverage assistant 08/06/2018 Patient Education: Patient Medication Summary Completed 08/06/2018 Patient Education: Hypertension Completed 08/06/2018 Patient Education: Diabetes Completed 08/06/2018 Patient Education: Cholesterol Management Completed 08/06/2018 Care Plan: Cbc With Differential Pending 08/06/2018 Care Plan: Comp Metabolic Pending 08/06/2018 Care Plan: Tsh Pending 08/06/2018 Care Plan: %Hba1C LOIN C : 64404-9 Pending 08/06/2018 Visit Plan: Cellulitis - start oral [...] closely. 11/17/2015 App[facility]ment: [phone] [phone] (15 min) Moderate 11/17/2015 Patient Education: Patient [...] check. 09/21/2015 Appointment: [phone] [phone] (30 min) Complex 09/21/2015 Patient Education: Patient [...] for greater blood glucose control. Cellulitis of xgr-cefezvdx-ryme if symptoms return 07/01/2013 Appointment: Sandy Tong WPtel: [address] [place] [address] 07/01/2013 Patient Education: Patient Medication Summary Completed 07/01/2013 Appointment: Sandy Tong WPtel: [address] [place], [place] [id number] [address] Follow up 06/29/2013 Appointment: Akosua Price WPtel: [address] [place], [place] [phone] Hospital follow up 06/28/2013 Visit Plan: Cellulitis [...] days-continue topical antibiotic ointment as previously directed Umzoeqaazes-yxfiyrfp-rpuvewu blood pressure at home. 11/26/2012 Appointment: Sandy Tong WPtel: [address] [place], [place] [id number] [address] Follow up 11/26/2012 Patient Education: Patient Medication Summary Completed 11/26/2012 Visit Plan: Cellulitis - continue w [facility] oral antibiotics as previously directed, return to clinic as previously directed, call for acute change in symptoms, worsening redness, warmth, discharge. CONTINUE WITH KEFLEX AND MONITOR SYMPTOMS, IF NOT BETTER, CALL OFFICE JEFERSON. HYPOTENSION - PT TO DECREASE LISIONPRIL TO 1/2 PILL DAILY AND CHECK BLOOD PRESSURES TWICE DAILY AND CALL WITH RESULTS. EDEMA - ELEVATE LEGS. 11/16/2012 Appointment: Akosua Price WPtel: [address] [place] [address] Other 11/16/2012 Patient Education: Patient Medication Summary Completed 11/16/2012 Visit Plan: Edema - pt has been adv ised to elevate legs to prevent dependent edema, compression has been recommended to help to naturally decrease peripheral edema. Diuretic use has been discussed and pt has been i nstructed in appropriate use of such medication as necessary to further attempt to reduce peripheral edema. Btgbmzidbq-voxnyxkm-wbrq for symptoms Diabetes Mellitus - controlled - [...] less controlled. 08/27/2012 Appointment: Sandy Tong WPtel: [address] [place], [place] [phone] Follow up 08/27/2012 Patient Education: Patient Medication Summary Completed 08/27/2012 Visit Plan: Cellulitis - continue w ith oral antibiotics as directed, return to clinic as previously directed, call for acute change in symptoms, worsening redness, warmth, discharge. 04/07/2012 [facility]ment[phone] [facility] [facility] 04/07/2012 Patient Education: Patient Medication Summary [...] at home. 11/14/2011 Appointment: Akosua Price WPtel: [phone] [facility] Other 11/14/2011 Appointment: Akosua Price WPtel: [facility]9 [facility] Other 11/14/2011 Patient Education: Patient Medication Summary [...] health benefit. 10/29/2011 Appointment: Ran Sandy WPtel: [facility]0 [phone] [facility] 10/29/2011 Patient Education: Patient Medication Summary Completed 10/29/2011 Instructions Comment . Edema - pt has bee n advised to elevate legs to prevent dependent edema, compression has been recommended to help to naturally decrease peripheral edema. Diuretic use has been discussed and pt has been instructed in appropriate use of such medication as necessary to further attempt to reduce peripheral edema. Wlmflwdrce-zuvjeodf-zfkr for symptoms Diabetes Mellitus - controlled - [...] become less controlled. . Cellulitis and abr kanzs-sbqthmkkm-zdcakjiv bactrim x 5 days-continue topical antibiotic ointment as previously directed Bjgqhedqwup-glvlandc-yyrxgbs blood pressure at home. . Diabetes Mellitus [...] for greater blood glucose control. Cellulitis of jnx-crbrefvt-sfsw if symptoms return . Diabetes Mellitus -noncompliant [...] blood pressure readings at home. Hyperlipidemia-managed by food and beverage assistant labs-cbc, cmp bactrim ds 1 po [...] verbalized understanding of plan. . Admission to [facility] -cellulitis left lower leg/hypotension/n/v/d -Dr Price [...] be adjusted as needed. . Admission to [facility] -cellulitis left lower leg/hypotension/n/v/d -Dr Price [...]
--- OUTSIDE RECORDS SUMMARY | 2019-07-19 20:07 | XMS REPORT | Continuity of Care Document ---
Author Organization Unknown Address Unknown Phone Unavailable Allergies Active Description Code Type Severity Reaction Onset Reported/Identified Relationship to Patient Clinical Status Yes No Known Drug Allergies [id number] Drug Allergy Unknown N/A 10/29/2011 Medications There is no data. 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 11/01/2011 Ot 401.9 HYPE RTENSION NOS 11/01/2011 Ot 414.01 COR ONARY ATHEROSCLEROSIS OF [place] CORON 11/01/2011 Ot 427.31 ATR IAL FIBRILLATION 11/01/2011 Ot 428.0 ADRY ESTIVE HEART FAILURE NOS 11/01/2011 Ot 458.9 HYPO TENSION NOS 11/01/2011 Ot 535.50 UNS P GASTRITIS GASTRODUODENITIS W/O ME 11/01/2011 Ot 682.6 CELL ULITIS OF LEG 06/14/2013 WALI TA MD Ot 038.9 SEPTICEMIA NOS 06/14/2013 WALI TA MD Ot 250.00 DIAB JESUSITA WO COMPL, TYPE II OR UNSPEC TY 06/14/2013 WALI TA MD Ot 272.4 HYPERLIPIDEMIA NEC/NOS 06/14/2013 WALI TA MD Ot 278.01 MORBID OBESITY 06/14/2013 WALI TA MD Ot 401.9 HYPERTENSION NOS 06/14/2013 WALI TA MD Ot 414.01 CORONARY ATHEROSCLEROSIS OF [place] CORON 06/14/2013 WALI TA MD Ot 427.31 ATRIAL FIBRILLATION 06/14/2013 WALI TA MD Ot 428.0 CONGESTIVE HEART FAILURE NOS 06/14/2013 WALI TA MD Ot 49 6 CHR AIRWAY OBSTRUCT NEC 06/14/2013 WALI TA [...] 40.0-44.9, ADULT 07/25/2013 KEZIA DOUGLAS MD Ot 882. 0 OPEN WOUND OF HAND 07/25/2013 KEZIA DOUGLAS MD Ot E000 .0 CIVILIAN ACTIVITY DONE FOR INCOME OR PAY 07/25/2013 KEZIA DOUGLAS MD Ot E849 .[address]/HIGHWAY 07/25/2013 KEZIA DOUGLAS MD Ot E888 .0 FALL STRIKING SHARP OBJECT 07/25/2013 KEZIA DOUGLAS MD Ot E920 .9 ACC-CUTTING INSTRUM NOS 07/25/2013 KEZIA DOUGLAS MD Ot V06. 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 2 MIXED HYPERLIPIDEMIA 09/27/2015 LAWANDA JOHNSON MD Ot I10 ESSENTIAL (PRIMARY) HYPERTENSION 09/27/2015 LAWANDA JOHNSON MD Ot I48. 0 PAROXYSMAL ATRIAL FIBRILLATION 09/27/2015 LAWANDA JOHNSON MD Ot I50. 9 HEART FAILURE, UNSPECIFIED 10/02/2015 LAWANDA JOHNSON MD Ot E78. 2 MIXED HYPERLIPIDEMIA 10/02/2015 LAWANDA JOHNSON MD Ot I10 ESSENTIAL (PRIMARY) HYPERTENSION 10/02/2015 LAWANDA JOHNSON MD Ot I48. 0 PAROXYSMAL ATRIAL FIBRILLATION 10/02/2015 LAWANDA JOHNSON MD Ot I50. 9 HEART FAILURE, UNSPECIFIED 10/14/2015 LAWANDA JOHNSON MD Ot E78. 2 MIXED HYPERLIPIDEMIA 10/14/2015 LAWANDA JOHNSON MD Ot I10 ESSENTIAL (PRIMARY) HYPERTENSION 10/14/2015 LAWANDA JOHNSON MD Ot I48. 0 PAROXYSMAL ATRIAL FIBRILLATION 10/14/2015 LAWANDA JOHNSON MD Ot I50. 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 2 MIXED HYPERLIPIDEMIA 10/25/2016 LAWANDA JOHNSON MD Ot I10 ESSENTIAL (PRIMARY) HYPERTENSION 10/25/2016 LAWANDA JOHNSON MD Ot I48. 0 PAROXYSMAL ATRIAL FIBRILLATION 10/25/2016 LAWANDA JOHNSON MD Ot I50. 9 HEART FAILURE, UNSPECIFIED 11/06/2016 NHAN TAYLOR Ot E11.9 TYPE 2 DIABETES MELLITUS WITHOUT COMPLIC 11/06/2016 NHAN TAYLOR Ot E78.2 MIXED HYPERLIPIDEMIA 11/06/2016 NHAN TAYLOR Ot I11.0 HYPERTENSIVE HEART DISEASE WITH HEART FA 11/06/2016 NHAN TAYLOR Ot I50.22 CHRONIC SYSTOLIC (CONGESTIVE) HEART FAIL 12/25/2017 LAWANDA JOHNSON MD Ot E78. 2 MIXED HYPERLIPIDEMIA 12/25/2017 LAWANDA JOHNSON MD Ot I10 ESSENTIAL (PRIMARY) HYPERTENSION 12/25/2017 LAWANDA JOHNSON MD Ot I27. 20 PULMONARY HYPERTENSION, UNSPECIFIED 12/25/2017 LAWANDA JOHNSON MD Ot I34. 0 NONRHEUMATIC MITRAL (VALVE) INSUFFICIENC 12/25/2017 LAWANDA JOHNSON MD Ot I48. 0 PAROXYSMAL ATRIAL FIBRILLATION 12/25/2017 LAWANDA JOHNSON MD Ot J44. 9 CHRONIC OBSTRUCTIVE PULMONARY DISEASE, U 01/06/2018 LAEX MD, BASHAR J Ot E78. 2 MIXED HYPERLIPIDEMIA 01/06/2018 LAWANDA JOHNSON MD Ot I10 ESSENTIAL (PRIMARY) HYPERTENSION 01/06/2018 LAWANDA JOHNSON MD Ot I27. 20 PULMONARY HYPERTENSION, UNSPECIFIED 01/06/2018 LAWANDA JOHNSON MD Ot I34. 0 NONRHEUMATIC MITRAL (VALVE) INSUFFICIENC 01/06/2018 LAWANDA JOHNSON MD Ot I48. 0 PAROXYSMAL ATRIAL FIBRILLATION 01/06/2018 LAWANDA JOHNSON MD Ot J44. 9 CHRONIC OBSTRUCTIVE PULMONARY DISEASE, U 01/14/2018 LAWANDA JOHNSON MD Ot E78. 2 MIXED HYPERLIPIDEMIA 01/14/2018 LAWANDA JOHNSON MD Ot I10 ESSENTIAL (PRIMARY) HYPERTENSION 01/14/2018 LAWANDA JOHNSON MD Ot I27. 20 PULMONARY HYPERTENSION, UNSPECIFIED 01/14/2018 LAWANDA JOHNSON MD Ot I34. 0 NONRHEUMATIC MITRAL (VALVE) INSUFFICIENC 01/14/2018 LAWANDA JOHNSON MD Ot I48. 0 PAROXYSMAL ATRIAL FIBRILLATION 01/14/2018 LAWANDA JOHNSON MD, Ot J44. 9 CHRONIC OBSTRUCTIVE PULMONARY DISEASE, U 06/05/2018 IRAIS MALIK APRN Ot E11 .9 TYPE 2 DIABETES MELLITUS WITHOUT COMPLIC 06/05/2018 IRAIS MALIK APRN Ot J44 .9 CHRONIC OBSTRUCTIVE PULMONARY DISEASE, U 06/05/2018 IRAIS MALIK APRN Ot L03.115 CELLULITIS OF RIGHT LOWER LIMB 06/05/2018 IRAIS MALIK APRN Ot M79.89 OTHER SPECIFIED SOFT TISSUE DISORDERS 06/05/2018 IRAIS MALIK APRN Ot Z79.82 SHELTER (CURRENT) USE OF ASPIRIN 06/05/2018 IRAIS MALIK APRN Ot Z79.84 SHELTER (CURRENT) USE OF ORAL HYPOGLYC 06/05/2018 IRAIS MALIK APRN Ot Z87.891 PERSONAL HISTORY OF NICOTINE DEPENDENCE 06/05/2018 IRAIS MALIK APRN Ot Z95 .0 PRESENCE OF CARDIAC PACEMAKER 06/08/2018 IRAIS MALIK APRN Ot E11 .9 TYPE 2 DIABETES MELLITUS WITHOUT COMPLIC 06/08/2018 IRAIS MALIK APRN Ot J44 .9 CHRONIC OBSTRUCTIVE PULMONARY DISEASE, U 06/08/2018 IRAIS MALIK APRN Ot L03.115 CELLULITIS OF RIGHT LOWER LIMB 06/08/2018 IRAIS MALIK DOWNSTAIRS MAID Ot M79.89 OTHER SPECIFIED SOFT TISSUE DISORDERS 06/08/2018 IRAIS MALIK APRN Ot Z79.82 SINGLE END SEWER (CURRENT) USE OF ASPIRIN 06/08/2018 IRAIS MALIK APRN Ot Z79.84 SHELTER (CURRENT) USE OF ORAL HYPOGLYC 06/08/2018 IRAIS MALIK APRN Ot Z87.891 PERSONAL HISTORY OF NICOTINE DEPENDENCE 06/08/2018 IRAIS MALIK APRN Ot Z95 .0 PRESENCE OF CARDIAC PACEMAKER Procedures There is no data. Results Test Result Range Complete blood count (CBC) with automate d white blood cell (WBC) differential - 06/05/18 15:14 Blood leukocytes automated count (number/volume) 7.0 10*3/uL 4.3-11.0 Blood erythrocytes automated count (number/volume) 5.18 10*6/uL 4.35-5.85 Venous blood hemoglobin measurement (mass/volume) 15.0 g/dL 13.3-17.7 Blood hematocrit (volume fraction) 44 % 40-54 Automated erythrocyte mean corpuscular volume 85 [ foz_us] 80-99 Automated erythrocyte mean corpuscular h emoglobin (mass per erythrocyte) 29 pg 25-34 Automated erythrocyte mean corpuscular h emoglobin concentration measurement (mass/volume) 34 g/dL 32-36 Automated erythrocyte distribution width ratio 13. 5 % 10.0- 14.5 Automated blood platelet count (count/volume) 120 10*3/uL 130-400 Automated blood platelet mean volume measurement 10.0 [foz_us] 7.4-10.4 Automated blood neutrophils/100 leukocytes 70 % 42-75 Automated blood lymphocytes/100 leukocytes 18 % 12-44 Blood monocytes/100 leukocytes 12 % 0-12 Automated blood eosinophils/100 leukocytes 0 % 0-10 Automated blood basophils/100 leukocytes 0 % 0-10 Blood neutrophils automated count (number/volume) 4.9 10*3 1.8-7.8 Blood lymphocytes automated count (number/volume) 1.2 10*3 1.0-4.0 Blood monocytes automated count (number/volume) 0. 8 10*3 0.0-1.0 Automated eosinophil count 0.0 10*3/uL 0 .0-0.3 Automated blood basophil count (count/volume) 0.0 10*3/uL 0.0-0.1 Whole blood basic metabolic panel - 05/22 09/06 15:14 Serum or plasma sodium measurement (moles/volume) 133 mmol/L 135-145 Serum or plasma potassium measurement (moles/volume) 3.8 mmol/L 3.6-5.0 Serum or plasma chloride measurement (moles/volume) 97 mmol/L 98-107 Carbon dioxide 25 mmol/L 21-32 Serum or plasma anion gap determination (moles/volume) 11 mmol/L 5-14 Serum or plasma urea nitrogen measurement (mass/volume ) 18 mg/dL 7-18 Serum or plasma creatinine measurement (mass/volume) 0.94 mg/dL 0.60-1.30 Serum or plasma urea nitrogen/creatinine mass ratio 19 NRG Serum or plasma creatinine measurement w ith calculation of estimated glomerular filtration rate > NRG Serum or plasma glucose measurement (mass/volume) 347 mg/dL 70-105 Serum or plasma calcium measurement (mass/volume) 9.3 mg/dL 8.5-10.1 Encounters ACCT No. Visit Date/Time Discharge Status Pt. Type Provider Facility Loc./Unit Complaint [id number] 06/05/2018 13:54:00 019 16:13:00 DIS Emergency IRAIS MALIK APRN [facility] ER RIGHT LEG SWOLLEN/RED [id number] 01/07/2018 11:30:00 018 23:59:59 CLS Preadmit LAWANDA JOHNSON MD [facility] CARD I10 HTN [id number] 01/01/2018 12:51:00 018 23:59:59 CLS Outpatient LWAANDA JOHNSON MD [facility] CARD I10 HTN [id number] 12/24/2017 11:20:00 018 23:59:59 CLS Outpatient LAWANDA JOHNSON MD [facility] CARD I10 HTN [id number] 10/25/2016 12:38:00 017 23:59:59 CLS Outpatient QUANG TAYLOR [facility] CARD CHF [id number] 09/26/2015 13:09:00 016 23:59:59 CLS Outpatient ALEX BELTRAN, LAWANDA Pro [facility] CARD CHF,HTN,PAF [id number] 03/15/2014 12:37:00 014 23:59:59 CLS Outpatient DOM BAIRES, QUANG Quesada [facility] CARD CHF,HTN,PAF ,HLP [id number] 01/29/2014 03:06:00 04:56:00 DIS Emergency JORGE DO, MERVIN K Vi [facility] ER RT HAND INJURY-BUMPED A T WORK [id number] 01/25/2014 13:36:00 23:59:59 CLS Outpatient LATASHA BELTRAN, KAYLEE Pro [facility] RAD IMPLANTABLE CARDIOVERTE R DEFIBRILLATOR GENERATOR E [id number] 07/25/2013 00:02:00 00:54:00 DIS Emergency STELLA BELTRAN, KEZIA Louis [facility] ER LEFT HAND LAC [id number] 06/08/2013 17:45:00 014 10:20:00 DIS Inpatient KEYON BELTRAN, WALI Louis [facility] 4TH CELLULITIS L LEG [id number] 12/14/2012 13:21:00 013 23:59:59 CLS Outpatient [id number] 11/14/2012 13:03:00 013 13:43:00 DIS Emergency [id number] 08/09/2012 15:46:00 013 14:00:00 DIS Inpatient [id number] 10/29/2011 10:21:00 Document Registration [id number] 09/25/2010 12:56:00 Document Registration [id number] 03/15/2014 12:37:43 ACT Document Registration
[2019-07-19] MEDS ORDERED: CANA100T (20:09)
[2019-07-19] MEDS ORDERED: LIDOCAINE 2% 20 ML (XYLOCAINE) VIAL INJ ONE (20:15)
[2019-07-19] MEDS ORDERED: TETANUS,DIPTH,PERTUSS P/F (BOOSTRIX) 0.5 ML VIAL IM ONE (20:15)
--- NOTE | 2019-07-19 20:25 | NUR ---
pt to [facility]. health
[2019-07-19] MEDS ORDERED: LIDOCAINE 1% INJ 20 ML 20 ML VIAL ONE (20:48)
[2019-07-19] MEDS ORDERED: LIDOCAINE 1% INJ 20 ML 20 ML VIAL INJ ONE (21:00)
[2019-07-19] MEDS ORDERED: RX-TRIMETH/SULFA. 160-800 MG (BACTRIM DS) TAB PPK#2 PO STA (21:15)
[2019-07-19] MEDS ORDERED: SULF1TAB35 PO (21:19)
--- NOTE | 2019-07-19 21:19 | ED Upper Extremity ---
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 Nursing Sepsis Screen: No Definite Risk Source: patient History of Present Illness Date Seen by Provider: Jul 19, 2019 Time Seen by Provider: 20:00 Initial Comments PT ARRIVES VIA POV FROM WORK AT [employer] [facility] [employer] HE CUT HIS LEFT THUMB ON A PACKING MACHINE BLADE AT WORK TONIGHT AROUND [id number] NEW BLADE/SAW TOOTH PATTERN, FOR CUTTING PLASTIC WAS NOT WEARING GLOVES AT THE TIME PT IS RIGHT HANDED NO PRIOR INJURY TO LEFT THUMB NO PARESTHESIAS OR MOTOR DEFICITS LAST TETANUS VACCINATION IS UNKNOWN PT IS ON XARELTO FOR CHRONIC ATRIAL FIBRILLATION. NO ACTIVE BLEEDING AT THIS TIME PT IS DIABETIC--NEVER CHECKS BLOOD SUGAR OR FOLLOWS A DIET. DOES TAKE HIS MEDICATION EVERY DAY PCP: DR. TA Allergies and Home Medications Allergies Coded Allergies: No Known Drug Allergies (Unverified , 10/29/11) Home Medications Aspirin 325 Mg Tablet.dr, 325 MG PO DAILY, (Reported) Atorvastatin Calcium 40 Mg Tablet, 40 MG PO DAILY, (Reported) Bumetanide 1 Mg Tablet, 1 MG PO DAILY PRN, (Reported) NEEDED FOR SWELLING Carvedilol 25 Mg Tablet, 25 MG PO BID, (Reported) Fenofibric Acid (Choline) 135 Mg Capsule.dr, 135 MG PO DAILY, (Reported) Lisinopril 40 Mg Tablet, 20 MG PO DAILY, (Reported) TAKES 1/2 (40MG) TABLET DAILY Metformin Hcl 500 Mg Tablet, 250 MG PO BID, (Reported) TAKES 1/2 (500MG) TABLET TWICE DAILY Naproxen 500 Mg Tablet, 1 EACH PO TID PRN for PAIN FOR PAIN Prescribed by: MERVIN PATEL on 01/29/14 1866 [place]-3 Fatty Acids/Fish Oil 1 Each Capsule, 3,000 MG PO DAILY, (Reported) TAKES 3 (1000MG) CAPSULES DAILY Rivaroxaban 20 Mg Tablet, 20 MG PO DAILY, (Reported) Spironolactone 25 Mg Tab, 12.5 MG PO DAILY, (Reported) TAKES 1/2 (25MG) TABLET DAILY Sulfamethoxazole/Trimethoprim 1 Each Tablet, 1 EACH PO BID Prescribed by: MERVIN PATEL on 07/19/19 0520 Patient Home Medication List Home Medication List Reviewed: Yes Review of Systems Constitutional: no symptoms reported Musculoskeletal: no symptoms reported Skin: see HPI Psychiatric/Neurological: No Symptoms Reported Past Ftafbbk-Mpyuad-Fbwiuv Hx Past Med/Social Hx: Reviewed and Corrections made Patient Social History Alcohol Use: Rarely Uses Recreational Drug Use: No Smoking Status: Former Smoker Type Used: Cigarettes 2nd Hand Smoke Exposure: No Recent Foreign Travel: No Contact w/Someone Who Travel: No Recent Infectious Disease Expo: No Recent Hopitalizations: No Physical Abuse: No Sexual Abuse: No Mistreated: No Fear: No Immunizations Up To Date Tetanus Booster (TDap): Less than 5yrs Date of Pneumonia Vaccine: Sep 20, 2011 Date of Influenza Vaccine: Jun 09, 2013 Seasonal Allergies Seasonal Allergies: No Past Medical History Surgeries: Yes (ABDOMINAL SURGERY, PACEMAKER. DEFIBRILLATOR) Abdominal, Defibrillator, Pacemaker Respiratory: Yes COPD Cardiac: Yes (PACEMAKER/DEFIBRILLATOR) Atrial Fibrillation, Cardiomyopathy, High Cholesterol, Hypertension, Irregular Heartbeat Neurological: No Reproductive Disorders: No Sexually Transmitted Disease: No HIV/AIDS: No Genitourinary: No Gastrointestinal: No Musculoskeletal: Yes Arthritis Endocrine: Yes Diabetes, Insulin dep HEENT: No Loss of Vision: Denies Hearing Impairment: Denies Cancer: No Psychosocial: No Integumentary: No Blood Disorders: No Family Medical History Diabetes, Hypertension Physical Exam Vital Signs Vital Signs - First Documented 07/19/19 19:56 Temp 36.8 Pulse 84 Resp 16 B/P (MAP) 135/86 (102) Pulse Ox 96 O2 Delivery Room Air Capillary Refill : Less Than 3 Seconds Height, Weight, BMI Height: 5'6.00" Weight: 275lbs. 0.0oz. 124.432744jw; 40.00 BMI Method:Stated General Appearance: WD/WN, no apparent distress, other (SMILING, VERY TALKATIVE, AND PLEASANT) Hand: Left (THUMB PAD WITH 2 1/2 CM, JAGGED, SAWTOOTH PATTERN, LACERATION. NO ACTIVE BLEEDING. MOTOR/SENSORY/VASCULAR INTACT. ) Neurologic/Psychiatric: organic preparation technician II-XII nml as tested, no motor/sensory deficits, alert, normal mood/affect, oriented x 3 Skin: normal color, warm/dry, other ( ABOVE. ) Procedures/Interventions Other Wound Location LEFT THUMB Wound Length (cm): 2.5 Wound's Depth, Shape: irregular, sub Q Wound Explored: clean Anesthesia: 1% Lidocaine Suture: Ethlion Suture Size: 4-0 Number of Sutures: 4 Sterile Dressing Applied?: Yes Progress/Results/Core Measures Results/Orders My Orders Orders - MERVIN PATEL DO Dipht,Pertuss(Acell),Tet Adult (Boostrix (07/19/19 20:15) Lidocaine 2% Injection 20 Ml (Xylocaine (07/19/19 20:15) Rx-Trimeth/Sulfameth Ds Tab (Rx-Bactrim/ (07/19/19 21:15) Wound Dressing-Ed (07/19/19 21:16) Medications Given in ED Current Medications Medications Dose Ordered Sig/Emelyn Route Start Time Stop Time Status Last Admin Dose Admin Diphtheria/ Tetanus/Acell Pertussis 0.5 ml ONCE ONCE IM 07/19/19 20:15 07/19/19 20:16 DC 07/19/19 20:19 0.5 ML Lidocaine HCl 20 ml ONCE ONCE INJ 07/19/19 21:00 07/19/19 21:10 DC 07/19/19 21:00 20 ML Vital Signs/I&O 07/19/19 19:56 Temp 36.8 Pulse 84 Resp 16 B/P (MAP) 135/86 (102) Pulse Ox 96 O2 Delivery Room Air Blood Pressure Mean: 102 Departure Impression Primary Impression: Laceration of left thumb Additional Impression: Lzafpujfyl-gyzinbbww-fdejzul (DPT) vaccination administered at current visit Disposition: 01 HOME, SELF-CARE Condition: Stable Departure-Patient Inst. Referrals: WALI TA MD (PCP/Family) Primary Care Physician Patient Instructions: Laceration Repair With Stitches (DC), Diphtheria and Tetanus Toxoids, and Acellular Pertussis Vaccine Add. Discharge Instructions: LEAVE DRESSING IN PLACE FOR 24 HOURS, THEN CLEAN TWICE A DAY WITH ANTIBACTERIAL SOAP AND WATER, APPLY FRESH DRESSING AND FINGER GUARD OTHERWISE KEEP CLEAN AND DRQAY TYLENOL NEEDED FOR PAIN FOLLOW UP WITH OCCUPATIONAL HEALTH IN 1-2 DAYS FOR WOUND CHECK SUTURES OUT IN 10 DAYS All discharge instructions reviewed with patient and/or family. Voiced understanding. Scripts Sulfamethoxazole/Trimethoprim (Bactrim Ds Tablet) 1 Each Tablet 1 EACH PO BID, #20 TAB Prov: MERVIN PATEL DO 07/19/19 MERVIN PATEL DO Jul 19, 2019 21:19
[2019-07-19 21:26] VITALS: BP 110/93
== END 2019-07-19 21:30 | disposition home or self-care (01) ==
LOC: EDUNIT# 19:53 → ER 19:54
DX: S61.012A Laceration without foreign body of left thumb without damage to nail, initial encounter (principal); I48.20 Chronic atrial fibrillation, unspecified; E11.9 Type 2 diabetes mellitus without complications; I42.9 Cardiomyopathy, unspecified; E78.00 Pure hypercholesterolemia, unspecified; I10 Essential (primary) hypertension; M19.91 Primary osteoarthritis, unspecified site; Z79.01 Long term (current) use of anticoagulants; Z79.82 Long term (current) use of aspirin; Z79.84 Long term (current) use of oral hypoglycemic drugs; Z79.899 Other long term (current) drug therapy; W31.82XA Contact with other commercial machinery, initial encounter; Y99.0 Civilian activity done for income or pay; Z95.810 Presence of automatic (implantable) cardiac defibrillator; Z23 Encounter for immunization
CPT/HCPCS: 12001; 90715

== ENCOUNTER → 2020-09-13 | Outpatient (CLI) | payer BC, OTHER ==
[~2020-09-13] MED LIST changes: +CANA100T
== END ==
LOC: CARD 12:12
PROVIDERS: ATTEND Internal Medicine Cardiovascular Disease
DX: I11.9 Hypertensive heart disease without heart failure (principal); I25.10 Atherosclerotic heart disease of native coronary artery without angina pectoris
CPT/HCPCS: 93306

== ENCOUNTER → 2022-12-20 | Outpatient (CLI) | payer OTHER ==
--- NOTE | 2022-12-20 15:50 | Diagnostic Imaging Report ---
TECHNIQUE: Focused ultrasound of the right upper extremity was performed in the area of the biceps muscle and tendon. REASON FOR EXAM: Concern for biceps tear. Unable to have MRI due to a pacemaker. COMPARISON: None. FINDINGS: There is suggestion of tear of the long head of the biceps tendon with retraction of the tendon in the mid right upper extremity. No mass or fluid collection is seen. IMPRESSION: Findings suggestive of tear of the long head of the biceps tendon with associated retraction of the tendon. While the patient cannot have MRI, noncontrast CT of the right upper extremity could be performed to confirm these findings. Dictated by: Dictated on workstation # [id number]
== END ==
LOC: RAD 14:37
PROVIDERS: ATTEND Nurse Practitioner Family
DX: M66.821 Spontaneous rupture of other tendons, right upper arm (principal); S40.021A Contusion of right upper arm, initial encounter; Z04.2 Encounter for examination and observation following work accident; L03.116 Cellulitis of left lower limb; I10 Essential (primary) hypertension; R60.0 Localized edema; Z79.01 Long term (current) use of anticoagulants; E11.9 Type 2 diabetes mellitus without complications; M79.601 Pain in right arm
CPT/HCPCS: 76881